=== PATIENT | female | born 1955 | race Caucasian/White ===

== ENCOUNTER → 2023-10-26 06:25 | Day surgery (SDC) | payer MEDICARE, OTHER, SELFPAY | LOC: GI 06:25 | PROVIDERS: ATTENDING PHYSICIAN Internal Medicine Gastroenterology | DX: D50.0 Iron deficiency anemia secondary to blood loss (chronic) (principal); R63.4 Abnormal weight loss; R19.5 Other fecal abnormalities; K22.2 Esophageal obstruction; K44.9 Diaphragmatic hernia without obstruction or gangrene; K31.89 Other diseases of stomach and duodenum; K92.2 Gastrointestinal hemorrhage, unspecified; K22.89 Other specified disease of esophagus | CPT/HCPCS: 43239; 88305; 88342 ==

== ENCOUNTER 2024-01-04 15:26 | Inpatient (IN) | payer MEDICARE, OTHER, SELFPAY ==
[2024-01-04] VITALS (9 sets, daily range): BP systolic 88–125; BP diastolic 58–75; BMI 16.8
--- NOTE | 2024-01-04 12:09 | EDRN ---
Assisted the patient to the bathroom and settleted her on the toilet. Patient removed the hat that was for urine collection stating she needed to have a BM. Patient then urinated in the toilet and no BM. Unable to obtain urine specimen at this time.
--- NOTE | 2024-01-04 12:21 | ED.GENMED ---
History of Present Illness
General
Chief Complaint: Alcohol Problem
Source: patient
Exam Limitations: none
Time Seen by Provider: 01/04/24 11:54
Nursing documentation reviewed up to this point in time: agreed with
Travel History
Have you had any contact with someone who has COVID-19?: No
Do you have any symptoms of coronavirus? Fever > 100 degrees, chills, cough, shortness of breath, sore throat, loss of taste or smell, muscle aches, or headache?: No
History of Present Illness
History of Present Illness:
Patient is a 68-year old female with past medical history of alcohol abuse hypertension abdominal aortic aneurysm anxiety depression presents to the ER with 2 sisters. Patient is requesting alcohol detox. She has a history of alcohol abuse and has
been drinking for at least 2 months. She however complains of feeling very weak reports family states pt can barely walk to the bathroom and back she is using a cane mode at home. They believe it is because she does not walk at all. They state
they spoke to ADAMARIS with [employer]. Family reports patient is losing weight but not eating. Patient denies any headache though she reports she fell several weeks ago family is concerned that she may have fallen more recently as she has been
intoxicated and may not recall. Patient denies any abdominal pain chest pain shortness of breath nausea vomiting.
Patient has no history of withdrawal seizures.
Review of Systems
Review of Systems
Allergies reviewed?: Yes
All Other Systems: ROS reviewed and negative except as documented in HPI and ROS
Constitutional: Reports fatigue; Denies fever
Respiratory: Reports no symptoms; Denies trouble breathing
Cardiac: Reports no symptoms
ABD/GI: Reports no symptoms
Musculoskeletal: Reports no symptoms
Skin: Reports no symptoms
Psychiatric: Reports no symptoms
Phy Exam
General Physical Exam
General Presentation: no apparent distress
General age: appears stated age
General Skin: warm and dry
General Habitus: elderly
General Mental: alert
General Hydration: dry mucous membranes
Scores
Withdrawal Assessment of Alcohol
Withdrawal Assessment Completed?: Not applicable
Course
Orders/Labs/Results
Orders:
Orders
01/04/24 12:20
CT Head W/o Iv Contrast Urgent
Comment:
Reason For Exam: head injury
Urinalysis Reflex To Culture Urgent
Date Specimen was Collected: 01/04/24
Time Specimen was Collected: 12:23
01/04/24 12:41
Complete Blood Count/With Diff Urgent
Comprehensive Metabolic Panel Urgent
01/04/24 13:17
Physical Therapy Consult [Pt Eval And Treat] Urgent
Activity Level: Ambulate
01/04/24 13:54
0.9% Sodium Chloride 1000 ml [Nss] 1,000 ml IV BOLUS
Abnormal Lab Results
01/04/24
12:41
RBC 3.13 L 10^6/uL
(4.20-5.40)
Hgb 9.6 L g/dL
(12.0-16.0)
Hct 28.3 L %
(37.0-47.0)
Plt Count 124 L 10^3/uL
(130-400)
Abs Immat Gran (auto) 0.1 H 10^3/uL
(0-0.05)
Absolute Lymphs (auto) 0.3 L 10^3/uL
(1.2-3.4)
Absolute Monos (auto) 0.8 H 10^3/uL
(0.1-0.6)
Immature Gran % 1.7 H %
(0-0.5)
Lymphocytes % 7.1 L %
(20.5-51.1)
Monocytes % 15.7 H %
(1.7-9.3)
Sodium 128 L mmol/L
(135-145)
Chloride 83 L mmol/L
(98-107)
BUN 32 H mg/dl
(7-17)
Glucose 131 H mg/dl
(70-99)
Total Bilirubin 1.7 H mg/dl
(0.2-1.3)
AST 254 H U/L
(14-36)
ALT 97 H U/L
(0-35)
Alkaline Phosphatase 205 H U/L
(38-126)
01/04/24 12:41
01/04/24 12:41
Vital Signs
Initial and Last Documented VS:
Initial Vital Signs
Temp Pulse Resp BP Pulse Ox
98.6 F 89 18 88/59 100
01/04/24 11:26 01/04/24 11:26 01/04/24 11:26 01/04/24 11:26 01/04/24 11:26
Last Documented Vital Signs
Temp Pulse Resp BP Pulse Ox
98.6 F 89 18 99/71 100
01/04/24 11:26 01/04/24 11:26 01/04/24 11:26 01/04/24 13:49 01/04/24 11:26
MDM/Problems Addressed
Differential Diagnosis Includes:
Not limited to alcohol abuse, anemia, lecture abnormality, hyponatremia
MDM/Problems Addressed:
Patient is a 68-year-old female who presented to the ER for evaluation for alcohol detox however is also very weak. Patient lives alone can barely walk to the bathroom has been using a bedside commode here. She admits to drinking alcohol yesterday
did not drink alcohol today. No prior history withdrawal seizures. She arrives initially willing to get help with family at bedside she however is very generalized weak on exam with a sodium of 128, she is anemic at 9.6.
Patient presents awake alert no acute distress here appears to be generally weak. She needed assistance to ambulate to the bathroom and was not able to get herself up off the toilet.
With hyponatremia anemia will admit to the hospital.
Will give fluids as she is dehydrated the BUN of 32. Patient also hypertensive. LFTs are also elevated. No prior labs for comparison.
1357: Discussed with admitting hospitalist
Chronic conditions affecting care:
Alcohol abuse
*Pulse Oximetry
Patient hypoxic: no
*Critical Care Note
Total Time (30-74mins, 75-104mins- exclusive of procedures): Not Applicable
ED Attending Note
-
Portions of this chart may have been created with voice recognition software.� Occasional wrong word or��sound alike� substitutions may have occurred due to the inherent limitations of voice recognition software.
Discharge Plan
Departure
Patient Disposition: Admit
Date of Disposition: 01/04/24
Time of Disposition: 13:58
Admit to: Med/Surg
Admit to doctor: hospitalist
Presentation/result/management discussed w/ accepting MD/DO: Hospitalist
Patient with high blood pressure during this ER visit?: Yes
Condition: Fair
Covid-19: Not Applicable
Discharge Problem:
Alcohol abuse, Weakness, Acute hyponatremia, Anemia
Referrals:
Remberto Collazo CRNP [Family Provider] -
Interventions
Interventions:
*Risk Screen - Suicide Last Done: 01/04/24 11:26
*General Assessment Last Done: 01/04/24 11:26
*Neglect/Abuse Screening Last Done: 01/04/24 11:26
*ED COVID-19 Vaccine History Last Done: 01/04/24 11:26
Discharge Date and Time
Print Language: BELARUSIAN
[2024-01-04 13:02] LABS: % Basophils 0.6 % (0-2); % Immature Granulocytes 1.7 % (0-0.5); % Lymphocytes 7.1 % (20.5-51.1); % Monocytes 15.7 % (1.7-9.3); % Neutrophils 74.9 % (42.2-75.2); Absolute Immature Granulocytes 0.1 10^3/uL (0-0.05); Absolute Lymphocytes 0.3 10^3/uL (1.2-3.4); Absolute Monocytes 0.8 10^3/uL (0.1-0.6); Absolute Neutrophils 3.6 10^3/uL (1.4-6.5); Hematocrit 28.3 % (37.0-47.0); Hemoglobin 9.6 g/dL (12.0-16.0); Mean Corp Hgb Conc. 33.9 g/dL (33.0-37.0); Mean Corpuscular Hgb 30.7 pg (27.0-31.0); Mean Corpuscular Volume 90.4 fL (81.0-99.0); Mean Platelet Volume 10.4 fL (7.4-10.4); Nucleated Red Blood Cells % 0.6 %; Platelet Count 124 10^3/uL (130-400); Red Blood Cell Count 3.13 10^6/uL (4.20-5.40); White Blood Cell Count 4.8 10^3/uL (4.8-10.8)
[2024-01-04 13:23] LABS: ALT (SGPT) 97 U/L (0-35); AST (SGOT) 254 U/L (14-36); Albumin 3.7 g/dl (3.5-5.0); Alkaline Phosphatase 205 U/L (38-126); Blood Urea Nitrogen 32 mg/dl (7-17); Calcium 9.2 mg/dl (8.4-10.2); Carbon Dioxide 29 mmol/L (22-30); Chloride 83 mmol/L (98-107); Glucose 131 mg/dl (70-99); Potassium 3.5 mmol/L (3.5-5.1); Sodium 128 mmol/L (135-145); Total Bilirubin 1.7 mg/dl (0.2-1.3); Total Protein 6.5 g/dl (6.3-8.2); eGFR > 60.00
[2024-01-04] MEDS: NSS 1000 IV ×2 (14:56→17:08)
--- NOTE | 2024-01-04 15:47 | HPS.HSE ---
Family Physician
-
Family Physician: ARELY Borrero
Chief Complaint
-
Alcohol detox evaluation/weakness
History of Present Illness
This is a 68-year-old female patient with PMH of anxiety, depression, Hx of alcohol abuse, hypertension,AAA, gastritis, chronic anemia and PVD presenting to the ED for alcohol detoxification and weakness. Patient states that she has been drinking
for over 10 years and that she drinks a pint of vodka every day. She tried to be sober for about 3 months last year and during that time says that she had no withdrawal seizures. She states her last drink was yesterday. She said that she suffered
a fall several weeks ago (?Alcoholic intoxication) and had just a 'black eye'. She also states that she has poor appetite and loss of weight. She also reports that she has been feeling very weak and family states that she struggles to walk around
her home. She lives at home alone and uses a cane for ambulation. Patient is also a current smoker and says that she is smokes less than half a pack a day. She presented to the ED with 2 sisters who stated that they brought her in for help, they
noticed that her house was in a 'unlivable' state. Patient also says that she has been feeling stress due to her sister passing away and the loss of her job.
Medical History
Past Medical History
Past Medical History: Reports HTN and Psychiatric (Anxiety, depression)
Additional Past Medical History:
Gastrointestinal hemorrhage, chronic iron deficiency anemia, Hx of alcohol abuse, abdominal aortic aneurysm, peripheral vascular disease
Past Surgical History: Reports Other (Bilateral common iliac stent endovascular)
Social History
Tobacco: Smoker (Smokes half a pack a day)
Alcohol: Daily (1 pint of vodka)
Living: Alone
Employment: Not Employed
Family History
Family History: Not pertinent
Allergies / Home Medications
Allergies reflects when Allergies were last updated in [facility].
Home Medications with original date entered in [facility]
Home Medications
�Medication �Instructions �Recorded
escitalopram oxalate 20 mg tablet 20 mg PO DAILY 01/04/24
nifedipine 90 mg tablet,extended 90 mg PO DAILY 01/04/24
release
omeprazole 20 mg capsule,delayed 20 mg PO DAILY 01/04/24
release
Allergy/Medication List:
Patient Allergies
Allergy/AdvReac Type Severity Reaction Status Date / Time
No Known Allergies Allergy Unverified 01/04/24 11:27
Review of Systems
-
History Source: Patient
A 12 point ROS was completed and negative except as noted: Yes
Physical Exam
Vital Signs
Vital Signs
Temp Pulse Resp BP Pulse Ox
98.6 F 89 18 99/71 100
01/04/24 11:26 01/04/24 11:26 01/04/24 11:26 01/04/24 13:49 01/04/24 11:26
Physical Exam
General: No Apparent Distress and Cachectic
HEENT: NormoCephalic
Respiratory: Clear
Cardiac: S1/S2 and Regular Rhythm; No Murmur
GI: Soft, Non Tender and Non Distended
Musculoskeletal: No Edema
Skin: Dry
Neuro: Awake, Alert and Oriented
Psych: Calm
Laboratory Results
-
01/04/24 12:41
01/04/24 12:41
Laboratory Results
Total Bilirubin 1.7 mg/dl (0.2-1.3) H 01/04/24 12:41
AST 254 U/L (14-36) H 01/04/24 12:41
ALT 97 U/L (0-35) H 01/04/24 12:41
Alkaline Phosphatase 205 U/L (38-126) H 01/04/24 12:41
Impression/Plan
-
IMPRESSION: This is a 68-year-old female patient with PMH of anxiety, depression, Hx of alcohol abuse, hypertension,AAA, gastritis, chronic anemia and PVD presenting to the ED for alcohol detoxification, loss of appetite and weakness.
PLAN:
# Alcoholic intoxication/Cachectic
�CT head : No acute intracranial abnormality identified, probable small mastoid effusion
-MSAS protocol initiated
� Alcohol level pending
� Initiated thiamine and folate, IVF
-Patient appears cachectic
-PT/OT consulted
� Monitor for alcohol withdrawal seizures
#Hypovolemic hyponatremia (likely due to dehydration/contraction alkalosis)
-Initiated IVF
� Urine studies (urine sodium, creatinine, osmolality) pending
� TSH pending
� CXR pending (possible pna causing hyponatremia)
-Monitor CMP in a.m.
# Chronic microcytic anemia/weight loss
-Iron studies, B12 pending
� Monitor H&H
# Essential HTN
� Hold nifedipine as patient is hypotensive
# Transaminitis
-Increased LFTs (AST 254)
�Likely due to alcoholic hepatitis
-Monitor cmp in AM
# Current smoker
-Started nicotine patch 21 mg
#Anxiety/Depression
-continue escitalopram
DVT ppx: Hep subq 5000u Q12
Code: DNR
[2024-01-04] MEDS: KCL 40 MEQ PO (15:50)
--- NOTE | 2024-01-04 16:10 | EDRN ---
Patient has ambulated to the bathroom several times as she states she needs to urinate. Patient has been incontinent urine in hospital supplied diaper several times now.
--- NOTE | 2024-01-04 16:14 | W.PN.UPDATE ---
Update Note
Progress Note Update
Patient seen and examined
Discussed with patient
Impression:
68 years old female with severe alcohol use disorder presented with generalized fatigue and weakness, inability to perform activities of daily living, poor oral intake.
Severe alcohol use disorder.
Patient reports drinking daily mostly vodka.
Alcohol level pending.
Patient reports no prior history of delirium tremens or alcohol related seizure.
Monitor closely.
Initiate MSAs protocol with lorazepam.
If any evidence of withdrawal/impending DT, would be low threshold for initiation of phenobarbital
Continue thiamine
Exam with no focal neurologic abnormalities.
CT scan of the head negative for acute abnormality.
Dehydration with hypovolemic hyponatremia.
Hypochloremic contraction alkalosis.
Start isotonic solution and monitor response.
Monitor oral intake.
Check TSH, chest x-ray, urine osmolarity as a part of workup for hyponatremia
Continue escitalopram with caution for worsening of hyponatremia.
Chronic normocytic anemia.
Check iron studies and B12 level.
Patient with prior history of hemorrhagic gastritis.
Monitor hemoglobin with hydration, expect drop
Hemoglobin.
Continue PPI.
Thrombocytopenia suspected secondary to alcohol use
Monitor closely.
Check coagulation profile.
Abnormal LFTs mixed pattern with hyperbilirubinemia and AST/ALT ratio consistent with alcohol hepatic injury. Monitor with hydration.
Pancreatic cyst
Under surveillance with most current MRI of the abdomen 09/30.
PAD with abdominal aortic aneurysm and stent in place.
Essential hypertension.
Hold nifedipine given hypotension upon presentation.
[2024-01-04 16:42] LABS: INR 0.99; PT 12.9 Sec (11.4-14.6)
[2024-01-04 16:43] LABS: APTT 26.4 Sec (23.4-35.0)
[2024-01-04 16:45] LABS: Magnesium 1.3 mg/dl (1.6-2.3); Phosphorus 2.6 mg/dl (2.5-4.5)
[2024-01-04 16:46] LABS: Alcohol None Detected
[2024-01-04 16:49] LABS: Alcohol None Detected
[2024-01-04 16:51] LABS: B-Hydroxybutyrate 0.32 mmol/L (0.02-0.27)
--- NOTE | 2024-01-04 17:00 | PTCARENOTE ---
Received pt from ER.Pt awake alert and oriented x3.Forgetful at times, Pt has chronic back pain, tolerable at this time. Pt VSS 99% on RA. Was told by ER staff that pt has not voided so they were unable to obtain specimen. Pt arrived to floor and
went right into bathroom, pt unsure if she voided or not, bladder scan results 0ml, Pt on IVF, Md aware of decreased urine output. Pt also had a loose dark stool, heme positive, MD made aware, Pt has no c/o abd pain or nausea. Pt on MSAS protocol.
Pt oriented to room, call mendes within reach, bed alarm placed for safety, sisters at bedside, plan of care ongoing.
[2024-01-04] MEDS: MAGNESIUM OXIDE 500 MG PO (17:09)
[2024-01-04] MEDS: FOLVITE 1 MG PO (17:09)
[2024-01-04] MEDS: NICODERM TRANSDERMAL 21 MG TRANSDERM (17:09)
[2024-01-04 17:21] LABS: TSH Reflex To Free T4 2.16 uIU/ml (0.47-4.68)
[2024-01-04 17:33] LABS: GGTP 2323 U/L (12-43)
[2024-01-04 17:40] LABS: Vitamin B12 924 pg/ml (239-931)
[2024-01-04] MEDS: PROTONIX IV 40 MG IV (18:33)
[2024-01-04] MEDS: NSS (PRESERVATIVE FREE) 10 ML IV (18:33)
[2024-01-04 18:35] LABS: Hematocrit 24.5 % (37.0-47.0); Hemoglobin 8.3 g/dL (12.0-16.0); Mean Corp Hgb Conc. 33.9 g/dL (33.0-37.0); Mean Corpuscular Hgb 29.9 pg (27.0-31.0); Mean Corpuscular Volume 88.1 fL (81.0-99.0); Mean Platelet Volume 9.7 fL (7.4-10.4); Platelet Count 117 10^3/uL (130-400); Red Blood Cell Count 2.78 10^6/uL (4.20-5.40); Red Cell Dist. Width 25.6 % (11.5-14.5); White Blood Cell Count 4.9 10^3/uL (4.8-10.8)
[2024-01-04] MEDS: HEPARIN 5000 UNITS SC (19:51)
[2024-01-04] MEDS: THIAMINE INJECTION 200 MG IV (19:53)
--- NOTE | 2024-01-05 01:08 | PTCARENOTE ---
Pt states while on bedside commode she voided, but also had another liquid bowel movement at that time as well so urine was not seen in BSC. Bladder scanned pt for 16 cc. Pt without any complaints of abdominal pain or feeling the need to void. Plan
of care ongoing
[2024-01-05] MEDS: NSS 1000 IV ×2 (03:59→17:03)
[2024-01-05 07:20] LABS: % Basophils 0.5 % (0-2); % Eosinophils 1.6 % (0-6); % Immature Granulocytes 1.4 % (0-0.5); % Monocytes 16.9 % (1.7-9.3); % Neutrophils 60.6 % (42.2-75.2); Absolute Eosinophils 0.1 10^3/uL (0-0.7); Absolute Immature Granulocytes 0.1 10^3/uL (0-0.05); Absolute Lymphocytes 0.8 10^3/uL (1.2-3.4); Absolute Monocytes 0.7 10^3/uL (0.1-0.6); Absolute Neutrophils 2.6 10^3/uL (1.4-6.5); Hematocrit 23.5 % (37.0-47.0); Hemoglobin 7.8 g/dL (12.0-16.0); Mean Corp Hgb Conc. 33.2 g/dL (33.0-37.0); Mean Corpuscular Volume 90.4 fL (81.0-99.0); Mean Platelet Volume 10.9 fL (7.4-10.4); Nucleated Red Blood Cells % 0 %; Platelet Count 106 10^3/uL (130-400); Red Cell Dist. Width 25.8 % (11.5-14.5); White Blood Cell Count 4.3 10^3/uL (4.8-10.8)
[2024-01-05 07:57] LABS: Anisocytosis 2+; Hypochromasia 2+; Normal RBC Morphology No
[2024-01-05 07:58] LABS: ALT (SGPT) 80 U/L (0-35); AST (SGOT) 149 U/L (14-36); Alkaline Phosphatase 160 U/L (38-126); Blood Urea Nitrogen 24 mg/dl (7-17); Calcium 8.5 mg/dl (8.4-10.2); Carbon Dioxide 28 mmol/L (22-30); Chloride 92 mmol/L (98-107); Estimated Creatinine Clearance 52 ml/min; Glucose 102 mg/dl (70-99); Iron 85 ug/dl (37-170); Potassium 3.8 mmol/L (3.5-5.1); Sodium 126 mmol/L (135-145); Total Protein 5.5 g/dl (6.3-8.2); eGFR > 60.00
[2024-01-05 07:59] LABS: Stomatocytes 1+
[2024-01-05 08:00] VITALS: BP 121/78
[2024-01-05 08:08] LABS: Percent Saturation 45 % (20-50); Total Iron Binding Capacity 186 ug/dl (265-497)
[2024-01-05] MEDS: LEXAPRO 20 MG PO (08:31)
[2024-01-05] MEDS: FOLVITE 1 MG PO (08:31)
[2024-01-05] MEDS: THIAMINE INJECTION 200 MG IV ×2 (08:32→19:26)
[2024-01-05] MEDS: NICODERM TRANSDERMAL 21 MG TRANSDERM (08:32)
[2024-01-05] MEDS: PROTONIX IV 40 MG IV ×2 (08:32→19:26)
[2024-01-05] MEDS: NSS (PRESERVATIVE FREE) 10 ML IV ×2 (08:32→19:26)
--- NOTE | 2024-01-05 08:39 | W.PN.HOSP.TC ---
Addendum entered and electronically signed by Sim Husain MD 01/05/24 14:38:
Patient seen and examined
Discussed with resident
Discussed with nursing
Impression/plan
Presented with generalized fatigue and weakness and low oral intake.
No focal neurologic findings on exam
CT scan of head without acute abnormalities
Severe alcohol use disorder
Alcohol level undetectable upon admission.
At risk for delirium tremens
Continue close monitoring with MSAS protocol and benzodiazepines.
Continue thiamine
Alcoholic hepatitis, mild LFT elevation.
Currently no indication for corticosteroids.
Monitor closely
Dehydration with hypovolemic hyponatremia.
Starvation metabolic acidosis with contraction alkalosis.
Monitor oral intake
Hyponatremia.
TSH within normal limits chest x-ray with no acute abnormalities.
Given hypotension on presentation continue isotonic solution and follow sodium trend.
Check urine osmolarity and urine sodium.
Acute on chronic normocytic anemia
Heme positive
No evidence of acute/brisk blood loss. Hemoglobin drop likely due to dilution
Patient with prior history of hemorrhagic gastritis on recent EGD.
Iron level sufficient.
GI input appreciated
Continue PPI for
Monitor hemoglobin
Pancytopenia including mild neutropenia and thrombocytopenia likely secondary to sequestration and liver disease. Monitor closely.
Pancreatic cyst under surveillance
PAD with abdominal aortic aneurysm and stent in place
Essential hypertension
Hold nifedipine given hypotension upon admission
Monitor blood pressure with hydration.
Original Note:
Today's Communication/Plan
-
Continue MSAs protocol with lorazepam
Urine studies pending, monitor CMP in a.m.
GI consult pending
Assessment / Plan
Assessment / Plan
IMPRESSION: This is a 68-year-old female patient with PMH of anxiety, depression, Hx of alcohol abuse, hypertension,AAA, gastritis, chronic anemia and PVD presenting to the ED for alcohol detoxification, loss of appetite and weakness.
PLAN:
# Severe alcohol use disorder/Cachectic
�CT head : No acute intracranial abnormality identified, probable small mastoid effusion
-MSAS protocol initiated with lorazepam
� Alcohol level: none dectected
�Continue thiamine and folate, IVF
-Patient appears cachectic
-PT/OT consulted
� Monitor for alcohol withdrawal seizures
#Hypovolemic hyponatremia (likely due to dehydration/hypochloremic contraction alkalosis)
-Continue IVF
� Urine studies (urine sodium, creatinine, osmolality) pending
� TSH normal
� CXR showed hyperinflation
-Sodium decreased today 126
-Monitor CMP in a.m.
# Chronic microcytic anemia/weight loss
-Iron studies: TIBC decreased, ferritin,% saturation and iron levels normal
-Hemoglobin decreased to 7.8 today
� GI consulted due to prior history of gastrointestinal hemorrhage and positive Hemoccult test
-B12 level normal
� Monitor H&H
#C.Diff antigen positive, toxin negative
-no frequent loose stools, afebrile
-Not likely to be C. difficile
� Monitor for frequent loose stools, cbc
# Essential HTN
� Hold nifedipine as patient is hypotensive
# Transaminitis
�Likely due to alcoholic hepatitis
-LFTs trending down
-Monitor cmp in AM
# Current smoker
-Continue nicotine patch 21 mg
#Anxiety/Depression
-continue escitalopram
DVT ppx: Hep subq 5000u Q12
Code: DNR
Anticipated Discharge: 24 - 48 hours
Subjective/Interval History
-
Date of Service: January 05, 2024
Objective Data
-
Labs:
Laboratory Results
01/05/24
06:39
WBC 4.3 L
Hgb 7.8 L
Hct 23.5 L
Plt Count 106 L
Sodium 126 L
Potassium 3.8
Chloride 92 L
Carbon Dioxide 28
BUN 24 H
Creatinine 0.8
Glucose 102 H
Calcium 8.5
Total Bilirubin 1.0
AST 149 H
ALT 80 H
Alkaline Phosphatase 160 H
Vital Signs:
Vital Signs
Temp Pulse Resp BP Pulse Ox
97.8 F 76 16 121/78 99
01/05/24 08:00 01/05/24 08:00 01/05/24 08:00 01/05/24 08:00 01/05/24 08:00
I&O
01/04/24 01/05/24 01/06/24
06:59 06:59 06:59
Intake Total 290 / 290
Balance 290 / 290
Review of Systems
-
History Source: Patient
All other systems: Reviewed and negative
Physical Exam
-
General: No Apparent Distress
HEENT: Normocephalic
Respiratory: Clear to Auscultation
Cardiac: Regular Rhythm and S1/S2; Negative Murmur
GI: Soft, Nontender and Nondistended
Musculoskeletal: No Edema
Skin: Dry
Neuro: Awake, Alert and Oriented
Psych: Calm
[2024-01-05] MEDS: HEPARIN SC (10:02)
--- NOTE | 2024-01-05 12:23 | CON.GI ---
Consultation
-
Date/Time Consultation Requested: 01/05/24
Date/Time Consultation Performed: 01/05/24
Requesting Provider: Sim Husain
Performing Provider: Lisa Breaux
Reason for Consultation: Lisa Breaux
Medical History
Chief Complaint / HPI
Chief Complaint: lethargy, anorexia, weight loss, RIO
History of Present Illness:
Melissa is a 68-year-old female with past medical history of anxiety, depression, hypertension, Raynaud's, DDD of the lumbar spine, hyperlipidemia, alcoholism, AAA, admitted with alcohol intoxication and weakness. She reports anorexia, known
unintentional weight loss over the last year, increased alcohol consumption and lethargy. She is currently drinking approximately a pint of vodka daily. Interested in inpatient rehab when ready for discharge. She denies any history of withdrawal
symptoms or seizures. Last drink was 2 days ago.
--Labs: 7.0 (down from 9.6 yesterday), plt 106, Na 126 (128), K 3.8, Cl 92, BUN 24 (32), Cr. 0.8, Mg 1.3, Iron 85, % sat 45, AST 149 (254), ALT 80 (97), Alk phos 160 (205), Vit B12 WNL, TSH WNL
She follows with Dr. Santana in the office, referred due to unintentional weight loss and heme positive stool. She admitted to 20 lb weight loss since April, also noting tremendous amount of stress and anxiety after losing her job and of her
sister. She reported increased EtoH use- was drinking 3-4 glassess of vodka daily for many years, she had quit in July, was sober for about 3 months then relapsed. It was recommended that she get cross-sectional imaging due to her reports of
unintentional weight loss and iron deficiency anemia on outpatient labs, unfortunately there was quite a bit of delay in her obtaining this. This was completed on 09/08/23, with findings of pancreatic mass c/f malignancy (additional findings below).
She reports having intermittent dark stool in the months leading up to her office visit in August. She takes daily ASA 81 mg, denies excessive NSAID use or anticoagulation. She admits to daily tobacco use. Denies family history of GI malignancy.
Both sister and father had colon polyps.
She underwent a EGD with Dr. Santana on 10/26/2023 for iron deficiency anemia, heme positive stool and weight loss, found to have white nummular lesions in the esophagus, nonobstructing Schatzki's ring, small hiatal hernia. Hematin in the stomach.
Erythematous mucosa in the gastric body and antrum. Colonoscopy was being rescheduled, it was cancelled for unclear reasons. FIT positive (08/14/23). Her hemoglobin on 08/14/2023 was 10, MCV 96, platelets 270. Fe 24, Iron sat 5.
CT A/P (09/08/23):
IMPRESSION:
1. There is a 3.9 cm infrarenal abdominal aortic aneurysm. Dense calcification of the aorta. The findings are consistent with prior aorta bi-iliac stent graft. Please correlate with previous history.
2. Severe narrowing of the proximal aorta at least 50% at the level of the celiac axis and SMA.
3. Large 2 cm hypodensity in the region of the pancreatic uncinate process concerning for malignancy until proven otherwise. Contrast-enhanced MRI of the pancreas is recommended. The differential includes the possibility of a fluid-filled duodenal
diverticulum, however much less likely. There is a Smaller 9 mm hypodense lesion at the junction of the head and neck of the pancreas which could also be reevaluated.
4. Probable adenoma in the left adrenal gland. Follow-up with MRI at the time of imaging for the pancreas.
5. Tiny cyst in the left kidney.
6. No significant para-aortic adenopathy. No adenopathy in the chest. No acute process in the chest.
7. There are 2 tiny 3 mm faint pulmonary nodules as described above. Nonspecific.
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 Recommend MRI/MRCP vs. EUS in 6 months.
Past Medical History
Past Medical History: Hypercholesterolemia, Hyperthyroidism and Psychiatric
Social History
Tobacco: Smoker
Alcohol: Daily
Allergies / Home Medications
Allergy/AdvReac Type Severity Reaction Status Date / Time
No Known Allergies Allergy Unverified 01/04/24 11:27
�Medication �Instructions �Recorded
escitalopram oxalate 20 mg tablet 20 mg PO DAILY 01/04/24
nifedipine 90 mg tablet,extended 90 mg PO DAILY 01/04/24
release
omeprazole 20 mg capsule,delayed 20 mg PO DAILY 01/04/24
release
Review of Systems
-
History Source: Patient and Family (sister at bedside)
All other systems: A 12 pt ROS was Negative except as stated above in HPI
Vital Signs
Temp Pulse Resp BP Pulse Ox
97.8 F 76 16 121/78 99
01/05/24 08:00 01/05/24 08:00 01/05/24 08:00 01/05/24 08:00 01/05/24 08:00
Physical Exam
Exam
General: No Apparent Distress and Comfortable
HEENT: Normocephalic and Moist Mucous Membranes
Respiratory: Clear
Cardiac: S1/S2
GI: Soft, Non Tender and Non Distended
Skin: Warm and Dry
Neuro: Awake, Alert and Oriented
Psych: Calm
Results
WBC 4.3 10^3/uL (4.8-10.8) L 01/05/24 06:39
Hgb 7.8 g/dL (12.0-16.0) L 01/05/24 06:39
Hct 23.5 % (37.0-47.0) L 01/05/24 06:39
MCV 90.4 fL (81.0-99.0) 01/05/24 06:39
Plt Count 106 10^3/uL (130-400) L 01/05/24 06:39
Absolute Neuts (auto) 2.6 10^3/uL (1.4-6.5) 01/05/24 06:39
PT 12.9 Sec (11.4-14.6) 01/04/24 16:25
INR 0.99 01/04/24 16:25
APTT 26.4 Sec (23.4-35.0) 01/04/24 16:25
Sodium 126 mmol/L (135-145) L 01/05/24 06:39
Potassium 3.8 mmol/L (3.5-5.1) 01/05/24 06:39
Chloride 92 mmol/L (98-107) L 01/05/24 06:39
Carbon Dioxide 28 mmol/L (22-30) 01/05/24 06:39
BUN 24 mg/dl (7-17) H 01/05/24 06:39
Creatinine 0.8 mg/dL (0.6-1.0) 01/05/24 06:39
Calcium 8.5 mg/dl (8.4-10.2) 01/05/24 06:39
Total Bilirubin 1.0 mg/dl (0.2-1.3) 01/05/24 06:39
AST 149 U/L (14-36) H 01/05/24 06:39
ALT 80 U/L (0-35) H 01/05/24 06:39
Alkaline Phosphatase 160 U/L (38-126) H 01/05/24 06:39
Diagnostic Image Results:
Prior GI Procedures:
EGD:
Colonoscopy:
Assessment / Plan
-
68-year-old female with past medical history of anxiety, depression, hypertension, Raynaud's, DDD of the lumbar spine, hyperlipidemia, alcoholism, AAA, admitted with alcohol intoxication and weakness. She reports anorexia, known unintentional weight
loss over the last year, increased alcohol consumption and lethargy.
#Alcohol Hepatitis c/b starvation ketosis
-AST 254, ALT 97, Alk phos 205, Tbili 1.7 on admission, improving --> AST 149, ALT 80, Alk phos 160
-MDF <32 --> no role for steroids
-c/w thiamine, folate
-alcohol level undetectable
-IVF
-MSAS protocol
-monitor for withdrawal
#Elevated Transaminases
-TSH WNL
-check hepatitis panel
-likely 2/2 alc hep, improving since admission
#Thrombocytopenia
-suspect due to splenic sequestration in setting of chronic alc consumption
-coags WNL
#Pancreatic cyst/IPMN
-Due for EUS vs. MRI/MRCP 03/2024
#Positive FIT
#Iron Deficiency Anemia
-hemoglobin worse compared to prior, likely some dilutional effect as no signs of active GI bleeding
-start PPI
-s/p EGD, needs colonoscopy
-given substantial barriers to outpatient testing, will plan to perform while inpatient. Will tentatively plan to prep her tomorrow and perform on , pending improving in her electrolytes and no withdrawal symptoms
#Unintentional Weight Loss
-suspect multifactorial; comprehensive workup as outpatient with CT A/P, MRI/MRCP, findings as per above
#Hypovolemic Hyponatremia
-due to poor oral intake, excessive alcohol consumption
-hypomag
-urine studies, serum osm, needs appropriate correction and electrolyte repletion
Data Reviewed
-
CT Scan: Report Reviewed by me
MRI: Report Reviewed by me
Old Records: Reviewed
Time spent with patient (in minutes): Discussed all findings with both patient and her sister, who was at bedside
-
-
Thank you for consultation and allowing me to participate in the patient's care. Please call the song and dance performer GI physician during the after hours with any questions or concerns.
--- NOTE | 2024-01-05 13:34 | CM ---
Addendum entered by Elsie Bess 01/05/24 13:54:
Spoke with Gal from [facility] in person; demographic and clinical information copied and given to Gal to submit for rehab placement
Original Note:
Met with patient at bedside; initial assessment; Case Management Consult completed
Pharmacy verified: [facility], [facility]
Lives alone in a multilevel home; 4 steps to enter via back door; railing present; lives on first floor of house; 1st floor does not have a bathroom; toilet on Commode; drives to her sister's house to shower/bathe; sisters live nearby
Reported that her Food is supplied by [employer]
PLOF: reports she shuffles when she walks; uses a cane to get up from chair, does not go up the stairs unless someone is there to assist her; independent with ADLs;
DME: single point cane
Transportation: one of her sisters will provide transport
SNF/Rehab/Home Health utilization history: none
Plan: [facility] following; will discharge to alcohol rehab when medically stable
[2024-01-05 14:53] VITALS: BMI 16.8
[2024-01-05 15:17] VITALS: BP 116/78
--- NOTE | 2024-01-05 18:06 | PTCARENOTE ---
Pt voids small amount of urine at a time, mixed with BM. Patient was blader scanned multiple times, with small amount of urine(0cc,20cc) in bladder on all tries. Patient is encouraged to void in hat without a bowel movement.
[2024-01-05] MEDS: HEPARIN 5000 UNITS SC (19:26)
[2024-01-05 22:15] LABS: Urine Albumin Negative (Neg - Trace); Urine Bilirubin Negative (Negative); Urine Character Slightly Cloudy (Clear); Urine Color Yellow; Urine Glucose Negative (Negative); Urine Ketone Negative (Negative); Urine Leukocyte 2+ (Negative); Urine Nitrite Positive (Negative); Urine Occult Blood Negative (Negative); Urine Specific Gravity 1.005 (<1.030); Urine Urobilinogen Negative (Neg - 1+)
[2024-01-05 22:21] LABS: Urine Red Blood Cell 0-2 /HPF (0-2); Urine Squamous Cell 16-20 /LPF (Few); Urine Urothelial Cell 0-2 /LPF (FEW)
[2024-01-05 22:22] LABS: Urine Bacteria Many (Negative); Urine White Cell 26-30 /HPF (0-5)
[2024-01-05 22:53] LABS: Osmolality Urine 289 mOsm/kg (300-900)
[2024-01-05 23:00] LABS: Amphetamines Negative (Negative); Barbiturates Negative (Negative); Benzodiazepines Negative (Negative); Buprenorphine Negative (Negative); Cocaine Negative (Negative); Marijuana Negative (Negative); Methadone Negative (Negative); Methamphetamines Negative (Negative); Opiates Negative (Negative); Phencyclidine Negative (Negative); Tricyclic Antidepressants Negative (Negative)
[2024-01-05 23:11] LABS: Urine Sodium 40 mmol/L (30-90)
[2024-01-05 23:20] VITALS: BP 110/64
[2024-01-06] MEDS: NSS 1000 IV (03:05)
[2024-01-06 07:38] LABS: % Basophils 0.3 % (0-2); % Eosinophils 2.4 % (0-6); % Immature Granulocytes 2.4 % (0-0.5); % Lymphocytes 18.7 % (20.5-51.1); % Monocytes 14.8 % (1.7-9.3); % Neutrophils 61.4 % (42.2-75.2); Absolute Eosinophils 0.1 10^3/uL (0-0.7); Absolute Immature Granulocytes 0.1 10^3/uL (0-0.05); Absolute Lymphocytes 0.6 10^3/uL (1.2-3.4); Absolute Monocytes 0.5 10^3/uL (0.1-0.6); Absolute Neutrophils 2.1 10^3/uL (1.4-6.5); Hematocrit 21.4 % (37.0-47.0); Mean Corp Hgb Conc. 32.7 g/dL (33.0-37.0); Mean Corpuscular Hgb 30.2 pg (27.0-31.0); Mean Corpuscular Volume 92.2 fL (81.0-99.0); Nucleated Red Blood Cells % 0 %; Red Blood Cell Count 2.32 10^6/uL (4.20-5.40); White Blood Cell Count 3.4 10^3/uL (4.8-10.8)
[2024-01-06 08:01] LABS: ALT (SGPT) 61 U/L (0-35); AST (SGOT) 139 U/L (14-36); Albumin 2.4 g/dl (3.5-5.0); Alkaline Phosphatase 126 U/L (38-126); Blood Urea Nitrogen 13 mg/dl (7-17); Calcium 8.2 mg/dl (8.4-10.2); Carbon Dioxide 27 mmol/L (22-30); Chloride 99 mmol/L (98-107); Estimated Creatinine Clearance 59 ml/min; Glucose 94 mg/dl (70-99); Potassium 3.3 mmol/L (3.5-5.1); Sodium 131 mmol/L (135-145); Total Bilirubin 0.7 mg/dl (0.2-1.3); Total Protein 4.6 g/dl (6.3-8.2); eGFR > 60.00
--- NOTE | 2024-01-06 08:22 | W.PN.HOSP.TC ---
Addendum entered and electronically signed by Sim Husain MD 01/06/24 13:40:
Patient seen and examined
Discussed with resident
Discussed with gastroenterology and nursing
Impression/plan
Presented with generalized fatigue and weakness and low oral intake.
No focal neurologic findings on exam
CT scan of head without acute abnormalities
Severe alcohol use disorder
Alcohol level undetectable upon admission.
Mental status is stable with no apparent symptoms of alcohol withdrawal at this point.
Continue close monitoring with MSAS protocol and benzodiazepines.
Continue thiamine
Alcoholic hepatitis, mild LFT elevation.
Currently no indication for corticosteroids.
Monitor closely
Dehydration with hypovolemic hyponatremia.
Starvation metabolic acidosis with contraction alkalosis.
Monitor oral intake
Hyponatremia.
TSH within normal limits chest x-ray with no acute abnormalities.
Urine osmolarity increased to 289 and consistent with likely high ADH state secondary to hypotension upon presentation
Hyponatremia improved with isotonic solution sodium level up to 131.
Hypomagnesemia
Hypokalemia
Being repleted with IV fluids.
Acute on chronic normocytic anemia
Heme positive
No evidence of acute/brisk blood loss. Hemoglobin drop likely due to dilution
Patient with prior history of hemorrhagic gastritis on recent EGD.
Iron level sufficient.
GI input appreciated
Continue PPI for
Monitor hemoglobin
Being prepped for colonoscopy on 01/06
Serial hemoglobin monitoring. Transfuse if trending below 7. Patient consented for blood transfusion.
Pancytopenia including mild neutropenia and thrombocytopenia likely secondary to sequestration and liver disease. Monitor closely.
Pancreatic cyst under surveillance
PAD with abdominal aortic aneurysm and stent in place
Essential hypertension
Hold nifedipine given hypotension upon admission
Monitor blood pressure with hydration.
Original Note:
Today's Communication/Plan
-
Hemoglobin dropped to 7, blood transfusion consent taken
Colonoscopy prep today scheduled for procedure tomorrow
Continue IV fluids
Assessment / Plan
Assessment / Plan
IMPRESSION: This is a 68-year-old female patient with PMH of anxiety, depression, Hx of alcohol abuse, hypertension,AAA, gastritis, chronic anemia and PVD presenting to the ED for alcohol detoxification, loss of appetite and weakness.
PLAN:
# Severe alcohol use disorder/Cachectic
�CT head : No acute intracranial abnormality identified, probable small mastoid effusion
-MSAS protocol initiated with lorazepam
� Alcohol level: none dectected
�Continue thiamine and folate, IVF
-Patient appears cachectic
-PT/OT consulted
� Monitor for alcohol withdrawal seizures
#Hypovolemic hyponatremia (likely due to dehydration/hypochloremic contraction alkalosis)
-Continue IVF
� Urine studies: Creatinine 55, sodium 40
� TSH normal
� CXR showed hyperinflation
-Sodium increased to 131 today
� Potassium was 3.3, repleted, mag was 1.2, repleted
-Monitor CMP in a.m.
# Chronic microcytic anemia/weight loss
-Iron studies: TIBC decreased, ferritin,% saturation and iron levels normal, B12 level normal
� GI consulted due to prior history of gastrointestinal hemorrhage and positive Hemoccult test
-GI to prep patient today for colonoscopy tomorrow
-Hemoglobin dropped to 7 today, blood transfusion consent taken, will recheck hemoglobin in evening
� Monitor H&H
# Abnormal U/A (?UTI/?contamination)
� U/a showed UTI findings, may have been contaminated
� Patient is asymptomatic so we will hold off antibiotics currently
#C.Diff antigen positive, toxin negative
-no frequent loose stools, afebrile
-Not likely to be C. difficile
� Monitor for frequent loose stools, cbc
# Essential HTN
� Hold nifedipine as patient is hypotensive
# Transaminitis
�Likely due to alcoholic hepatitis
-Hepatitis panel pending
-LFTs trending down
-Monitor cmp in AM
# Current smoker
-Continue nicotine patch 21 mg
#Anxiety/Depression
-continue escitalopram
DVT ppx: Hep subq 5000u Q12
Code: DNR
Anticipated Discharge: 24 - 48 hours
Subjective/Interval History
-
Date of Service: January 06, 2024
Objective Data
-
Labs:
Laboratory Results
01/06/24
06:43
WBC 3.4 L
Hgb 7.0 L
Hct 21.4 L
Plt Count Pending
Sodium 131 L
Potassium 3.3 L
Chloride 99
Carbon Dioxide 27
BUN 13
Creatinine 0.7
Glucose 94
Calcium 8.2 L
Total Bilirubin 0.7
AST 139 H
ALT 61 H
Alkaline Phosphatase 126
Vital Signs:
Vital Signs
Temp Pulse Resp BP Pulse Ox
98.5 F 76 16 110/64 97
01/05/24 23:20 01/05/24 23:20 01/05/24 23:20 01/05/24 23:20 01/05/24 23:20
I&O
01/05/24 01/06/24 01/07/24
06:59 06:59 06:59
Intake Total 290 / 290 600 / 600
Output Total 200 / 200
Balance 290 / 290 400 / 400
Review of Systems
-
History Source: Patient
All other systems: Reviewed and negative
Physical Exam
-
General: No Apparent Distress
HEENT: Normocephalic
Respiratory: Clear to Auscultation
Cardiac: Regular Rhythm and S1/S2; Negative Murmur
GI: Soft, Nontender and Nondistended
Musculoskeletal: No Edema
Skin: Dry
Neuro: Awake, Alert and Oriented
Psych: Calm
[2024-01-06 08:23] VITALS: BP 148/82
[2024-01-06] MEDS: NSS (PRESERVATIVE FREE) 10 ML IV ×2 (08:36→19:46)
[2024-01-06] MEDS: PROTONIX IV 40 MG IV ×2 (08:36→19:46)
[2024-01-06] MEDS: THIAMINE INJECTION 200 MG IV ×2 (08:38→19:48)
[2024-01-06] MEDS: KCL 40 MEQ PO (08:39)
[2024-01-06] MEDS: LEXAPRO 20 MG PO (08:39)
[2024-01-06] MEDS: FOLVITE 1 MG PO (08:39)
[2024-01-06] MEDS: NICODERM TRANSDERMAL 21 MG TRANSDERM (08:40)
[2024-01-06 08:54] LABS: Magnesium 1.2 mg/dl (1.6-2.3)
[2024-01-06] MEDS: KCL 1022 MEQ IV (08:57)
[2024-01-06] MEDS: KCL 1022 GRAMS IV (08:57)
[2024-01-06] MEDS: NSS IV (09:07)
--- NOTE | 2024-01-06 09:37 | W.PN.GI.CBS2 ---
Today's Communication / Plan
-
Check hemolysis labs. Repeat CBC 1 pm. Start prep for colonoscopy tomorrow. Clear liquid diet. Replete Mg and K.
Assessment / Plan
-
68-year-old female with past medical history of anxiety, depression, hypertension, Raynaud's, DDD of the lumbar spine, hyperlipidemia, alcoholism, AAA, admitted with alcohol intoxication and weakness. She reports anorexia, known unintentional weight
loss over the last year, increased alcohol consumption and lethargy.
#Alcohol Hepatitis c/b starvation ketosis
-AST 254, ALT 97, Alk phos 205, Tbili 1.7 on admission, improving --> AST 139, ALT 61, Alk phos 126
-MDF <32 --> no role for steroids
-c/w thiamine, folate
-alcohol level undetectable
-IVF
-MSAS protocol
-no signs of active withdrawal
#Elevated Transaminases
-TSH WNL
-check hepatitis panel--pending
-likely 2/2 alc hep, improving since admission
#Thrombocytopenia
-suspect due to splenic sequestration in setting of chronic alc consumption
-coags WNL
-check hemolysis labs
#Pancreatic cyst/IPMN
-Due for EUS vs. MRI/MRCP 03/2024
#Positive FIT
#Iron Deficiency Anemia
-hemoglobin worse compared to prior, with ongoing drops w/o signs of active GI bleeding; hemolysis panel pending, but improving AST does not support this
-will recheck Hgb at 1 pm, if continues to drop, will check CT scan to rule out RP bleed
-start PPI
-s/p EGD; colonoscopy planned for tomorrow, clear liquid diet and Dulcolax + prep
#Unintentional Weight Loss
-suspect multifactorial; comprehensive workup as outpatient with CT A/P, MRI/MRCP, findings as per above
#Hypovolemic Hyponatremia-improving
-due to poor oral intake, excessive alcohol consumption
-hypomag--needs repletion
-urine studies, serum osm, needs appropriate correction and electrolyte repletion
Subjective
Subjective
Date of Service: January 06, 2024
Patient seen in follow-up today. Hgb 7.0, hemoglobin is now down 2.5 g from 01/02 without signs of GI bleeding. I added on haptoglobin, LDH, retic count. Will continue to monitor, plans for colonoscopy tomorrow given improvement in electrolyte
abnormalities and no signs of withdrawal. Patient offers no complaints, she is agreeable to plan.
Objective
Data Reviewed
Laboratory Data:
Laboratory Results
01/06/24 06:43
01/06/24 06:43
Laboratory Results
PT 12.9 Sec (11.4-14.6) 01/04/24 16:25
INR 0.99 01/04/24 16:25
APTT 26.4 Sec (23.4-35.0) 01/04/24 16:25
Phosphorus 2.6 mg/dl (2.5-4.5) 01/04/24 16:25
Magnesium Cancelled 01/06/24 08:10
Total Bilirubin 0.7 mg/dl (0.2-1.3) 01/06/24 06:43
AST 139 U/L (14-36) H 01/06/24 06:43
ALT 61 U/L (0-35) H 01/06/24 06:43
Alkaline Phosphatase 126 U/L (38-126) 01/06/24 06:43
Vital Signs and I&O:
Vital Signs
Temp Pulse Resp BP Pulse Ox
98.0 F 75 18 148/82 99
01/06/24 08:23 01/06/24 08:23 01/06/24 08:23 01/06/24 08:23 01/06/24 08:23
I&O
01/05/24 01/06/24 01/07/24
06:59 06:59 06:59
Intake Total 290 / 290 600 / 600
Output Total 200 / 200
Balance 290 / 290 400 / 400
Physical Exam
Physical Exam
GENERAL: In no acute distress, appears comfortable
HEENT: no scleral icterus, +conjunctival pallor; mucous membranes moist, OP clear
RESP: Nonlabored respirations, clear to auscultation, b/l
CV: RRR, S1/S2
ABDOMEN: +BS; soft, non-tender and non-distended; no rebound or guarding
EXT: No LE edema, b/l
SKIN: Dry, warm
NEURO: AAOx3
[2024-01-06 10:00] LABS: Reticulocyte Count 2.5 % (0.4-2.8)
[2024-01-06] MEDS: HEPARIN SC (11:00)
--- NOTE | 2024-01-06 11:23 | PN.CDI ---
CDI
- -
CDI:
Physician Documentation Request
Admit Date: 01/04/24 15:26
Dear Doctor Rodrigue,
01/04 [employer] Assessment: 'With observed muscle and fat wasting, as well as > 10% weight in 6 months pt meets AND/ASPEN criteria for moderate protein calorie malnutrition of chronic illness.'
Based on the information, which of the following most accurately represents the patient's nutritional status?
Moderate protein calorie malnutrition
Other
[place] Criteria ([facility] Hospitalist 2017)
2 or more criteria must be present for either
non severe or severe malnutrition
Note that the criteria differs related to the
presence of an acute or chronic illness
Acute Illness Chronic Illness
Energy Intake Non Severe: <75% for >7 days Non Severe: <75% for >1 month
Severe: <50% for >5 days Severe: <75% for >1 month
Weight Loss Non Severe: 1-2% over 1 week Non Severe: 5% over 1 month
5% over 1 month 7.5% over 3 months
7.5% over 3 months 10% over 6 months
1 year N/A 20% over 1 year
Severe: >2% over 1 week Severe: >5% over 1 month
>5% over 1 month >7.5% over 3 months
>7.5% over 3 months >10% over 6 months
1 year N/A >20% over 1 year
Body Fat Non Severe: Mild Decrease Non Severe: Mild Loss
Severe: Moderate Decrease Severe: Severe Loss
Muscle Mass Non Severe: Mild Decrease Non Severe: Mild Loss
Severe: Moderate Decrease Severe: Severe Loss
Fluid Accumulation Non Severe: Mild Accumulation Non Severe: Mild Accumulation
Severe: Moderate to severe Severe: Moderate to severe
accumulation accumulation
Reduced Car Whacker Strength Non Severe: N/A Non Severe: N/A
Severe: Measurably reduced Severe: Measurably reduced
Use of terms such as suspected, likely, concern for, or probable (associated with a specific diagnosis that is being evaluated, monitored, or treated as if it exists) are acceptable and can be coded in the inpatient setting, when documented at the
time of discharge.
Thank you,
Tamie Sung RN, BSN
CDI Specialist
Available via [place] text
Please use your independent medical judgment in providing your response.
[2024-01-06] MEDS: DULCOLAX 10 MG PO (11:44)
[2024-01-06] MEDS: GAVILAX 238 GM PO (13:01)
[2024-01-06 13:54] LABS: % Basophils 0.5 % (0-2); % Eosinophils 1.8 % (0-6); % Immature Granulocytes 1.8 % (0-0.5); % Lymphocytes 14.4 % (20.5-51.1); % Monocytes 14.4 % (1.7-9.3); % Neutrophils 67.1 % (42.2-75.2); Absolute Eosinophils 0.1 10^3/uL (0-0.7); Absolute Immature Granulocytes 0.1 10^3/uL (0-0.05); Absolute Lymphocytes 0.6 10^3/uL (1.2-3.4); Absolute Monocytes 0.6 10^3/uL (0.1-0.6); Absolute Neutrophils 2.6 10^3/uL (1.4-6.5); Hematocrit 23.8 % (37.0-47.0); Hemoglobin 7.7 g/dL (12.0-16.0); Mean Corp Hgb Conc. 32.4 g/dL (33.0-37.0); Mean Corpuscular Hgb 30.3 pg (27.0-31.0); Mean Corpuscular Volume 93.7 fL (81.0-99.0); Mean Platelet Volume 10.8 fL (7.4-10.4); Nucleated Red Blood Cells % 0 %; Platelet Count 105 10^3/uL (130-400); Red Blood Cell Count 2.54 10^6/uL (4.20-5.40); White Blood Cell Count 3.8 10^3/uL (4.8-10.8)
[2024-01-06 15:20] VITALS: BP 123/77
[2024-01-06 17:07] LABS: Creatine Phosphokinase 41 U/L (30-135); LDH 287 U/L (120-246)
[2024-01-06] MEDS: ORAJEL 10% GEL 1 APPLIC TOPICAL (17:48)
[2024-01-06 23:34] VITALS: BP 93/61
[2024-01-07 03:13] VITALS: BP 100/66
[2024-01-07 08:13] VITALS: BP 95/62
--- NOTE | 2024-01-07 08:14 | W.PN.HOSP.TC ---
Addendum entered and electronically signed by Sim Husain MD 01/07/24 17:26:
Patient seen and examined
Discussed with resident
Discussed with gastroenterology and nursing
Impression/plan
Presented with generalized fatigue and weakness and low oral intake.
No focal neurologic findings on exam
CT scan of head without acute abnormalities
Severe alcohol use disorder
Alcohol level undetectable upon admission.
Mental status is stable with no apparent symptoms of alcohol withdrawal at this point.
Continue close monitoring with MSAS protocol and benzodiazepines.
Continue thiamine
Alcoholic hepatitis, mild LFT elevation.
Currently no indication for corticosteroids.
Monitor closely
Dehydration with hypovolemic hyponatremia.
Starvation metabolic acidosis with contraction alkalosis.
Monitor oral intake
Hyponatremia.
TSH within normal limits chest x-ray with no acute abnormalities.
Urine osmolarity increased to 289 and consistent with likely high ADH state secondary to hypotension upon presentation
Hyponatremia improved with isotonic solution sodium level up to 130
Hypomagnesemia
Hypokalemia
Being repleted with IV fluids.
Acute on chronic normocytic anemia
Heme positive
No evidence of acute/brisk blood loss. Hemoglobin drop likely due to dilution
Patient with prior history of hemorrhagic gastritis on recent EGD.
Iron level sufficient.
GI input appreciated
Continue PPI for
Monitor hemoglobin
Colonoscopy 01/06 with polypectomy. Appendiceal polyp noted with plan for repeat colonoscopy in 3 months and removal by advanced endoscopist. Overall no evidence of acute blood loss.
Serial hemoglobin monitoring. Transfuse if trending below 7. Patient consented for blood transfusion.
Pancytopenia including mild neutropenia and thrombocytopenia likely secondary to sequestration and liver disease. Monitor closely.
Pancreatic cyst under surveillance
PAD with abdominal aortic aneurysm and stent in place
Original Note:
Today's Communication/Plan
-
S/p colonoscopy
Monitor H&H, continue MSAS protocol
PT/OT- SNF recommendation
Assessment / Plan
Assessment / Plan
IMPRESSION: This is a 68-year-old female patient with PMH of anxiety, depression, Hx of alcohol abuse, hypertension,AAA, gastritis, chronic anemia and PVD presenting to the ED for alcohol detoxification, loss of appetite and weakness.
PLAN:
# Severe alcohol use disorder/Cachectic
�CT head : No acute intracranial abnormality identified, probable small mastoid effusion
�Continue thiamine and folate, IVF
-Continue MSAS protocol with lorazepam
� Monitor for alcohol withdrawal seizures
-PT/OT consulted; SNF recommendation
#Hypovolemic hyponatremia (likely due to dehydration/hypochloremic contraction alkalosis)
-Continue IVF
� Urine studies: Creatinine 55, sodium 40
� TSH normal
� CXR showed hyperinflation
-Sodium 130 today
� Potassium was 3.6, mag 1.2 today (repleted)
-Monitor CMP in a.m.
# Chronic microcytic anemia/weight loss
-Iron studies: TIBC decreased, ferritin,% saturation and iron levels normal, B12 level normal
� GI consulted due to prior history of gastrointestinal hemorrhage and positive Hemoccult test
-S/p colonoscopy-appendiceal orifice polyp, two sessile sigmoid polyp resection
� Monitor H&H
# Abnormal U/A (?UTI/?contamination)
� U/a showed UTI findings,urine culture- gram negative bacilli, may have been contaminated
� Patient is asymptomatic so we will hold off antibiotics currently
#C.Diff antigen positive, toxin negative
-no frequent loose stools, afebrile
-Not likely to be C. difficile
� Monitor for frequent loose stools, cbc
# Essential HTN
� Hold nifedipine as patient is hypotensive
# Transaminitis
�Likely due to alcoholic hepatitis
-Hepatitis panel pending
-LFTs trending down
-Monitor cmp in AM
# Current smoker
-Continue nicotine patch 21 mg
#Anxiety/Depression
-continue escitalopram
DVT ppx: Hep subq 5000u Q12
Code: DNR
Anticipated Discharge: 24 - 48 hours
Subjective/Interval History
-
Date of Service: January 07, 2024
Objective Data
-
Labs:
Laboratory Results
01/07/24
07:57
WBC Pending
Hgb Pending
Hct Pending
Plt Count Pending
Sodium Pending
Potassium Pending
Chloride Pending
Carbon Dioxide Pending
BUN Pending
Creatinine Pending
Glucose Pending
Calcium Pending
Vital Signs:
Vital Signs
Temp Pulse Resp BP Pulse Ox
97.9 F 76 18 95/62 97
01/07/24 08:13 01/07/24 08:13 01/07/24 08:13 01/07/24 08:13 01/07/24 08:13
I&O
01/06/24 01/07/24 01/08/24
06:59 06:59 06:59
Intake Total 600 / 600 1680 / 1680
Output Total 200 / 200
Balance 400 / 400 1680 / 1680
Review of Systems
-
History Source: Patient
All other systems: Reviewed and negative
Physical Exam
-
General: No Apparent Distress
HEENT: Normocephalic
Respiratory: Clear to Auscultation
Cardiac: Regular Rhythm and S1/S2; Negative Murmur
GI: Soft, Nontender and Nondistended
Musculoskeletal: No Edema
Skin: Dry
Neuro: Awake, Alert and Oriented
Psych: Calm
[2024-01-07 08:21] LABS: % Basophils 0.6 % (0-2); % Eosinophils 2.2 % (0-6); % Immature Granulocytes 1.4 % (0-0.5); % Lymphocytes 15.9 % (20.5-51.1); % Monocytes 18.2 % (1.7-9.3); % Neutrophils 61.7 % (42.2-75.2); Absolute Eosinophils 0.1 10^3/uL (0-0.7); Absolute Immature Granulocytes 0.1 10^3/uL (0-0.05); Absolute Lymphocytes 0.6 10^3/uL (1.2-3.4); Absolute Monocytes 0.7 10^3/uL (0.1-0.6); Absolute Neutrophils 2.2 10^3/uL (1.4-6.5); Hematocrit 23.5 % (37.0-47.0); Hemoglobin 7.7 g/dL (12.0-16.0); Mean Corp Hgb Conc. 32.8 g/dL (33.0-37.0); Mean Corpuscular Volume 91.4 fL (81.0-99.0); Mean Platelet Volume 10.3 fL (7.4-10.4); Nucleated Red Blood Cells % 0 %; Platelet Count 107 10^3/uL (130-400); Red Blood Cell Count 2.57 10^6/uL (4.20-5.40); White Blood Cell Count 3.6 10^3/uL (4.8-10.8)
[2024-01-07 08:44] LABS: Blood Urea Nitrogen 7 mg/dl (7-17); Calcium 8.1 mg/dl (8.4-10.2); Carbon Dioxide 25 mmol/L (22-30); Chloride 101 mmol/L (98-107); Estimated Creatinine Clearance 59 ml/min; Glucose 90 mg/dl (70-99); Potassium 3.6 mmol/L (3.5-5.1); Sodium 130 mmol/L (135-145); eGFR > 60.00
[2024-01-07] MEDS: LEXAPRO 20 MG PO (08:45)
[2024-01-07] MEDS: NICODERM TRANSDERMAL 21 MG TRANSDERM (08:45)
[2024-01-07] MEDS: FOLVITE 1 MG PO (08:45)
[2024-01-07] MEDS: NSS (PRESERVATIVE FREE) 10 ML IV ×2 (08:55→20:19)
[2024-01-07] MEDS: PROTONIX IV 40 MG IV ×2 (08:56→20:19)
[2024-01-07] MEDS: THIAMINE INJECTION 200 MG IV (08:58)
[2024-01-07 10:22] LABS: Magnesium 1.3 mg/dl (1.6-2.3)
[2024-01-07] MEDS: MAGNESIUM SULFATE 102 GRAMS IV (11:39)
[2024-01-07 12:18] VITALS: BP 117/73
--- NOTE | 2024-01-07 14:17 | CM ---
Addendum entered by Elsie Bses 01/07/24 14:42:
Met with patient and her sister at the bedside to discuss new discharge plan
Patient is agreeable with going to SNF for Rehab when medically stable for discharge instead of going to a D/A rehab
List of SNFs near sister's home was requested; patient agreeable with this
Instructed sister to call Case Management tomorrow morning @ [phone] and identify facility preferences to assigned Roll Weigher
Original Note:
PT recommends Skilled Rehab; list of SNFs provided; Will submit referrals once site preferences are identified
Gal from [facility] will need to see patient before discharge to sign ALIX so he can follow with D/A placement after stay @ SNF
[2024-01-07 14:35] VITALS: BP 111/67
--- NOTE | 2024-01-07 14:46 | W.PN.UPDATE ---
Update Note
Progress Note Update
s/p colonoscopy for RIO (full details in procedure note below). Discussed results with both patient and her sister, Zulema, over the phone following procedure. She will follow-up in office after discharge to recheck labs and discuss if VCE is
necessary to assess for small bowel AVMs. Needs repeat colonoscopy with Dr. Fritz for removal of appendiceal orifice polyp, we will call her to schedule. Otherwise, no additional GI interventions planned during current admission.
GI will sign off. Please call with questions.
[2024-01-07 15:54] VITALS: BP 91/58
[2024-01-07 19:11] LABS: Hepatitis B Surface Antigen Negative (Negative)
[2024-01-07 19:28] LABS: Hepatitis B Core Ab, Total Negative (Negative); Hepatitis B Surface Antibody Negative; Hepatitis C Antibody Negative (Negative)
[2024-01-07 19:32] LABS: Hepatitis A Antibody, Total Negative (Negative)
[2024-01-07] MEDS: VITAMIN B1 100 MG PO (20:19)
[2024-01-07 21:22] LABS: Haptoglobin 148 mg/dL (30-200)
[2024-01-07 23:20] VITALS: BP 91/54
[2024-01-08 07:30] VITALS: BP 107/67
[2024-01-08 07:55] LABS: % Basophils 0.4 % (0-2); % Eosinophils 1.4 % (0-6); % Immature Granulocytes 0.7 % (0-0.5); % Lymphocytes 13.7 % (20.5-51.1); % Monocytes 15.7 % (1.7-9.3); % Neutrophils 68.1 % (42.2-75.2); Absolute Eosinophils 0.1 10^3/uL (0-0.7); Absolute Lymphocytes 0.8 10^3/uL (1.2-3.4); Absolute Monocytes 0.9 10^3/uL (0.1-0.6); Absolute Neutrophils 3.8 10^3/uL (1.4-6.5); Hematocrit 23.3 % (37.0-47.0); Hemoglobin 7.6 g/dL (12.0-16.0); Mean Corp Hgb Conc. 32.6 g/dL (33.0-37.0); Mean Corpuscular Hgb 30.9 pg (27.0-31.0); Mean Corpuscular Volume 94.7 fL (81.0-99.0); Mean Platelet Volume 10.6 fL (7.4-10.4); Nucleated Red Blood Cells % 0 %; Platelet Count 117 10^3/uL (130-400); Red Blood Cell Count 2.46 10^6/uL (4.20-5.40); Red Cell Dist. Width 26.5 % (11.5-14.5); White Blood Cell Count 5.5 10^3/uL (4.8-10.8)
--- NOTE | 2024-01-08 08:06 | W.PN.HOSP.TC ---
Addendum entered and electronically signed by Sim Husain MD 01/08/24 14:44:
History of hypertension, although remains with very soft blood pressure since admission
Has been off nifedipine.
Addendum entered and electronically signed by Sim Husain MD 01/08/24 14:30:
Patient seen and examined
Discussed with resident
Discussed with gastroenterology and nursing
Impression/plan
Presented with generalized fatigue and weakness and low oral intake.
No focal neurologic findings on exam
CT scan of head without acute abnormalities
Severe alcohol use disorder
Alcohol level undetectable upon admission.
Mental status is stable with no apparent symptoms of alcohol withdrawal at this point.
Continue close monitoring with MSAS protocol and benzodiazepines.
Continue thiamine
Alcoholic hepatitis, mild LFT elevation.
Currently no indication for corticosteroids.
Monitor closely
Dehydration with hypovolemic hyponatremia.
Starvation metabolic acidosis with contraction alkalosis.
Monitor oral intake
Hyponatremia.
TSH within normal limits chest x-ray with no acute abnormalities.
Urine osmolarity increased to 289 and consistent with likely high ADH state secondary to hypotension upon presentation
Hyponatremia improved with isotonic solution sodium level up to 130
Hypomagnesemia
Hypokalemia
Being repleted with IV fluids.
Acute on chronic normocytic anemia
Heme positive
No evidence of acute/brisk blood loss. Hemoglobin drop likely due to dilution
Patient with prior history of hemorrhagic gastritis on recent EGD.
Iron level sufficient.
GI input appreciated
Continue PPI for
Monitor hemoglobin
Colonoscopy 01/06 with polypectomy. Appendiceal polyp noted with plan for repeat colonoscopy in 3 months and removal by advanced endoscopist. Overall no evidence of acute blood loss.
Serial hemoglobin monitoring. Transfuse if trending below 7. Patient consented for blood transfusion.
Pancytopenia including mild neutropenia and thrombocytopenia likely secondary to sequestration and liver disease. Monitor closely.
Pancreatic cyst under surveillance
PAD with abdominal aortic aneurysm and stent in place
Disposition: Physical therapy evaluation with recommendation for SNF pending placement.
Original Note:
Today's Communication/Plan
-
Mental status stable with no apparent symptoms of alcohol withdrawal currently
Continue PPI
Discharge pending to SNF
Assessment / Plan
Assessment / Plan
IMPRESSION: This is a 68-year-old female patient with PMH of anxiety, depression, Hx of alcohol abuse, hypertension,AAA, gastritis, chronic anemia and PVD presenting to the ED for alcohol detoxification, loss of appetite and weakness.
PLAN:
#Severe alcohol use disorder/Cachectic
�CT head : No acute intracranial abnormality identified, probable small mastoid effusion
�Continue thiamine and folate, IVF
-Continue MSAS protocol with lorazepam
�Mental status stable; no apparent symptoms of alcohol withdrawal currently
-PT/OT consulted; SNF recommendation
-Pending for discharge to SNF today
#Hypovolemic hyponatremia (likely due to dehydration/hypochloremic contraction alkalosis)
-Continue IVF
� Urine studies: Creatinine 55, sodium 40
� TSH normal
� CXR showed hyperinflation
-Sodium 130 today, potassium 4.2
-Monitor CMP in a.m.
# Chronic microcytic anemia/weight loss
-Iron studies: TIBC decreased, ferritin,% saturation and iron levels normal, B12 level normal
� GI consulted due to prior history of gastrointestinal hemorrhage and positive Hemoccult test
-S/p colonoscopy-appendiceal orifice polyp, two sessile sigmoid polyp resection
-Pt is to be followed up in 3 months for repeat colonoscopy for removal of appendiceal orifice polyp
-Hemoglobin is 7.6
� Monitor H&H
# Abnormal U/A (?UTI/?contamination)
� U/a showed UTI findings,urine culture- gram negative bacilli, may have been contaminated
� Patient is asymptomatic so we will hold off antibiotics currently
#C.Diff antigen positive, toxin negative
-no frequent loose stools, afebrile
-Not likely to be C. difficile
� Monitor for frequent loose stools, cbc
# Essential HTN
� Hold nifedipine as patient is hypotensive
# Transaminitis
�Likely due to alcoholic hepatitis
-Hepatitis panel pending
-LFTs trending down
-Monitor cmp in AM
# Current smoker
-Continue nicotine patch 21 mg
#Anxiety/Depression
-continue escitalopram
DVT ppx: Hep subq 5000u Q12
Code: DNR
Anticipated Discharge: 24 - 48 hours
Subjective/Interval History
-
Date of Service: January 08, 2024
Objective Data
-
Labs:
Laboratory Results
01/08/24
07:31
WBC Pending
Hgb Pending
Hct Pending
Plt Count Pending
Sodium Pending
Potassium Pending
Chloride Pending
Carbon Dioxide Pending
BUN Pending
Creatinine Pending
Glucose Pending
Calcium Pending
Vital Signs:
Vital Signs
Temp Pulse Resp BP Pulse Ox
98.4 F 77 18 107/67 97
01/08/24 07:30 01/08/24 07:30 01/08/24 07:30 01/08/24 07:30 01/08/24 07:30
I&O
01/07/24 01/08/24 01/09/24
06:59 06:59 06:59
Intake Total 1680 / 1680 480 / 480
Balance 1680 / 1680 480 / 480
Review of Systems
-
History Source: Patient
All other systems: Reviewed and negative
Physical Exam
-
General: No Apparent Distress
HEENT: Normocephalic
Respiratory: Clear to Auscultation
Cardiac: Regular Rhythm and S1/S2; Negative Murmur
GI: Soft, Nontender and Nondistended
Musculoskeletal: No Edema
Skin: Dry
Neuro: Awake, Alert and Oriented
Psych: Calm
[2024-01-08 08:36] LABS: Blood Urea Nitrogen 10 mg/dl (7-17); Calcium 8.2 mg/dl (8.4-10.2); Carbon Dioxide 27 mmol/L (22-30); Chloride 99 mmol/L (98-107); Estimated Creatinine Clearance 46 ml/min; Glucose 99 mg/dl (70-99); Potassium 4.2 mmol/L (3.5-5.1); Sodium 130 mmol/L (135-145); eGFR > 60.00
[2024-01-08] MEDS: LEXAPRO 20 MG PO (08:54)
[2024-01-08] MEDS: FLUSH (NSS) 1 FLUSH IV (08:54)
[2024-01-08] MEDS: FOLVITE 1 MG PO (08:54)
[2024-01-08] MEDS: NSS (PRESERVATIVE FREE) 10 ML IV (08:54)
[2024-01-08] MEDS: PROTONIX IV 40 MG IV (08:54)
[2024-01-08] MEDS: VITAMIN B1 100 MG PO ×2 (08:54→21:05)
[2024-01-08] MEDS: NICODERM TRANSDERMAL 21 MG TRANSDERM (08:55)
[2024-01-08 11:23] VITALS: BP 107/68
--- NOTE | 2024-01-08 11:35 | CM ---
PT OT irinaal say SNF at dc.
Pt will follow with [facility] rehab after SNF dc. [facility] to stay in touch.
Spoke with sister Zulema and Annalise [phone] . Annalise provided SNF: [facility] [place], [place],[facility]
All SNF placed in care port.
Pt has Medicare.
PLAN To SNF after accepted
[2024-01-08 15:25] VITALS: BP 135/80
--- NOTE | 2024-01-08 16:26 | PTCARENOTE ---
Pt AAO x3, [facility]; OOB to BSC with assist x1; gisele well, refuses offers of OOB to chair activity. Positions self in bed. VSS. On room air- pulseox 97%, no SOB noted. Abd soft, rounded, gisele PO, appetite fair. Voids on BSC without difficulty.
Resting comfortably at present, no c/o. Will continue to monitor.
[2024-01-08] MEDS: PROTONIX 40 MG PO (16:29)
[2024-01-08] MEDS: NSS (PRESERVATIVE FREE) IV (20:00)
[2024-01-08 23:22] VITALS: BP 107/61
[2024-01-09 05:50] LABS: % Basophils 0.2 % (0-2); % Eosinophils 2.2 % (0-6); % Immature Granulocytes 0.2 % (0-0.5); % Lymphocytes 16.7 % (20.5-51.1); % Monocytes 18.7 % (1.7-9.3); Absolute Eosinophils 0.1 10^3/uL (0-0.7); Absolute Lymphocytes 0.7 10^3/uL (1.2-3.4); Absolute Monocytes 0.8 10^3/uL (0.1-0.6); Absolute Neutrophils 2.6 10^3/uL (1.4-6.5); Hematocrit 23.5 % (37.0-47.0); Hemoglobin 7.6 g/dL (12.0-16.0); Mean Corp Hgb Conc. 32.3 g/dL (33.0-37.0); Mean Corpuscular Hgb 30.9 pg (27.0-31.0); Mean Corpuscular Volume 95.5 fL (81.0-99.0); Mean Platelet Volume 10.5 fL (7.4-10.4); Nucleated Red Blood Cells % 0 %; Platelet Count 108 10^3/uL (130-400); Red Blood Cell Count 2.46 10^6/uL (4.20-5.40); White Blood Cell Count 4.2 10^3/uL (4.8-10.8)
[2024-01-09 06:11] LABS: Blood Urea Nitrogen 12 mg/dl (7-17); Calcium 8.3 mg/dl (8.4-10.2); Carbon Dioxide 28 mmol/L (22-30); Chloride 99 mmol/L (98-107); Estimated Creatinine Clearance 52 ml/min; Glucose 100 mg/dl (70-99); Potassium 4.6 mmol/L (3.5-5.1); Sodium 130 mmol/L (135-145); eGFR > 60.00
[2024-01-09 07:35] VITALS: BP 127/70
--- NOTE | 2024-01-09 09:31 | W.PN.HOSP.TC ---
Today's Communication/Plan
-
see A/P
Assessment / Plan
Assessment / Plan
IMPRESSION: This is a 68-year-old female patient with PMH of anxiety, depression, Hx of alcohol abuse, hypertension, AAA, gastritis, chronic anemia and PVD presented to the ED for alcohol detoxification, loss of appetite and weakness.
PLAN:
# Severe alcohol use disorder
# Cachexia with severe protein caloric malnutrition, BMI 16
�CT head: No acute intracranial abnormality identified, probable small mastoid effusion
�Continue thiamine and folate
-Continue MSAS protocol with lorazepam
�Mental status stable; no apparent symptoms of alcohol withdrawal currently
-PT/OT consulted; SNF recommendation. Pending for discharge to SNF
# Hypovolemic hyponatremia (likely due to dehydration/hypochloremic contraction alkalosis)
-TSH normal
-CXR showed hyperinflation
-Sodium remained at 130 today, potassium 4.6
-Monitor BMP
# Chronic microcytic anemia/weight loss
-Iron studies: TIBC decreased, ferritin, % saturation and iron levels normal, B12 level normal
-GI consulted due to prior history of gastrointestinal hemorrhage and positive Hemoccult test
-s/p colonoscopy- appendiceal orifice polyp, two sessile sigmoid polyp resection
-Pt is to be followed up in 3 months for repeat colonoscopy for removal of appendiceal orifice polyp
-Hemoglobin today remained at 7.6
# Pancytopenia likely related to chronic alcohol marrow suppression
Monitor CBC
# Abnormal U/A, asymptomatic bacteruria
� UA dirty, urine culture with Klebsiella
� Patient is asymptomatic so we will hold off antibiotics currently
# C.Diff antigen positive, toxin negative
-no frequent loose stools, afebrile
-Not likely to be C. difficile
�Monitor for frequent loose stools, cbc
# Essential HTN
-BP stable off meds
# Transaminitis with AST > ALT, Likely due to alcoholic hepatitis
-Hepatitis panel negative
-LFTs trending down
-Monitor CMP
# Current smoker
-Continue nicotine patch 21 mg
#Anxiety/Depression
-continue escitalopram
DVT ppx: SCD, DC HSQ (was on hold anyway)
Code: DNR
Dispo: SNF
Anticipated Discharge: Within 24 hours
Subjective/Interval History
-
Date of Service: January 09, 2024
Objective Data
-
Labs:
Laboratory Results
01/09/24
04:52
WBC 4.2 L
Hgb 7.6 L
Hct 23.5 L
Plt Count 108 L
Sodium 130 L
Potassium 4.6
Chloride 99
Carbon Dioxide 28
BUN 12
Creatinine 0.8
Glucose 100 H
Calcium 8.3 L
Vital Signs:
Vital Signs
Temp Pulse Resp BP Pulse Ox
37.1 C 75 18 127/70 92
01/09/24 07:35 01/09/24 07:35 01/09/24 07:35 01/09/24 07:35 01/09/24 07:35
I&O
01/08/24 01/09/24 01/10/24
06:59 06:59 06:59
Intake Total 480 / 480 600 / 600
Balance 480 / 480 600 / 600
Review of Systems
-
All other systems: Reviewed and negative
Physical Exam
-
General: Well Developed, No Apparent Distress, Comfortable and Cachectic
HEENT: Normocephalic
Respiratory: Clear to Auscultation and Non Labored Respirations; Negative Accessory Resp Muscle Use
Cardiac: Regular Rhythm and S1/S2
GI: Soft and Nontender
Musculoskeletal: No Edema
Skin: Dry
Neuro: Awake and Alert
Psych: Calm and Intact Judgement/Insight
Data Reviewed
-
Labs: Labs Reviewed by me
[2024-01-09] MEDS: FOLVITE 1 MG PO (09:48)
[2024-01-09] MEDS: PROTONIX 40 MG PO (09:48)
[2024-01-09] MEDS: VITAMIN B1 100 MG PO ×2 (09:48→20:36)
[2024-01-09] MEDS: LEXAPRO 20 MG PO (09:48)
[2024-01-09] MEDS: NSS (PRESERVATIVE FREE) IV ×2 (09:49→20:36)
[2024-01-09] MEDS: NICODERM TRANSDERMAL 21 MG TRANSDERM (09:49)
[2024-01-09 15:15] VITALS: BP 118/76
--- NOTE | 2024-01-09 16:12 | CHAP ---
Ms. Day was welcoming - gave a nice smile. Did not seem in a mood to talk, declined prayer. Order Entry offered support through presence.
[2024-01-09 23:34] VITALS: BP 108/67
[2024-01-10 06:50] LABS: Hematocrit 22.6 % (37.0-47.0); Hemoglobin 7.5 g/dL (12.0-16.0); Mean Corp Hgb Conc. 33.2 g/dL (33.0-37.0); Mean Corpuscular Hgb 30.6 pg (27.0-31.0); Mean Corpuscular Volume 92.2 fL (81.0-99.0); Mean Platelet Volume 10.7 fL (7.4-10.4); Platelet Count 122 10^3/uL (130-400); Red Blood Cell Count 2.45 10^6/uL (4.20-5.40); Red Cell Dist. Width 25.8 % (11.5-14.5); White Blood Cell Count 4.2 10^3/uL (4.8-10.8)
[2024-01-10 07:30] VITALS: BP 90/73
[2024-01-10 07:52] LABS: ALT (SGPT) 50 U/L (0-35); AST (SGOT) 71 U/L (14-36); Albumin 2.4 g/dl (3.5-5.0); Alkaline Phosphatase 103 U/L (38-126); Blood Urea Nitrogen 14 mg/dl (7-17); Calcium 8.2 mg/dl (8.4-10.2); Carbon Dioxide 28 mmol/L (22-30); Chloride 97 mmol/L (98-107); Estimated Creatinine Clearance 52 ml/min; Glucose 93 mg/dl (70-99); Magnesium 1.1 mg/dl (1.6-2.3); Potassium 3.9 mmol/L (3.5-5.1); Sodium 129 mmol/L (135-145); Total Bilirubin 0.3 mg/dl (0.2-1.3); Total Protein 4.8 g/dl (6.3-8.2); eGFR > 60.00
[2024-01-10] MEDS: FOLVITE 1 MG PO (08:28)
[2024-01-10] MEDS: VITAMIN B1 100 MG PO ×2 (08:28→20:30)
[2024-01-10] MEDS: PROTONIX 40 MG PO (08:28)
[2024-01-10] MEDS: NICODERM TRANSDERMAL 21 MG TRANSDERM (08:29)
[2024-01-10] MEDS: LEXAPRO 20 MG PO (08:29)
[2024-01-10] MEDS: NSS (PRESERVATIVE FREE) IV ×2 (08:38→20:24)
[2024-01-10 10:08] VITALS: BP 134/76; PULSE 78
--- NOTE | 2024-01-10 11:06 | W.PN.HOSP.TC ---
Today's Communication/Plan
-
for SNF
Assessment / Plan
Assessment / Plan
IMPRESSION: This is a 68-year-old female patient with PMH of anxiety, depression, Hx of alcohol abuse, hypertension, AAA, gastritis, chronic anemia and PVD presented to the ED for alcohol detoxification, loss of appetite and weakness.
PLAN:
# Severe alcohol use disorder
# Cachexia with severe protein caloric malnutrition, BMI 16
�CT head: No acute intracranial abnormality identified, probable small mastoid effusion
�Continue thiamine and folate
-Continue MSAS protocol with lorazepam
�Mental status stable; no apparent symptoms of alcohol withdrawal currently
-PT/OT consulted; SNF recommendation. Pending for discharge to SNF
# Hypovolemic hyponatremia (likely due to dehydration/hypochloremic contraction alkalosis)
-TSH normal
-CXR showed hyperinflation
-Sodium remained at 130 today, potassium 4.6
-Monitor BMP
# Chronic microcytic anemia/weight loss
-Iron studies: TIBC decreased, ferritin, % saturation and iron levels normal, B12 level normal
-GI consulted due to prior history of gastrointestinal hemorrhage and positive Hemoccult test
-s/p colonoscopy- appendiceal orifice polyp, two sessile sigmoid polyp resection
-Pt is to be followed up in 3 months for repeat colonoscopy for removal of appendiceal orifice polyp
-Hemoglobin today remained at 7.6
# Pancytopenia likely related to chronic alcohol marrow suppression
Monitor CBC
# Abnormal U/A, asymptomatic bacteruria
� UA dirty, urine culture with Klebsiella
� Patient is asymptomatic so we will hold off antibiotics currently
# C.Diff antigen positive, toxin negative
-no frequent loose stools, afebrile
-Not likely to be C. difficile
�Monitor for frequent loose stools, cbc
# Essential HTN
-BP stable off meds
# Transaminitis with AST > ALT, Likely due to alcoholic hepatitis
-Hepatitis panel negative
-LFTs trending down
-Monitor CMP
# Current smoker
-Continue nicotine patch 21 mg
#Anxiety/Depression
-continue escitalopram
DVT ppx: SCD, DC HSQ (was on hold anyway)
Code: DNR
Dispo: SNF
DW CM
Anticipated Discharge: Within 24 hours
Subjective/Interval History
-
Date of Service: January 10, 2024
Objective Data
-
Labs:
Laboratory Results
01/10/24
05:38
WBC 4.2 L
Hgb 7.5 L
Hct 22.6 L
Plt Count 122 L
Sodium 129 L
Potassium 3.9
Chloride 97 L
Carbon Dioxide 28
BUN 14
Creatinine 0.8
Glucose 93
Calcium 8.2 L
Total Bilirubin 0.3
AST 71 H
ALT 50 H
Alkaline Phosphatase 103
Vital Signs:
Vital Signs
Temp Pulse Resp BP Pulse Ox
37.1 C 81 18 90/73 99
01/10/24 07:30 01/10/24 07:30 01/10/24 07:30 01/10/24 07:30 01/10/24 07:30
I&O
01/09/24 01/10/24 01/11/24
06:59 06:59 06:59
Intake Total 600 / 600 480 / 480
Balance 600 / 600 480 / 480
Review of Systems
-
All other systems: Reviewed and negative
Physical Exam
-
General: Well Developed, No Apparent Distress, Comfortable and Cachectic
HEENT: Normocephalic
Respiratory: Clear to Auscultation and Non Labored Respirations; Negative Accessory Resp Muscle Use
Cardiac: Regular Rhythm and S1/S2
GI: Soft and Nontender
Musculoskeletal: No Edema
Skin: Dry
Neuro: Awake and Alert
Psych: Calm and Intact Judgement/Insight
Data Reviewed
-
Labs: Labs Reviewed by me
[2024-01-10 15:39] VITALS: BP 112/74
--- NOTE | 2024-01-10 16:36 | CM ---
Patient with Dx Severe alcohol use disorder, Cachexia with severe protein caloric malnutrition, Hypovolemic hyponatremia. Room air. PT recommends skilled rehab.
Met with patient and spoke with her sister Annalise by phone; both agree to updated SNF preferences of: [facility] (first choice), [facility] (2nd Choice) and [facility] (3rd choice). Annalise is aware [facility] has an available bed today but would
like to try for [facility] tomorrow.
Spoke with Kasey Degroot; [facility] does not have an available bed however [facility] could accept- she is aware family will not decide today.
Plan follow up with [facility] and [facility] tomorrow.
[2024-01-10 23:12] VITALS: BP 105/63
[2024-01-11 05:19] LABS: Hematocrit 22.9 % (37.0-47.0); Hemoglobin 7.6 g/dL (12.0-16.0); Mean Corp Hgb Conc. 33.2 g/dL (33.0-37.0); Mean Corpuscular Hgb 30.5 pg (27.0-31.0); Mean Platelet Volume 10.6 fL (7.4-10.4); Platelet Count 147 10^3/uL (130-400); Red Blood Cell Count 2.49 10^6/uL (4.20-5.40); Red Cell Dist. Width 25.4 % (11.5-14.5); White Blood Cell Count 4.4 10^3/uL (4.8-10.8)
[2024-01-11 05:42] LABS: ALT (SGPT) 47 U/L (0-35); AST (SGOT) 67 U/L (14-36); Albumin 2.4 g/dl (3.5-5.0); Alkaline Phosphatase 88 U/L (38-126); Blood Urea Nitrogen 15 mg/dl (7-17); Calcium 8.1 mg/dl (8.4-10.2); Carbon Dioxide 31 mmol/L (22-30); Chloride 97 mmol/L (98-107); Estimated Creatinine Clearance 52 ml/min; Glucose 90 mg/dl (70-99); Potassium 4.3 mmol/L (3.5-5.1); Sodium 130 mmol/L (135-145); Total Bilirubin 0.4 mg/dl (0.2-1.3); Total Protein 4.9 g/dl (6.3-8.2); eGFR > 60.00
[2024-01-11] MEDS: FOLVITE 1 MG PO (07:47)
[2024-01-11] MEDS: VITAMIN B1 100 MG PO ×2 (07:47→19:42)
[2024-01-11] MEDS: PROTONIX 40 MG PO (07:47)
[2024-01-11] MEDS: LEXAPRO 20 MG PO (07:49)
[2024-01-11] MEDS: NSS (PRESERVATIVE FREE) IV ×2 (07:49→19:41)
[2024-01-11] MEDS: NICODERM TRANSDERMAL 21 MG TRANSDERM (07:49)
[2024-01-11 08:19] VITALS: BP 114/66
[2024-01-11 12:00] VITALS: BP 117/75; PULSE 76; O2SAT 98
[2024-01-11 16:13] VITALS: BP 104/65
--- NOTE | 2024-01-11 16:16 | CM ---
IMM reviewed with pt. Imm signed on chart.
Spoke with Dayami from [facility] x2 for a bed .[facility] is first choice.
pt has supportive sisters.
After Snf , [facility] with assist her into inpt Alcohol rehab
Awaiting determination from [facility].
PLAN to Snf when accepted
--- NOTE | 2024-01-11 17:48 | W.PN.HOSP.TC ---
Today's Communication/Plan
-
Medically stable for placement to [facility] facility
Assessment / Plan
Assessment / Plan
IMPRESSION: This is a 68-year-old female patient with PMH of anxiety, depression, Hx of alcohol abuse, hypertension, AAA, gastritis, chronic anemia and PVD presented to the ED for alcohol detoxification, loss of appetite and weakness.
PLAN:
# Severe alcohol use disorder
# Cachexia with severe protein caloric malnutrition, BMI 16
�CT head: No acute intracranial abnormality identified, probable small mastoid effusion
�Continue thiamine and folate
-Continue MSAS protocol with lorazepam
�Mental status stable; no apparent symptoms of alcohol withdrawal currently
-PT/OT consulted; SNF recommendation. Pending for discharge to SNF
# Hypovolemic hyponatremia (likely due to dehydration/hypochloremic contraction alkalosis)
-TSH normal
-CXR showed hyperinflation
-Sodium remained at 130 today, potassium 4.6
-Monitor BMP
# Chronic microcytic anemia/weight loss
-Iron studies: TIBC decreased, ferritin, % saturation and iron levels normal, B12 level normal
-GI consulted due to prior history of gastrointestinal hemorrhage and positive Hemoccult test
-s/p colonoscopy- appendiceal orifice polyp, two sessile sigmoid polyp resection
-Pt is to be followed up in 3 months for repeat colonoscopy for removal of appendiceal orifice polyp
-Hemoglobin today remained at 7.6
# Pancytopenia likely related to chronic alcohol marrow suppression
Monitor CBC
# Abnormal U/A, asymptomatic bacteruria
� UA dirty, urine culture with Klebsiella
� Patient is asymptomatic so we will hold off antibiotics currently
# C.Diff antigen positive, toxin negative
-no frequent loose stools, afebrile
-Not likely to be C. difficile
�Monitor for frequent loose stools, cbc
# Essential HTN
-BP stable off meds
# Transaminitis with AST > ALT, Likely due to alcoholic hepatitis
-Hepatitis panel negative
-LFTs trending down
-Monitor CMP
# Current smoker
-Continue nicotine patch 21 mg
#Anxiety/Depression
-continue escitalopram
DVT ppx: SCD, DC HSQ (was on hold anyway)
Code: DNR
Dispo: SNF
DW CM
Anticipated Discharge: Within 24 hours
Subjective/Interval History
-
Date of Service: January 11, 2024
Objective Data
-
Vital Signs:
Vital Signs
Temp Pulse Resp BP Pulse Ox
98.8 F 74 18 104/65 96
01/11/24 16:13 01/11/24 16:13 01/11/24 16:13 01/11/24 16:13 01/11/24 16:13
I&O
01/10/24 01/11/24 01/12/24
06:59 06:59 06:59
Intake Total 480 / 480 560 / 560
Balance 480 / 480 560 / 560
Physical Exam
-
General: Well Developed and No Apparent Distress
HEENT: Normocephalic, Atraumatic and Moist Mucous Membranes
Respiratory: Clear to Auscultation
Cardiac: Regular Rhythm and S1/S2; Negative Murmur, Rub or Gallop
GI: Soft, Nontender, Nondistended and Normal Bowel Sounds; Negative Organomegaly
Rectal: Deferred by Provider
Musculoskeletal: No Clubbing, No Cyanosis and No Edema
Skin: Negative Rash
Neuro: Nonfocal/Grossly Intact
[2024-01-11 23:46] VITALS: BP 130/76
[2024-01-12 08:01] VITALS: BP 103/72
[2024-01-12] MEDS: PROTONIX 40 MG PO (08:45)
[2024-01-12] MEDS: FOLVITE 1 MG PO (08:45)
[2024-01-12] MEDS: VITAMIN B1 100 MG PO (08:45)
[2024-01-12] MEDS: NICODERM TRANSDERMAL 21 MG TRANSDERM (08:45)
[2024-01-12] MEDS: LEXAPRO 20 MG PO (08:45)
[2024-01-12] MEDS: NSS (PRESERVATIVE FREE) IV (08:45)
--- NOTE | 2024-01-12 10:40 | CM ---
MD indicated pt ready for discharge .
Spoke with Dayami [facility] bed ready for today.
Spoke with sister Annalise [phone] informed her bed ready at [facility] she agrees with dc to [place] today.
Spoke with Mauri [phone] [facility] is following her. At dc from [facility]i will assist her going to inpatient alcohol rehab.
Sister has number for [facility] and will keep in touch for transition.
Sister will drive her to [facility]
report [phone]
fax [phone]
PLAN To [facility]
[2024-01-12 11:00] VITALS: BP 108/64
--- NOTE | 2024-01-12 11:25 | W.DS.TRANS ---
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
-
Discharge Instructions:
Discharge Diagnosis/Procedures Severe alcohol use disorder with no evidence of
delirium tremens
Deconditioning.
Pancytopenia.
Acute on chronic anemia with workup negative for
acute blood loss.
Alcoholic hepatitis.
Dehydration with hyponatremia.
Hypomagnesemia.
Pancreatic cyst under surveillance
PAD with abdominal aortic aneurysm stenting
Protein calorie malnutrition with BMI of 16
Diet Regular
Instructions:
Stand-Alone Forms:
Changes to Home Medications: Yes
Discharge Medications:
DC Medications w/original date entered in [employer]
escitalopram oxalate 20 mg tablet 20 mg PO DAILY depression/anxiety 01/04/24
omeprazole 20 mg capsule,delayed release 20 mg PO DAILY GERD 01/04/24
nicotine 21 mg/24 hr daily transdermal patch 21 mg transdermal DAILY #30 ea 01/08/24
Home Medication Changes
Nifedipine stopped
Pending Results: No
== END 2024-01-12 13:34 | DRG 432 ==
LOC: 4 EAST ACU 15:26
PROVIDERS: Internal Medicine; Nurse Practitioner; Student in an Organized Health Care Education/Training Program; ADMITTING PHYSICIAN Internal Medicine; EMERGENCY PHYSICIAN Emergency Medicine; FAMILY PHYSICIAN Nurse Practitioner Family; OTHER PHYSICIAN Internal Medicine
PROC: 0DBN8ZX Excision of Sigmoid Colon, Via Natural or Artificial Opening Endoscopic, Diagnostic (ICD-10-PCS; 2024-01-07)
PROC: 0DBK8ZX Excision of Ascending Colon, Via Natural or Artificial Opening Endoscopic, Diagnostic (ICD-10-PCS; 2024-01-07)
DX: K70.10 Alcoholic hepatitis without ascites (principal); E43 Unspecified severe protein-calorie malnutrition; K55.21 Angiodysplasia of colon with hemorrhage; E87.3 Alkalosis; D61.818 Other pancytopenia; K86.2 Cyst of pancreas; R64 Cachexia; E87.1 Hypo-osmolality and hyponatremia; E87.20 Acidosis, unspecified; Z68.1 Body mass index [BMI] 19.9 or less, adult; E86.0 Dehydration; E86.1 Hypovolemia; I10 Essential (primary) hypertension; F17.210 Nicotine dependence, cigarettes, uncomplicated; E05.90 Thyrotoxicosis, unspecified without thyrotoxic crisis or storm; F32.A Depression, unspecified; F41.9 Anxiety disorder, unspecified; Z66 Do not resuscitate; D12.2 Benign neoplasm of ascending colon; D12.5 Benign neoplasm of sigmoid colon; K64.8 Other hemorrhoids; D12.1 Benign neoplasm of appendix; D50.9 Iron deficiency anemia, unspecified; I73.00 Raynaud's syndrome without gangrene; E83.42 Hypomagnesemia; B19.20 Unspecified viral hepatitis C without hepatic coma; E87.6 Hypokalemia; F10.20 Alcohol dependence, uncomplicated
CPT/HCPCS: 88305; 70450; 71046; 80048; 80053; 80306; 81003; 81015; 82010; 82077; 82550; 82570; 82607; 82728; 82977; 83010; 83540; 83550; 83615; 83735; 83935; 84100; 84300; 84443; 85025; 85027; 85045; 85610; 85730; 86704; 86706; 86708; 86709; 86803; 86850; 86900; 86901; 87077; 87086; 87186; 87324; 87340; 87449; 93005; 97530; 99285; 99406; J1610

== ENCOUNTER → 2024-01-18 09:35 | Outpatient (REF) | payer OTHER, MEDICARE, SELFPAY ==
[2024-01-18 10:11] LABS: Hemoglobin 7.4 g/dL (12.0-16.0); Mean Corp Hgb Conc. 32.2 g/dL (33.0-37.0); Mean Corpuscular Hgb 30.5 pg (27.0-31.0); Mean Corpuscular Volume 94.7 fL (81.0-99.0); Mean Platelet Volume 10.6 fL (7.4-10.4); Platelet Count 173 10^3/uL (130-400); Red Blood Cell Count 2.43 10^6/uL (4.20-5.40); Red Cell Dist. Width 23.3 % (11.5-14.5); White Blood Cell Count 4.5 10^3/uL (4.8-10.8)
[2024-01-18 10:33] LABS: Blood Urea Nitrogen 10 mg/dl (7-17); Carbon Dioxide 24 mmol/L (22-30); Chloride 103 mmol/L (98-107); Glucose 81 mg/dl (70-99); Potassium 3.8 mmol/L (3.5-5.1); Sodium 134 mmol/L (135-145); eGFR > 60.00
[2024-01-18 11:59] LABS: Anisocytosis Slight; Normal RBC Morphology No; Target Cells 1+
[2024-01-18 12:00] LABS: Hypochromasia 2+; Stomatocytes Slight
== END ==
LOC: OLABP 09:35
PROVIDERS: ATTENDING PHYSICIAN Family Medicine
DX: I10 Essential (primary) hypertension (principal); M62.81 Muscle weakness (generalized); D61.818 Other pancytopenia; B96.1 Klebsiella pneumoniae [K. pneumoniae] as the cause of diseases classified elsewhere; E87.1 Hypo-osmolality and hyponatremia; D64.9 Anemia, unspecified; K70.10 Alcoholic hepatitis without ascites; R64 Cachexia; E43 Unspecified severe protein-calorie malnutrition
CPT/HCPCS: 36415; 80048; 85027

== ENCOUNTER 2024-11-29 19:30 | Inpatient (IN) | payer MEDICARE, OTHER, SELFPAY ==
[2024-11-29] VITALS (11 sets, daily range): BP systolic 115–168; BP diastolic 67–89; BMI 18.7
--- NOTE | 2024-11-29 14:04 | ED.GENMED ---
History of Present Illness
General
Chief Complaint: Failure to Thrive
Source: patient and family (Sisters are concerned she is dehydrated )
Exam Limitations: none
Time Seen by Provider: 11/29/24 14:03
Nursing documentation reviewed up to this point in time: agreed with
History of Present Illness
History of Present Illness:
70-year-old female presents emergency department complaining of failure to thrive related to alcohol abuse. She stopped drinking 2 weeks ago. She has fallen in the past 2 weeks.
Past History
Past History
ED Past Medical History: Other (AAA)
ED Past Surgical History: Other (right leg arterial stent)
Social History
Tobacco: Smoker
Alcohol: Chronic alcoholic
Drug: None
Living: alone
Review of Systems
Review of Systems
Allergies reviewed?: Yes
All Other Systems: Not applicable
Constitutional: Reports no symptoms
EENT: Reports no symptoms
Respiratory: Reports no symptoms
Cardiac: Reports no symptoms
ABD/GI: Reports no symptoms
: Reports no symptoms
Musculoskeletal: Reports other (left index finger wound)
Skin: Reports no symptoms
Neurological: Reports no symptoms
Endocrine: Reports no symptoms
Hematologic/Lymphatic: Reports no symptoms
Psychiatric: Reports no symptoms
Phy Exam
Physical Exam
Physical Exam:
Physical Exam
General: no apparent distress, not acutely ill
Neck: supple. no meningeal signs. normal posterior pharynx
Heart: s1/s2 regular rate and rhythm, no murmur. equal radial
pulses.
HEENT: Pupils equal round reactive to light, EOMI, bruising under her left eye
Lungs: no acute respiratory distress. clear bilaterally
Abdomen: normal bowel sounds. not tender. no CVAT
Neuro: alert and oriented. no focal neurological deficits cranial nerves II through XII intact
Skin: no rash
Psychiatric: well kept. interactive and cooperative
Extremities: no edema. no calf tenderness. negative homans. Unable to palpate left distal pulses upper extremity distal pulses, Doppler used to identify strong left ulnar artery pulse
Sepsis
Sepsis Screening
Sepsis Assessment: Sepsis Ruled Out
Sepsis Screen
Sepsis Screen: Sepsis Ruled Out
Date: 11/29/24
Time: 20:00
Course
Orders/Labs/Results
Orders:
Orders
11/29/24 13:43
Electrocardiogram (*1) Urgent
Reason for Study: Fatigue / Weakness
EKG- Treatment ONCE
11/29/24 14:19
CT Facial Bones W/o Iv Contras Urgent
Comment:
Reason For Exam: left facial contusion
CT Head W/o Iv Contrast Urgent
Comment:
Reason For Exam: fall
Ribs, Right 3 View W/PA Chest [CR Ribs-right 3 Vw W/pa Chest*] Urgent
Comment:
Reason For Exam: right rib series
11/29/24 14:22
Finger(s)/Thumb 2 View Lt [CR Finger(s)/thumb Min 2 Vw Lt] Urgent
Comment:
Reason For Exam: left distal finger wound
11/29/24 14:36
US Periph Art UPPER Ext W Seg Urgent
Reason For Exam: left index finger wound, difficult to find radial
11/29/24 14:39
Complete Blood Count/With Diff Urgent
Comprehensive Metabolic Panel Urgent
Lactic Acid Urgent
Magnesium Urgent
11/29/24 15:21
Add On- LAB Urgent
Tests Added?: magnesium
0.9% Sodium Chloride 1000 ml [Nss] 1,000 ml IV BOLUS
11/29/24 17:08
CT Angio Upper Ext W/Wo Iv Contrast [CT Upper Ext Angio W/wo Iv Con] Urgent
Comment: LEFT UPPER EXT
Reason For Exam: eval for stenosis
11/29/24 17:09
Carotid US [US Cerebrovascular] Urgent
Comment:
Reason For Exam: eval for stenosis
11/29/24 17:23
Heparin 4,200 units IV NOW STA
Nursing to Place Non Medication Order As Directed
Physician Order: PTT 6 hours after initial start of Heparin infusion
Above order entered?: Yes
11/29/24 17:30
Heparin 50470 Units/250 ml 25,000 units in 250 ml IV PER PROTOCOL
Weight to be used for heparin protocol in kilograms (kg):: 52.4
Protocol:: DVT/PE
PTT Goal Range to be used:: PTT 73 to 111 seconds
Order type:: Initial
INITIAL Infusion Dose (UNITS/KG/hr) & then follow protocol:: 18 units/kg/hr
Infusion Dose in UNITS/hr & then follow protocol (UNITS/hr):: 900
INFUSION RATE in mL/hr & then follow protocol (mL/hr):: 9
For DVT/PE algorithm, re-bolus for low PTT?: No
PTT less than or equal to 64 seconds:: No Re-bolus. Increase by 200 units/hr (+ 2mL/hr)
PTT 64.1 to 72.9 seconds:: No Re-bolus. Increase by 100 units/hr (+ 1mL/hr)
PTT 73 to 111 seconds:: Target Range. No change in rate.
PTT 111.1 to 130.9 seconds:: Decrease rate by 100 units/hr (- 1 mL/hr)
PTT 131 to 199.9 seconds:: HOLD for 1 hr. Then decrease by 200 units/hr (- 2mL/hr)
PTT greater than or equal to 200 seconds:: HOLD for 2 hrs & Notify Provider. Then decrease by 200 units/hr
(- 2mL/hr)
Lab follow-up:: Each change, PTT q6h until 2 consecutive are therapeutic. Then
PTT daily.
11/29/24 17:48
PTT Urgent
Comment: Obtain baseline before beginning heparin infusion if not already collected
03/25/25 18:22
Vancomycin [Vancocin] 1,500 mg 0.9% Sodium Chloride 500 ml [Nss] 500 ml IV NOW
11/29/24 18:36
Admit/Transfer Patient As Directed
Co-Sign Provider:
Level of Care: Inpatient admission
Assign to:: Telemetry
Physician / Group: nicole
Diagnosis: failure to thrive
Reason for Telemetry: Arrhythmia
Date to Stop Telemetry: 12/02/24
Time to Stop Telemetry: 11:00
Reason for Hospitalization: gangrene wound
Expected length of stay greater than two midnights?: Yes
ELOS- Estimated Length of Stay in days: 2
I certify the patient meets the requirements for IP care: Yes
11/29/24 18:37
PRN Pain Medication Management As Directed
May give lesser potent ordered pain med per pt: Yes
preference::
Protocol:: Medication orders for pain may be administered in a
manner that supports deferring to patient preference
when the pt is:
- Requesting an ordered lesser potent pain medication.
Least to most potent pain medications are defined
as: acetaminophen < NSAID < tramadol < opioids
(morphine, oxycodone, hydromorphone).
- Requesting a lesser dose of the same medication IF
ORDERED.
- Requesting a less intrusive route of administration
if both routes are prescribed by the provider (PO <
IV).
11/29/24 18:38
Code Status As Directed
Resuscitation Status: Do not resuscitate
Reached after discussion with pt or family/Healthcare POA: Yes
DNR Bracelet Application ONCE
11/30/24 00:30
PTT Routine
12/02/24 11:00
DC Protocol for Telemetry ONCE
Abnormal Lab Results
11/29/24
14:39
MCH 26.6 L pg
(27.0-31.0)
MCHC 31.7 L g/dL
(33.0-37.0)
RDW 22.8 H %
(11.5-14.5)
Absolute Lymphs (auto) 0.7 L 10^3/uL
(1.2-3.4)
Neutrophils % 81.7 H %
(42.2-75.2)
Lymphocytes % 10.9 L %
(20.5-51.1)
Potassium 2.9 L mmol/L
(3.5-5.1)
Chloride 96 L mmol/L
(98-107)
Glucose 189 H mg/dl
(70-99)
Lactic Acid 5.3 H* mmol/L
(0.7-2.0)
Magnesium 1.1 L mg/dl
(1.6-2.3)
AST 75 H U/L
(14-36)
ALT 53 H U/L
(0-35)
11/29/24 14:39
11/29/24 14:39
Vital Signs
Initial and Last Documented VS:
Initial Vital Signs
Temp Pulse Resp BP
97.3 F 94 16 123/78
11/29/24 13:39 11/29/24 13:39 11/29/24 13:39 11/29/24 13:39
Last Documented Vital Signs
Temp Pulse Resp BP Pulse Ox
97.3 F 77 15 115/78 100
11/29/24 13:39 11/29/24 14:18 11/29/24 14:18 11/29/24 14:18 11/29/24 14:18
MDM/Problems Addressed
Differential Diagnosis Includes:
Arterial clot, limb ischemia
MDM/Problems Addressed:
69-year-old female with gangrenous left index finger,, alcohol abuse, hypokalemia.
*Radiology
Radiology exam reviewed: radiology read reviewed (Ultrasound shows no pulses in all 5 digits left upper extremity CT head no acute findings, CT face no acute findings)
*Pulse Oximetry
Patient hypoxic: no
*EKG
Interpreted by ED Provider?: Yes
EKG Intrepretation Date: 11/29/24
EKG Intrepretation Time: 13:53
Interpretation: abnormal
Comparison EKG: changes noted
Heart Rate: 74
Rate: normal
Rhythm: sinus
[place]: normal axis
Interval: normal interval
QRS Pattern: normal QRS
Ischemia: non-specific ST changes
*Seedling Sorter Interpretation
Rate: normal
Interpretation: normal
Heart Rate: 75
Rhythm: sinus
*Critical Care Note
Total Time (30-74mins, 75-104mins- exclusive of procedures): 30
comment:
Critical care statement: A total of 30 minutes of critical care time was provided for this patient. This includes management of unstable vital signs, evaluation of the patient at bedside, reviewing the patient's pertinent medical records, discussion
with consultants, review of old EKGs and review of pertinent medical records. This time with separate from time utilized to perform the aforementioned documented procedures
Patient Management
Social determinants of health affecting care: Living situation and Substance abuse
Discussion with other providers: Hospitalist and Morgue Technician (vascular surgery)
Escalation/DeEscalation of care consider admission/obs:
admit indicated
ED Attending Note
-
Portions of this chart may have been created with voice recognition software.� Occasional wrong word or��sound alike� substitutions may have occurred due to the inherent limitations of voice recognition software.
Discharge Plan
Departure
Patient Disposition: Admit
Date of Disposition: 11/29/24
Time of Disposition: 17:27
Admit to: IMU
Presentation/result/management discussed w/ accepting MD/DO: Hospitalist
Patient with high blood pressure during this ER visit?: No
Condition: Fair
Discharge Problem:
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
Interventions
Interventions:
*General Assessment Last Done: 11/29/24 13:39
*ED COVID-19 Vaccine History Last Done: 11/29/24 14:47
[2024-11-29 14:53] LABS: % Eosinophils 0.3 % (0-6); % Immature Granulocytes 0.3 % (0-0.5); % Lymphocytes 10.9 % (20.5-51.1); % Monocytes 5.8 % (1.7-9.3); % Neutrophils 81.7 % (42.2-75.2); Absolute Basophils 0.1 10^3/uL (0-0.2); Absolute Lymphocytes 0.7 10^3/uL (1.2-3.4); Absolute Monocytes 0.4 10^3/uL (0.1-0.6); Hematocrit 38.5 % (37.0-47.0); Hemoglobin 12.2 g/dL (12.0-16.0); Mean Corp Hgb Conc. 31.7 g/dL (33.0-37.0); Mean Corpuscular Hgb 26.6 pg (27.0-31.0); Mean Corpuscular Volume 83.9 fL (81.0-99.0); Mean Platelet Volume 9.4 fL (7.4-10.4); Nucleated Red Blood Cells % 0 %; Platelet Count 255 10^3/uL (130-400); Red Blood Cell Count 4.59 10^6/uL (4.20-5.40); Red Cell Dist. Width 22.8 % (11.5-14.5); White Blood Cell Count 6.1 10^3/uL (4.8-10.8)
--- NOTE | 2024-11-29 15:05 | CON.VAS ---
Addendum entered and electronically signed by Baudilio Hayes MD 11/30/24 10:52:
Seen and examined with JOSEPHINE Barraza. Agree with findings as noted below. See my separate note from today.
Addendum entered and electronically signed by ARELY Siegel 11/29/24 17:32:
Reviewed HPI, physical exam, and results of ultrasound studies with attending Dr. Hal Kimball III, left lower extremity ultrasound with flatline digital waveforms in all 5 digits of left hand and monophasic arterial duplex waveforms throughout the
left extremity suggesting subclavian artery stenosis. For better determination will obtain CT angiogram of left upper extremity, additionally will obtain carotid duplex. Additionally recommend admitting to hospitalist for management of
comorbidities and alcohol withdrawal, initiation of heparin infusion for anticoagulation given high degree of arterial disease, and consultation to orthopedics for management of left index finger dry gangrene, we will follow along.
Original Note:
Consultation
Consultation Request
Date/Time Consultation Performed: 11/29/24
Requesting Provider: Cameron Cassidy MD
Performing Provider: Patricia Barraza NP-C for Hal Kimball III, MD
Reason for Consultation: Left hand index finger tip with chronic wound
Medical History
-
Chief Complaint: Failure to thrive
History of Present Illness:
This is a 69 year old female with significant past medical history for alcohol abuse, hypertension, chronic microcytic anemia, Pancytopenia, peripheral arterial disease, and AAA who presented to [place] ED with failure to thrive and complications
from alcohol abuse/withdraw. Her sister's are accompanying her to ED today and contributing to HPI. Patient reports increased gait dysfunction since attempting to decrease alcohol intake roughly two weeks ago and has fallen twice in the past two
weeks, he recent falls are the precipitating factor to ED presentation. 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 She and sisters note wound began as a small
cut (but she is unsure how cut occurred/does not recall trauma) roughly a month ago. She did not seek medical evaluation, and was attempting to care for wound at home. She does have a history of peripheral arterial disease and apparently an arterial
stent in RLE done by Dr. Haile at [facility], however she cannot recall how long ago. She also has a known AAA that Dr. Haile was monitoring but both patient and sisters endorse she stopped following up and has not seen Dr. Haile 'in
years.' She denies left hand pain, paraesthesia, or motor weakness. Does endorse active smoking. Denies claudication or rest pain.
Past Medical History
Past Medical History: HTN and Other (ETOH abuse, chronic microcytic anemia, Pancytopenia, peripheral arterial disease, AAA)
Past Surgical History: Other (RLE arterial stent)
Social History
Tobacco: Smoker
Alcohol: Chronic Alcoholic
Allergies / Home Medications
Allergy/AdvReac Type Severity Reaction Status Date / Time
No Known Allergies Allergy Verified 11/29/24 13:36
�Medication �Instructions �Recorded �Confirmed �Type
escitalopram oxalate 20 mg tablet 20 mg PO DAILY depression/anxiety 01/04/24 01/04/24 History
omeprazole 20 mg capsule,delayed 20 mg PO DAILY GERD 01/04/24 01/04/24 History
release
nicotine 21 mg/24 hr daily 21 mg transdermal DAILY #30 ea 01/08/24 Rx
transdermal patch
Review of Systems
-
History Source: Patient
Constitutional: Reports No Symptoms
EENT: Reports No Symptoms
Respiratory: Reports No Symptoms
Cardiac: Reports No Symptoms
Vascular: Denies Leg Pain / Claudication, Numbness or Tingling
Abdomen/GI: Reports No Symptoms
: Reports No Symptoms
Musculoskeletal: Reports No Symptoms
Skin: Reports Other (left hand index finger tip with dry gangrene )
Neurological: Reports No Symptoms
Endocrine: Reports No Symptoms
Physical Exam
Vital Signs
Temp Pulse Resp BP Pulse Ox
97.3 F 77 15 115/78 100
11/29/24 13:39 11/29/24 14:18 11/29/24 14:18 11/29/24 14:18 11/29/24 14:18
Lab Results
11/29/24 14:39
Physical Exam
General: No Apparent Distress
HEENT: Normocephalic, Anicteric and Atraumatic
Respiratory: Non Labored Respirations
Cardiac: Negative JVD
GI: Soft, Non Tender and Non Distended
Musculoskeletal: No Edema
Skin: Warm and Other (Left hand is warm, motor and sensation intact, doppler ulnar signal)
Neuro: Awake and Alert
Pulses: Left Posterior Tibial: Doppler and Right Posterior Tibial: Doppler
Assessment / Plan
-
Assessment: 69 year old female brought to ED with family for complications of chronic alcohol use and recent gait dysfunction, incidental mention of chronic left index finger tip dry gangrene wound, with past medical history of peripheral arterial
disease
Plan:
LUE arterial US with palmar arch to assess for peripheral arterial disease as underlying contributing factor to wound
Surgical plan pending results of imaging
[2024-11-29 15:06] LABS: AST (SGOT) 75 U/L (14-36); Albumin 3.9 g/dl (3.5-5.0); Alkaline Phosphatase 62 U/L (38-126); Blood Urea Nitrogen 7 mg/dl (7-17); Calcium 8.7 mg/dl (8.4-10.2); Carbon Dioxide 28 mmol/L (22-30); Chloride 96 mmol/L (98-107); Estimated Creatinine Clearance 50 ml/min; Glucose 189 mg/dl (70-99); Magnesium 1.1 mg/dl (1.6-2.3); Potassium 2.9 mmol/L (3.5-5.1); Sodium 139 mmol/L (135-145); Total Bilirubin 0.6 mg/dl (0.2-1.3); Total Protein 7.2 g/dl (6.3-8.2); eGFR > 60.00
[2024-11-29 15:09] LABS: Lactic Acid 5.3 mmol/L (0.7-2.0)
[2024-11-29 15:25] LABS: ALT (SGPT) 53 U/L (0-35); Anisocytosis 1+; Hypochromasia 1+; Normal RBC Morphology No; Ovalocytes 1+; Polychromasia 1+
[2024-11-29] MEDS: NSS 1000 IV ×2 (16:06→22:50)
[2024-11-29 18:11] LABS: APTT 31.4 Sec (23.4-35.0)
[2024-11-29] MEDS: HEPARIN 4200 UNITS IV (18:33)
[2024-11-29] MEDS: HEPARIN 25000 UNITS/250 ML IV (18:33)
[2024-11-29] MEDS: VANCOCIN 530 MG IV (18:39)
--- NOTE | 2024-11-29 18:49 | HPS.HSE ---
Family Physician
-
Family Physician: ARELY Borrero
Chief Complaint
-
gangrene wound
History of Present Illness
69-year-old female past medical history of severe alcohol use disorder, hyponatremia, chronic microcytic anemia, pancytopenia, hypertension, anxiety/depression, presenting with failure to thrive, peripheral arterial disease status post stent in the
right lower extremity, abdominal aortic aneurysm, presenting with failure to thrive. She states that her sister committed suicide earlier this year patient was laid off her job earlier this year. She has not been depressed but has had significant
weight loss since this time and lack of appetite. Denies any difficulty swallowing, abdominal pain, constipation or diarrhea.
She had a fall a few weeks ago injuring the area above her eye. She feels dizzy when she stands up.
She was drinking a pint of alcohol daily but stopped on November 13.
Patient is also been having chronic dry gangrene wound at the tip of her left hand index finger that has been progressing over the past month. Wound began as a small cut without any trauma roughly a month ago. No discharge. No fevers or chills.
There are some stinging at the tip.
He smokes 5 cigarettes a day.
Medical History
Past Medical History
Past Medical History: Reports Other (severe alcohol use disorder, hyponatremia, chronic microcytic anemia, pancytopenia, hypertension, anxiety/depression,)
Past Surgical History: Reports None
Social History
Tobacco: Non-smoker
Alcohol: None
Drug: None
Family History
Family History: Not pertinent
Allergies / Home Medications
Allergies reflects when Allergies were last updated in [facility].
Home Medications with original date entered in [facility]
Allergy/Medication List:
Allergies
Allergy/AdvReac Type Severity Reaction Status Date / Time
No Known Allergies Allergy Verified 11/29/24 13:36
Home Medications
escitalopram oxalate 20 mg tablet 20 mg PO DAILY depression/anxiety 01/04/24
nifedipine 30 mg tablet,extended release 30 mg PO DAILY 11/29/24
Review of Systems
-
Constitutional: Reports No Symptoms
EENT: Reports No Symptoms
Respiratory: Reports No Symptoms
Cardiac: Reports No Symptoms
Abdomen/GI: Reports No Symptoms
: Reports No Symptoms
Musculoskeletal: Reports No Symptoms
Skin: Reports No Symptoms
Neurological: Reports No Symptoms
Endocrine: Reports No Symptoms
Hematologic/Lymphatic: Reports No Symptoms
Psych: Reports No Symptoms
Physical Exam
Vital Signs
Vital Signs
Temp Pulse Resp BP Pulse Ox
97.3 F 77 15 115/78 100
11/29/24 13:39 11/29/24 14:18 11/29/24 14:18 11/29/24 14:18 11/29/24 14:18
Physical Exam
General: Well Developed, Well Nourished and No Apparent Distress
HEENT: NormoCephalic, Moist mucous membranes and Atraumatic
Respiratory: Clear
Cardiac: S1/S2 and Regular Rhythm; No Murmur or Rub
GI: Soft, Non Tender, Non Distended and Normal Bowel Sounds; No Organomegaly
Rectal: Deferred by Provider
Musculoskeletal: No Clubbing, No Cyanosis and No Edema
Skin: No Rash
Neuro: Nonfocal/grossly intact
Laboratory Results
-
11/29/24 14:39
11/29/24 14:39
Laboratory Results
APTT 31.4 Sec (23.4-35.0) 11/29/24 17:48
Lactic Acid 5.3 mmol/L (0.7-2.0) H* 11/29/24 14:39
Total Bilirubin 0.6 mg/dl (0.2-1.3) 11/29/24 14:39
AST 75 U/L (14-36) H 11/29/24 14:39
ALT 53 U/L (0-35) H 11/29/24 14:39
Alkaline Phosphatase 62 U/L (38-126) 11/29/24 14:39
Data Reviewed
-
Lab Data: Labs Reviewed by me
Old Records: Reviewed
Impression/Plan
-
IMPRESSION:
PLAN:
# Failure to thrive/malnutrition likely secondary to depression
-No overt worsening of mood or suicidal thoughts but manifesting as decreased appetite
-Lactic of 5
-IV fluids
# Hypokalemia secondary to poor oral intake
# Hypomagnesemia
-Replete potassium
-Check magnesium
# Left index finger dry gangrene wound/cellulitis
-X-ray shows small soft tissue defect about the distal aspect of the second digit
-Peripheral arterial ultrasound shows waveforms in all digits of the hand monophasic arterial duplex waveforms throughout the left extremity suggesting subclavian artery stenosis
-CT angio pending of left upper extremity
-Carotid duplex pending
-Heparin drip
-Vascular following
-Ortho consulted
-Vancomycin
# Likely orthostatic hypotension
-Check orthostatic vitals
# Former alcohol use disorder
-No alcohol since November 13
History of PAD
Chronic anemia
Essential hypertension
-Continue nifedipine
Anxiety/depression
-Continue Lexapro
DNR/DNI
DVT prophylaxis�heparin drip
Regular diet
[2024-11-29] MEDS: KCL 270 MEQ IV (21:07)
[2024-11-29] MEDS: KCL 40 MEQ PO (21:21)
[2024-11-29] MEDS: MAGNESIUM OXIDE 500 MG PO (21:21)
[2024-11-29 21:44] LABS: Lactic Acid 2.1 mmol/L (0.7-2.0)
[2024-11-30] VITALS (20 sets, daily range): BP systolic 123–169; BP diastolic 70–102; PULSE 75–88; BMI 18.7
[2024-11-30 06:32] LABS: ALT (SGPT) 32 U/L (0-35); APTT 73.4 Sec (23.4-35.0); AST (SGOT) 38 U/L (14-36); Albumin 2.6 g/dl (3.5-5.0); Alkaline Phosphatase 54 U/L (38-126); Blood Urea Nitrogen 9 mg/dl (7-17); Calcium 7.6 mg/dl (8.4-10.2); Carbon Dioxide 26 mmol/L (22-30); Chloride 108 mmol/L (98-107); Estimated Creatinine Clearance 56 ml/min; Glucose 105 mg/dl (70-99); Potassium 3.9 mmol/L (3.5-5.1); Sodium 137 mmol/L (135-145); Total Bilirubin 0.3 mg/dl (0.2-1.3); Total Protein 5.1 g/dl (6.3-8.2); eGFR > 60.00
[2024-11-30 06:42] LABS: % Basophils 1.3 % (0-2); % Immature Granulocytes 0.2 % (0-0.5); % Lymphocytes 21.7 % (20.5-51.1); % Monocytes 13.4 % (1.7-9.3); % Neutrophils 61.4 % (42.2-75.2); Absolute Basophils 0.1 10^3/uL (0-0.2); Absolute Eosinophils 0.1 10^3/uL (0-0.7); Absolute Monocytes 0.6 10^3/uL (0.1-0.6); Absolute Neutrophils 2.8 10^3/uL (1.4-6.5); Hematocrit 27.4 % (37.0-47.0); Hemoglobin 8.7 g/dL (12.0-16.0); Mean Corp Hgb Conc. 31.8 g/dL (33.0-37.0); Mean Corpuscular Hgb 26.3 pg (27.0-31.0); Mean Corpuscular Volume 82.8 fL (81.0-99.0); Mean Platelet Volume 10.3 fL (7.4-10.4); Nucleated Red Blood Cells % 0 %; Platelet Count 175 10^3/uL (130-400); Red Blood Cell Count 3.31 10^6/uL (4.20-5.40); Red Cell Dist. Width 22.7 % (11.5-14.5); White Blood Cell Count 4.6 10^3/uL (4.8-10.8)
[2024-11-30] MEDS: VANCOCIN 150 IV (07:46)
[2024-11-30] MEDS: NSS 1000 IV ×2 (07:47→18:12)
[2024-11-30] MEDS: LEXAPRO 20 MG PO (07:48)
[2024-11-30] MEDS: PROCARDIA XL (EXTENDED RELEASE) 30 MG PO (07:48)
--- NOTE | 2024-11-30 09:37 | PHA.VAN.IN ---
Assessment
- Assessment
Renal Function: Appears similar to baseline
AUC Dosing Plan
- Dosing Variables
Dosing Weight (kg): 59
Dosing CrCl (ml/min): 56
Vd coefficient (L/kg): 0.7
Utilized IBW for dosing weight given BMI < 20
- Empiric Dosing
Initial / Loading Dose: 1500mg 11/29 18:39 PLUS 750mg 11/30 07:46
Maintenance Regimen: Vanc 1000mg Q24H starting 12/01 06
Estimated AUC (mcg*h/mL): 488
Estimated Peak (mcg*h/mL): 34.3
Estimated Trough (mcg/ml): 10.7
Estimated Half Life (H): 13.6
- Monitoring
No levels ordered at this time: consider levels in next few days
Pharmacokinetics Vancomycin I
- -
Patient Age: 69
Patient Sex: Female
Vancomycin Day #: 1
Indication: Skin And Soft Tissue
Requesting Provider: Dr. Mayfield
Pertinent Antimicrobial Allergies:
NKDA
Height / Weight:
Height 5 ft 6 in
Actual Weight 52.4 kg
IBW in k
Pertinent Past Medical History: BMI ~18.6
- Vital Signs / Lab Results
Temp Pulse Resp BP Pulse Ox
98.3 F 72 18 169/92 100
11/30/24 07:29 11/30/24 07:48 11/30/24 07:29 11/30/24 07:48 11/30/24 07:55
Lab Results - Hematology
11/29/24 11/30/24
14:39 05:47
WBC 6.1 4.6 L
Lab Results - Chemistry
11/29/24 11/30/24
14:39 05:47
BUN 7 9
Creatinine 0.9 0.8
Estimated Creat Clear 50 56
Albumin 3.9 2.6 L
11/29/24 11/29/24
14:39 21:26
Lactic Acid 5.3 H* 2.1 H
--- NOTE | 2024-11-30 10:52 | W.PN.UPDATE ---
Update Note
Progress Note Update
Seen and examined with JOSEPHINE Barraza in the emergency room. Full consultation note in chart. Reviewed by me. Agree with findings. 69-year-old female with active tobacco use who presents with left index finger 3 to 4 weeks lesion at the tip. Unclear
how it initiated. Has pain at the site. She also notes dizziness intermittently that is relatively new. Denies any known history of peripheral arterial revascularization procedures. No coronary disease that she is aware of. No active chest pain
or pressure. No double vision. No amaurosis/unilateral numbness or weakness/ speech dysarthria type episodes.
On exam/she is awake and alert. Head is normocephalic and atraumatic. Eyes are anicteric. Neck is soft without jugular venous distention. 2+ carotid pulsations bilaterally. 2+ right upper extremity radial pulse palpated. Left side difficulty
palpating radial and ulnar pulses. She had a very weak palpable mid upper arm brachial pulse.
Left hand is warm but first finger with distal dry gangrene.
Feet warm. Right side with 2+ DP, left side with 2+ PT palpable.
Plan/ Chronic limb threatening ischemia left upper extremity. I have reviewed all her imaging studies that are relevant here including carotid duplex imaging, upper extremity segmental pressure study, CT angiogram of the upper extremity runoff, CT
angiogram head and neck (ordered by me secondary to nonvisualization of the aortic arch on the upper extremity runoff CT scan). 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 Somewhat diseased origin of the left vertebral artery with
some plaque but stenosis does not appear severe. The origin of the vertebral arteries distal to the occlusion in the subclavian artery. She has moderate to significant atherosclerotic bulky plaque at the left carotid bifurcation. Likely results
in at least 50 to 70% stenosis, and that is the similar finding seen on carotid duplex imaging. Discussed with her all these findings. Chava diagrams to facilitate understanding. Discussed based on all this my recommendation for left carotid to
subclavian artery bypass for revascularization of the upper extremity to treat her chronic limb threatening ischemia of the left hand and potentially dizziness symptoms (could be VBI symptoms but discussed with her that that is not definitive).
Discussed procedure of left carotid to subclavian artery bypass. Discussed anticipated outcomes/recovery. Discussed potential need for staged partial finger amputation. Discussed risks of procedure including but not limited to bleeding,
infections, cardiac complication/[place], nerve injury including phrenic nerve and other nerves with complication as discussed, thoracic duct injury/thoracic duct leak, stroke, lung injury. Discussed also generally management of asymptomatic carotid
stenosis (in this case with given asymptomatic, not as severe stenosis, would favor conservative management and can be managed down the line if need be). She understands all and is agreement with proceeding. Plan left carotid to subclavian artery
bypass. Note will use EEG/SSEP monitoring (given significant external carotid artery stenosis on ultrasound, I think neuromonitoring would be important especially at the time of common carotid artery clamp and anastomosis, and if changes noted may
require shunt, and even in that case would consider concomitant carotid endarterectomy). Discussed plan at bedside with Dr. Lazar.
[2024-11-30 12:14] LABS: Hematocrit 29.4 % (37.0-47.0); Hemoglobin 9.5 g/dL (12.0-16.0)
[2024-11-30 12:23] LABS: APTT 90.9 Sec (23.4-35.0)
--- NOTE | 2024-11-30 12:23 | CM ---
Patient seen at bedside in ED with physicians. Patient states that she lives alone and has 4 steps to enter home. Patient previously stated that she stayed on the first floor with a commode, bathroom on 2nd floor. Patient was driving previously.
Patient PCP Tulio marlow and PCP Dr. Collazo. Patient sister recently and patient reported that she was in [place] until recently when she came home and had a 'brief' binge of drinking. Patient also smokes. Patient
previously had meals on wheels and had a cane for ambulation. Patient seen by Dr Hayes and his team while this CM was present and plan is for surgery tomorrow. Patient previously went to SNF at [facility]. Patient requested CM talk to her sister Zulema
[phone]. Patient may benefit from [facility] assessment after medical treatment plan/closer to discharge. Patient indicated that she would talk to her sister Zulema about the recommendation for surgery and Resident to call patient sister also. CM
will continue to follow for discharge planning needs.
Plan; SNF vs home with VN; pending functional assessment and medical treatment plan
--- NOTE | 2024-11-30 14:22 | W.PN.HOSP.TC ---
Addendum entered and electronically signed by Melissa Lazar MD 11/30/24 17:18:
I saw and evaluated the patient independently. I reviewed the resident�s note and agree with findings and plan as documented by Dr. Sandhu.
GENERAL: well developed, well nourished, female in no apparent distress
HEENT: NC/AT
HEART: regular rate and rhythm, +S1, +S2
LUNGS : clear to auscultation bilaterally
ABDOM: soft, nontender, nondistended, + bowel sounds
EXT: no cyanosis, clubbing, or edema--dry gangrene tip of index finger on left hand
NEUROLOGIC: grossly intact
Failure to thrive/malnutrition likely secondary to depression--consult psych--apprec input--appetite better here--Lactic acid was 5, trended down after IV fluid resuscitation, now 2.1--Patient has been able to tolerate diet--IV fluids discontinued
Left index finger dry gangrene wound/cellulitis--think due to PVD along with contribution of smoking-- CT angio left extremity shows severe plaque at the origin of the left subclavian artery with complete occlusion at the origin and proximal
subclavian artery. This extends a length of approximately 3.6 cm--apprec vascular surgery--for carotid to subclavian bypass in AM--cont heparin drip for now--stop in AM prior to surgery, NPO after MN--cont vanco
Recent history of falls--CT Head and Neck did not show any acute intracranial pathologies--Most likely due to malnutrition coupled with vascular disease as described above--Orthostatic vitals normal
Skin abrasion from falls on right hip and sacrum (POA)--continue management of wound conservatively
Hypokalemia/hypomagnesemia--Repleted, continue monitoring and replete as necessary
History of alcohol abuse--Used to drink around a pint a day--Stopped drinking alcohol on November 13--MSAS 0--No recent history of tremors, other withdrawal symptoms
History of tobacco abuse--quit smoking November 13--nicotine patch if pt requests
Essential hypertension--Will continue nifedipine--As per vascular, should not manage hypertension too aggressively
Anxiety/depression--Continue Lexapro, consulted psych, input appreciated
DVT proph--Heparin drip
code status--DNR
Original Note:
Today's Communication/Plan
-
Continue current management, patient scheduled for vascular surgery tomorrow. N.p.o. after midnight and heparin drip to turn off tomorrow morning
Assessment / Plan
Assessment / Plan
Assessment:
69-year-old female with a past medical history of severe alcohol use disorder, hyponatremia, chronic microcytic anemia, pancytopenia, hypertension, anxiety/depression presented to the [facility] ED on 11/29/2024 for recent failure to thrive,
and recent history of multiple falls. Patient had tried to decrease her alcohol intake since 2 weeks ago and has not had a drink since the ninth of this month. She has fallen twice now the past 2 weeks and hit her head and injured her backside.
Patient had not been eating and her home following the unfortunate passing of her sister along with being laid off by her job. She has had significant weight loss and had a lack of appetite. On presentation to the ED, she was found to be
malnourished and had severe electrolyte abnormalities with increased lactic acid. Patient was given IV fluids and started replenishment of her electrolytes. Patient was also found to have gangrenous left index finger that had been getting worse
for the past month. Patient underwent CT angiograms of the left upper extremity, carotid duplex, and CT head due to her recent falls. She was started on heparin infusion and also NSAIDs protocol due to her potential alcohol withdrawal. Patient
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 She was recommended to have left carotid to subclavian artery bypass
for revascularization of the upper extremity. This could have been contributing to her dizziness symptoms as well. Patient agreed with proceeding and will let her family know.
CT Facial Bones W/o Iv Contrast (11/29/2024):
No acute fractures identified.
Mild left nasal septal deviation.
Small left ester bullosa.
CT Head W/o Iv Contrast (11/06/2024):
No acute intracranial abnormality noted.
Mild atrophy. Stable
Mild nonacute right mastoiditis. Stable
CR Ribs-right 3 Vw W/pa Chest* (11/29/2024):
1. No displaced rib fractures.
2. No acute cardiopulmonary process.
CR Finger(s)/thumb Min 2 Vw Lt (11/29/2024):
Small soft tissue defect about the distal aspect of the second digit. No convincing radiographic evidence for active osteomyelitis. MRI would be of greater sensitivity.
No acute fracture or dislocation. Scattered mild osteoarthritic changes of the interphalangeal joints. No erosions are evident. No radiographic evidence for inflammatory arthropathy.
US Periph Art UPPER Ext W Seg (11/29/2024):
Flat line digital waveforms are demonstrated in all 5 digits of the left hand. Monophasic arterial duplex waveforms are demonstrated throughout the left extremity. Slow velocities are identified from the mid subclavian artery through the radial
artery.
CT Upper Ext Angio W/wo Iv Con (11/29/2024):
Mild atherosclerotic calcifications of the left subclavian and axillary arteries. Grossly patent brachial, radial and ulnar arteries. No high-grade stenosis.
CT Head & Neck Angio W/wo IV (11/30/2024):
No acute intracranial pathology. Mild atrophy.Mild nonacute sinusitis. Stable
There is severe plaque at the origin of the left subclavian artery with complete occlusion at the origin and proximal subclavian artery. This extends a length of approximately 3.6 cm. The vessel is patent distal to this region with small scattered
foci of calcified plaque.
Less than 50% stenosis of the proximal right internal carotid artery.
Multilevel degenerative disc disease.
Sclerotic T5 vertebral body. Metastatic disease not excluded. This could further be evaluated by MR examination.
US Cerebrovascular Carotid Ultrasound (11/30/2024):
1. Extensive calcified plaque within each common carotid artery. Calcified carotid bulb plaque on each side, measurements suggestive of less than 50% stenosis on each side as per modified Society of Radiologists in Ultrasound consensus criteria (IAC
carotid criteria white paper, 2020).
2. Retrograde flow within the left vertebral artery throughout the cardiac cycle, suggestive of left central arterial stenosis. Occlusion of the left proximal subclavian artery was seen on concurrent CTA.
Plan:
# Failure to thrive/malnutrition likely secondary to depression
-Patient not suicidal and does not report any depression
-Counseled about whether she wants to talk to somebody, patient refused at this time
-Consult psych, input appreciated
-Lactic acid was 5, trended down after IV fluid resuscitation, now 2.1
-Patient has been able to tolerate diet
-IV fluids discontinued
#Recent history of falls
-CT Head and Neck did not show any acute intracranial pathologies
-Most likely due to malnutrition coupled with vascular disease as described above
-Orthostatic vitals normal
#Skin abrasion from falls on right hip and sacrum (POA)
-continue management of wound conservatively
# Hypokalemia
-Repleted, continue monitoring and replete as necessary
# Hypomagnesemia
-Repleted, continue monitoring and replete as necessary
# Left index finger dry gangrene wound/cellulitis
-X-rays as above, peripheral arterial ultrasound as above, CT angio left extremity as above
-Vascular following, input appreciated
-Ortho following, input appreciated
-Continue vancomycin
-Plan by vascular to have left carotid to subclavian artery bypass for revascularization of the upper extremity
-Continue heparin drip, will turn off drip hours before surgery
-N.p.o. after midnight for surgery tomorrow
# History of alcohol abuse
-Used to drink around a pint a day
-Stopped drinking alcohol on November 13
-MSAS 0
-No recent history of tremors, other withdrawal symptoms
# Essential hypertension
-Will continue nifedipine
-As per vascular, should not manage hypertension too aggressively
# Anxiety/depression
-Continue Lexapro, consulted psych, input appreciated
DNR
DVT prophylaxis: Heparin drip
Anticipated Discharge: > 48 hours
Subjective/Interval History
-
Date of Service: November 30, 2024
Patient says that she has been feeling well following IV fluids and eating food this morning. Still continues to have pain in her left index finger around the gangrenous area. Still seems a bit anxious but has been feeling less dizzy. Had a
conversation with the patient regarding seeing somebody to talk about her recent traumatic experiences. Patient says she is not interested to talk at the moment.
Objective Data
-
Labs:
Laboratory Results
11/30/24 11/30/24
05:47 12:06
WBC 4.6 L
Hgb 8.7 L D 9.5 L
Hct 27.4 L 29.4 L
Plt Count 175 D
APTT 73.4 H 90.9 H
Sodium 137
Potassium 3.9 D
Chloride 108 H
Carbon Dioxide 26
BUN 9
Creatinine 0.8
Glucose 105 H
Calcium 7.6 L
Total Bilirubin 0.3
AST 38 H
ALT 32
Alkaline Phosphatase 54
Vital Signs:
Vital Signs
Temp Pulse Resp BP Pulse Ox
97.9 F 78 16 134/72 98
11/30/24 11:27 11/30/24 11:27 11/30/24 11:27 11/30/24 11:27 11/30/24 11:27
I&O
11/29/24 11/30/24 12/01/24
06:59 06:59 06:59
Intake Total 870 / 870
Balance 870 / 870
Review of Systems
-
History Source: Patient
Constitutional: Reports Weight Loss; Denies Fever or Fatigue
EENT: Reports No Symptoms Reported
Respiratory: Denies Cough, Trouble Breathing or Wheezing
Cardiac: Denies Chest Pain or Palpitations
Abdomen/GI: Denies Abdominal Pain, Nausea, Vomiting, Constipated or Bloody Stools
Genitourinary: Reports No Symptoms
Musculoskeletal: Reports Other
Skin: Reports Other (Blackened discoloration tip of left index finger)
Neuro: Denies Headache or Lightheadedness
Psych: Reports Anxious
Physical Exam
-
General: Well Developed, Comfortable and Conversant
HEENT: Normocephalic and Atraumatic
Respiratory: Clear to Auscultation and Non Labored Respirations
Cardiac: Regular Rhythm and S1/S2; Negative Murmur
GI: Soft, Nontender and Nondistended
Musculoskeletal: Other (Left index finger dry gangrene wound at the distal tip)
Skin: Warm and Other (Erythema surrounding tip of gangrenous left index)
Neuro: Awake, Alert, Oriented, No Motor Deficits and No Sensory Deficits
Psych: Calm and Intact Judgement/Insight
Data Reviewed
-
CT Scan: Report Reviewed by me, Discussed with Physician, Discussed with Nurse and Discussed with Patient
Ultrasound: Report Reviewed by me, Discussed with Physician, Discussed with Nurse and Discussed with Patient
Labs: Discussed with Physician, Discussed with Nurse, Discussed with Patient and Discussed with Family
--- NOTE | 2024-11-30 16:18 | CON.MD ---
Consultation - Medical
-
patient seen chart reviewed. discussed w nursing. the patient is a 69 year old woman who has been treated in the past for depression anxiety and etoh abuse. she has consumed etoh to excess for over ten years after a breakup with her partner of many
years. she was in rehab in oct of this year. relapsed when she got out and decided on november 13 that she would get sober. she has not drunk etoh since then and says she had no wd sx. she has not felt well in the past several months. notes poor
appetite and weight loss of 25 plus lbs. she had been prescribed lexapro 20 mg does not feel it has been helpful but then again says she is not particularly depressed. in some ways mood is better since she got sober but she is grieving the suicide
of her sister about a year ago. sister shot herself in the wake of family issues. she does have three sisters remaining who are supportive of her. energy level is poor. she is not suicidal. there is nothing to suggest psychosis. patient has
hx of pvd and was found on this admit to need significant surgery to save her arm among other things. she is going to surgery tomorrow. she says she is not anxious just glad they found out about it and can help her
past psych hx see above no hosp no therapy. has been to rehab for etoh recently no hx suicide attempts
medical hx see above dry gangrene left digit pt has pad raynauds hld chronic back pain from disc disease htn aaa fe def anemia rt leg arterial stent ecg qtc 455 elev beta hydroxy butyrate there is mention of pancreatic mass in the external
med summary hx breast lumpectomy albumin and total protein decreased.
fh alcoholism sister suicided
substance abuse etoh see above when drinking was consuming at least a pint daily
social resides in her own place. 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 three supportive sisters one brother. another sis by suicide
mse alert ox3 cooperative and quite pleasant tuyet in view of the situation. speech and thought process nl affect appropriate mood is appropriately anxious but not unduly so no si aver intell insight judgment good
dx etoh use disorder early remission by hx unspec depression . i do not find patient to be particularly depressed currently bereavement
recommendations have decreased lexapro to 10 mg which is the max dose for over 65 folks. she does not feel it helps. not clear she will need it given sobriety. should reassess in a month or so. should have some support for sobriety when dc. given
hx lumpectomy (? exact dx?) 'pancreatic mass (noted in ext reports ) anemia weight loss etc is it worth it to work up re occult malignancy? psych will check in with her after her surgery.
[2024-11-30] MEDS: MAGNESIUM SULFATE 100 IV (18:17)
[2024-11-30] MEDS: HEPARIN 25000 UNITS/250 ML IV (18:40)
[2024-11-30] MEDS: TYLENOL 1000 MG PO (22:53)
[2024-12-01] VITALS (16 sets, daily range): BP systolic 109–153; BP diastolic 67–105; BMI 18.8
[2024-12-01] MEDS: NSS 1000 IV ×2 (00:03→12:49)
--- NOTE | 2024-12-01 02:57 | PTCARENOTE ---
1900 pt aoox3, reports no pain in left arm. pt has no c/o pain. left hand is warn and left index finger scab, necrotic. positive pulse w/ Doppler.
2100 pt washed up w/ soap and water and chg wipes.
2229 pt reported pain in left hand. informed [employer] Ana Herbert- ordered Tylenol 1000mg. Administered w/ +eff.
0116 per order stopped Heparin gtt for vascular surgery
[2024-12-01 04:56] LABS: Hematocrit 28.8 % (37.0-47.0); Hemoglobin 9.2 g/dL (12.0-16.0); Mean Corp Hgb Conc. 31.9 g/dL (33.0-37.0); Mean Corpuscular Hgb 26.7 pg (27.0-31.0); Mean Corpuscular Volume 83.7 fL (81.0-99.0); Mean Platelet Volume 9.8 fL (7.4-10.4); Platelet Count 207 10^3/uL (130-400); Red Blood Cell Count 3.44 10^6/uL (4.20-5.40); Red Cell Dist. Width 22.9 % (11.5-14.5); White Blood Cell Count 4.8 10^3/uL (4.8-10.8)
[2024-12-01 05:03] LABS: APTT 32.2 Sec (23.4-35.0)
[2024-12-01 05:29] LABS: Blood Urea Nitrogen 9 mg/dl (7-17); Calcium 7.9 mg/dl (8.4-10.2); Carbon Dioxide 31 mmol/L (22-30); Chloride 100 mmol/L (98-107); Estimated Creatinine Clearance 65 ml/min; Glucose 117 mg/dl (70-99); Magnesium 2.4 mg/dl (1.6-2.3); Potassium 3.7 mmol/L (3.5-5.1); Sodium 139 mmol/L (135-145); eGFR > 60.00
[2024-12-01] MEDS: BACTROBAN 2% OINTMENT 1 APPLIC NASAL (05:46)
[2024-12-01] MEDS: PERIDEX 0.12% ORAL RINSE 15 ML PO (05:46)
[2024-12-01] MEDS: VANCOCIN 200 IV (05:46)
--- NOTE | 2024-12-01 07:06 | W.SUR.PREOP ---
Pre-Operative Surgical Note
-
I have examined this patient prior to the performance of the scheduled procedure.
The patient's condition is unchanged from the time of the current History and
Physical and the patient is able to undergo the scheduled procedure.
--- NOTE | 2024-12-01 08:05 | W.PN.HOSP.TC ---
Addendum entered and electronically signed by Melissa Lazar MD 12/01/24 14:49:
I saw and evaluated the patient independently. I reviewed the resident�s note and agree with findings and plan as documented by Dr. Sandhu.
GENERAL: well developed, well nourished, female in no apparent distress
HEENT: left base of neck with fresh incision c/d/i some bruising noted
HEART: regular rate and rhythm, +S1, +S2
LUNGS : clear to auscultation bilaterally
ABDOM: soft, nontender, nondistended, + bowel sounds
EXT: no cyanosis, clubbing, or edema--dry gangrene tip of index finger
NO physical exam by Dr. Sandhu as pt was already in the OR
Failure to thrive/malnutrition/lactic acidosis-- likely secondary to depression--apprec psych, lexapro decreased--apprec input--appetite better here--Lactic acid was 5, trended down after IV fluid resuscitation (could also have been due to poor limb
perfusion)--Patient has been able to tolerate diet--IV fluids discontinued--keep in ICU today as per vascular
Left index finger dry gangrene wound/cellulitis--think due to PVD along with contribution of smoking-- CT angio left extremity shows severe plaque at the origin of the left subclavian artery with complete occlusion at the origin and proximal
subclavian artery. This extends a length of approximately 3.6 cm--apprec vascular surgery--s/p carotid to subclavian bypass--cont vanco
Recent history of falls--CT Head and Neck did not show any acute intracranial pathologies--Most likely due to malnutrition coupled with vascular disease as described above--Orthostatic vitals normal
Skin abrasion from falls on right hip and sacrum (POA)--continue management of wound conservatively
Hypokalemia/hypomagnesemia--Repleted, continue monitoring and replete as necessary
History of alcohol abuse--Used to drink around a pint a day--Stopped drinking alcohol on November 13--MSAS 0--No recent history of tremors, other withdrawal symptoms
History of tobacco abuse--quit smoking November 13--nicotine patch if pt requests
Essential hypertension--Will continue nifedipine--As per vascular, should not manage hypertension too aggressively
Anxiety/depression--Continue Laineyo, consulted psych, input appreciated
DVT proph--Heparin drip
code status--DNR
Original Note:
Today's Communication/Plan
-
Patient to undergo vascular surgery today
Assessment / Plan
Assessment / Plan
Assessment:
69-year-old female with a past medical history of severe alcohol use disorder, hyponatremia, chronic microcytic anemia, pancytopenia, hypertension, anxiety/depression presented to the [facility] ED on 11/29/2024 for recent failure to thrive,
and recent history of multiple falls. Patient had tried to decrease her alcohol intake since 2 weeks ago and has not had a drink since the ninth of this month. She has fallen twice now the past 2 weeks and hit her head and injured her backside.
Patient had not been eating and her home following the unfortunate passing of her sister along with being laid off by her job. She has had significant weight loss and had a lack of appetite. On presentation to the ED, she was found to be
malnourished and had severe electrolyte abnormalities with increased lactic acid. Patient was given IV fluids and started replenishment of her electrolytes. Patient was also found to have gangrenous left index finger that had been getting worse
for the past month. Patient underwent CT angiograms of the left upper extremity, carotid duplex, and CT head due to her recent falls. She was started on heparin infusion and also NSAIDs protocol due to her potential alcohol withdrawal. Patient
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 She was recommended to have left carotid to subclavian artery bypass
for revascularization of the upper extremity. This could have been contributing to her dizziness symptoms as well. Patient agreed with proceeding and will let her family know. Patient to have vascular surgery today, no changes from yesterday
CT Facial Bones W/o Iv Contrast (11/29/2024):
No acute fractures identified.
Mild left nasal septal deviation.
Small left ester bullosa.
CT Head W/o Iv Contrast (11/06/2024):
No acute intracranial abnormality noted.
Mild atrophy. Stable
Mild nonacute right mastoiditis. Stable
CR Ribs-right 3 Vw W/pa Chest* (11/29/2024):
1. No displaced rib fractures.
2. No acute cardiopulmonary process.
CR Finger(s)/thumb Min 2 Vw Lt (11/29/2024):
Small soft tissue defect about the distal aspect of the second digit. No convincing radiographic evidence for active osteomyelitis. MRI would be of greater sensitivity.
No acute fracture or dislocation. Scattered mild osteoarthritic changes of the interphalangeal joints. No erosions are evident. No radiographic evidence for inflammatory arthropathy.
US Periph Art UPPER Ext W Seg (11/29/2024):
Flat line digital waveforms are demonstrated in all 5 digits of the left hand. Monophasic arterial duplex waveforms are demonstrated throughout the left extremity. Slow velocities are identified from the mid subclavian artery through the radial
artery.
CT Upper Ext Angio W/wo Iv Con (11/29/2024):
Mild atherosclerotic calcifications of the left subclavian and axillary arteries. Grossly patent brachial, radial and ulnar arteries. No high-grade stenosis.
CT Head & Neck Angio W/wo IV (11/30/2024):
No acute intracranial pathology. Mild atrophy.Mild nonacute sinusitis. Stable
There is severe plaque at the origin of the left subclavian artery with complete occlusion at the origin and proximal subclavian artery. This extends a length of approximately 3.6 cm. The vessel is patent distal to this region with small scattered
foci of calcified plaque.
Less than 50% stenosis of the proximal right internal carotid artery.
Multilevel degenerative disc disease.
Sclerotic T5 vertebral body. Metastatic disease not excluded. This could further be evaluated by MR examination.
US Cerebrovascular Carotid Ultrasound (11/30/2024):
1. Extensive calcified plaque within each common carotid artery. Calcified carotid bulb plaque on each side, measurements suggestive of less than 50% stenosis on each side as per modified Society of Radiologists in Ultrasound consensus criteria (IAC
carotid criteria white paper, 2020).
2. Retrograde flow within the left vertebral artery throughout the cardiac cycle, suggestive of left central arterial stenosis. Occlusion of the left proximal subclavian artery was seen on concurrent CTA.
Plan:
# Failure to thrive/malnutrition likely secondary to depression
-Patient not suicidal and does not report any depression
-Counseled about whether she wants to talk to somebody, patient refused at this time
-Consult psych, input appreciated
-Lactic acid was 5, trended down after IV fluid resuscitation, now 2.1
-Patient has been able to tolerate diet
#Recent history of falls
-CT Head and Neck did not show any acute intracranial pathologies
-Most likely due to malnutrition coupled with vascular disease as described above
-Orthostatic vitals normal
#Skin abrasion from falls on right hip and sacrum (POA)
-continue management of wound conservatively
# Hypokalemia
-Repleted, continue monitoring and replete as necessary
# Hypomagnesemia
-Repleted, continue monitoring and replete as necessary
-Magnesium went from 1.0-2.4 after repletion
# Left index finger dry gangrene wound/cellulitis
-X-rays as above, peripheral arterial ultrasound as above, CT angio left extremity as above
-Vascular following, input appreciated
-Continue vancomycin
-Plan by vascular to have left carotid to subclavian artery bypass for revascularization of the upper extremity today
-Postop care by vascular team as directed
# History of alcohol abuse
-Used to drink around a pint a day
-Stopped drinking alcohol on November 13
-MSAS 0
-No recent history of tremors, other withdrawal symptoms
# Essential hypertension
-Will continue nifedipine
-As per vascular, should not manage hypertension too aggressively
# Anxiety/depression
-consulted psych, input appreciated
-Seen by psych yesterday who adjusted dose of Lexapro
-Now on 10 mg daily
DNR
DVT prophylaxis: Heparin drip (DC'd before surgery)
Anticipated Discharge: 24 - 48 hours
Subjective/Interval History
-
Date of Service: December 01, 2024
With the patient at 6:20 AM this morning, will out of the room as she had already been transported for her surgery. Talked with nurse who said that patient did not have any overnight complaints or any changes from her previous condition. She
continues to still have pain in her left index finger which was unchanged from yesterday. Patient n.p.o. starting midnight and her heparin drip was stopped.
Objective Data
-
Labs:
Laboratory Results
12/01/24 12/01/24
04:46 06:00
WBC 4.8 Cancelled
Hgb 9.2 L Cancelled
Hct 28.8 L Cancelled
Plt Count 207 Cancelled
APTT 32.2 Cancelled
Sodium 139
Potassium 3.7
Chloride 100
Carbon Dioxide 31 H
BUN 9
Creatinine 0.7
Glucose 117 H
Calcium 7.9 L
Vital Signs:
Vital Signs
Temp Pulse Resp BP Pulse Ox
98.5 F 79 16 149/91 98
12/01/24 03:00 12/01/24 03:00 12/01/24 03:00 12/01/24 03:00 12/01/24 03:00
I&O
11/30/24 12/01/24 12/02/24
06:59 06:59 06:59
Intake Total 2409 / 2409
Balance 2409 / 241
Review of Systems
-
Unable to obtain full review of systems at this time due to: Other (Patient not in the room)
Data Reviewed
-
Labs: Labs Reviewed by me, Discussed with Physician and Discussed with Nurse
--- NOTE | 2024-12-01 09:57 | PHA.VAN.FU ---
Vancomycin Assessment / Plan
- Assessment
Renal Function: SCR Decreasing
WBC's are: WNL
In the past 24 hrs, patient has been: Afebrile
- Dosing Plan
Adjust Regimen to: Vanc 500mg Q12H starting at 1800
New Regimen Predicts: AUC (427), Peak (24), Trough (12.7)
Dosing Comments: utilized IBW for dosing weight given low BMI
- Monitoring Plan
No level(s) ordered at this time: consider levels in next few days
- Follow Up
Pharmacy will continue to follow.
Vancomycin Follow UP
- -
Patient Age: 69
Patient Sex: Female
Vancomycin Day #: 2
Indication: Skin And Soft Tissue
Requesting Provider: Dr. Mayfield
Pertinent Antimicrobial Allergies:
NKDA
Height / Weight:
Height 5 ft 6 in
Actual Weight 52.844 kg
IBW in k
Pertinent Past Medical History: BMI ~18.6
- Vital Signs / Lab Results
Temp Pulse Resp BP Pulse Ox
98.5 F 79 16 149/91 98
12/01/24 03:00 12/01/24 03:00 12/01/24 03:00 12/01/24 03:00 12/01/24 03:00
Lab Results - Hematology
11/29/24 11/30/24 12/01/24
14:39 05:47 04:46
WBC 6.1 4.6 L 4.8
12/01/24
06:00
WBC Cancelled
Lab Results - Chemistry
11/29/24 11/30/24 12/01/24
14:39 05:47 04:46
BUN 7 9 9
Creatinine 0.9 0.8 0.7
Estimated Creat Clear 50 56 65
Albumin 3.9 2.6 L
11/29/24 11/29/24
14:39 21:26
Lactic Acid 5.3 H* 2.1 H
--- NOTE | 2024-12-01 10:39 | W.PN.UPDATE ---
Update Note
Progress Note Update
chart reviewed. will check in with patient tomorrow after surgery.
--- NOTE | 2024-12-01 11:07 | W.SUR.POST ---
Surgical Immediate Post Op
Note
Pre Op Diagnosis: Critical limb ischemia, subclavian artery stenosis
Post Op Diagnosis: Same
Procedure Performed: Left carotid to subclavian artery bypass with graft, EEG monitoring throughout
Primary Surgeon: Freddy
Assist: Deng MCGEE
Anesthesia: General
Estimated Blood Loss: 30 cc
Fluids: See anesthesia flowsheet
Drains/Shunts: None
Specimens/Cultures: None
Doppler/Duplex/Angio (Y/N): Y
Complications: None
Operative Findings: Palpable left radial and ulnar pulses
[2024-12-01 11:58] LABS: Hematocrit 27.4 % (37.0-47.0); Hemoglobin 8.9 g/dL (12.0-16.0); Mean Corp Hgb Conc. 32.5 g/dL (33.0-37.0); Mean Corpuscular Hgb 27.6 pg (27.0-31.0); Mean Corpuscular Volume 84.8 fL (81.0-99.0); Mean Platelet Volume 9.9 fL (7.4-10.4); Platelet Count 170 10^3/uL (130-400); Red Blood Cell Count 3.23 10^6/uL (4.20-5.40); Red Cell Dist. Width 22.8 % (11.5-14.5)
[2024-12-01 12:04] LABS: INR 1.01; PT 13.8 Sec (11.4-14.6)
[2024-12-01 12:05] LABS: APTT 34.4 Sec (23.4-35.0)
[2024-12-01] MEDS: PROCARDIA XL (EXTENDED RELEASE) 30 MG PO (12:07)
[2024-12-01 12:09] LABS: Blood Urea Nitrogen 7 mg/dl (7-17); Calcium 7.3 mg/dl (8.4-10.2); Carbon Dioxide 25 mmol/L (22-30); Chloride 103 mmol/L (98-107); Estimated Creatinine Clearance 76 ml/min; Glucose 156 mg/dl (70-99); Potassium 3.7 mmol/L (3.5-5.1); Sodium 135 mmol/L (135-145); eGFR > 60.00
[2024-12-01] MEDS: SUBLIMAZE 50 MCG IV (12:13)
--- NOTE | 2024-12-01 12:13 | OR.RPT ---
Operative Report
Operative Report
PROCEDURE DATE: 12/01/2024
Preoperative diagnosis:
1. Chronic limb threatening ischemia left upper extremity.
2. Possible vertebrobasilar insufficiency.
3. Left subclavian artery occlusion.
Postoperative diagnosis: Same
Procedure: Left common carotid artery to subclavian artery bypass with 8 mm Hemashield Dacron graft with intraoperative EEG/SSEP monitoring.
Surgeon: Freddy
Touch Up Painter: JOSEPHINE Vilchis, required for all aspects of procedure including assistance with traction/countertraction, following of suture line, assistance with closure.
Complications: None
Anesthesia: General
Indications for procedure:
Left index finger distal tip dry gangrene. Severe ischemic rest pain in the fingertip as well. She also describe symptoms of dizziness recurrently recently. Imaging demonstrated severe calcified plaque occlusion of left proximal subclavian artery
at the origin and for the first couple centimeters. Reconstituted flow at the level of the vertebral artery, but some disease in the vertebral artery origin as well. Risk/benefit/alternatives of carotid to subclavian artery bypass were fully
discussed. Patient understood all wished to proceed.
Description of procedure:
Patient was identified brought to the operating room placed on the table in supine position. After the adequate administration of anesthesia she was prepped and draped in the standard surgical fashion. A standard preoperative timeout was
undertaken and everybody was in agreement the plan. A transverse incision was made about 1 fingerbreadth superior to the clavicle extending from the medial edge of the sternal head of the sternocleidomastoid muscle to about 6 to 8 cm laterally.
This was carried through the skin and subcutaneous tissue. Using electrocautery dissected through the platysma muscle layer. Subplatysmal flaps were then raised. The clavicular head of the sternocleidomastoid muscle was then divided with the
electrocautery. Medially, the internal jugular vein was identified, and the scalene fat pad was then identified. The scalene fat pad was then mobilized from medial to laterally using a combination of the electrocautery as well as ligation of any
lymphatic type structures. Just deeper to here there was seen some lymphatic structures which were all ligated between silk ties and then divided. Once the fat pad was then reflected I could see clearly the phrenic nerve and its usual course.
Careful circumferential dissection was undertaken without actually grasping the nerve. (Perineural tissues were just grasped). A vessel loop was gently passed around it and maintained loosely to allow retraction if needed but care was taken to
avoid any undue manipulation of the nerve. With the nerve gently retracted out of the way, the anterior scalene muscle was identified. I could see the brachial plexus at the edge of it. It was a relatively tight space in her. Therefore I
carefully mobilized the anterior scalene lateral edge off the plexus taking care to avoid any injury to the plexus. I then divided the anterior scalene under direct vision with a combination of careful electrocautery as well as sharp Metzenbaum
scissor transection. Once the muscle was divided, I was able to palpate and identify the subclavian artery just deep and inferior in the wound bed. The fatty tissue overlying was dissected and the subclavian artery was carefully circumferentially
dissected away from its magui structures and a vessel loop passed around it. It was noted to be very soft in this field here. I difficulty mobilizing it here as it was fairly deep and under the clavicle for its more lateral portion. Medially also
had limited ability to expose the medial area. But I was able to get enough mobilization of the artery circumferentially proximally and distally. Distally I was able to identify one of the branches and carefully circumferentially dissected and
passed a vessel loop around it. And then I was able to dissect the artery more distally and passed a vessel loop around it there to allow better mobilization and to give me more room when I would need to sew.
At this point I turned my attention to the exposure of the common carotid artery. Initially to expose the artery I stayed on the anterior surface of the internal jugular and then dissected medially and identified the vagus nerve which was actually
somewhat anterior but careful dissection medial to the vagus nerve was undertaken taking great care to avoid any injury to the vagus nerve. The common carotid artery was identified here. And this was carefully circumferentially dissected for a
suitable portion. It was noted to be moderately calcified in the mid to distal portion but more proximally was softer. However I felt that more proximally would be difficult to sew to based on how proximal it was (started diving downward). But I
felt that the lateral wall was actually somewhat free of calcification that I would be able to fashion the anastomosis to that wall. I therefore then had proximal and distal control and Vesseloops were passed around proximally and distally.
Now I gave the patient 5000 needs of intravenous heparin. Once this had circulated for 3 minutes, I tightened double looped vessel loop on the distal common carotid artery and then clamped proximally. Note, I elected to use EEG/SSEP continuous
monitoring given that the patient had some carotid bifurcation disease. There was no EEG or SSEP changes after clamping or any time during the case throughout her monitoring. An arteriotomy was made on the lateral wall of the common carotid artery
(lateral left). This was done with an 11 blade and extended using a Weiss scissor. Though there was some calcified plaque this was more anterior and medial and therefore was not quite in my way of suturing here and the lumen was widely patent. I
used an 8 mm Hemashield Dacron graft that I beveled appropriately and sewed an end-to-side anastomosis to the common carotid artery using a running 5-0 Prolene suture. The suture line was then completed and tied down. I then backbled the common
carotid artery via the graft and then clamped the graft. I then released flow in the [place] common carotid artery system again.
I had to dissected the posterior aspect of the internal jugular vein prior. And therefore now I tunneled my graft posterior to the internal jugular vein (therefore the graft was anterior to the vagus nerve, then posterior to the internal jugular
vein, and anterior to the phrenic nerve). I now tightened my double looped Vesseloops on the distal subclavian artery and branch, and clamped the proximal subclavian artery. I made an arteriotomy with an 11 blade and extended using a Weiss
scissor. It was a soft walled artery with normal flow lumen. I therefore then trimmed and beveled the graft. I sewed an end-to-side anastomosis using a running 5-0 Prolene suture. Prior to completing and tying down my suture line I backbled the
[place] artery and then flushed out the graft. Heparinized saline was instilled. I then completed and tied down my suture line. Next I released clamps and Vesseloops on the subclavian artery and then my graft clamp. There is now excellent
pulsatile flow into the subclavian artery. Doppler confirmed excellent Doppler signal in the subclavian artery distally anastomosis that was heavily graft augmented. There is also excellent Doppler signals in the common carotid artery. At this
point I was very satisfied. I meticulously achieved full hemostasis. A couple of 6-0 Prolene [id number] type sutures were placed on the toe of the suture line of the subclavian artery anastomosis and full hemostasis was noted. I then
irrigated through and confirmed full hemostasis. Protamine was given reverse the heparin. Once again confirmed hemostasis and then we closed in layers. Vicryl layer was used to reapproximate the scalene fat pad. [id number] Vicryl sutures
were used to reapproximate the clavicular head of the sternocleidomastoid muscle. A running 3-0 Vicryl platysma muscle layer closure was then performed. Finally, running 4-0 Monocryl subcuticular suture was used to close the skin. Dermabond was
applied. The patient tolerated the procedure well. She awoke moving all 4 extremities to command. She had an excellent palpable ulnar and radial pulse at the wrist. All sponge, needle, instrument counts were correct at the end of the case. The
patient was transported to the recovery room in stable condition.
[2024-12-01] MEDS: NSS IV (13:31)
--- NOTE | 2024-12-01 14:05 | PTCARENOTE ---
pt received from PACU into room 3347. Pt AAOX3. reports mild pain at left neck incision site. left neck/left subclavian incision site [employer] with surgical adhesive, some bruising noted around site. SR on telemetry heart rate in 70s. Left radial pulse
palpable. pt moves all extremities without difficulty. pt denies numbness/tingling. Right radial arterial line leveled and zeroed with appropriate waveform. Pt on room air, sat 97%. lung sounds clear diminished in bases. active bowel sounds.
tolerating clear liquids. purewick in place, no urge to void at this time. see worklist for full nursing assessment and interventions. pt updated on plan of care. oriented to room and unit. sisters brought to bedside.
--- NOTE | 2024-12-01 14:06 | PN.CDI ---
CDI
- -
CDI:
Physician Documentation Request
Admit Date: 11/29/24 19:30
Dear Doctor Edson,
Clinical Indicators:
Patient admitted with FTT & left index finger dry gangrene wound/cellulitis.
12/01 PN, 'Lactic acid was 5, trended down after IV fluid resuscitation, now 2.1'
Based on the above, could you clarify in the progress notes, the appropriate diagnosis, if significant, that supports the above abnormalities and additional evaluation, monitoring and/or treatment rendered:
Lactic acidosis
Elevated lactic level only
Other
Use of terms such as suspected, likely, concern for, or probable (associated with a specific diagnosis that is being evaluated, monitored, or treated as if it exists) are acceptable and can be coded in the inpatient setting, when documented at the
time of discharge.
Thank you,
Rachel Reina RN
CDI Specialist
available via tiger text
Please use your independent medical judgment in providing your response.
[2024-12-01] MEDS: LEXAPRO 10 MG PO (14:17)
--- NOTE | 2024-12-01 14:30 | CON.INTV ---
Consultation
Consultation Request
Date/Time Consultation Requested: 12/01/2024 - 1102
Date/Time Consultation Performed: 12/01/2024 - 1127
Requesting Provider: ARELY Mejia
Performing Provider: Dr. Carbajal
Reason for Consultation: S/p left common carotid artery to subclavian bypass
Medical History
-
Chief Complaint: Failure to thrive with alcohol abuse
History of Present Illness:
69-year-old female active tobacco smoker with a past medical history of severe alcohol use disorder, history of hyponatremia, chronic anemia, hypertension, anxiety/depression, Raynaud's phenomena, history of anal fistula + perianal abscess s/p I&D,
AAA and history of left breast mass s/p lumpectomy (2006) who presents with failure to thrive. She had stated that her sister committed suicide earlier this year. Patient also was laid off of her job earlier this year. Patient's had significant
weight loss since these events and has lost her appetite. She had a fall few weeks ago injuring the area above her eye and she had felt dizzy upon standing. She also has been having a chronic wound at the tip of her left index finger that been
progressing over the last month. It began as a small cut. No fevers or chills. Initial labs were pertinent for Hb 12.2, WBC 6.1, potassium 2.9, lactate 5.3, glucose 189, magnesium 1.1, AST [address] facial bones showed no acute
fracture with mild left nasal septal deviation; CT head showed no acute intracranial abnormality with mild nonacute right mastoiditis. CXR with ribs XR showed no displaced rib fractures or acute cardiopulmonary process. Finger XR showed small soft
tissue defect about the distal aspect of the second digit with no evidence for active osteomyelitis. Vascular surgery was consulted and a left upper extremity peripheral arterial US showed monophasic arterial duplex waveforms throughout the left
extremity with slow velocities in the mid subclavian artery through the radial artery. CT left upper extremity showed mild atherosclerotic calcifications in the left subclavian and axillary arteries. Subsequent CTA head/neck showed occlusion of
the origin and proximal left subclavian artery. Heparin drip was started. Vascular intervention was reviewed with the patient and she consented to this procedure. Today she underwent a left carotid to subclavian artery bypass with graft. EBL was
30 cc and there were no immediate complications. She was transferred to the ICU postoperatively for further care and [facility] services consulted for additional management/recommendations.
Of note, patient was not received from the PACU into the ICU until 1405 on 12/01/2024. When I saw the patient she was resting in bed no acute distress. Heart rate 75, BP via A-line: 126/63, BP via NIBP: 109/67 and saturating 97% on room air. She
is in no acute distress, denies chest pain, SOB, nausea, fevers or chills.
PMHx: Hypertension, anxiety, Raynaud's phenomenon, traumatic left ankle fracture, left breast mass s/p lumpectomy (2006), right foot bone spur, lumbar spine DDD, history of anal fistula, perianal abscess s/p I&D, AAA, depression, alcohol abuse,
tobacco smoker
PSHx: First MTPJ arthrodesis with plate/screw fixation, hallux IPJ sesamoidectomy (right-sided � 05/2017), exostectomy plantar�medial hallux IPJ (right � 05/2017)
Past Medical History
Past Medical History: Other (Above as per HPI)
Past Surgical History: Other (Above as per HPI)
Social History
Tobacco: Former Smoker (quit smoking 11/13/2024; prior to that was smoking 0.25 PPD)
Alcohol: Former
Drug: None
Family History
Family History: CAD (Maternal uncle), Hypertension (Father + mother) and Other (Father: Hyperlipidemia + CHF; Mother: AAA + history of stroke)
Allergies / Home Medications
Allergies
Allergy/AdvReac Type Severity Reaction Status Date / Time
No Known Allergies Allergy Verified 11/29/24 13:36
Home Medications
�Medication �Instructions �Recorded �Confirmed �Last Taken �Type
escitalopram oxalate 20 mg tablet 20 mg PO DAILY depression/anxiety 04/11/29/24 11/28/24 History
nifedipine 30 mg tablet,extended 30 mg PO DAILY Blood Pressure 11/29/24 11/29/24 11/28/24 History
release
Review of Systems
-
History Source: Patient
All other systems: Negative unless noted
Vitals / Labs / Diagnostic Testing
Vital Signs
Temp Pulse Resp BP Pulse Ox
97.5 F 75 13 118/72 97
12/01/24 19:55 12/01/24 19:00 12/01/24 19:00 12/01/24 19:00 12/01/24 19:00
Lab Data
12/01/24 11:42
12/01/24 11:42
Laboratory Results
12/01/24 12/01/24 12/01/24
04:46 06:00 11:43
PT 13.8
INR 1.01
APTT 32.2 Cancelled 34.4
Diagnostic Testing:
Physical Exam
-
HEENT: Normocephalic and Anicteric
Cardiovascular: S1/S2 and Peripheral Edema (negative)
Respiratory: Clear, Wheeze (negative), Rales (negative), Rhonchi (negative) and Accessory Resp Muscle Use (negative)
GI: Soft, Tender, Non Tender and Normal Bowel Sounds
Neurology: Awake, Alert and Tremors (negative)
Skin: Warm and Dry
General: Respiratory Distress (negative), Comfortable, Chills (negative), Sweats (negative) and Other (Adult female in NAD, cachectic appearing)
Assessment
-
Assessment: 69-year-old female active tobacco smoker with a past medical history of severe alcohol use disorder, history of hyponatremia, chronic anemia, hypertension, anxiety/depression, Raynaud's phenomena, history of anal fistula + perianal
abscess s/p I&D, AAA and history of left breast mass s/p lumpectomy (2006) who presents with failure to thrive. She had stated that her sister committed suicide earlier this year. Patient also was laid off of her job earlier this year. Patient's
had significant weight loss since these events and has lost her appetite. She had a fall few weeks ago injuring the area above her eye and she had felt dizzy upon standing. She also has been having a chronic wound at the tip of her left index
finger that been progressing over the last month. It began as a small cut. No fevers or chills. Initial labs were pertinent for Hb 12.2, WBC 6.1, potassium 2.9, lactate 5.3, glucose 189, magnesium 1.1, AST [address] ALT [address] facial bones
showed no acute fracture with mild left nasal septal deviation; CT head showed no acute intracranial abnormality with mild nonacute right mastoiditis. CXR with ribs XR showed no displaced rib fractures or acute cardiopulmonary process. Finger XR
showed small soft tissue defect about the distal aspect of the second digit with no evidence for active osteomyelitis. Vascular surgery was consulted and a left upper extremity peripheral arterial US showed monophasic arterial duplex waveforms
throughout the left extremity with slow velocities in the mid subclavian artery through the radial artery. CT left upper extremity showed mild atherosclerotic calcifications in the left subclavian and axillary arteries. Subsequent CTA head/neck
showed occlusion of the origin and proximal left subclavian artery. Heparin drip was started. Vascular intervention was reviewed with the patient and she consented to this procedure. Today she underwent a left carotid to subclavian artery bypass
with graft. EBL was 30 cc and there were no immediate complications. She was transferred to the ICU postoperatively for further care and [facility] services consulted for additional management/recommendations.
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
alcohol abuse, tobacco smoker
Impression:
#Left upper extremity critical limb ischemia with subclavian artery stenosis + left subclavian artery occlusion s/p left common carotid artery to subclavian bypass (POD #0)
#Left index finger dry gangrene/cellulitis
#History of falls
#Failure to thrive related to alcohol abuse
#Alcohol use disorder
#Tobacco use disorder (quit smoking 11/13/2024)
#Mild left nasal septal deviation
Plan:
Postoperative surgical intensive care unit monitoring
Supplemental oxygen as needed to maintain SpO2 >90-94%
prn nebulized bronchodilators
Incentive spirometry encouraged 10x per hour for at least 4 hrs a day
Aspiration precautions
Pain control
Continue with IV vancomycin considering patient's dry gangrene on left second digit
Neuro and vascular checks per protocol
Maintain MAP>65
Replete electrolytes with K>4, Mg>2
Maintain euglycemia with goal BG 140-180
Vascular surgery following-correspondence and operative notes reviewed
Transfuse blood products as needed to keep Hb>7g/dL, and plt>50k (given post-operative status)
Monitor for signs of alcohol withdrawal although highly unlikely at this point given that she has not drank in over 2 weeks
Psychiatry consulted � recs appreciated
DVT prophylaxis
Early nutrition
Early mobilization
Critical care statement: A total of 41 minutes of critical care time was provided for this patient today. This includes management of unstable vital signs, evaluation of the patient at bedside, reviewing the patient's pertinent medical records
including radiographs, microbiology, laboratory evaluations, and discussion with primary team, consultants, pharmacy, nutrition, physical therapy, case management, charge nurse, critical care nursing, and respiratory therapy.
Data:
CTA head & neck w/wo IV contrast 11/30/2024:
No acute intracranial pathology. Mild atrophy.Mild nonacute sinusitis. Stable
There is moderate calcified plaque in the bifurcation of the left internal and external carotid artery. There is approximate 50% stenosis at the origin of the left internal carotid artery.
Less than 50% stenosis of the proximal right internal carotid artery.
Occlusion of the origin and proximal left subclavian artery.
Multilevel degenerative disc disease.
Sclerotic T5 vertebral body. Metastatic disease not excluded. This could further be evaluated by MR examination.
[2024-12-01] MEDS: VANCOCIN HCL 500 MG 100 IV (17:33)
[2024-12-01] MEDS: TYLENOL 650 MG PO (20:10)
[2024-12-01] MEDS: DILAUDID 0.5 MG IV (22:35)
[2024-12-02] VITALS (11 sets, daily range): BP systolic 108–154; BP diastolic 67–96; PULSE 84; BMI 19.5
[2024-12-02] MEDS: NSS 1000 IV (02:00)
[2024-12-02 04:10] LABS: Hematocrit 26.8 % (37.0-47.0); Hemoglobin 8.4 g/dL (12.0-16.0); INR 0.92; Mean Corp Hgb Conc. 31.3 g/dL (33.0-37.0); Mean Corpuscular Hgb 26.7 pg (27.0-31.0); Mean Corpuscular Volume 85.1 fL (81.0-99.0); Mean Platelet Volume 9.6 fL (7.4-10.4); PT 12.9 Sec (11.4-14.6); Platelet Count 192 10^3/uL (130-400); Red Blood Cell Count 3.15 10^6/uL (4.20-5.40); Red Cell Dist. Width 22.8 % (11.5-14.5); White Blood Cell Count 6.2 10^3/uL (4.8-10.8)
[2024-12-02 04:37] LABS: Blood Urea Nitrogen 9 mg/dl (7-17); Calcium 7.9 mg/dl (8.4-10.2); Carbon Dioxide 26 mmol/L (22-30); Chloride 106 mmol/L (98-107); Estimated Creatinine Clearance 65 ml/min; Glucose 100 mg/dl (70-99); Potassium 3.8 mmol/L (3.5-5.1); Sodium 139 mmol/L (135-145); eGFR > 60.00
[2024-12-02] MEDS: VANCOCIN HCL 500 MG 100 IV ×2 (05:03→18:11)
[2024-12-02] MEDS: DILAUDID 0.5 MG IV (05:07)
--- NOTE | 2024-12-02 06:23 | PTCARENOTE ---
Initial asssessment as documented. R radial a-line correlating with cuff pressure, positional at times. Neuro and neurovascular checks WNL. L radial pulse palpable. Pt intermittently c/o pain to L index finger and L subclavian incision site. Site
with minimal bruising, well approximated, soft.
[2024-12-02] MEDS: PROCARDIA XL (EXTENDED RELEASE) 30 MG PO (07:25)
[2024-12-02] MEDS: LEXAPRO 10 MG PO (07:25)
--- NOTE | 2024-12-02 07:42 | W.PN.VS ---
Addendum entered and electronically signed by Baudilio Hayes MD 12/02/24 08:38:
Seen and examined with JOSEPHINE Vilchis. Agree with findings as noted below. Patient without significant complaints. Left neck incision is clean dry and intact. No hematoma. Neck is soft. Left upper extremity with easily palpable 2+ radial and ulnar
pulse now. Hand is pink and warm. Stable dry gangrene distal left index fingertip. Neurologically no focal deficits. Moves all extremities well. Plan/as discussed and noted below.
Original Note:
Today's Communication / Plan
-
Seen and assessed with Dr. Hayes
Assessment/Plan
-
POD 1 Left common carotid artery to subclavian artery bypass with 8 mm Hemashield Dacron graft with intraoperative EEG/SSEP monitoring
Plan:
-DC A-line
-DC IV fluids
-Out of bed/ambulate
-Diet
-P.o. home meds
-PT OT
-manager of environmental services for possible need for placement
-Can transfer to telemetry vs DC later
Subjective Data
-
Date of Service: December 02, 2024
Patient seen at bedside this a.m. with Dr. Hayes. Patient offers no complaints at this time. No events overnight.
Objective Data
-
Vital Signs
Temp Pulse Resp BP Pulse Ox
98.7 F 71 11 142/85 98
12/02/24 03:38 12/02/24 05:00 12/02/24 05:00 12/02/24 04:00 12/02/24 05:00
Intake and Output
12/01/24 12/02/24 12/03/24
06:59 06:59 06:59
Intake Total 2410 / 2410 2465 / 2465
Output Total 1999 / 1999
Balance 2410 / 2410 465 / 465
Intake:
Oral fluids 1160 / 1160 480 / 480
IV fluids (Total) 1000 / 1000 1784
NSS 1784
IV piggybacks 250 / 250 200 / 200
Output:
Urine, Voided 1999
Other:
Number of approximated MODERATE 3
amounts of urine
Number of approximated LARGE 1
amounts of urine
How many times incontinent 1
SATURATED amount urine
Lab Results
12/02/24 03:52
12/02/24 03:52
Calcium 7.9 mg/dl (8.4-10.2) L 12/02/24 03:52
Magnesium 2.4 mg/dl (1.6-2.3) H 12/01/24 04:46
Total Bilirubin 0.3 mg/dl (0.2-1.3) 11/30/24 05:47
AST 38 U/L (14-36) H 11/30/24 05:47
ALT 32 U/L (0-35) 11/30/24 05:47
Alkaline Phosphatase 54 U/L (38-126) 11/30/24 05:47
Total Protein 5.1 g/dl (6.3-8.2) L D 11/30/24 05:47
Albumin 2.6 g/dl (3.5-5.0) L 11/30/24 05:47
Physical Exam
-
AAOx3
No tachypnea
No tachycardia
Neck/chest site clean, dry, intact, soft, flat, no drainage noted
Palpable radial pulse, hand warm and pink
Some discomfort in the fingertip remains
Moves all extremities equally
--- NOTE | 2024-12-02 08:05 | W.PN.HOSP.TC ---
Addendum entered and electronically signed by Melissa Lazar MD 12/02/24 12:37:
I saw and evaluated the patient independently. I reviewed the resident�s note and agree with findings and plan as documented by Dr. Sandhu.
GENERAL: well developed, well nourished, female in no apparent distress
HEENT: left base of neck with fresh incision c/d/i some bruising noted
HEART: regular rate and rhythm, +S1, +S2
LUNGS : clear to auscultation bilaterally
ABDOM: soft, nontender, nondistended, + bowel sounds
EXT: no cyanosis, clubbing, or edema--dry gangrene tip of index finger
NO physical exam by Dr. Sandhu as pt was already in the OR
Failure to thrive/malnutrition/lactic acidosis-- likely secondary to depression--apprec psych, lexapro decreased--apprec input--appetite better here--Lactic acid was 5, trended down after IV fluid resuscitation (could also have been due to poor limb
perfusion)--Patient has been able to tolerate diet--IV fluids discontinued--transfer to tele--PT/OT
Left index finger dry gangrene wound/cellulitis--think due to PVD along with contribution of smoking-- CT angio left extremity shows severe plaque at the origin of the left subclavian artery with complete occlusion at the origin and proximal
subclavian artery. This extends a length of approximately 3.6 cm--apprec vascular surgery--s/p carotid to subclavian bypass
Recent history of falls--CT Head and Neck did not show any acute intracranial pathologies--Most likely due to malnutrition coupled with vascular disease as described above--Orthostatic vitals normal
Skin abrasion from falls on right hip and sacrum (POA)--continue management of wound conservatively
Hypokalemia/hypomagnesemia--Repleted, continue monitoring and replete as necessary
History of alcohol abuse--Used to drink around a pint a day--Stopped drinking alcohol on November 13--MSAS 0--No recent history of tremors, other withdrawal symptoms
History of tobacco abuse--quit smoking November 13--nicotine patch if pt requests
Essential hypertension--Will continue nifedipine--As per vascular, should not manage hypertension too aggressively
Anxiety/depression--Continue Lexapro, consulted psych, input appreciated
DVT proph--Heparin drip
code status--DNR
Original Note:
Today's Communication/Plan
-
Patient has been feeling well, will be able to move out of the ICU later today. Continue evaluation by PT/OT
Assessment / Plan
Assessment / Plan
Assessment:
69-year-old female with a past medical history of severe alcohol use disorder, hyponatremia, chronic microcytic anemia, pancytopenia, hypertension, anxiety/depression presented to the [facility] ED on 11/29/2024 for recent failure to thrive,
and recent history of multiple falls. Patient had tried to decrease her alcohol intake since 2 weeks ago and has not had a drink since the ninth of this month. She has fallen twice now the past 2 weeks and hit her head and injured her backside.
Patient had not been eating and her home following the unfortunate passing of her sister along with being laid off by her job. She has had significant weight loss and had a lack of appetite. On presentation to the ED, she was found to be
malnourished and had severe electrolyte abnormalities with increased lactic acid. Patient was given IV fluids and started replenishment of her electrolytes. Patient was also found to have gangrenous left index finger that had been getting worse
for the past month. Patient underwent CT angiograms of the left upper extremity, carotid duplex, and CT head due to her recent falls. She was started on heparin infusion and also NSAIDs protocol due to her potential alcohol withdrawal. Patient
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 She was recommended to have left carotid to subclavian artery bypass
for revascularization of the upper extremity. This could have been contributing to her dizziness symptoms as well. Patient agreed with proceeding. Patient underwent successful procedure and is now postop day 1 following left common carotid artery
to subclavian artery bypass with 8 mm Huber shield Dacron graft. She is feeling well and has no acute complaints at this point.
CT Facial Bones W/o Iv Contrast (11/29/2024):
No acute fractures identified.
Mild left nasal septal deviation.
Small left ester bullosa.
CT Head W/o Iv Contrast (11/06/2024):
No acute intracranial abnormality noted.
Mild atrophy. Stable
Mild nonacute right mastoiditis. Stable
CR Ribs-right 3 Vw W/pa Chest* (11/29/2024):
1. No displaced rib fractures.
2. No acute cardiopulmonary process.
CR Finger(s)/thumb Min 2 Vw Lt (11/29/2024):
Small soft tissue defect about the distal aspect of the second digit. No convincing radiographic evidence for active osteomyelitis. MRI would be of greater sensitivity.
No acute fracture or dislocation. Scattered mild osteoarthritic changes of the interphalangeal joints. No erosions are evident. No radiographic evidence for inflammatory arthropathy.
US Periph Art UPPER Ext W Seg (11/29/2024):
Flat line digital waveforms are demonstrated in all 5 digits of the left hand. Monophasic arterial duplex waveforms are demonstrated throughout the left extremity. Slow velocities are identified from the mid subclavian artery through the radial
artery.
CT Upper Ext Angio W/wo Iv Con (11/29/2024):
Mild atherosclerotic calcifications of the left subclavian and axillary arteries. Grossly patent brachial, radial and ulnar arteries. No high-grade stenosis.
CT Head & Neck Angio W/wo IV (11/30/2024):
No acute intracranial pathology. Mild atrophy.Mild nonacute sinusitis. Stable
There is severe plaque at the origin of the left subclavian artery with complete occlusion at the origin and proximal subclavian artery. This extends a length of approximately 3.6 cm. The vessel is patent distal to this region with small scattered
foci of calcified plaque.
Less than 50% stenosis of the proximal right internal carotid artery.
Multilevel degenerative disc disease.
Sclerotic T5 vertebral body. Metastatic disease not excluded. This could further be evaluated by MR examination.
US Cerebrovascular Carotid Ultrasound (11/30/2024):
1. Extensive calcified plaque within each common carotid artery. Calcified carotid bulb plaque on each side, measurements suggestive of less than 50% stenosis on each side as per modified Society of Radiologists in Ultrasound consensus criteria (IAC
carotid criteria white paper, 2020).
2. Retrograde flow within the left vertebral artery throughout the cardiac cycle, suggestive of left central arterial stenosis. Occlusion of the left proximal subclavian artery was seen on concurrent CTA.
Plan:
# Failure to thrive/malnutrition/lactic acidosis likely secondary to depression
-Patient not suicidal and does not report any depression
-Counseled about whether she wants to talk to somebody, patient refused at this time
-Consult psych, input appreciated
-Patient is in much better spirits, tolerating diet
-Lactic acid was 5, trended down after IV fluid resuscitation, now 2.1
-Can move out of ICU today as per vascular, for potential discharge as per PT OT recommendations
#Recent history of falls
-CT Head and Neck did not show any acute intracranial pathologies
-Most likely due to malnutrition coupled with vascular disease as described above
-Orthostatic vitals normal
-Continue evaluation with PT/OT
#Skin abrasion from falls on right hip and sacrum (POA)
-continue management of wound conservatively
# Hypokalemia
-Repleted, continue monitoring and replete as necessary
# Hypomagnesemia
-Repleted, continue monitoring and replete as necessary
-Magnesium went from 1.0-2.4 after repletion
-Continue monitoring
# Left index finger dry gangrene wound/cellulitis
-X-rays as above, peripheral arterial ultrasound as above, CT angio left extremity as above
-Vascular following, input appreciated
-Patient currently postop day 1, successful surgery with return of blood flow to left hand. There is resolution of symptoms as well.
-Continue vancomycin
-Postop care by vascular team as directed
# History of alcohol abuse
-Used to drink around a pint a day
-Stopped drinking alcohol on November 13
-MSAS 0
-No recent history of tremors, other withdrawal symptoms
# Essential hypertension
-Will continue nifedipine
-As per vascular, should not manage hypertension too aggressively
# Anxiety/depression
-consulted psych, input appreciated
-Seen by psych who adjusted dose of Lexapro
-Now on 10 mg daily
DNR
DVT prophylaxis: Heparin drip on hold
Anticipated Discharge: Within 24 hours
Subjective/Interval History
-
Date of Service: December 02, 2024
Patient says that she has been feeling much better, describes that her hand has been feeling much better and the much less painful. The site of the surgery on her neck is still a bit tender but otherwise patient is in high spirits.
Objective Data
-
Labs:
Laboratory Results
12/02/24
03:52
WBC 6.2
Hgb 8.4 L
Hct 26.8 L
Plt Count 192
PT 12.9
INR 0.92
APTT 32.0
Sodium 139
Potassium 3.8
Chloride 106
Carbon Dioxide 26
BUN 9
Creatinine 0.7
Glucose 100 H
Calcium 7.9 L
Vital Signs:
Vital Signs
Temp Pulse Resp BP Pulse Ox
98.7 F 71 11 142/85 98
12/02/24 03:38 12/02/24 05:00 12/02/24 05:00 12/02/24 04:00 12/02/24 05:00
I&O
12/01/24 12/02/24 12/03/24
06:59 06:59 06:59
Intake Total 2410 / 2410 2465 / 2465
Output Total 1999
Balance 2410 / 2410 465 / 465
Review of Systems
-
History Source: Patient
Constitutional: Denies Fever or Fatigue
EENT: Reports No Symptoms Reported
Respiratory: Denies Cough, Trouble Breathing or Wheezing
Cardiac: Denies Chest Pain or Palpitations
Abdomen/GI: Denies Abdominal Pain, Nausea or Vomiting
Genitourinary: Reports No Symptoms
Musculoskeletal: Reports Other (Tenderness around area of incision from surgery on left side of the neck)
Skin: Reports Other (Blackened discoloration tip of left index finger, erythema+tenderness left side of neck around incision site, no drainage)
Neuro: Denies Headache or Lightheadedness
Psych: Reports Anxious
Physical Exam
-
General: Well Developed, Well Nourished, No Apparent Distress, Comfortable and Conversant
HEENT: Normocephalic, Atraumatic and Other (Erythematous, tender well-healing scar from incision on the left side of neck)
Respiratory: Clear to Auscultation and Non Labored Respirations
Cardiac: Regular Rhythm, S1/S2 and Other (Return of pulses to left hand); Negative Murmur
GI: Soft, Nontender and Nondistended
Musculoskeletal: Other (Left index finger dry gangrene wound at the distal tip)
Skin: Warm and Other (Erythema surrounding tip of gangrenous left index)
Neuro: Awake, Alert, Oriented, No Motor Deficits and No Sensory Deficits
Psych: Calm and Intact Judgement/Insight
Data Reviewed
-
Labs: Labs Reviewed by me, Discussed with Physician, Discussed with Nurse and Discussed with Patient
--- NOTE | 2024-12-02 08:23 | PTCARENOTE ---
pt received from previous rn- aox3, left neck incision c/d/i, open to air, soft at site. pt remains with palpable radial and pedal pulses. left index finger slightly swollen and discolored. right radial sowmya removed per order, pressure dressing
applied. ivf d/c. pt oob to chair. no complaints from pt at this time. nsr on monitor, room air. all safety precautions in place, call mendes within reach.
--- NOTE | 2024-12-02 08:24 | W.PN.INTV ---
Today's Communication / Plan
Recommendations
Pain control
IV vancomycin
Postoperative management as per surgery
Up OOB as tolerated
Continue diet as per surgery
Patient is stable for downgrade out of ICU to telemetry. No additional recommendations at this time. Lcac Operator/Pulmonary service will now sign off. Please reconsult if there are any additional questions/concerns, or if patient's respiratory
status deteriorates.
Assessment
-
Assessment: 69-year-old female active tobacco smoker with a past medical history of severe alcohol use disorder, history of hyponatremia, chronic anemia, hypertension, anxiety/depression, Raynaud's phenomena, history of anal fistula + perianal
abscess s/p I&D, AAA and history of left breast mass s/p lumpectomy (2006) who presents with failure to thrive. She had stated that her sister committed suicide earlier this year. Patient also was laid off of her job earlier this year. Patient's
had significant weight loss since these events and has lost her appetite. She had a fall few weeks ago injuring the area above her eye and she had felt dizzy upon standing. She also has been having a chronic wound at the tip of her left index
finger that been progressing over the last month. It began as a small cut. No fevers or chills. Initial labs were pertinent for Hb 12.2, WBC 6.1, potassium 2.9, lactate 5.3, glucose 189, magnesium 1.1, AST [address] facial bones
showed no acute fracture with mild left nasal septal deviation; CT head showed no acute intracranial abnormality with mild nonacute right mastoiditis. CXR with ribs XR showed no displaced rib fractures or acute cardiopulmonary process. Finger XR
showed small soft tissue defect about the distal aspect of the second digit with no evidence for active osteomyelitis. Vascular surgery was consulted and a left upper extremity peripheral arterial US showed monophasic arterial duplex waveforms
throughout the left extremity with slow velocities in the mid subclavian artery through the radial artery. CT left upper extremity showed mild atherosclerotic calcifications in the left subclavian and axillary arteries. Subsequent CTA head/neck
showed occlusion of the origin and proximal left subclavian artery. Heparin drip was started. Vascular intervention was reviewed with the patient and she consented to this procedure. Today she underwent a left carotid to subclavian artery bypass
with graft. EBL was 30 cc and there were no immediate complications. She was transferred to the ICU postoperatively for further care and Lcac Operator services consulted for additional management/recommendations.
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
alcohol abuse, tobacco smoker
Impression:
#Left upper extremity critical limb ischemia with subclavian artery stenosis + left subclavian artery occlusion s/p left common carotid artery to subclavian bypass (POD #1)
#Left index finger dry gangrene/cellulitis
#History of falls
#Failure to thrive related to alcohol abuse
#Alcohol use disorder
#Tobacco use disorder (quit smoking 11/13/2024)
#Mild left nasal septal deviation
Plan:
Postoperative surgical intensive care unit monitoring
Supplemental oxygen as needed to maintain SpO2 >90-94%
prn nebulized bronchodilators � not currently bronchospastic
Incentive spirometry encouraged 10x per hour for at least 4 hrs a day
Aspiration precautions
Pain control
Continue with IV vancomycin considering patient's dry gangrene on left second digit
Neuro and vascular checks per protocol
Maintain MAP>65
Replete electrolytes with K>4, Mg>2
Maintain euglycemia with goal BG 140-180
Vascular surgery following-correspondence and operative notes reviewed
Transfuse blood products as needed to keep Hb>7g/dL, and plt>50k (given post-operative status)
Monitor for signs of alcohol withdrawal although highly unlikely at this point given that she has not drank in over 2 weeks
Psychiatry consulted � recs appreciated
DVT prophylaxis (previously on heparin drip - resume chemical DVT prophylaxis when cleared per surgery
Early nutrition
Early mobilization
Patient is stable for downgrade out of ICU to telemetry. No additional recommendations at this time. Lcac Operator/Pulmonary service will now sign off. Thank you for allowing us to be involved in the care of this patient. Please reconsult if there
are any additional questions/concerns, or if patient's respiratory status deteriorates.
Data:
CTA head & neck w/wo IV contrast 11/30/2024:
No acute intracranial pathology. Mild atrophy.Mild nonacute sinusitis. Stable
There is moderate calcified plaque in the bifurcation of the left internal and external carotid artery. There is approximate 50% stenosis at the origin of the left internal carotid artery.
Less than 50% stenosis of the proximal right internal carotid artery.
Occlusion of the origin and proximal left subclavian artery.
Multilevel degenerative disc disease.
Sclerotic T5 vertebral body. Metastatic disease not excluded. This could further be evaluated by MR examination.
Total time spent today was 57 minutes for this encounter. Time includes reviewing laboratory test/imaging results, reviewing pertinent medical records, obtaining and reviewing medical history, performing an appropriate exam, ordering medications,
tests and procedures. Time also includes documentation of this encounter, coordinating patient care and communicating with other healthcare professionals. Total time does not include separately billed tests performed on this date of service.
Subjective Dataa
Subjective Data
Date of Service:
Date of Service: December 02, 2024
Chief Complaint: Lcac Operator Follow Up
Subjective:
Patient was seen and evaluated this morning. She is doing well. Denies chest pain, RIOS, fevers or chills. Mainly feels tired.
Review of Systems
General: Other (Negative unless mentioned above)
Objective Data
Data Reviewed
Vital Signs / I&O / Oxygen:
Vital Signs
Temp Pulse Resp BP Pulse Ox
97.7 F 79 10 134/96 97
12/02/24 08:00 12/02/24 08:00 12/02/24 08:00 12/02/24 08:00 12/02/24 08:00
Intake and Output
12/01/24 12/02/24 12/03/24
06:59 06:59 06:59
Intake Total 2410 / 2410 2465 / 2545 160 / 160
Output Total 1999
Balance 2410 / 2410 465 / 545 160 / 160
SaO2 97
Physical Exam
General: Respiratory Distress (negative), Comfortable, Chills (negative), Sweats (negative) and Other (Although female; cachectic appearing, in no acute distress)
HEENT: Normocephalic and Anicteric
Cardiovascular: S1-S2 and Peripheral Edema (negative)
Respiratory: Clear, Wheeze (negative), Crackles (negative), Rhonchi (negative) and Accessory Resp Muscle Use (negative)
GI: Soft, Non Distended, Non Tender and Normal Bowel Sounds
Neurology: Awake, Alert and Tremors (negative)
Skin: Warm, Dry, Cyanosis (negative) and Jaundice (negative)
Labs/Micro/Reports
Lab Data
12/02/24 03:52
12/02/24 03:52
Laboratory Results
12/01/24 12/02/24
11:43 03:52
PT 13.8 12.9
INR 1.01 0.92
APTT 34.4 32.0
[2024-12-02 08:50] LABS: Magnesium 1.4 mg/dl (1.6-2.3)
[2024-12-02] MEDS: MAGNESIUM SULFATE 100 IV (09:42)
--- NOTE | 2024-12-02 10:37 | PHA.VAN.FU ---
Addendum entered and electronically signed by Sherie Reyes [facility] 12/02/24 14:02:
peak- 12/02 @ 2030
trough -12/03 @ 0530
Original Note:
Vancomycin Assessment / Plan
- Assessment
Renal Function: Stable
WBC's are: WNL
In the past 24 hrs, patient has been: Afebrile
- Dosing Plan
Continue: vancomycin 500 mg q12h
- Monitoring Plan
No level(s) ordered at this time: consider levels in next few days
- Follow Up
Pharmacy will continue to follow.
Vancomycin Follow UP
- -
Patient Age: 69
Patient Sex: Female
Vancomycin Day #: 3
Indication: Skin And Soft Tissue
Requesting Provider: Dr. Mayfield
Pertinent Antimicrobial Allergies:
NKDA
Height / Weight:
Height 5 ft 6 in
Actual Weight 54.9 kg
IBW in k
Pertinent Past Medical History: BMI ~18.6
- Vital Signs / Lab Results
Temp Pulse Resp BP Pulse Ox
97.7 F 79 10 134/96 97
12/02/24 08:00 12/02/24 08:00 12/02/24 08:00 12/02/24 08:00 12/02/24 08:00
Lab Results - Hematology
11/29/24 11/30/24 12/01/24
14:39 05:47 04:46
WBC 6.1 4.6 L 4.8
12/01/24 12/01/24 12/02/24
06:00 11:42 03:52
WBC Cancelled 7.0 6.2
Lab Results - Chemistry
11/29/24 11/30/24 12/01/24
14:39 05:47 04:46
BUN 7 9 9
Creatinine 0.9 0.8 0.7
Estimated Creat Clear 50 56 65
Albumin 3.9 2.6 L
12/01/24 12/02/24
11:42 03:52
BUN 7 9
Creatinine 0.6 0.7
Estimated Creat Clear 76 65
Albumin
11/29/24 11/29/24
14:39 21:26
Lactic Acid 5.3 H* 2.1 H
--- NOTE | 2024-12-02 10:54 | CM ---
Addendum entered by Branden Cordero 12/02/24 16:25:
Per [facility] extension work director Sonia, pt is accepted for admission to [facility] tomorrow. No auth req=uired, Ptg has Medicare.
Please call [facility] extension work director Sonia tomorrow with garbage pick up man time.
[facility] nursing report: [phone]
Discharge instructions fax: [phone]
D/C plan: [facility].
Addendum entered by Branden Cordero 12/02/24 15:39:
PT and OT evaluations noted - SNF level of care recommended.
Pt is aware and she requested [facility].
A referral to [facility] made. Awaiting for determination.
D/C plan: [facility].
Original Note:
CM following re: discharge planning.
Reviewed pt's chart,met with pt.
Pt is POD 1 Left common carotid artery to subclavian artery bypass, continue supportive care.
CM consult to assist pt with discharge planning. Awaiting for PT/OT evaluations and recommendations. Per pt is SNF level of care recommended she prefers [facility].
Pt reports she lives alone in a 2SH, 4 steps to enter, has no children, has 2 supportive sisters who live nearby and brother lives in [place] and per pt she never talk to him. Pt reports last month she was at [facility] inpatient residential D&A rehab
and [facility] inpatient D&A rehab, goes to [facility] program and will start AA meetings. Pt stated she has been sober since she left [place] [facility] and [facility] and she does not need any help with keeping
her sobriety up.
Pt stated she has problem with ambulation. Pt is aware that PT and OT will evaluate her and if SNF recommended, pt expressed agreement and she prefers [facility].
D/C plan: probably [facility] if recommended by PT/OT.
CM will follow with discharge plan updates as hospitalization progresses
--- NOTE | 2024-12-02 12:38 | W.PN.UPDATE ---
Update Note
Progress Note Update
patient seen chart reviewed. ms corral was very pleasant. she acknowledged feeling better and some relief that the surgery went okay. she feels weak and is eager to move forward and gain in strength and balance. she has reaffirmed her interest in
staying sober and fees that going to [facility] and getting a sponsor will be sufficient. she spoke of things she would like to work towards...getting another dog....she had a husky who got 'doggie alzheimer's . she misses him greatly. in the
meantime she has the support of her sisters which is a big plus. she is hoping for [facility] for now would continue w lexapro. once she gets through this and has some sobriety under her belt she may not even need it. if her depressive
sx worsen would suggest adding perhaps wellbutrin to the lexapro in the future but i see no need to augment at this point. psych will sign off. please call us if you need us to return.
--- NOTE | 2024-12-02 13:15 | PTCARENOTE ---
report given to 2N RN, pt aware of transfer and sent with belongings. assessment unchanged.
--- NOTE | 2024-12-02 13:41 | PN.CDI ---
CDI
- -
CDI:
Physician Documentation Request
Admit Date: 11/29/24 19:30
Dear Doctor Edson,
Clinical Indicators:
Patient admitted with FTT & left index finger dry gangrene wound/cellulitis; s/p Left common carotid artery to subclavian artery bypass 12/01.
PMH includes: Chronic microcytic anemia.
12/01 Anesthesia Report, IVF: 1500 ml EBL 30 ml
Hgb/Hct trend:
11/29/24 12/01/24 12/02/24
14:39 11:42 03:52
Hgb 12.2 8.9 L 8.4 L
Hct 38.5 27.4 L 26.8 L
Based on the above, could you clarify, in your progress note, which of the following is the most likely type of anemia you are evaluating, monitoring and/or treating?
Anemia, due to acute blood loss, hemodilution with chronic microcytic anemia
Chronic microcytic anemia with hemodilution
Chronic microcytic anemia only
Other, please specify
Use of terms such as suspected, likely, concern for, or probable (associated with a specific diagnosis that is being evaluated, monitored, or treated as if it exists) are acceptable and can be coded in the inpatient setting, when documented at the
time of discharge.
Thank you,
Rachel Reina RN BSN
CDI Specialist
available via tiger text
Please use your independent medical judgment in providing your response.
[2024-12-02] MEDS: ROXICODONE 5 MG PO ×3 (14:03→22:41)
--- NOTE | 2024-12-02 14:50 | TRANSFER ---
Patient transferred to [address] [place] [address] from ICU.She is alert and oriented.She reports pain in her left index finger at a 5 out of 10.The incision on her left neck looks good with no drainage.The patient was placed in bed with the call mendes in reach.
[2024-12-02 21:12] LABS: Vancomycin Peak 24.8 ug/ml (18-26)
[2024-12-03 03:30] VITALS: BP 155/82
[2024-12-03] MEDS: VANCOCIN HCL 500 MG 100 IV ×2 (05:55→11:43)
[2024-12-03 06:36] LABS: Blood Urea Nitrogen 12 mg/dl (7-17); Calcium 8.2 mg/dl (8.4-10.2); Carbon Dioxide 28 mmol/L (22-30); Chloride 102 mmol/L (98-107); Estimated Creatinine Clearance 59 ml/min; Glucose 98 mg/dl (70-99); Phosphorus 4.4 mg/dl (2.5-4.5); Potassium 4.3 mmol/L (3.5-5.1); Sodium 135 mmol/L (135-145); eGFR > 60.00
[2024-12-03 06:39] LABS: Vancomycin Trough 16.7 ug/ml (5-20)
[2024-12-03 06:43] LABS: Hematocrit 24.2 % (37.0-47.0); Hemoglobin 7.7 g/dL (12.0-16.0); Mean Corp Hgb Conc. 31.8 g/dL (33.0-37.0); Mean Corpuscular Hgb 26.9 pg (27.0-31.0); Mean Corpuscular Volume 84.6 fL (81.0-99.0); Mean Platelet Volume 10.3 fL (7.4-10.4); Platelet Count 192 10^3/uL (130-400); Red Blood Cell Count 2.86 10^6/uL (4.20-5.40); Red Cell Dist. Width 22.8 % (11.5-14.5); White Blood Cell Count 8.2 10^3/uL (4.8-10.8)
--- NOTE | 2024-12-03 07:16 | W.PN.VS ---
Today's Communication / Plan
-
as above
Assessment/Plan
-
POD 2 Left common carotid artery to subclavian artery bypass with 8 mm Hemashield Dacron graft with intraoperative EEG/SSEP monitoring
Plan:
-Out of bed/ambulate
-Diet
-P.o. home meds
-PT OT
-manager quality systems for possible need for placement
-ok to d/c from vascular surgery standpoint
Subjective Data
-
Date of Service: December 03, 2024
No acute events. Complains of pain only at left 2nd finger
Objective Data
-
Vital Signs
Temp Pulse Resp BP Pulse Ox
98.3 F 80 16 155/82 98
12/03/24 03:30 12/03/24 03:30 12/03/24 03:30 12/03/24 03:30 12/03/24 03:30
Intake and Output
12/02/24 12/03/24 12/04/24
06:59 06:59 06:59
Intake Total 2465 / 2545 310 / 310 580 / 580
Output Total 1999 / 1999 500 / 500
Balance 465 / 545 -190 / -190 580 / 580
Intake:
Oral fluids 480 / 480 480 / 480
IV fluids (Total) 1784 160 / 160 100 / 100
NSS 1784 160 / 160
IV piggybacks 200 / 200 150 / 150
Output:
Urine, Voided 1999 / 1999 500 / 500
Other:
Number of approximated MODERATE 1 3
amounts of urine
How many times incontinent 1
SATURATED amount urine
Lab Results
12/03/24 05:44
12/03/24 05:44
Calcium 8.2 mg/dl (8.4-10.2) L 12/03/24 05:44
Phosphorus 4.4 mg/dl (2.5-4.5) 12/03/24 05:44
Magnesium 2.0 mg/dl (1.6-2.3) 12/03/24 05:44
Total Bilirubin 0.3 mg/dl (0.2-1.3) 11/30/24 05:47
AST 38 U/L (14-36) H 11/30/24 05:47
ALT 32 U/L (0-35) 11/30/24 05:47
Alkaline Phosphatase 54 U/L (38-126) 11/30/24 05:47
Total Protein 5.1 g/dl (6.3-8.2) L D 11/30/24 05:47
Albumin 2.6 g/dl (3.5-5.0) L 11/30/24 05:47
Physical Exam
-
Incision c/d/i
+2radial and ulnar pulses
[2024-12-03 07:40] VITALS: BP 150/82
--- NOTE | 2024-12-03 08:38 | W.PN.HOSP.TC ---
Addendum entered and electronically signed by Melissa Lazar MD 12/03/24 17:05:
heparin drip off--planning for d/c in AM if HGB remains stable
Addendum entered and electronically signed by Melissa Lazar MD 12/03/24 13:10:
I saw and evaluated the patient independently. I reviewed the resident�s note and agree with findings and plan as documented by Dr. Sandhu.
GENERAL: well developed, well nourished, female in no apparent distress
HEENT: left base of neck with fresh incision c/d/i some bruising noted--pt c/o pain there
HEART: regular rate and rhythm, +S1, +S2
LUNGS : clear to auscultation bilaterally
ABDOM: soft, nontender, nondistended, + bowel sounds
EXT: no cyanosis, clubbing, or edema--dry gangrene tip of index finger
Failure to thrive/malnutrition/lactic acidosis-- likely secondary to depression--apprec psych, lexapro decreased--apprec input--appetite better here--Lactic acid was 5, trended down after IV fluid resuscitation (could also have been due to poor limb
perfusion)--Patient has been able to tolerate diet--IV fluids discontinued--PT/OT, for SNF but likely tomorrow
Left index finger dry gangrene wound/cellulitis--think due to PVD along with contribution of smoking-- CT angio left extremity shows severe plaque at the origin of the left subclavian artery with complete occlusion at the origin and proximal
subclavian artery. This extends a length of approximately 3.6 cm--apprec vascular surgery--s/p carotid to subclavian bypass--ortho f/u as outpt likely
anemia--likely dilutional from IVF and post surgical--no reason to suspect acute blood loss--surgical site appears ok--check H&H later this afternoon
Recent history of falls--CT Head and Neck did not show any acute intracranial pathologies--Most likely due to malnutrition coupled with vascular disease as described above--Orthostatic vitals normal
Skin abrasion from falls on right hip and sacrum (POA)--continue management of wound conservatively
Hypokalemia/hypomagnesemia--Repleted, continue monitoring and replete as necessary
History of alcohol abuse--Used to drink around a pint a day--Stopped drinking alcohol on November 13--MSAS 0--No recent history of tremors, other withdrawal symptoms
History of tobacco abuse--quit smoking November 13--nicotine patch if pt requests
Essential hypertension--Will continue nifedipine--As per vascular, should not manage hypertension too aggressively
Anxiety/depression--Continue Lexapro, consulted psych, input appreciated
DVT proph--Heparin drip
code status--DNR
Original Note:
Today's Communication/Plan
-
Patient to be discharged today as she continues to be stable.
Assessment / Plan
Assessment / Plan
Assessment:
69-year-old female with a past medical history of severe alcohol use disorder, hyponatremia, chronic microcytic anemia, pancytopenia, hypertension, anxiety/depression presented to the [facility] ED on 11/29/2024 for recent failure to thrive,
and recent history of multiple falls. Patient had tried to decrease her alcohol intake since 2 weeks ago and has not had a drink since the ninth of this month. She has fallen twice now the past 2 weeks and hit her head and injured her backside.
Patient had not been eating and her home following the unfortunate passing of her sister along with being laid off by her job. She has had significant weight loss and had a lack of appetite. On presentation to the ED, she was found to be
malnourished and had severe electrolyte abnormalities with increased lactic acid. Patient was given IV fluids and started replenishment of her electrolytes. Patient was also found to have gangrenous left index finger that had been getting worse
for the past month. Patient underwent CT angiograms of the left upper extremity, carotid duplex, and CT head due to her recent falls. She was started on heparin infusion and also NSAIDs protocol due to her potential alcohol withdrawal. Patient
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 She was recommended to have left carotid to subclavian artery bypass
for revascularization of the upper extremity. This could have been contributing to her dizziness symptoms as well. Patient agreed with proceeding. Patient underwent successful procedure and is now postop day 2 following left common carotid artery
to subclavian artery bypass with 8 mm Huber shield Dacron graft. She is feeling well and has no acute complaints at this point. Patient cleared by vascular surgery for discharge today. Patient will require nursing home facility for rehab.
CT Facial Bones W/o Iv Contrast (11/29/2024):
No acute fractures identified.
Mild left nasal septal deviation.
Small left ester bullosa.
CT Head W/o Iv Contrast (11/06/2024):
No acute intracranial abnormality noted.
Mild atrophy. Stable
Mild nonacute right mastoiditis. Stable
CR Ribs-right 3 Vw W/pa Chest* (11/29/2024):
1. No displaced rib fractures.
2. No acute cardiopulmonary process.
CR Finger(s)/thumb Min 2 Vw Lt (11/29/2024):
Small soft tissue defect about the distal aspect of the second digit. No convincing radiographic evidence for active osteomyelitis. MRI would be of greater sensitivity.
No acute fracture or dislocation. Scattered mild osteoarthritic changes of the interphalangeal joints. No erosions are evident. No radiographic evidence for inflammatory arthropathy.
US Periph Art UPPER Ext W Seg (11/29/2024):
Flat line digital waveforms are demonstrated in all 5 digits of the left hand. Monophasic arterial duplex waveforms are demonstrated throughout the left extremity. Slow velocities are identified from the mid subclavian artery through the radial
artery.
CT Upper Ext Angio W/wo Iv Con (11/29/2024):
Mild atherosclerotic calcifications of the left subclavian and axillary arteries. Grossly patent brachial, radial and ulnar arteries. No high-grade stenosis.
CT Head & Neck Angio W/wo IV (11/30/2024):
No acute intracranial pathology. Mild atrophy.Mild nonacute sinusitis. Stable
There is severe plaque at the origin of the left subclavian artery with complete occlusion at the origin and proximal subclavian artery. This extends a length of approximately 3.6 cm. The vessel is patent distal to this region with small scattered
foci of calcified plaque.
Less than 50% stenosis of the proximal right internal carotid artery.
Multilevel degenerative disc disease.
Sclerotic T5 vertebral body. Metastatic disease not excluded. This could further be evaluated by MR examination.
US Cerebrovascular Carotid Ultrasound (11/30/2024):
1. Extensive calcified plaque within each common carotid artery. Calcified carotid bulb plaque on each side, measurements suggestive of less than 50% stenosis on each side as per modified Society of Radiologists in Ultrasound consensus criteria (IAC
carotid criteria white paper, 2020).
2. Retrograde flow within the left vertebral artery throughout the cardiac cycle, suggestive of left central arterial stenosis. Occlusion of the left proximal subclavian artery was seen on concurrent CTA.
Plan:
# Failure to thrive/malnutrition/lactic acidosis likely secondary to depression
-Patient not suicidal and does not report any depression
-Counseled about whether she wants to talk to somebody, patient refused at this time
-Consult psych, input appreciated
-Patient is in much better spirits, tolerating diet
-Lactic acid was 5, trended down after IV fluid resuscitation, now 2.1
-Patient was downgraded from ICU yesterday. Stable, able to be discharged today to nursing home facility for rehab
# Left index finger dry gangrene wound/cellulitis
-X-rays as above, peripheral arterial ultrasound as above, CT angio left extremity as above
-Vascular following, input appreciated
-Patient currently postop day 2, successful surgery with return of blood flow to left hand. There is resolution of symptoms as well.
-Still has pain in the left index finger surrounding the gangrene
-Continue vancomycin
-Patient with follow-up with Ortho outpatient setting for further management
-Will send her with oral antibiotics until seen
#Anemia due to recent surgery plus treatment with IVF
-Hgb stable but trending down
-continue monitoring CBC
#Recent history of falls
-CT Head and Neck did not show any acute intracranial pathologies
-Most likely due to malnutrition coupled with vascular disease as described above
-Orthostatic vitals normal
-Continue evaluation with PT/OT
#Skin abrasion from falls on right hip and sacrum (POA)
-continue management of wound conservatively
# Hypokalemia
-Repleted, continue monitoring and replete as necessary
# Hypomagnesemia
-Repleted, continue monitoring and replete as necessary
-Magnesium went from 1.0-2.4 after repletion
-Continue monitoring
# History of alcohol abuse
-Used to drink around a pint a day
-Stopped drinking alcohol on November 13
-MSAS 0
-No recent history of tremors, other withdrawal symptoms
# Essential hypertension
-Will continue nifedipine
-As per vascular, should not manage hypertension too aggressively
# Anxiety/depression
-consulted psych, input appreciated
-Seen by psych who adjusted dose of Lexapro
-Now on 10 mg daily
DNR
DVT prophylaxis: Heparin drip on hold
Anticipated Discharge: Today
Subjective/Interval History
-
Date of Service: December 03, 2024
Patient has been feeling well, reports that she still has pain in her left hand. Has been eating well, and reports no shortness of breath, chest pain, fever, chills. Looking forward for physical therapy today.
Objective Data
-
Labs:
Laboratory Results
12/03/24
05:44
WBC 8.2
Hgb 7.7 L
Hct 24.2 L
Plt Count 192
Sodium 135
Potassium 4.3
Chloride 102
Carbon Dioxide 28
BUN 12
Creatinine 0.8
Glucose 98
Calcium 8.2 L
Vital Signs:
Vital Signs
Temp Pulse Resp BP Pulse Ox
98.4 F 79 16 150/82 98
12/03/24 07:40 12/03/24 07:40 12/03/24 07:40 12/03/24 07:40 12/03/24 07:40
I&O
12/02/24 12/03/24 12/04/24
06:59 06:59 06:59
Intake Total 2465 / 2545 310 / 310 580 / 580
Output Total 1999 / 1999 500 / 500
Balance 465 / 545 -190 / -190 580 / 580
Review of Systems
-
History Source: Patient
Constitutional: Denies Fever or Fatigue
EENT: Reports No Symptoms Reported
Respiratory: Denies Cough, Trouble Breathing or Wheezing
Cardiac: Denies Chest Pain or Palpitations
Abdomen/GI: Denies Abdominal Pain, Nausea or Vomiting
Genitourinary: Reports No Symptoms
Musculoskeletal: Reports Other (Tenderness around area of incision from surgery on left side of the neck)
Skin: Reports Other (Blackened discoloration tip of left index finger, erythema+tenderness left side of neck around incision site, no drainage)
Neuro: Denies Headache or Lightheadedness
Psych: Reports Anxious
Physical Exam
-
General: Well Developed, Well Nourished, No Apparent Distress, Comfortable and Conversant
HEENT: Normocephalic, Atraumatic and Other (well-healing scar from incision on the left side of neck)
Respiratory: Clear to Auscultation and Non Labored Respirations
Cardiac: Regular Rhythm, S1/S2 and Other (Return of pulses to left hand); Negative Murmur
GI: Soft, Nontender and Nondistended
Musculoskeletal: Other (Left index finger dry gangrene wound at the distal tip with surrounding erythema and tenderness)
Skin: Warm and Other (Erythema and tenderness surrounding tip of gangrenous left index. Well-healing surgical scar on the left side of the neck with no draining)
Neuro: Awake, Alert, Oriented, No Motor Deficits and No Sensory Deficits
Psych: Calm and Intact Judgement/Insight
Data Reviewed
-
Labs: Labs Reviewed by me, Discussed with Physician, Discussed with Nurse and Discussed with Patient
[2024-12-03] MEDS: LEXAPRO 10 MG PO (08:51)
[2024-12-03] MEDS: PROCARDIA XL (EXTENDED RELEASE) 30 MG PO (08:51)
[2024-12-03] MEDS: ROXICODONE 5 MG PO ×3 (08:54→22:39)
--- NOTE | 2024-12-03 10:42 | PHA.VAN.FU ---
Vancomycin Assessment / Plan
- Assessment
Renal Function: Stable
WBC's are: Trending Up
In the past 24 hrs, patient has been: Afebrile
- Assessment - Therapeutic Drug Monitoring
Extrapolated Cmax (mcg/mL): 26.6
Peak level was drawn: Appropriately
Extrapolated Cmin (mcg/mL): 16.4
Trough Drawn: Appropriately
Levels were drawn: At steady state
Calculated AUC (mcg*h/mL): 507
Calculated ke: 0.0441
Calculated half life (H): 15.7
Calculated Vd (L): 44.76
Calculated Vanc CL (ml/min): 32.9
- Dosing Plan
Adjust Regimen to: Vanc 1000mg IV Q24H
New Regimen Predicts: AUC (518), Peak (34.2), Trough (12.4)
Dosing Comments: Changed from Q12H dosing to Q24H dosing due to T1/2 of 15.7hr
- Monitoring Plan
No level(s) ordered at this time: Consider levels in the next few days.
- Follow Up
Pharmacy will continue to follow.
Vancomycin Follow UP
- -
Patient Age: 69
Patient Sex: Female
Vancomycin Day #: 4
Indication: Skin And Soft Tissue
Requesting Provider: Dr. Mayfield
Pertinent Antimicrobial Allergies:
NKDA
Height / Weight:
Height 5 ft 6 in
Actual Weight 54.9 kg
IBW in k
Pertinent Past Medical History: BMI ~18.6
- Vital Signs / Lab Results
Temp Pulse Resp BP Pulse Ox
98.4 F 79 16 150/82 98
12/03/24 07:40 12/03/24 07:40 12/03/24 07:40 12/03/24 07:40 12/03/24 07:40
Lab Results - Hematology
12/01/24 12/01/2412/01/25
04:46 06:00 11:42
WBC 4.8 Cancelled 7.0
12/02/24 12/03/24
03:52 05:44
WBC 6.2 8.2
Lab Results - Chemistry
12/01/24 12/01/24 12/02/24
04:46 11:42 03:52
BUN 9 7 9
Creatinine 0.7 0.6 0.7
Estimated Creat Clear 65 76 65
12/03/24
05:44
BUN 12
Creatinine 0.8
Estimated Creat Clear 59
Therapeutic Drug Monitoring
Vancomycin Peak 24.8 ug/ml (18-26) 12/02/24 20:46
Vancomycin Trough 16.7 ug/ml (5-20) 12/03/24 05:44
[2024-12-03 11:41] VITALS: BP 108/60
--- NOTE | 2024-12-03 11:49 | CHAP ---
Melissa was welcoming - said things are coming along. Emotional and spiritual support offered.
[2024-12-03] MEDS: TYLENOL 650 MG PO ×3 (12:33→23:43)
[2024-12-03 15:25] LABS: Hematocrit 24.7 % (37.0-47.0); Hemoglobin 7.8 g/dL (12.0-16.0)
[2024-12-03 15:31] VITALS: BP 125/59
[2024-12-03 23:05] VITALS: BP 146/87
[2024-12-04] MEDS: VANCOCIN 200 IV (05:43)
[2024-12-04] MEDS: TYLENOL 650 MG PO ×4 (05:44→23:02)
[2024-12-04 07:05] VITALS: BP 140/82
[2024-12-04] MEDS: ROXICODONE 5 MG PO ×3 (07:40→19:32)
[2024-12-04 07:42] LABS: Hematocrit 24.7 % (37.0-47.0); Hemoglobin 7.9 g/dL (12.0-16.0)
[2024-12-04 07:47] LABS: Blood Urea Nitrogen 14 mg/dl (7-17); Calcium 8.3 mg/dl (8.4-10.2); Carbon Dioxide 28 mmol/L (22-30); Chloride 102 mmol/L (98-107); Estimated Creatinine Clearance 59 ml/min; Glucose 94 mg/dl (70-99); Potassium 4.2 mmol/L (3.5-5.1); Sodium 138 mmol/L (135-145); eGFR > 60.00
[2024-12-04] MEDS: PROCARDIA XL (EXTENDED RELEASE) 30 MG PO (08:23)
[2024-12-04] MEDS: LEXAPRO 10 MG PO (08:23)
--- NOTE | 2024-12-04 09:35 | PHA.VAN.FU ---
Vancomycin Assessment / Plan
- Assessment
Renal Function: Stable
In the past 24 hrs, patient has been: Afebrile
- Dosing Plan
Continue: Vanc 1gm IV Q24H
- Monitoring Plan
Level(s) appropriate: Recheck trough at minimum of weekly intervals, Repeat sooner for changes in renal function or clinical status
- Follow Up
Pharmacy will continue to follow.
Vancomycin Follow UP
- -
Patient Age: 69
Patient Sex: Female
Vancomycin Day #: 5
Indication: Skin And Soft Tissue
Requesting Provider: Dr. Mayfield
Pertinent Antimicrobial Allergies:
NKDA
Height / Weight:
Height 5 ft 6 in
Actual Weight 54.9 kg
IBW in k
Pertinent Past Medical History: BMI ~18.6
- Vital Signs / Lab Results
Temp Pulse Resp BP Pulse Ox
98.7 F 75 16 140/82 99
12/04/24 07:05 12/04/24 08:23 12/04/24 07:05 12/04/24 08:23 12/04/24 07:05
Lab Results - Hematology
12/01/24 12/02/24 12/03/24
11:42 03:52 05:44
WBC 7.0 6.2 8.2
Lab Results - Chemistry
12/01/24 12/02/24 12/03/24
11:42 03:52 05:44
BUN 7 9 12
Creatinine 0.6 0.7 0.8
Estimated Creat Clear 76 65 59
12/04/24
05:38
BUN 14
Creatinine 0.8
Estimated Creat Clear 59
Therapeutic Drug Monitoring
Vancomycin Peak 24.8 ug/ml (18-26) 12/02/24 20:46
Vancomycin Trough 16.7 ug/ml (5-20) 12/03/24 05:44
--- NOTE | 2024-12-04 14:12 | W.PN.HOSP.TC ---
Addendum entered and electronically signed by Melissa Lazar MD 12/04/24 14:28:
I saw and evaluated the patient independently. I reviewed the resident�s note and agree with findings and plan as documented by Dr. Whiteside.
GENERAL: well developed, well nourished, female in no apparent distress
HEENT: left base of neck with fresh incision c/d/i some bruising noted--pt c/o pain there
HEART: regular rate and rhythm, +S1, +S2
LUNGS : clear to auscultation bilaterally
ABDOM: soft, nontender, nondistended, + bowel sounds
EXT: no cyanosis, clubbing, or edema--dry gangrene tip of index finger
Failure to thrive/malnutrition/lactic acidosis-- likely secondary to depression--apprec psych, lexapro decreased--apprec input--appetite better here--Lactic acid was 5, trended down after IV fluid resuscitation (could also have been due to poor limb
perfusion)--Patient has been able to tolerate diet--PT/OT, for SNF but pt not comfortable going today
Left index finger dry gangrene wound/cellulitis--think due to PVD along with contribution of smoking-- CT angio left extremity shows severe plaque at the origin of the left subclavian artery with complete occlusion at the origin and proximal
subclavian artery. This extends a length of approximately 3.6 cm--apprec vascular surgery--s/p carotid to subclavian bypass--ortho f/u as outpt likely but will consult hand ortho in AM
anemia--likely dilutional from IVF and post surgical--no reason to suspect acute blood loss--surgical site appears ok--H&H stable
Recent history of falls--CT Head and Neck did not show any acute intracranial pathologies--Most likely due to malnutrition coupled with vascular disease as described above--Orthostatic vitals normal
Skin abrasion from falls on right hip and sacrum (POA)--continue management of wound conservatively
Hypokalemia/hypomagnesemia--Repleted, continue monitoring and replete as necessary
History of alcohol abuse--Used to drink around a pint a day--Stopped drinking alcohol on November 13--MSAS 0--No recent history of tremors, other withdrawal symptoms
History of tobacco abuse--quit smoking November 13--nicotine patch if pt requests
Essential hypertension--Will continue nifedipine--As per vascular, should not manage hypertension too aggressively
Anxiety/depression--Continue Lexapro, apprec psych
DVT proph
code status--DNR
Original Note:
Today's Communication/Plan
-
* Analgesia as needed.
* Switch vancomycin to cephalexin.
Assessment / Plan
Assessment / Plan
Assessment:
69-year-old female with a past medical history of severe alcohol use disorder, hyponatremia, chronic microcytic anemia, pancytopenia, hypertension, anxiety/depression presented to the [facility] ED on 11/29/2024 for recent failure to thrive,
and recent history of multiple falls. Patient had tried to decrease her alcohol intake since 2 weeks ago and has not had a drink since the ninth of this month. She has fallen twice now the past 2 weeks and hit her head and injured her backside.
Patient had not been eating and her home following the unfortunate passing of her sister along with being laid off by her job. She has had significant weight loss and had a lack of appetite. On presentation to the ED, she was found to be
malnourished and had severe electrolyte abnormalities with increased lactic acid. Patient was given IV fluids and started replenishment of her electrolytes. Patient was also found to have gangrenous left index finger that had been getting worse
for the past month. Patient underwent CT angiograms of the left upper extremity, carotid duplex, and CT head due to her recent falls. She was started on heparin infusion and also NSAIDs protocol due to her potential alcohol withdrawal. Patient
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 She was recommended to have left carotid to subclavian artery bypass
for revascularization of the upper extremity. This could have been contributing to her dizziness symptoms as well. Patient agreed with proceeding. Patient underwent successful procedure and is now postop day 2 following left common carotid artery
to subclavian artery bypass with 8 mm Huber shield Dacron graft. She is feeling well and has no acute complaints at this point. Patient cleared by vascular surgery for discharge today. Patient will require retirement facility for rehab.
CT Facial Bones W/o Iv Contrast (11/29/2024):
No acute fractures identified.
Mild left nasal septal deviation.
Small left ester bullosa.
CT Head W/o Iv Contrast (11/06/2024):
No acute intracranial abnormality noted.
Mild atrophy. Stable
Mild nonacute right mastoiditis. Stable
CR Ribs-right 3 Vw W/pa Chest* (11/29/2024):
1. No displaced rib fractures.
2. No acute cardiopulmonary process.
CR Finger(s)/thumb Min 2 Vw Lt (11/29/2024):
Small soft tissue defect about the distal aspect of the second digit. No convincing radiographic evidence for active osteomyelitis. MRI would be of greater sensitivity.
No acute fracture or dislocation. Scattered mild osteoarthritic changes of the interphalangeal joints. No erosions are evident. No radiographic evidence for inflammatory arthropathy.
US Periph Art UPPER Ext W Seg (11/29/2024):
Flat line digital waveforms are demonstrated in all 5 digits of the left hand. Monophasic arterial duplex waveforms are demonstrated throughout the left extremity. Slow velocities are identified from the mid subclavian artery through the radial
artery.
CT Upper Ext Angio W/wo Iv Con (11/29/2024):
Mild atherosclerotic calcifications of the left subclavian and axillary arteries. Grossly patent brachial, radial and ulnar arteries. No high-grade stenosis.
CT Head & Neck Angio W/wo IV (11/30/2024):
No acute intracranial pathology. Mild atrophy.Mild nonacute sinusitis. Stable
There is severe plaque at the origin of the left subclavian artery with complete occlusion at the origin and proximal subclavian artery. This extends a length of approximately 3.6 cm. The vessel is patent distal to this region with small scattered
foci of calcified plaque.
Less than 50% stenosis of the proximal right internal carotid artery.
Multilevel degenerative disc disease.
Sclerotic T5 vertebral body. Metastatic disease not excluded. This could further be evaluated by MR examination.
US Cerebrovascular Carotid Ultrasound (11/30/2024):
1. Extensive calcified plaque within each common carotid artery. Calcified carotid bulb plaque on each side, measurements suggestive of less than 50% stenosis on each side as per modified Society of Radiologists in Ultrasound consensus criteria (IAC
carotid criteria white paper, 2020).
2. Retrograde flow within the left vertebral artery throughout the cardiac cycle, suggestive of left central arterial stenosis. Occlusion of the left proximal subclavian artery was seen on concurrent CTA.
Plan:
# Failure to thrive/malnutrition/lactic acidosis likely secondary to depression
-Patient not suicidal and does not report any depression
-Counseled about whether she wants to talk to somebody, patient refused at this time
-Consult psych, input appreciated
-Patient is in much better spirits, tolerating diet
-Lactic acid was 5, trended down after IV fluid resuscitation
# Left index finger dry gangrene wound/cellulitis
-X-rays as above, peripheral arterial ultrasound as above, CT angio left extremity as above
-Vascular following, input appreciated
-Patient currently postop day 2, successful surgery with return of blood flow to left hand. There is resolution of symptoms as well.
-Still has pain in the left index finger surrounding the gangrene
-Switch vancomycin to cephalexin.
-Plan to continue orthopedic surgeon focusing on hand surgeries tomorrow
#Anemia due to recent surgery plus treatment with IVF
-Hgb stable
-continue monitoring CBC
#Recent history of falls
-CT Head and Neck did not show any acute intracranial pathologies
-Most likely due to malnutrition coupled with vascular disease as described above
-Orthostatic vitals normal
-Continue evaluation with PT/OT
#Skin abrasion from falls on right hip and sacrum (POA)
-continue management of wound conservatively
# Hypokalemia
-Repleted, continue monitoring and replete as necessary
# Hypomagnesemia
-Repleted, continue monitoring and replete as necessary
-Magnesium went from 1.0-2.4 after repletion
-Continue monitoring
# History of alcohol abuse
-Used to drink around a pint a day
-Stopped drinking alcohol on November 13
-MSAS 0
-No recent history of tremors, other withdrawal symptoms
# Essential hypertension
-Will continue nifedipine
-As per vascular, should not manage hypertension too aggressively
# Anxiety/depression
-consulted psych, input appreciated
-Seen by psych who adjusted dose of Lexapro
-Now on 10 mg daily
DNR
DVT prophylaxis: Heparin drip on hold
Anticipated Discharge: 24 - 48 hours
Subjective/Interval History
-
Date of Service: December 04, 2024
Stable overnight.
Objective Data
-
Labs:
Laboratory Results
12/04/24 12/04/24
05:38 07:30
Hgb 7.9 L
Hct 24.7 L
Sodium 138
Potassium 4.2
Chloride 102
Carbon Dioxide 28
BUN 14
Creatinine 0.8
Glucose 94
Calcium 8.3 L
Vital Signs:
Vital Signs
Temp Pulse Resp BP Pulse Ox
98.7 F 75 16 140/82 99
12/04/24 07:05 12/04/24 08:23 12/04/24 07:05 12/04/24 08:23 12/04/24 07:05
I&O
12/03/24 12/04/24 12/05/24
06:59 06:59 06:59
Intake Total 310 / 310 2581 / 2581
Output Total 500 / 500
Balance -190 / -190 2581 / 2581
Review of Systems
-
History Source: Patient
Constitutional: Denies Fever or Fatigue
EENT: Reports No Symptoms Reported
Respiratory: Denies Cough, Trouble Breathing or Wheezing
Cardiac: Denies Chest Pain or Palpitations
Abdomen/GI: Denies Abdominal Pain, Nausea or Vomiting
Genitourinary: Reports No Symptoms
Musculoskeletal: Reports Other (Tenderness around area of incision from surgery on left side of the neck)
Skin: Reports Other (Blackened discoloration tip of left index finger, erythema+tenderness left side of neck around incision site, no drainage)
Neuro: Denies Headache or Lightheadedness
Psych: Reports Anxious
Physical Exam
-
General: No Apparent Distress and Comfortable
HEENT: Normocephalic, Atraumatic and Other (well-healing scar from incision on the left side of neck)
Respiratory: Clear to Auscultation and Non Labored Respirations
Cardiac: Regular Rhythm, S1/S2 and Other (Return of pulses to left hand); Negative Murmur
GI: Soft, Nontender and Nondistended
Musculoskeletal: Other (Left index finger dry gangrene wound at the distal tip with surrounding erythema and tenderness)
Skin: Warm and Other (Erythema and tenderness surrounding tip of gangrenous left index. Well-healing surgical scar on the left side of the neck with no draining)
Neuro: Awake, Alert, Oriented, No Motor Deficits and No Sensory Deficits
Psych: Calm and Intact Judgement/Insight
[2024-12-04 15:45] VITALS: BP 115/71
--- NOTE | 2024-12-04 16:22 | CM ---
Patient with Hx recent falls with Dx Failure to thrive/malnutrition, Left index finger dry gangrene/cellulitis, anemia - H/H 7.9/24.7 today. Room air. PT/OT recommend skilled rehab.
Met with patient yesterday who confirms she would like to go to [facility] at discharge.
Spoke with Dr Lazar today; patient will be medically ready tomorrow for d/c to SNF. Discharge held today due to need for pain control.
Spoke with Adm Sonias Tamir Cantu, yesterday and today; she is aware of probable d/c tomorrow. Phone for report [phone], fax [phone].
Plan [facility] SNF tomorrow.
[2024-12-04 19:00] VITALS: BP 142/76
[2024-12-04 23:00] VITALS: BP 138/73
[2024-12-05] MEDS: TYLENOL 650 MG PO ×3 (06:11→17:18)
[2024-12-05] MEDS: ROXICODONE 5 MG PO ×3 (06:11→21:18)
[2024-12-05 06:54] LABS: Hematocrit 27.3 % (37.0-47.0); Hemoglobin 8.5 g/dL (12.0-16.0); Mean Corp Hgb Conc. 31.1 g/dL (33.0-37.0); Mean Corpuscular Hgb 26.5 pg (27.0-31.0); Mean Platelet Volume 10.1 fL (7.4-10.4); Platelet Count 220 10^3/uL (130-400); Red Blood Cell Count 3.21 10^6/uL (4.20-5.40); Red Cell Dist. Width 22.4 % (11.5-14.5); White Blood Cell Count 5.5 10^3/uL (4.8-10.8)
[2024-12-05 07:04] LABS: Blood Urea Nitrogen 13 mg/dl (7-17); Calcium 8.8 mg/dl (8.4-10.2); Carbon Dioxide 28 mmol/L (22-30); Chloride 102 mmol/L (98-107); Estimated Creatinine Clearance 59 ml/min; Glucose 96 mg/dl (70-99); Potassium 4.6 mmol/L (3.5-5.1); Sodium 138 mmol/L (135-145); eGFR > 60.00
[2024-12-05 07:35] VITALS: BP 144/82
[2024-12-05] MEDS: LEXAPRO 10 MG PO (08:30)
[2024-12-05] MEDS: PROCARDIA XL (EXTENDED RELEASE) 30 MG PO (08:30)
[2024-12-05] MEDS: KEFLEX 500 MG PO ×2 (08:30→19:49)
--- NOTE | 2024-12-05 09:45 | W.PN.HOSP.TC ---
Addendum entered and electronically signed by Jeses Whelan MD 12/05/24 16:34:
Seen and examined by me independently in collaboration with the medical services coordinator Dr. Sandhu.
Lab data and imaging data reviewed.
Addendum as below :
Denies any left arm pain today. Reviewed by orthopedics and plan for left index finger distal amputation tomorrow.
She has a history of PAD with a right lower extremity stent. She says she was taking aspirin for couple of months and stopped. No clear reason for discontinuation. With the arterial disease elsewhere and aneurysm recommend to continue taking
aspirin which she is okay with. Check statin levels.
Denies any prior history of cardiac disease. Admitting EKG showed nonspecific ST changes in inferior lateral leads and today's EKG is normal. She denies any angina like symptoms. Denies any prior history of [place]. She probably came in with the
increase stress as the lactic acid is 5.3. I would consult cardiology for evaluation of underlying CAD. Will check an ECHO.
Severe anemia noted. Patient says she was anemic in the past and had transfusion in the remote past. Denies any GI bleed but has noticed black stools on occasions. She is normocytic. Check heme test stools. Check iron studies. Aim to keep H&H
more than 7.0.
Total time spent on today's encounter was 52 minutes which included time spent in counseling the patient/family regarding diagnosis and treatment plan as listed above, goals of care, and symptom management. Case was discussed with nursing staff,
specialists, and care coordinators/case management. All labs and imaging personally reviewed by me. Remainder the time spent in detailed review of previous records, lab data, imaging, and other medical provider documentation.
Original Note:
Today's Communication/Plan
-
Patient most likely to go to rehab facility today, depending on orthopedic evaluation
Assessment / Plan
Assessment / Plan
Assessment:
69-year-old female with a past medical history of severe alcohol use disorder, hyponatremia, chronic microcytic anemia, pancytopenia, hypertension, anxiety/depression presented to the [facility] ED on 11/29/2024 for recent failure to thrive,
and recent history of multiple falls. Patient had tried to decrease her alcohol intake since 2 weeks ago and has not had a drink since the ninth of this month. She has fallen twice now the past 2 weeks and hit her head and injured her backside.
Patient had not been eating and her home following the unfortunate passing of her sister along with being laid off by her job. She has had significant weight loss and had a lack of appetite. On presentation to the ED, she was found to be
malnourished and had severe electrolyte abnormalities with increased lactic acid. Patient was given IV fluids and started replenishment of her electrolytes. Patient was also found to have gangrenous left index finger that had been getting worse
for the past month. Patient underwent CT angiograms of the left upper extremity, carotid duplex, and CT head due to her recent falls. She was started on heparin infusion and also NSAIDs protocol due to her potential alcohol withdrawal. Patient
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 She was recommended to have left carotid to subclavian artery bypass
for revascularization of the upper extremity. This could have been contributing to her dizziness symptoms as well. Patient agreed with proceeding. Patient underwent successful procedure and is now postop day 2 following left common carotid artery
to subclavian artery bypass with 8 mm Huber shield Dacron graft. She is feeling well and has no acute complaints at this point. Patient cleared by vascular surgery for discharge today. Patient will require alf facility for rehab.
Patient to be seen by orthopedic hand surgery for further evaluation of gangrenous index finger.
CT Facial Bones W/o Iv Contrast (11/29/2024):
No acute fractures identified.
Mild left nasal septal deviation.
Small left ester bullosa.
CT Head W/o Iv Contrast (11/06/2024):
No acute intracranial abnormality noted.
Mild atrophy. Stable
Mild nonacute right mastoiditis. Stable
CR Ribs-right 3 Vw W/pa Chest* (11/29/2024):
1. No displaced rib fractures.
2. No acute cardiopulmonary process.
CR Finger(s)/thumb Min 2 Vw Lt (11/29/2024):
Small soft tissue defect about the distal aspect of the second digit. No convincing radiographic evidence for active osteomyelitis. MRI would be of greater sensitivity.
No acute fracture or dislocation. Scattered mild osteoarthritic changes of the interphalangeal joints. No erosions are evident. No radiographic evidence for inflammatory arthropathy.
US Periph Art UPPER Ext W Seg (11/29/2024):
Flat line digital waveforms are demonstrated in all 5 digits of the left hand. Monophasic arterial duplex waveforms are demonstrated throughout the left extremity. Slow velocities are identified from the mid subclavian artery through the radial
artery.
CT Upper Ext Angio W/wo Iv Con (11/29/2024):
Mild atherosclerotic calcifications of the left subclavian and axillary arteries. Grossly patent brachial, radial and ulnar arteries. No high-grade stenosis.
CT Head & Neck Angio W/wo IV (11/30/2024):
No acute intracranial pathology. Mild atrophy.Mild nonacute sinusitis. Stable
There is severe plaque at the origin of the left subclavian artery with complete occlusion at the origin and proximal subclavian artery. This extends a length of approximately 3.6 cm. The vessel is patent distal to this region with small scattered
foci of calcified plaque.
Less than 50% stenosis of the proximal right internal carotid artery.
Multilevel degenerative disc disease.
Sclerotic T5 vertebral body. Metastatic disease not excluded. This could further be evaluated by MR examination.
US Cerebrovascular Carotid Ultrasound (11/30/2024):
1. Extensive calcified plaque within each common carotid artery. Calcified carotid bulb plaque on each side, measurements suggestive of less than 50% stenosis on each side as per modified Society of Radiologists in Ultrasound consensus criteria (IAC
carotid criteria white paper, 2020).
2. Retrograde flow within the left vertebral artery throughout the cardiac cycle, suggestive of left central arterial stenosis. Occlusion of the left proximal subclavian artery was seen on concurrent CTA.
Plan:
# Failure to thrive/malnutrition/lactic acidosis likely secondary to depression
-Patient not suicidal and does not report any depression
-Counseled about whether she wants to talk to somebody, patient refused at this time
-Consult psych, input appreciated
-Patient is in much better spirits, tolerating diet
-Lactic acid was 5, trended down after IV fluid resuscitation
# Left index finger dry gangrene wound/cellulitis
-X-rays as above, peripheral arterial ultrasound as above, CT angio left extremity as above
-Vascular following, input appreciated
-Patient currently postop day 2, successful surgery with return of blood flow to left hand. There is resolution of symptoms as well.
-Still has pain in the left index finger surrounding the gangrene
-Patient switched to cephalexin yesterday, still having erythema and pain around gangrenous left index finger
-Patient to been seen by orthopedic hand surgery today, await their decision about further management
#Anemia due to recent surgery plus treatment with IVF
-Hgb stable
-continue monitoring CBC
#Recent history of falls
-CT Head and Neck did not show any acute intracranial pathologies
-Most likely due to malnutrition coupled with vascular disease as described above
-Orthostatic vitals normal
-Continue evaluation with PT/OT
-Recommended alf facility
#Skin abrasion from falls on right hip and sacrum (POA)
-continue management of wound conservatively
# Hypokalemia
-Repleted, continue monitoring and replete as necessary
# Hypomagnesemia
-Repleted, continue monitoring and replete as necessary
-Magnesium went from 1.0-2.4 after repletion
-Continue monitoring
# History of alcohol abuse
-Used to drink around a pint a day
-Stopped drinking alcohol on November 13
-MSAS 0
-No recent history of tremors, other withdrawal symptoms
# Essential hypertension
-Will continue nifedipine
-As per vascular, should not manage hypertension too aggressively
# Anxiety/depression
-consulted psych, input appreciated
-Seen by psych who adjusted dose of Lexapro
-Now on 10 mg daily
DNR
DVT prophylaxis: SCDs
Anticipated Discharge: Today
Subjective/Interval History
-
Date of Service: December 05, 2024
Patient has been feeling well, reports no acute complaints. Awaiting awaiting input from orthopedic hand surgery regarding further management of gangrenous index finger.
Objective Data
-
Labs:
Laboratory Results
12/05/24
05:55
WBC 5.5
Hgb 8.5 L
Hct 27.3 L
Plt Count 220
Sodium 138
Potassium 4.6
Chloride 102
Carbon Dioxide 28
BUN 13
Creatinine 0.8
Glucose 96
Calcium 8.8
Vital Signs:
Vital Signs
Temp Pulse Resp BP Pulse Ox
98.8 F 70 18 144/82 98
12/05/24 07:35 12/05/24 07:35 12/05/24 07:35 12/05/24 08:30 12/05/24 07:35
I&O
12/04/24 12/05/24 12/06/24
06:59 06:59 06:59
Intake Total 2580 / 2580 840 / 840
Balance 2580 / 2580 840 / 840
Review of Systems
-
History Source: Patient
Constitutional: Denies Fever or Fatigue
EENT: Reports No Symptoms Reported
Respiratory: Denies Cough, Trouble Breathing or Wheezing
Cardiac: Denies Chest Pain or Palpitations
Abdomen/GI: Denies Abdominal Pain, Nausea or Vomiting
Genitourinary: Reports No Symptoms
Musculoskeletal: Reports Other (Tenderness around area of incision from surgery on left side of the neck)
Skin: Reports Other (Blackened discoloration tip of left index finger, erythema+tenderness left side of neck around incision site, no drainage)
Neuro: Denies Headache or Lightheadedness
Psych: Reports Anxious
Physical Exam
-
General: Well Developed, Well Nourished, No Apparent Distress, Comfortable and Conversant
HEENT: Normocephalic, Atraumatic and Other (well-healing scar from incision on the left side of neck)
Respiratory: Clear to Auscultation and Non Labored Respirations
Cardiac: Regular Rhythm, S1/S2 and Other (Return of pulses to left hand); Negative Murmur
GI: Soft, Nontender and Nondistended
Musculoskeletal: Other (Left index finger dry gangrene wound at the distal tip with surrounding erythema and tenderness)
Skin: Warm and Other (Erythema and tenderness surrounding tip of gangrenous left index. Well-healing surgical scar on the left side of the neck with no draining)
Neuro: Awake, Alert, Oriented, No Motor Deficits and No Sensory Deficits
Psych: Calm and Intact Judgement/Insight
Data Reviewed
-
Labs: Labs Reviewed by me, Discussed with Physician, Discussed with Nurse and Discussed with Patient
[2024-12-05 11:00] VITALS: BP 125/52
--- NOTE | 2024-12-05 11:56 | CM ---
Addendum entered by Fe Cornejo RN 12/05/24 14:51:
Per notes, left index finger partial amputation tomorrow.
Original Note:
Reviewed the chart notes and spoke with the patient at the bedside and her sister Zulema via speaker phone. CM continues to be available to patient/family and is monitoring medical plan for needs at discharge.
Plan: Discharge to [facility] when medically stable.
Call report to: [phone]
Fax report to: [phone]
--- NOTE | 2024-12-05 12:54 | CON.ORTHO ---
Addendum entered and electronically signed by Dave Gaspar MD 12/05/24 15:01:
Patient seen and examined
Left index finger dry gangrene
Patient wants to proceed with amputation as she is having very severe pain that has not improved despite the vascular procedure
Will proceed with surgery tomorrow
Original Note:
Consultation - Orthopedics
History
Ms. Day is a 69 year old female with past medical history of severe alcohol use disorder, hyponatremia, chronic microcytic anemia, pancytopenia, hypertension, anxiety/depression presented to the [facility] ED on 11/29/2024 for recent failure
to thrive, and recent history of multiple falls. Patient was evaluated by vascular surgery and underwent successful left common carotid artery to subclavian artery bypass with 8 mm Huber shield Dacron graft. She reports she has noticed a spot of
progressively worsening gangrene at the tip of her left index finger over the last month or so. She reports it began as a small 'booboo' and has gradually spread. She denies any lacerations, puncture wounds, bites or other injury that preceded these
symptoms. She endorses significant pain about the tip of her finger. She denies a history of issues like this in the past. She is hoping to have this issue addressed with she is in the hospital as she does not currently have transportation or social
support for outpatient appointments.
Allergies / Home Medications
Allergy/AdvReac Type Severity Reaction Status Date / Time
No Known Allergies Allergy Verified 11/29/24 13:36
�Medication �Instructions �Recorded
escitalopram oxalate 20 mg tablet 20 mg PO DAILY depression/anxiety 01/04/24
nifedipine 30 mg tablet,extended 30 mg PO DAILY Blood Pressure 11/29/24
release
Vital Signs / Lab Results
Temp Pulse Resp BP Pulse Ox
98.4 F 81 16 125/52 98
12/05/24 11:00 12/05/24 11:00 12/05/24 11:00 12/05/24 11:00 12/05/24 11:00
12/05/24 05:55
12/05/24 05:55
XR Left Hand 11/29/2024 IMPRESSION:
>Small soft tissue defect about the distal aspect of the second digit. No convincing radiographic evidence for active osteomyelitis. MRI would be of greater sensitivity.
>No acute fracture or dislocation. Scattered mild osteoarthritic changes of the interphalangeal joints. No erosions are evident. No radiographic evidence for inflammatory arthropathy.
Directed exam of the left hand reveals an area of dry gangrene over the radial/distal aspect of the left index finger. This is stable, and there is no active drainage, bleeding or purulence. Tenderness to palpation generally about the distal aspect
of the finger. Patient unable to make composite fist due to pain with flexing at the DIP joint. Able to maintain full extension. Sensation intact to light touch.
Assessment / Plan
Dry gangrene left index finger
--Melissa has experienced an area of worsening dry gangrene of her left index finger over the last month or so. Given transportation/social concerns, she is hoping to have this addressed as an inpatient. Treatment options were discussed. She would like
to proceed with surgical intervention. We will plan to proceed with a left index finger partial amputation tomorrow under the direction of Dr. Gaspar. The risks, benefits, alternatives, recovery process and potential complications were discussed in
detail. Surgical and blood consents are signed and in the patients chart. All patient's questions were answered.
--MRI left upper extremity.
--NPO after midnight for OR 12/06/2024.
--Pain control prn.
--Antibiotics ordered to OR.
--Orthopedics will continue to follow along.
[2024-12-05 14:58] LABS: Iron 20 ug/dl (37-170)
[2024-12-05 15:05] LABS: Percent Saturation 7 % (20-50); Total Iron Binding Capacity 254 ug/dl (265-497)
[2024-12-05] MEDS: DILAUDID 0.5 MG IV (15:58)
[2024-12-05 16:14] LABS: Ferritin 46.9 ng/ml (11.1-264.0)
--- NOTE | 2024-12-05 17:15 | CON.CAR ---
Addendum entered and electronically signed by Hans Simpson MD 12/05/24 18:26:
69 yo female with EtOH abuse, HTN, PAD s/p left common carotid artery to subclavian bypass this admission. Also assessed fro failure to thrive. No h/o chest pain. There are plans for finger amputation. Exam with RRR, no murmurs, no edema. EKG:
NSR, nonspecific ST abnormality.
She underwent major vascular surgery without cardiac complications. She can proceed to finger amputation.
She will continue ASA 81mg, and we added statin.
Original Note:
Consultation
Consultation Request
Date/Time Consultation Requested: 12/05/2024 16:35
Date/Time Consultation Performed: 12/05/2024 17:00
Requesting Provider: Dr. Sandhu
Performing Provider: ARELY Simons for Dr. Simpson
Reason for Consultation: Perioperative risk management
Medical History
-
Chief Complaint: Gangrenous wound
History of Present Illness:
Melissa Day is a 69-year-old female with alcohol use disorder, chronic microcytic anemia, and anxiety/depression who presented to the emergency department 11/29/2024 with failure to thrive. She presented to her PCP earlier that day. Her sister told
her PCP that she has been continuously drinking alcohol and having poor nutritional intake and had been found incontinent. She was found to be hypotensive and had a gangrenous left finger. She was referred to the ER for evaluation. On 12/01/2024,
she had chronic limb threatening ischemia to her left upper extremity. She had a left common carotid artery to subclavian bypass by Dr. Hayes. No postoperative complications. She is having a finger amputation tomorrow. Cardiology was consulted for
a perioperative risk management.
Past Medical History
Past Medical History: HTN, Psychiatric (EtOH disorder) and Other (PAD, anemia)
Past Surgical History: Orthopedic
Social History
Tobacco: Smoker (One half PPD)
Alcohol: Daily (At least 1 pint of vodka daily prior to admission)
Drug: None
Family History
Family History: CAD (Father had quadruple bypass. Age unclear but over the age of 60. No FH of SCD.)
Allergies / Home Medications
Allergy/AdvReac Type Severity Reaction Status Date / Time
No Known Allergies Allergy Verified 11/29/24 13:36
�Medication �Instructions �Recorded �Confirmed �Type
escitalopram oxalate 20 mg tablet 20 mg PO DAILY depression/anxiety 01/04/24 11/29/24 History
nifedipine 30 mg tablet,extended 30 mg PO DAILY Blood Pressure 11/29/24 11/29/24 History
release
Review of Systems
-
History Source: Patient
All other systems: Negative unless noted
Constitutional: No Symptoms
EENT: No Symptoms
Respiratory: No Symptoms
Cardiac: No Symptoms
Abdomen/GI: No Symptoms
: No Symptoms
Musculoskeletal: No Symptoms
Skin: No Symptoms
Neurological: No Symptoms
Hematologic/Lymphatic: No Symptoms
Physical Exam
Vital Signs
Temp Pulse Resp BP Pulse Ox
98.4 F 81 16 125/52 98
12/05/24 11:00 12/05/24 11:00 12/05/24 11:00 12/05/24 11:00 12/05/24 11:00
Lab Results
12/05/24 05:55
12/05/24 05:55
Troponin I Cancelled 12/05/24 16:53
Physical Exam
General: Well Developed, Well Nourished, No Apparent Distress and Comfortable
HEENT: Normocephalic, Anicteric and Moist Mucous Membranes
Respiratory: Clear and Non Labored Respirations
Cardiac: S1/S2 and Regular Rhythm; Negative Peripheral Edema
Breast: Deferred by me
GI: Soft, Non Tender, Non Distended and Normal Bowel Sounds
Rectal: Deferred by Provider
Genito-urinary: No Costovertebral Tender
Musculoskeletal: No Clubbing, No Cyanosis and No Edema
Skin: Warm and Dry
Neuro: AO x 3
Hematologic/Lymphatic: No Lymphadenopathy
Psych: Calm
Impression / Plan
-
I/P: 69F with alcohol use disorder, chronic microcytic anemia, and anxiety/depression who presented to the emergency department 11/29/2024 with failure to thrive. She presented to her PCP earlier that day. Her sister told her PCP that she has been
continuously drinking alcohol and having poor nutritional intake and had been found incontinent. She was found to be hypotensive and had a gangrenous left finger.
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
Perioperative risk management
-S/p left common carotid artery to subclavian artery bypass with 8 mm Hemashield Dacron graft 12/01/[address] Hayes without postoperative complication
-EKG with T wave abnormality nonspecific
-No anginal symptoms, no signs of heart failure
-Finger amputation of the left hand planned for tomorrow
-Echocardiogram in a.m.
PAD
-Fasting lipid panel in a.m., start rosuvastatin 20 mg every evening
-08/14/2023: TC 251, HDL 40, LDL 187, TG 131
Gangrenous finger, suspicious for osteomyelitis on MRI, amputation with Ortho tomorrow
Lactic acidosis, resolved
Hypertension, BP stable on nifedipine
AAA, per vascular surgery
Normocytic anemia, per primary
EtOH abuse, full sobriety recommended
Current tobacco abuse, full cessation recommended
Data Reviewed
-
EKG: Report Reviewed by me
Labs: Labs Reviewed by me
Old Records: Reviewed
[2024-12-05] MEDS: LOW STRENGTH ASPIRIN 81 MG PO (17:17)
[2024-12-05 23:00] VITALS: BP 154/90
[2024-12-06] VITALS (11 sets, daily range): BP systolic 102–155; BP diastolic 62–92
[2024-12-06] MEDS: TYLENOL PO ×2 (01:00→12:42)
[2024-12-06] MEDS: DILAUDID 0.5 MG IV (04:35)
[2024-12-06] MEDS: TYLENOL 650 MG PO ×3 (05:53→23:59)
--- NOTE | 2024-12-06 07:29 | W.PN.UPDATE ---
Update Note
Progress Note Update
Patient seen and examined by Orthopedic surgery this morning on rounds. Plan to proceed with left index finger partial amputation today under the direction of Dr. Gaspar. Patient to remain NPO. Surgical and blood consents are signed and and in the
patient's chart. Pre-op Ancef UMAOR. Cleared from Cardiology standpoint to proceed with surgery. Orthopedic surgery will continue to follow along.
[2024-12-06 08:18] LABS: Hematocrit 25.9 % (37.0-47.0); Hemoglobin 8.2 g/dL (12.0-16.0); Mean Corp Hgb Conc. 31.7 g/dL (33.0-37.0); Mean Corpuscular Hgb 26.7 pg (27.0-31.0); Mean Corpuscular Volume 84.4 fL (81.0-99.0); Mean Platelet Volume 9.9 fL (7.4-10.4); Platelet Count 234 10^3/uL (130-400); Red Blood Cell Count 3.07 10^6/uL (4.20-5.40); Red Cell Dist. Width 22.2 % (11.5-14.5); White Blood Cell Count 6.1 10^3/uL (4.8-10.8)
--- NOTE | 2024-12-06 08:25 | W.PN.CD ---
Today's Communication / Plan
-
OK to proceed to amputation
continue ASA, crestor, nifedipine
please call us back with additional questions
outpatient follow up has been arranged and placed in chart
Impression / Plan
-
69F with alcohol use disorder, chronic microcytic anemia, and anxiety/depression who presented to the emergency department 11/29/2024 with failure to thrive. She presented to her PCP earlier that day. Her sister told her PCP that she has been
continuously drinking alcohol and having poor nutritional intake and had been found incontinent. She was found to be hypotensive and had a gangrenous left finger.
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
-s/p left common carotid artery to subclavian artery bypass with 8 mm Hemashield Dacron graft 12/01/[address] Hayes without postoperative complication
-EKG with T wave abnormality nonspecific
-No anginal symptoms, no signs of heart failure
Finger amputation of the left hand planned for today
-Gangrenous finger, suspicious for osteomyelitis on MRI
-prelim echo results with normal LVEF
-OK to proceed from cardiac perspective
PAD
-ASA 81mg daily, crestor 20mg daily
Hypertension: BP stable on nifedipine
AAA, per vascular surgery
Normocytic anemia, per primary
EtOH abuse, full sobriety recommended
Current tobacco abuse, full cessation recommended
Physical Exam
Vital Signs/Labs
Vital Signs
Temp Pulse Resp BP Pulse Ox
98 F 80 16 154/90 97
12/05/24 23:00 12/05/24 23:00 12/05/24 23:00 12/05/24 23:00 12/05/24 23:00
12/06/24 06:25
PT 12.9 Sec (11.4-14.6) 12/02/24 03:52
INR 0.92 12/02/24 03:52
APTT 32.0 Sec (23.4-35.0) 12/02/24 03:52
Magnesium 2.0 mg/dl (1.6-2.3) 12/03/24 05:44
LAB Results
12/05/24 12/05/24
05:55 16:53
Troponin I Cancelled Cancelled
Physical Exam
Constitutional: No acute distress and Comfortable
EENT: Moist mucous membranes
Cardiovascular: Rhythm & rate is regular, Pedal edema is absent, JVD pressure is normal and Systolic murmur absent
Respiratory: Respiratory effort normal
Neuro/Psych: AO x 3
Data Reviewed
-
Date of Service: December 06, 2024
Labs: Labs Reviewed by me
[2024-12-06 08:33] LABS: Blood Urea Nitrogen 19 mg/dl (7-17); Calcium 8.7 mg/dl (8.4-10.2); Carbon Dioxide 27 mmol/L (22-30); Chloride 102 mmol/L (98-107); Estimated Creatinine Clearance 53 ml/min; Glucose 99 mg/dl (70-99); HDL Cholesterol 34 mg/dl; LDL Cholesterol, Calculated 80 mg/dl; Potassium 4.6 mmol/L (3.5-5.1); Sodium 137 mmol/L (135-145); Total Cholesterol 151 mg/dl (50-199); Triglyceride 188 mg/dl (10-149); Very Low Density Lipoprotein 37 mg/dl (0-30); eGFR > 60.00
[2024-12-06] MEDS: LEXAPRO 10 MG PO (09:07)
[2024-12-06] MEDS: KEFLEX 500 MG PO (09:07)
[2024-12-06] MEDS: PROCARDIA XL (EXTENDED RELEASE) 30 MG PO (09:07)
[2024-12-06] MEDS: LOW STRENGTH ASPIRIN 81 MG PO (09:07)
[2024-12-06] MEDS: ROXICODONE 5 MG PO ×2 (09:09→21:41)
--- NOTE | 2024-12-06 09:36 | W.PN.HOSP.TC ---
Addendum entered and electronically signed by Jesse Whelan MD 12/06/24 14:33:
Seen and examined by me independently in collaboration with the director medical affairs Dr. Sandhu.
Lab data and imaging data reviewed.
Addendum as below :
Patient without chest pain or shortness of breath. Echocardiogram noted without any wall motion abnormalities and normal EF. Appreciate cardiology input. Statins added to aspirin. Need to follow-up with cardiology.
For left index finger amputation today.
Original Note:
Today's Communication/Plan
-
Patient to undergo amputation of left distal index finger.
Assessment / Plan
Assessment / Plan
Assessment:
69-year-old female with a past medical history of severe alcohol use disorder, hyponatremia, chronic microcytic anemia, pancytopenia, hypertension, anxiety/depression presented to the [facility] ED on 11/29/2024 for recent failure to thrive,
and recent history of multiple falls. Patient had tried to decrease her alcohol intake since 2 weeks ago and has not had a drink since the ninth of this month. She has fallen twice now the past 2 weeks and hit her head and injured her backside.
Patient had not been eating and her home following the unfortunate passing of her sister along with being laid off by her job. She has had significant weight loss and had a lack of appetite. On presentation to the ED, she was found to be
malnourished and had severe electrolyte abnormalities with increased lactic acid. Patient was given IV fluids and started replenishment of her electrolytes. Patient was also found to have gangrenous left index finger that had been getting worse
for the past month. Patient underwent CT angiograms of the left upper extremity, carotid duplex, and CT head due to her recent falls. She was started on heparin infusion and also NSAIDs protocol due to her potential alcohol withdrawal. Patient
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 She was recommended to have left carotid to subclavian artery bypass
for revascularization of the upper extremity. This could have been contributing to her dizziness symptoms as well. Patient agreed with proceeding. Patient underwent successful procedure and is now postop day 3 following left common carotid artery
to subclavian artery bypass with 8 mm Huber shield Dacron graft. Patient will require alf facility for rehab. Patient seen by Ortho yesterday and scheduled amputation of her left index finger today. Cardiology was consulted yesterday as
well for further management of patient's extensive vascular disease. Was cleared for surgery per cardiology evaluation. Patient will with follow-up with cardiology in outpatient setting.
CT Facial Bones W/o Iv Contrast (11/29/2024):
No acute fractures identified.
Mild left nasal septal deviation.
Small left ester bullosa.
CT Head W/o Iv Contrast (11/06/2024):
No acute intracranial abnormality noted.
Mild atrophy. Stable
Mild nonacute right mastoiditis. Stable
CR Ribs-right 3 Vw W/pa Chest* (11/29/2024):
1. No displaced rib fractures.
2. No acute cardiopulmonary process.
CR Finger(s)/thumb Min 2 Vw Lt (11/29/2024):
Small soft tissue defect about the distal aspect of the second digit. No convincing radiographic evidence for active osteomyelitis. MRI would be of greater sensitivity.
No acute fracture or dislocation. Scattered mild osteoarthritic changes of the interphalangeal joints. No erosions are evident. No radiographic evidence for inflammatory arthropathy.
US Periph Art UPPER Ext W Seg (11/29/2024):
Flat line digital waveforms are demonstrated in all 5 digits of the left hand. Monophasic arterial duplex waveforms are demonstrated throughout the left extremity. Slow velocities are identified from the mid subclavian artery through the radial
artery.
CT Upper Ext Angio W/wo Iv Con (11/29/2024):
Mild atherosclerotic calcifications of the left subclavian and axillary arteries. Grossly patent brachial, radial and ulnar arteries. No high-grade stenosis.
CT Head & Neck Angio W/wo IV (11/30/2024):
No acute intracranial pathology. Mild atrophy.Mild nonacute sinusitis. Stable
There is severe plaque at the origin of the left subclavian artery with complete occlusion at the origin and proximal subclavian artery. This extends a length of approximately 3.6 cm. The vessel is patent distal to this region with small scattered
foci of calcified plaque.
Less than 50% stenosis of the proximal right internal carotid artery.
Multilevel degenerative disc disease.
Sclerotic T5 vertebral body. Metastatic disease not excluded. This could further be evaluated by MR examination.
US Cerebrovascular Carotid Ultrasound (11/30/2024):
1. Extensive calcified plaque within each common carotid artery. Calcified carotid bulb plaque on each side, measurements suggestive of less than 50% stenosis on each side as per modified Society of Radiologists in Ultrasound consensus criteria (IAC
carotid criteria white paper, 2020).
2. Retrograde flow within the left vertebral artery throughout the cardiac cycle, suggestive of left central arterial stenosis. Occlusion of the left proximal subclavian artery was seen on concurrent CTA.
MR Left Up Ext No Joint W/o (12/05/2024):
Abnormal marrow signal involving the distal phalanx of the left index finger as described. Findings are highly suggestive of osteomyelitis.
No significant joint effusion involving the distal interphalangeal joint, with no findings that would be considered suggestive of septic arthritis.
No evidence of soft tissue collection to suggest an abscess.
Plan:
# Left index finger dry gangrene wound/cellulitis
-X-rays as above, peripheral arterial ultrasound as above, CT angio left extremity as above
-Vascular following, input appreciated
-Patient currently postop day 3, successful surgery with return of blood flow to left hand. There is resolution of symptoms as well.
-Still has pain in the left index finger surrounding the gangrene
-Patient seen by orthopedics yesterday, underwent MRI which showed osteomyelitis as above
-Planned amputation today
#Anemia likely due to recent surgery plus treatment with IVF along with chronic disease
-Hgb stable
-continue monitoring CBC
-Cardiology consulted for further evaluation of possible underlying CAD, input appreciated
-Echocardiogram was ordered and showed no acute abnormalities
-Admitting EKG showed nonspecific ST changes in inferior lateral leads however you missed EKG was normal
-Has no angina like symptoms
-Was started on aspirin, Crestor, and will continue to nifedipine
-Outpatient follow-up scheduled, and cleared for surgery by cardiology
-Patient also noted to have chronic anemia in the past
-Iron studies ordered yesterday
-Iron levels low, TIBC low, low saturation, ferritin normal. Most likely showing chronic iron deficiency anemia
-Continue monitoring hemoglobin postsurgery
# Failure to thrive/malnutrition/lactic acidosis likely secondary to depression
-Patient not suicidal and does not report any depression
-Counseled about whether she wants to talk to somebody, patient refused at this time
-Consult psych, input appreciated
-Patient is in much better spirits, tolerating diet
-Lactic acid was 5, trended down after IV fluid resuscitation
#Recent history of falls
-CT Head and Neck did not show any acute intracranial pathologies
-Most likely due to malnutrition coupled with vascular disease as described above
-Orthostatic vitals normal
-Continue evaluation with PT/OT
-Recommended alf facility
#Skin abrasion from falls on right hip and sacrum (POA)
-continue management of wound conservatively
# Hypokalemia
-Repleted, continue monitoring and replete as necessary
# Hypomagnesemia
-Repleted, continue monitoring and replete as necessary
-Magnesium went from 1.0-2.4 after repletion
-Continue monitoring
# History of alcohol abuse
-Used to drink around a pint a day
-Stopped drinking alcohol on November 13
-MSAS 0
-No recent history of tremors, other withdrawal symptoms
# Essential hypertension
-Will continue nifedipine
-As per vascular, should not manage hypertension too aggressively
# Anxiety/depression
-consulted psych, input appreciated
-Seen by psych who adjusted dose of Lexapro
-Now on 10 mg daily
DNR
DVT prophylaxis: SCDs
Anticipated Discharge: Within 24 hours
Subjective/Interval History
-
Date of Service: December 06, 2024
Patient seen this morning right before going for her echocardiogram. She reported no complaints and was looking forward to getting finished with surgery today.
Objective Data
-
Labs:
Laboratory Results
12/06/24
06:25
WBC 6.1
Hgb 8.2 L
Hct 25.9 L
Plt Count 234
Sodium 137
Potassium 4.6
Chloride 102
Carbon Dioxide 27
BUN 19 H
Creatinine 0.9
Glucose 99
Calcium 8.7
Vital Signs:
Vital Signs
Temp Pulse Resp BP Pulse Ox
97.5 F 78 18 155/86 98
12/06/24 08:25 12/06/24 08:25 12/06/24 08:25 12/06/24 08:25 12/06/24 08:25
I&O
12/05/24 12/06/24 12/07/24
06:59 06:59 06:59
Intake Total 840 / 840 1020 / 1020
Output Total 250 / 250
Balance 840 / 840 770 / 770
Review of Systems
-
History Source: Patient
Constitutional: Denies Fever or Fatigue
EENT: Reports No Symptoms Reported
Respiratory: Denies Cough, Trouble Breathing or Wheezing
Cardiac: Denies Chest Pain or Palpitations
Abdomen/GI: Denies Abdominal Pain, Nausea or Vomiting
Genitourinary: Reports No Symptoms
Musculoskeletal: Reports Other (Tenderness around area of incision from surgery on left side of the neck)
Skin: Reports Other (Blackened discoloration tip of left index finger, erythema+tenderness left side of neck around incision site, no drainage)
Neuro: Denies Headache or Lightheadedness
Psych: Reports Anxious
Physical Exam
-
General: Well Developed, Well Nourished, No Apparent Distress, Comfortable and Conversant
HEENT: Normocephalic, Atraumatic and Other (well-healing scar from incision on the left side of neck)
Respiratory: Clear to Auscultation and Non Labored Respirations
Cardiac: Regular Rhythm, S1/S2 and Other (Return of pulses to left hand); Negative Murmur
GI: Soft, Nontender and Nondistended
Musculoskeletal: Other (Left index finger dry gangrene wound at the distal tip with surrounding erythema and tenderness)
Skin: Warm and Other (Erythema and tenderness surrounding tip of gangrenous left index. Well-healing surgical scar on the left side of the neck with no draining)
Neuro: Awake, Alert, Oriented, No Motor Deficits and No Sensory Deficits
Psych: Calm and Intact Judgement/Insight
Data Reviewed
-
MRI: Report Reviewed by me, Discussed with Physician, Discussed with Nurse and Discussed with Patient
Labs: Labs Reviewed by me, Discussed with Physician, Discussed with Nurse and Discussed with Patient
--- NOTE | 2024-12-06 10:36 | CM ---
Reviewed the chart notes. Patient schedule for left index finger partial amputation today. CM continues to be available to patient/family and is monitoring medical plan for needs at discharge.
Plan: Discharge to [facility] once medically stable and bed available. No precert required.
[2024-12-06 12:53] LABS: Glycohemoglobin (HgbA1c) 5.2 % (4.0-5.6)
--- NOTE | 2024-12-06 14:04 | W.IMMPOSTOP ---
Surgical Immed Post Op Note
-
Primary Surgeon: Chasity
Pre-op Diagnosis: Left index dry gangrene, distal phalanx osteomyelitis
Post-op Diagnosis: Same
Procedure Performed: Left index amputation at DIP joint
Anesthesia Type: General
Specimen / Cultures: Left index finger
Estimated Blood Loss: 2cc
Complications: None
Operative Findings: Dictated [id number]
Plan:
- IV antibiotics
- Dressing change in 3-5 days
- Follow up in the office in 10-14 days upon discharge
--- NOTE | 2024-12-06 17:14 | VATNOTE ---
upon rounds, right hand IV site red, warm & very painful/sore for pt.; IV removed and ice applied.
[2024-12-06] MEDS: ANCEF 10 IV ×2 (17:48→20:20)
[2024-12-06] MEDS: CRESTOR 20 MG PO (17:48)
--- NOTE | 2024-12-06 18:15 | PTCARENOTE ---
Patient returned to her room from [facility] at 1530 post partial amputation of her left index finger.She denies any pain and is anxious to have something to eat.Vital signs are stable.The dressing on the finger is intact with no drainage.The patient is
in her bed with the call mendes in reach.
[2024-12-07] VITALS (7 sets, daily range): BP systolic 113–166; BP diastolic 65–93; PULSE 93; O2SAT 98
[2024-12-07] MEDS: DILAUDID 0.5 MG IV ×4 (01:57→20:27)
[2024-12-07] MEDS: ANCEF 10 IV ×3 (03:51→20:28)
[2024-12-07] MEDS: ROXICODONE 5 MG PO ×4 (05:00→22:54)
[2024-12-07] MEDS: TYLENOL 650 MG PO ×4 (05:00→22:54)
[2024-12-07 08:18] LABS: ALT (SGPT) 12 U/L (0-35); AST (SGOT) 24 U/L (14-36); Albumin 3.1 g/dl (3.5-5.0); Alkaline Phosphatase 62 U/L (38-126); Blood Urea Nitrogen 20 mg/dl (7-17); Calcium 8.9 mg/dl (8.4-10.2); Carbon Dioxide 25 mmol/L (22-30); Chloride 103 mmol/L (98-107); Estimated Creatinine Clearance 59 ml/min; Glucose 101 mg/dl (70-99); Potassium 4.4 mmol/L (3.5-5.1); Sodium 137 mmol/L (135-145); Total Bilirubin 0.3 mg/dl (0.2-1.3); Total Protein 5.8 g/dl (6.3-8.2); eGFR > 60.00
[2024-12-07] MEDS: LOW STRENGTH ASPIRIN 81 MG PO (08:21)
[2024-12-07] MEDS: PROCARDIA XL (EXTENDED RELEASE) 30 MG PO (08:21)
[2024-12-07] MEDS: LEXAPRO 10 MG PO (08:21)
--- NOTE | 2024-12-07 08:21 | W.PN.ORTHO ---
Today's Communication / Plan
-
Ice with elevation
Complete course of antibiotics
Dressing to remain in place
Orthopedics to follow along
Assessment
.
Distal Motor Intact: Yes
Dressing:
Clean, dry and intact.
Plan
.
Surgery / Date: Amputation left index finger IP joint [place]
DVT Prophylaxis: Aspirin
Activity:
Out of bed.
PT/OT
Discharge Plan: Home
Subjective
.
.:
Patient resting comfortably.
Vital Signs and Labs
.
Vital Signs and Labs:
Lab Results
12/07/24 07:13
Temp Pulse Resp BP Pulse Ox
98.4 F 89 17 166/93 98
12/07/24 03:25 12/07/24 03:25 12/07/24 03:25 12/07/24 03:25 12/07/24 03:25
PT 12.9 Sec (11.4-14.6) 12/02/24 03:52
INR 0.92 12/02/24 03:52
--- NOTE | 2024-12-07 10:51 | VATNOTE ---
No swelling of right hand noted at this time.
--- NOTE | 2024-12-07 11:34 | CM ---
Addendum entered by Fe Cornejo RN 12/07/24 12:07:
Plan: Discharge to [facility] when medically stable.
Call report to: [phone]
Fax report to: [phone]
Addendum entered by Fe Cornejo RN 12/07/24 12:01:
IMM reviewed.
Original Note:
Reviewed the chart notes. Patient is s/p left index finger partial amputation. CM continues to be available to patient/family and is monitoring medical plan for needs at discharge.
Plan: Discharge to [facility] once medically stable and bed available. No precert required.
--- NOTE | 2024-12-07 12:49 | W.PN.HOSP.TC ---
Addendum entered and electronically signed by Jesse Whelan MD 12/07/24 14:12:
Seen and examined by me independently in collaboration with the medical tech Dr. Sandhu.
Lab data and imaging data reviewed.
Addendum as below :
Pain from the amputation site is manageable with medication. No fever chills.
Tolerating diet without any nausea vomiting.
Patient positive amputation was started on IV antibiotics and they recommend abx. Consult ID for abx choices.
Iron def anemia noted . Patient is menopausal. Denies GI bleed but at times says has noticed dark stools. She had a colonoscopy in the past she was supposed to return back and get a larger polyp removed which she has not. Check heme test stools
and if negative will discharge patient on iron supplementation. Patient advised to reschedule an appointment with her GI physician to finish her colonoscopy.
Follow up with Cards as planned.
Original Note:
Today's Communication/Plan
-
Patient to be discharged to SNF today as she is medically cleared
Assessment / Plan
Assessment / Plan
Assessment:
69-year-old female with a past medical history of severe alcohol use disorder, hyponatremia, chronic microcytic anemia, pancytopenia, hypertension, anxiety/depression presented to the [facility] ED on 11/29/2024 for recent failure to thrive,
and recent history of multiple falls. Patient had tried to decrease her alcohol intake since 2 weeks ago and has not had a drink since the ninth of this month. She has fallen twice now the past 2 weeks and hit her head and injured her backside.
Patient had not been eating and her home following the unfortunate passing of her sister along with being laid off by her job. She has had significant weight loss and had a lack of appetite. On presentation to the ED, she was found to be
malnourished and had severe electrolyte abnormalities with increased lactic acid. Patient was given IV fluids and started replenishment of her electrolytes. Patient was also found to have gangrenous left index finger that had been getting worse
for the past month. Patient underwent CT angiograms of the left upper extremity, carotid duplex, and CT head due to her recent falls. She was started on heparin infusion and also NSAIDs protocol due to her potential alcohol withdrawal. Patient
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 She was recommended to have left carotid to subclavian artery bypass
for revascularization of the upper extremity. This could have been contributing to her dizziness symptoms as well. Patient agreed with proceeding. Patient underwent successful procedure and is now postop day 3 following left common carotid artery
to subclavian artery bypass with 8 mm Huber shield Dacron graft. Patient will require long-term facility for rehab. Patient underwent successful amputation of the distal tip of her gangrenous left index finger. Patient remained stable and was
discharged to SNF once medically stable.
CT Facial Bones W/o Iv Contrast (11/29/2024):
No acute fractures identified.
Mild left nasal septal deviation.
Small left ester bullosa.
CT Head W/o Iv Contrast (11/06/2024):
No acute intracranial abnormality noted.
Mild atrophy. Stable
Mild nonacute right mastoiditis. Stable
CR Ribs-right 3 Vw W/pa Chest* (11/29/2024):
1. No displaced rib fractures.
2. No acute cardiopulmonary process.
CR Finger(s)/thumb Min 2 Vw Lt (11/29/2024):
Small soft tissue defect about the distal aspect of the second digit. No convincing radiographic evidence for active osteomyelitis. MRI would be of greater sensitivity.
No acute fracture or dislocation. Scattered mild osteoarthritic changes of the interphalangeal joints. No erosions are evident. No radiographic evidence for inflammatory arthropathy.
US Periph Art UPPER Ext W Seg (11/29/2024):
Flat line digital waveforms are demonstrated in all 5 digits of the left hand. Monophasic arterial duplex waveforms are demonstrated throughout the left extremity. Slow velocities are identified from the mid subclavian artery through the radial
artery.
CT Upper Ext Angio W/wo Iv Con (11/29/2024):
Mild atherosclerotic calcifications of the left subclavian and axillary arteries. Grossly patent brachial, radial and ulnar arteries. No high-grade stenosis.
CT Head & Neck Angio W/wo IV (11/30/2024):
No acute intracranial pathology. Mild atrophy.Mild nonacute sinusitis. Stable
There is severe plaque at the origin of the left subclavian artery with complete occlusion at the origin and proximal subclavian artery. This extends a length of approximately 3.6 cm. The vessel is patent distal to this region with small scattered
foci of calcified plaque.
Less than 50% stenosis of the proximal right internal carotid artery.
Multilevel degenerative disc disease.
Sclerotic T5 vertebral body. Metastatic disease not excluded. This could further be evaluated by MR examination.
US Cerebrovascular Carotid Ultrasound (11/30/2024):
1. Extensive calcified plaque within each common carotid artery. Calcified carotid bulb plaque on each side, measurements suggestive of less than 50% stenosis on each side as per modified Society of Radiologists in Ultrasound consensus criteria (IAC
carotid criteria white paper, 2020).
2. Retrograde flow within the left vertebral artery throughout the cardiac cycle, suggestive of left central arterial stenosis. Occlusion of the left proximal subclavian artery was seen on concurrent CTA.
MR Left Up Ext No Joint W/o (12/05/2024):
Abnormal marrow signal involving the distal phalanx of the left index finger as described. Findings are highly suggestive of osteomyelitis.
No significant joint effusion involving the distal interphalangeal joint, with no findings that would be considered suggestive of septic arthritis.
No evidence of soft tissue collection to suggest an abscess.
Plan:
# Left index finger dry gangrene wound/cellulitis
-X-rays as above, peripheral arterial ultrasound as above, CT angio left extremity as above
-Vascular following, input appreciated
-Patient currently postop day 3, successful surgery with return of blood flow to left hand. There is resolution of symptoms as well.
-Still has pain in the left index finger surrounding the gangrene
-successful amputation of distal left index finger yesterday
-Pain management as needed
#Anemia likely due to recent surgery plus treatment with IVF along with chronic disease
-Hgb stable
-continue monitoring CBC
-Cardiology consulted for further evaluation of possible underlying CAD, input appreciated
-Echocardiogram was ordered and showed no acute abnormalities
-Admitting EKG showed nonspecific ST changes in inferior lateral leads however you missed EKG was normal
-Has no angina like symptoms
-Was started on aspirin, Crestor, and will continue to nifedipine
-Outpatient follow-up scheduled, and cleared for surgery by cardiology
-Patient also noted to have chronic anemia in the past
-Iron levels low, TIBC low, low saturation, ferritin normal. Most likely showing chronic iron deficiency anemia
-Patient given IV iron today
-stool occult blood studies pending
-Patient should follow up with outpatient GI for further evaluation including procedures like colonoscopy as discussed
# Failure to thrive/malnutrition/lactic acidosis likely secondary to depression
-Patient not suicidal and does not report any depression
-Counseled about whether she wants to talk to somebody, patient refused at this time
-Consult psych, input appreciated
-Patient is in much better spirits, tolerating diet
-Lactic acid was 5, trended down after IV fluid resuscitation
#Recent history of falls
-CT Head and Neck did not show any acute intracranial pathologies
-Most likely due to malnutrition coupled with vascular disease as described above
-Orthostatic vitals normal
-Continue evaluation with PT/OT
-Recommended long-term facility
#Skin abrasion from falls on right hip and sacrum (POA)
-continue management of wound conservatively
# Hypokalemia
-Repleted, continue monitoring and replete as necessary
# Hypomagnesemia
-Repleted, continue monitoring and replete as necessary
-Magnesium went from 1.0-2.4 after repletion
-Continue monitoring
# History of alcohol abuse
-Used to drink around a pint a day
-Stopped drinking alcohol on November 13
-MSAS 0
-No recent history of tremors, other withdrawal symptoms
# Essential hypertension
-Will continue nifedipine
-As per vascular, should not manage hypertension too aggressively
-Continue aspirin and rosuvastatin as per cardiology
-Cardiology consulted for further evaluation of possible underlying CAD, input appreciated
-Patient will follow up with Cardiology for further workup in the outpatient setting
# Anxiety/depression
-consulted psych, input appreciated
-Seen by psych who adjusted dose of Lexapro
-Now on 10 mg daily
-Follow up with Psychiatry in outpatient setting once discharged
DNR
DVT prophylaxis: SCDs
Anticipated Discharge: Today
Subjective/Interval History
-
Date of Service: December 07, 2024
Patient has been feeling well, just has some postsurgical pain around her left index finger. No other acute concerns
Objective Data
-
Labs:
Laboratory Results
12/07/24
07:13
WBC Pending
Hgb Pending
Hct Pending
Plt Count Pending
Sodium 137
Potassium 4.4
Chloride 103
Carbon Dioxide 25
BUN 20 H
Creatinine 0.8
Glucose 101 H
Calcium 8.9
Total Bilirubin 0.3
AST 24
ALT 12
Alkaline Phosphatase 62
Vital Signs:
Vital Signs
Temp Pulse Resp BP Pulse Ox
97.9 F 86 18 124/69 98
12/07/24 11:33 12/07/24 11:33 12/07/24 11:33 12/07/24 11:33 12/07/24 11:33
I&O
12/06/24 12/07/24 12/08/24
06:59 06:59 06:59
Intake Total 1020 / 1020 1300 / 1300 240 / 240
Output Total 250 / 250
Balance 770 / 770 1300 / 1300 240 / 240
Review of Systems
-
History Source: Patient
Constitutional: Denies Fever or Fatigue
EENT: Reports No Symptoms Reported
Respiratory: Denies Cough, Trouble Breathing or Wheezing
Cardiac: Denies Chest Pain or Palpitations
Abdomen/GI: Denies Abdominal Pain, Nausea or Vomiting
Genitourinary: Reports No Symptoms
Musculoskeletal: Reports Other (Tenderness around area of surgical amputation on left index finger)
Skin: Reports Other (Left index finger wrapped in bandage after surgery, area is tender)
Neuro: Denies Headache or Lightheadedness
Physical Exam
-
General: Well Developed, Well Nourished, No Apparent Distress, Comfortable and Conversant
HEENT: Normocephalic, Atraumatic and Other (well-healing scar from incision on the left side of neck)
Respiratory: Clear to Auscultation and Non Labored Respirations
Cardiac: Regular Rhythm and S1/S2; Negative Murmur
GI: Soft, Nontender and Nondistended
Musculoskeletal: Other (Left index finger now wrapped in dressing following surgery, area matrix drier tender)
Skin: Warm and Other (Well-healing surgical scar on the left side of the neck with no draining)
Neuro: Awake, Alert, Oriented, No Motor Deficits and No Sensory Deficits
Psych: Calm and Intact Judgement/Insight
Data Reviewed
-
Labs: Labs Reviewed by me, Discussed with Physician, Discussed with Nurse and Discussed with Patient
[2024-12-07] MEDS: FERRLECIT 110 MG IV (13:38)
[2024-12-07 14:43] LABS: Hematocrit 24.8 % (37.0-47.0); Hemoglobin 7.9 g/dL (12.0-16.0); Mean Corp Hgb Conc. 31.9 g/dL (33.0-37.0); Mean Corpuscular Hgb 27.2 pg (27.0-31.0); Mean Corpuscular Volume 85.5 fL (81.0-99.0); Mean Platelet Volume 9.9 fL (7.4-10.4); Platelet Count 233 10^3/uL (130-400); Red Cell Dist. Width 22.4 % (11.5-14.5); White Blood Cell Count 5.2 10^3/uL (4.8-10.8)
[2024-12-07] MEDS: CRESTOR 20 MG PO (16:38)
--- NOTE | 2024-12-07 18:32 | CON.ID ---
Consultation
-
Date/Time Consultation Requested: 12/07/2024 1404
Date/Time Consultation Performed: 12/07/2024 1809
Requesting Provider: Dr. Whelan
Performing Provider: Dr. Renae
Reason for Consultation: Left index finger gangrene
Chief Complaint / Past History
History of Present Illness
Melissa Day is a 69-year-old female being evaluated at the request of Dr. Whelan in regards to left index finger gangrene. History is obtained from chart review, along with patient interview.
The patient has a history of alcohol abuse exacerbated by social issues (sister committed suicide earlier this year, patient was recently laid off from her job) and recently was an inpatient at [facility]. She reports while there she
sustained a cut to her finger. Following her discharge, the tip of the finger grew black.
Once home, she was evaluated by her PCP who thought that she had failure to thrive and sent her to the emergency room for further evaluation. The patient has reportedly fallen several times over the prior 2 weeks.
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 She was evaluated by Vascular Surgery, and further workup indicated subclavian artery disease, and she underwent a left carotid to subclavian artery bypass on
11/29. She subsequently underwent a partial second left finger amputation yesterday. In discussion with Ortho, there is concern that there may be residual osteomyelitis, and Infectious Diseases is asked to comment upon further antimicrobial
management.
She denies any recent fevers or chills. Currently pain is controlled, although she does note some throbbing in the finger.
Past History
Additional Past Medical History:
PAD
HTN
Anemia
AAA
Additional Past Surgical History:
Right leg stenting
Allergy History:
No Known Allergies Allergy (Verified 11/29/24 13:36)
Medications Reviewed: Yes
Current Antibiotics:
Cefazolin 2 g IV every 8 hours
Social History
Tobacco: Smoker
Alcohol: Chronic Alcoholic
Drug: None
Living: With Family
Employment: Not Employed
Family History
Family History: Not Pertinent
Review of Systems
Vital Signs
Temp Pulse Resp BP Pulse Ox
98.1 F 85 20 135/67 95
12/07/24 15:48 12/07/24 15:48 12/07/24 15:48 12/07/24 15:48 12/07/24 15:48
Physical Exam
Physical Exam
Constitutional: No Acute Distress, Comfortable and Non-toxic
Head: Normocephalic
Eyes: Pupils Equal, Pupils Round, No Conjunctival Hemorrhage and Sclera Anicteric
Oral: No Thrush and No Ulcers
Cardiovascular: Regular Rate and S1/S2; Negative S3/S4
Pulmonary: Clear; Negative Wheezes, Rales or Rhonchi
Gastrointestinal: Soft, Non Tender and Non Distended
Extremities: Negative Edema, Cyanosis or Erythema
Skin: Warm and Dry; Negative Rash or Jaundice
Wound: Other (Left index finger wrapped in gauze. Mild erythema noted at the base of the index finger, but no extension onto hand. No lymphangitic tracking)
Neurological: Awake and Alert
Psychological: Calm
Lab / Diagnostic Study Results
12/07/24 07:13
12/07/24 07:13
Abs Immat Gran (auto) 0.0 10^3/uL (0-0.05) 11/30/24 05:47
Absolute Neuts (auto) 2.8 10^3/uL (1.4-6.5) 11/30/24 05:47
Absolute Lymphs (auto) 1.0 10^3/uL (1.2-3.4) L 11/30/24 05:47
Absolute Monos (auto) 0.6 10^3/uL (0.1-0.6) 11/30/24 05:47
Absolute Basos (auto) 0.1 10^3/uL (0-0.2) 11/30/24 05:47
Immature Gran % 0.2 % (0-0.5) 11/30/24 05:47
Neutrophils % 61.4 % (42.2-75.2) 11/30/24 05:47
Lymphocytes % 21.7 % (20.5-51.1) 11/30/24 05:47
Monocytes % 13.4 % (1.7-9.3) H 11/30/24 05:47
Eosinophils % 2.0 % (0-6) 11/30/24 05:47
Basophils % 1.3 % (0-2) 11/30/24 05:47
PT 12.9 Sec (11.4-14.6) 12/02/24 03:52
INR 0.92 12/02/24 03:52
Lactic Acid 2.1 mmol/L (0.7-2.0) H 11/29/24 21:26
Microbiology Results
Micro:
12/06/24 14:31 Wound Culture - Preliminary
Finger - Left Gram Stain - Preliminary
12/06/24 14:31 Anaerobic Culture - Preliminary
Finger - Left Culture pending. Anaerobic cultures are examined after 3
days incubation. Additional information to follow.
12/06/24 14:31 Tissue Culture - Preliminary
Finger - Left Staphylococcus aureus
Gram Stain - Preliminary
Imaging:
12/05/2024 MRI (left upper extremity): Abnormal marrow signal involving the distal phalanx of the left index finger, with findings highly suggestive of osteomyelitis. No significant joint effusion involving the distal interphalangeal joint, with no
findings that would be considered suggestive of septic arthritis.
11/29/2024 X-ray left hand: Small soft tissue defect about the distal aspect of the second digit. No convincing radiographic evidence for active osteomyelitis, but MRI would be of greater sensitivity.
Assessment / Plan
Left index finger osteomyelitis
- s/p partial amputation
Alcohol abuse
PAD
- s/p (L) carotid to subclavian artery bypass (11/29)
HTN
Anemia
AAA
Recommendations:
Current wound cultures reveal the presence of Staph aureus.
Continue with cefazolin for the present.
It does not appear the proximal margins were sent, thus with concern for retained infection, patient will likely require a 6-week course of IV antibiotics.
Await final susceptibility data to guide further antimicrobial selection.
Local care to the wound.
Monitor white count and temperature curve.
[2024-12-08] MEDS: DILAUDID 0.5 MG IV (02:44)
[2024-12-08] MEDS: FLUSH (NSS) 3 FLUSH IV (02:45)
[2024-12-08] MEDS: ANCEF 10 IV ×3 (02:57→21:23)
[2024-12-08] MEDS: ROXICODONE 5 MG PO ×2 (05:05→08:25)
[2024-12-08] MEDS: TYLENOL 650 MG PO ×4 (05:05→23:16)
[2024-12-08 07:25] LABS: Hematocrit 25.5 % (37.0-47.0); Hemoglobin 8.1 g/dL (12.0-16.0); Mean Corp Hgb Conc. 31.8 g/dL (33.0-37.0); Mean Corpuscular Hgb 26.7 pg (27.0-31.0); Mean Corpuscular Volume 84.2 fL (81.0-99.0); Mean Platelet Volume 9.5 fL (7.4-10.4); Platelet Count 236 10^3/uL (130-400); Red Blood Cell Count 3.03 10^6/uL (4.20-5.40); White Blood Cell Count 5.9 10^3/uL (4.8-10.8)
[2024-12-08 07:44] LABS: Blood Urea Nitrogen 16 mg/dl (7-17); Calcium 9.1 mg/dl (8.4-10.2); Carbon Dioxide 26 mmol/L (22-30); Chloride 101 mmol/L (98-107); Estimated Creatinine Clearance 53 ml/min; Glucose 102 mg/dl (70-99); Potassium 4.4 mmol/L (3.5-5.1); Sodium 136 mmol/L (135-145); eGFR > 60.00
[2024-12-08] MEDS: LOW STRENGTH ASPIRIN 81 MG PO (08:25)
[2024-12-08] MEDS: LEXAPRO 10 MG PO (08:25)
[2024-12-08] MEDS: PROCARDIA XL (EXTENDED RELEASE) 30 MG PO (08:25)
--- NOTE | 2024-12-08 08:29 | W.PN.ORTHO ---
Today's Communication / Plan
-
PT/OT
Light dressing
Antibiotics per ID recommendation
Discharge once medically stable
Follow-up with orthopedics next week for wound check
Assessment
.
Distal Motor Intact: Yes
Dressing:
Dressing removed and replaced. Incision appears clean, dry and intact with sutures in place. Dried blood over incision.
Plan
.
Surgery / Date: Amputation left index finger IP joint [place]
Activity:
Out of bed.
PT/OT
Discharge Plan: SNF
Subjective
.
.:
Patient resting comfortably.
Vital Signs and Labs
.
Vital Signs and Labs:
Lab Results
12/08/24 07:11
12/08/24 07:11
Temp Pulse Resp BP Pulse Ox
98.8 F 80 16 148/73 100
12/07/24 23:48 12/07/24 23:48 12/07/24 23:48 12/07/24 23:48 12/07/24 23:48
PT 12.9 Sec (11.4-14.6) 12/02/24 03:52
INR 0.92 12/02/24 03:52
[2024-12-08 08:45] VITALS: BP 128/70
--- NOTE | 2024-12-08 10:14 | CM ---
Reviewed the chart notes and spoke with the patient at the bedside. Per patient and notes, ID recommending six weeks IV abx once cultures are finalized. CM spoke with [employer] at [facility]. Updated regarding need for IV abx.
Will provide IV script once cultures completed. CM continues to be available to patient/family and is monitoring medical plan for needs at discharge.
Plan: Discharge to [facility] which IV abx will be needed. No precert required.
--- NOTE | 2024-12-08 10:17 | W.PN.HOSP.TC ---
Addendum entered and electronically signed by Jesse Whelan MD 12/08/24 11:46:
Seen and examined by me independently in collaboration with the medical insurance verifier Dr. Sandhu.
Lab data and imaging data reviewed.
Addendum as below :
Patient surgical pain tolerable with oral pain regimen. No fever chills.
Denies any shortness of breath or chest pain.
Tolerating diet without nausea vomiting.
MSSA noted from tissue culture-ID consulted for antibiotic regimen-recommends IV antibiotics here and as outpatient. Will obtain a PICC line.
Plan is for discharge to rehab once picc line is secured.
Heme neg iron def anemia . Started on Iron tablets. Pt is due to get repeat S[place]ies after polyp removal , advised to see it up upon dc from Rehab.
Original Note:
Today's Communication/Plan
-
Patient to continue IV antibiotics, monitor for any adverse symptoms. Pain control as needed postsurgery.
Assessment / Plan
Assessment / Plan
Assessment:
69-year-old female with a past medical history of severe alcohol use disorder, hyponatremia, chronic microcytic anemia, pancytopenia, hypertension, anxiety/depression presented to the [facility] ED on 11/29/2024 for recent failure to thrive,
and recent history of multiple falls. Patient had tried to decrease her alcohol intake since 2 weeks ago and has not had a drink since the ninth of this month. She has fallen twice now the past 2 weeks and hit her head and injured her backside.
Patient had not been eating and her home following the unfortunate passing of her sister along with being laid off by her job. She has had significant weight loss and had a lack of appetite. On presentation to the ED, she was found to be
malnourished and had severe electrolyte abnormalities with increased lactic acid. Patient was given IV fluids and started replenishment of her electrolytes. Patient was also found to have gangrenous left index finger that had been getting worse
for the past month. Patient underwent CT angiograms of the left upper extremity, carotid duplex, and CT head due to her recent falls. She was started on heparin infusion and also NSAIDs protocol due to her potential alcohol withdrawal. Patient
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 She was recommended to have left carotid to subclavian artery bypass
for revascularization of the upper extremity. This could have been contributing to her dizziness symptoms as well. Patient agreed with proceeding. Patient underwent successful procedure and is now postop day 3 following left common carotid artery
to subclavian artery bypass with 8 mm Huber shield Dacron graft. Patient will require snf facility for rehab. Patient underwent successful amputation of the distal tip of her gangrenous left index finger. Patient seen by ID yesterday
who recommended IV antibiotics for at least 6 weeks pending sensitivities.
CT Facial Bones W/o Iv Contrast (11/29/2024):
No acute fractures identified.
Mild left nasal septal deviation.
Small left ester bullosa.
CT Head W/o Iv Contrast (11/06/2024):
No acute intracranial abnormality noted.
Mild atrophy. Stable
Mild nonacute right mastoiditis. Stable
CR Ribs-right 3 Vw W/pa Chest* (11/29/2024):
1. No displaced rib fractures.
2. No acute cardiopulmonary process.
CR Finger(s)/thumb Min 2 Vw Lt (11/29/2024):
Small soft tissue defect about the distal aspect of the second digit. No convincing radiographic evidence for active osteomyelitis. MRI would be of greater sensitivity.
No acute fracture or dislocation. Scattered mild osteoarthritic changes of the interphalangeal joints. No erosions are evident. No radiographic evidence for inflammatory arthropathy.
US Periph Art UPPER Ext W Seg (11/29/2024):
Flat line digital waveforms are demonstrated in all 5 digits of the left hand. Monophasic arterial duplex waveforms are demonstrated throughout the left extremity. Slow velocities are identified from the mid subclavian artery through the radial
artery.
CT Upper Ext Angio W/wo Iv Con (11/29/2024):
Mild atherosclerotic calcifications of the left subclavian and axillary arteries. Grossly patent brachial, radial and ulnar arteries. No high-grade stenosis.
CT Head & Neck Angio W/wo IV (11/30/2024):
No acute intracranial pathology. Mild atrophy.Mild nonacute sinusitis. Stable
There is severe plaque at the origin of the left subclavian artery with complete occlusion at the origin and proximal subclavian artery. This extends a length of approximately 3.6 cm. The vessel is patent distal to this region with small scattered
foci of calcified plaque.
Less than 50% stenosis of the proximal right internal carotid artery.
Multilevel degenerative disc disease.
Sclerotic T5 vertebral body. Metastatic disease not excluded. This could further be evaluated by MR examination.
US Cerebrovascular Carotid Ultrasound (11/30/2024):
1. Extensive calcified plaque within each common carotid artery. Calcified carotid bulb plaque on each side, measurements suggestive of less than 50% stenosis on each side as per modified Society of Radiologists in Ultrasound consensus criteria (IAC
carotid criteria white paper, 2020).
2. Retrograde flow within the left vertebral artery throughout the cardiac cycle, suggestive of left central arterial stenosis. Occlusion of the left proximal subclavian artery was seen on concurrent CTA.
MR Left Up Ext No Joint W/o (12/05/2024):
Abnormal marrow signal involving the distal phalanx of the left index finger as described. Findings are highly suggestive of osteomyelitis.
No significant joint effusion involving the distal interphalangeal joint, with no findings that would be considered suggestive of septic arthritis.
No evidence of soft tissue collection to suggest an abscess.
Plan:
# Left index finger dry gangrene wound/cellulitis
-X-rays as above, peripheral arterial ultrasound as above, CT angio left extremity as above
-Vascular following, input appreciated
-Patient currently postop day 3, successful surgery with return of blood flow to left hand. There is resolution of symptoms as well.
-Still has pain in the left index finger surrounding the gangrene
-successful amputation of distal left index finger
-Pain management as needed
-ID consulted regarding antibiotics, input appreciated
-Started on IV cefazolin, as per ID patient may require IV antibiotics for up to 6 weeks
-Wound culture positive for methicillin sensitive Staph aureus, and coagulase-negative Staphylococcus
#Anemia likely due to recent surgery plus treatment with IVF along with chronic disease
-Hgb stable
-continue monitoring CBC
-Cardiology consulted for further evaluation of possible underlying CAD, input appreciated
-Echocardiogram was ordered and showed no acute abnormalities
-Admitting EKG showed nonspecific ST changes in inferior lateral leads however you missed EKG was normal
-Has no angina like symptoms
-Was started on aspirin, Crestor, and will continue to nifedipine
-Outpatient follow-up scheduled, and cleared for surgery by cardiology
-Patient also noted to have chronic anemia in the past
-Iron levels low, TIBC low, low saturation, ferritin normal. Most likely showing chronic iron deficiency anemia
-Patient given IV iron
-stool occult blood studies negative following rectal exam yesterday
-Patient should follow up with outpatient GI for further evaluation including procedures like colonoscopy as discussed
# Failure to thrive/malnutrition/lactic acidosis likely secondary to depression
-Patient not suicidal and does not report any depression
-Consulted psych, input appreciated
-Patient is in much better spirits, tolerating diet
-Lactic acid was 5, trended down after IV fluid resuscitation
#Recent history of falls
-CT Head and Neck did not show any acute intracranial pathologies
-Most likely due to malnutrition coupled with vascular disease as described above
-Orthostatic vitals normal
-Continue evaluation with PT/OT
-Recommended snf facility
#Skin abrasion from falls on right hip and sacrum (POA)
-continue management of wound conservatively
# Hypokalemia
-Repleted, continue monitoring and replete as necessary
# Hypomagnesemia
-Repleted, continue monitoring and replete as necessary
-Magnesium went from 1.0-2.4 after repletion
-Continue monitoring
# History of alcohol abuse
-Used to drink around a pint a day
-Stopped drinking alcohol on November 13
-MSAS 0
-No recent history of tremors, other withdrawal symptoms
# Essential hypertension
-Will continue nifedipine
-As per vascular, should not manage hypertension too aggressively
-Continue aspirin and rosuvastatin as per cardiology
-Cardiology consulted for further evaluation of possible underlying CAD, input appreciated
-Patient will follow up with Cardiology for further workup in the outpatient setting
# Anxiety/depression
-consulted psych, input appreciated
-Seen by psych who adjusted dose of Lexapro
-Now on 10 mg daily
-Follow up with Psychiatry in outpatient setting once discharged
DNR
DVT prophylaxis: SCDs
Anticipated Discharge: Within 24 hours
Subjective/Interval History
-
Date of Service: December 08, 2024
Patient has been feeling well, reports no acute concerns. Still having increased pain in her left index finger postsurgery. Had to require increased pain medication.
Objective Data
-
Labs:
Laboratory Results
12/08/24
07:11
WBC 5.9
Hgb 8.1 L
Hct 25.5 L
Plt Count 236
Sodium 136
Potassium 4.4
Chloride 101
Carbon Dioxide 26
BUN 16
Creatinine 0.9
Glucose 102 H
Calcium 9.1
Vital Signs:
Vital Signs
Temp Pulse Resp BP Pulse Ox
98.2 F 84 16 128/70 99
12/08/24 08:45 12/08/24 08:45 12/08/24 08:45 12/08/24 08:45 12/08/24 08:45
I&O
12/07/24 12/08/24 12/09/24
06:59 06:59 06:59
Intake Total 1300 / 1300 1310 / 1310
Balance 1300 / 1300 1310 / 1310
Review of Systems
-
History Source: Patient
Constitutional: Denies Fever or Fatigue
EENT: Reports No Symptoms Reported
Respiratory: Denies Cough, Trouble Breathing or Wheezing
Cardiac: Denies Chest Pain or Palpitations
Abdomen/GI: Denies Abdominal Pain, Nausea or Vomiting
Genitourinary: Reports No Symptoms
Musculoskeletal: Reports Other (Tenderness around area of surgical amputation on left index finger)
Skin: Reports Other (Left index finger wrapped in bandage after surgery, area is tender)
Neuro: Denies Headache or Lightheadedness
Physical Exam
-
General: Well Developed, Well Nourished, No Apparent Distress, Comfortable and Conversant
HEENT: Normocephalic, Atraumatic and Other (well-healing scar from incision on the left side of neck)
Respiratory: Clear to Auscultation and Non Labored Respirations
Cardiac: Regular Rhythm and S1/S2; Negative Murmur
GI: Soft, Nontender and Nondistended
Musculoskeletal: Other (Left index finger now wrapped in dressing following surgery, area sizing machine tender)
Skin: Warm and Other (Well-healing surgical scar on the left side of the neck with no draining)
Neuro: Awake, Alert, Oriented, No Motor Deficits and No Sensory Deficits
Psych: Calm and Intact Judgement/Insight
Data Reviewed
-
Labs: Labs Reviewed by me, Discussed with Physician, Discussed with Nurse and Discussed with Patient
--- NOTE | 2024-12-08 11:04 | W.PN.ID1 ---
Date of Service
Date of Service: December 08, 2024
Today's Communication
Continue cefazolin.
Assessment / Plan
Left index finger osteomyelitis
- s/p partial amputation
- cultures with MSSA
Alcohol abuse
PAD
- s/p (L) carotid to subclavian artery bypass (11/29)
HTN
Anemia
AAA
Recommendations:
Current wound cultures reveal the presence of Staph aureus.
Continue with cefazolin for the present.
It does not appear the proximal margins were sent, thus with concern for retained infection, patient will likely require a 6-week course of IV antibiotics.
Local care to the wound.
Monitor white count and temperature curve.
If needs 6 weeks of IV antibiotics, will place PICC line and place IV Rx on chart.
Chief Complaint
-: Other (Left index finger osteomyelitis / gangrene)
Subjective / Review of Systems
Review of Systems: No Fever and No Chills
Vital Signs / Physical Exam
Vital Signs
Vital Signs
Temp Pulse Resp BP Pulse Ox
98.2 F 84 16 128/70 99
12/08/24 08:45 12/08/24 08:45 12/08/24 08:45 12/08/24 08:45 12/08/24 08:45
Physical Exam
Constitutional: No Acute Distress, Comfortable and Non-toxic
Eyes: Sclera Anicteric
Pulmonary: Non Labored
Extremities: Other (Left index finger dressed. Mild erythema at the base. No erythema extending up hand.)
Skin: Warm and Dry; Negative Rash or Jaundice
Neurological: Awake and Alert
Psychological: Calm
Objective Data
Lab Data
Lab Results
12/08/24 07:11
12/08/24 07:11
PT 12.9 Sec (11.4-14.6) 12/02/24 03:52
INR 0.92 12/02/24 03:52
APTT 32.0 Sec (23.4-35.0) 12/02/24 03:52
Estimated Creat Clear 53 ml/min 12/08/24 07:11
Lactic Acid 2.1 mmol/L (0.7-2.0) H 11/29/24 21:26
Total Bilirubin 0.3 mg/dl (0.2-1.3) 12/07/24 07:13
AST 24 U/L (14-36) 12/07/24 07:13
ALT 12 U/L (0-35) 12/07/24 07:13
Alkaline Phosphatase 62 U/L (38-126) 12/07/24 07:13
Most recent labs reviewed.
Micro Results:
12/06/24 14:31 Wound Culture - Preliminary
Finger - Left S aureus-Methicillin Sensitive
Coagulase neg. staphylococcus
Gram Stain - Preliminary
12/06/24 14:31 Tissue Culture - Preliminary
Finger - Left S aureus-Methicillin Sensitive
Coagulase neg. staphylococcus
Gram Stain - Preliminary
12/06/24 14:31 Anaerobic Culture - Preliminary
Finger - Left Culture pending. Anaerobic cultures are examined after 3
days incubation. Additional information to follow.
Imaging:
12/05/2024 MRI (left upper extremity): Abnormal marrow signal involving the distal phalanx of the left index finger, with findings highly suggestive of osteomyelitis. No significant joint effusion involving the distal interphalangeal joint, with no
findings that would be considered suggestive of septic arthritis.
11/29/2024 X-ray left hand: Small soft tissue defect about the distal aspect of the second digit. No convincing radiographic evidence for active osteomyelitis, but MRI would be of greater sensitivity.
Care Review
Plan reviewed with: Physician (Hospitalist)
[2024-12-08 15:40] VITALS: BP 118/73
[2024-12-08] MEDS: ROXICODONE 10 MG PO ×2 (16:32→21:24)
[2024-12-08] MEDS: CRESTOR 20 MG PO (18:23)
[2024-12-08 23:45] VITALS: BP 160/86
[2024-12-09] MEDS: ANCEF 10 IV ×2 (04:45→12:40)
[2024-12-09] MEDS: TYLENOL 650 MG PO ×2 (04:59→12:39)
[2024-12-09] MEDS: ROXICODONE 10 MG PO ×3 (04:59→14:52)
[2024-12-09 06:06] LABS: Hemoglobin 7.5 g/dL (12.0-16.0); Mean Corp Hgb Conc. 31.3 g/dL (33.0-37.0); Mean Corpuscular Hgb 26.9 pg (27.0-31.0); Platelet Count 242 10^3/uL (130-400); Red Blood Cell Count 2.79 10^6/uL (4.20-5.40); Red Cell Dist. Width 22.1 % (11.5-14.5)
[2024-12-09 06:30] LABS: Blood Urea Nitrogen 15 mg/dl (7-17); Calcium 9.2 mg/dl (8.4-10.2); Carbon Dioxide 27 mmol/L (22-30); Chloride 103 mmol/L (98-107); Estimated Creatinine Clearance 59 ml/min; Glucose 92 mg/dl (70-99); Potassium 4.2 mmol/L (3.5-5.1); Sodium 137 mmol/L (135-145); eGFR > 60.00
[2024-12-09 07:50] VITALS: BP 142/78
--- NOTE | 2024-12-09 08:24 | W.PN.UPDATE ---
Update Note
Progress Note Update
Patient seen and examined
Dressings changed
There is still slight redness, but no drainage and there is good healing of the amputation site on the index finger
Continue with antibiotics as per ID recommendations
Follow up in the office in about 10 days upon discharge
[2024-12-09] MEDS: PROCARDIA XL (EXTENDED RELEASE) 30 MG PO (09:31)
[2024-12-09] MEDS: LEXAPRO 10 MG PO (09:31)
[2024-12-09] MEDS: LOW STRENGTH ASPIRIN 81 MG PO (09:32)
--- NOTE | 2024-12-09 10:15 | W.PN.ID1 ---
Date of Service
Date of Service: December 09, 2024
Today's Communication
Continue antibiotics.
Assessment / Plan
Left index finger osteomyelitis
- s/p partial amputation
- cultures with MSSA
Alcohol abuse
PAD
- s/p (L) carotid to subclavian artery bypass (11/29)
HTN
Anemia
AAA
Recommendations:
Wound cultures reveal the presence of Staph aureus.
Continue with cefazolin.
I previously discussed with Orthopedics, feels there was a surgical cure, although no proximal margins were sent.
I have discussed extensively with the patient regarding treatment options, which include : 6-week course of antibiotics vs. a 2-week course of antibiotics (+/- oral abx afterwards) vs oral antibiotics alone, vs. no antibiotics at all.
Via shared decision making, she would like to proceed with the most conservative course and complete a 6-week course of antibiotics. (through 01/16/25)
Will follow weekly labs including BMP, CBC with differential, ESR and CRP.
Office follow-up in 3 to 4 weeks.
IV sheet placed on paper chart.
Continue local care to the wound.
Monitor white count and temperature curve.
����������������������������������������������������������
Chief Complaint
-: Other (Left index finger osteomyelitis / gangrene)
Subjective / Review of Systems
Review of Systems: No Fever and No Chills
Vital Signs / Physical Exam
Vital Signs
Vital Signs
Temp Pulse Resp BP Pulse Ox
97.9 F 72 16 142/78 96
12/09/24 07:50 12/09/24 07:50 12/09/24 07:50 12/09/24 07:50 12/09/24 07:50
Physical Exam
Constitutional: No Acute Distress, Comfortable and Non-toxic
Eyes: Sclera Anicteric
Cardiovascular: S1/S2; Negative S3/S4
Pulmonary: Non Labored
Extremities: Other (Left index finger dressed. Mild erythema at the base. No erythema extending up hand.)
Skin: Warm and Dry; Negative Rash or Jaundice
Neurological: Awake and Alert
Psychological: Calm
Objective Data
Lab Data
Lab Results
12/09/24 05:40
12/09/24 05:40
PT 12.9 Sec (11.4-14.6) 12/02/24 03:52
INR 0.92 12/02/24 03:52
APTT 32.0 Sec (23.4-35.0) 12/02/24 03:52
Estimated Creat Clear 59 ml/min 12/09/24 05:40
Lactic Acid 2.1 mmol/L (0.7-2.0) H 11/29/24 21:26
Total Bilirubin 0.3 mg/dl (0.2-1.3) 12/07/24 07:13
AST 24 U/L (14-36) 12/07/24 07:13
ALT 12 U/L (0-35) 12/07/24 07:13
Alkaline Phosphatase 62 U/L (38-126) 12/07/24 07:13
Most recent labs reviewed.
Micro Results:
12/06/24 14:31 Wound Culture - Preliminary
Finger - Left S aureus-Methicillin Sensitive
Coagulase neg. staphylococcus
Gram Stain - Preliminary
12/06/24 14:31 Tissue Culture - Preliminary
Finger - Left S aureus-Methicillin Sensitive
Coagulase neg. staphylococcus
Gram Stain - Preliminary
12/06/24 14:31 Anaerobic Culture - Preliminary
Finger - Left Culture pending. Anaerobic cultures are examined after 3
days incubation. Additional information to follow.
df
Tissue Culture Preliminary 12/06/24-1431
Many S aureus-Methicillin Sensitive
Moderate Coagulase neg. staphylococcus
Organism 1 S aureus-Methicillin Sensitive
1. S aureus-Methicillin Sensitive
M.I.C. RX
--------- ---
Amoxicillin/Potas. Clavulanate <=4/2 S
Ampicillin <=2 R
Clindamycin <=0.5 R
Gentamicin <=4 S
Erythromycin >4 R
Levofloxacin <=1 S
Oxacillin <=0.25 S
Tetracycline <=4 S
Trimethoprim/Sulfamethoxazole <=0.5/9.5 S
Vancomycin 0.5 S
Imaging:
12/08/24 X-ray left hand: Patient is status post amputation of the left index finger at the level of the distal aspect of the middle phalanx. Mild changes of arthritis in the left hand, mainly involving the thumb, first carpometacarpal joint and
distal interphalangeal joint of the pinky fingers.
12/05/2024 MRI (left upper extremity): Abnormal marrow signal involving the distal phalanx of the left index finger, with findings highly suggestive of osteomyelitis. No significant joint effusion involving the distal interphalangeal joint, with no
findings that would be considered suggestive of septic arthritis.
11/29/2024 X-ray left hand: Small soft tissue defect about the distal aspect of the second digit. No convincing radiographic evidence for active osteomyelitis, but MRI would be of greater sensitivity.
Care Review
Plan reviewed with: Physician (Hospitalist)
--- NOTE | 2024-12-09 11:20 | CM ---
Reviewed the chart notes and spoke with the patient at the bedside. IMM reviewed. IV abx rx and PICC with cxr sent to [facility] via [facility].
Plan: Discharge to [facility] when medically stable. Patient's sister will provide transportation.
Call report to: [phone]
Fax report to: [phone]
[2024-12-09] MEDS: FEOSOL 325 MG PO (12:39)
--- NOTE | 2024-12-09 13:30 | W.PN.HOSP.TC ---
Addendum entered and electronically signed by Jesse Whelan MD 12/09/24 14:03:
Seen and examined by me independently in collaboration with the medical appliance maker Dr. Sandhu.
Lab data and imaging data reviewed.
Addendum as below :
Left index finger amputation site pain under control.
Appreciate ID input-patient opted for IV antibiotics for [address] line in place. Antibiotics ordered by ID. Follow-up weekly lab work.
With regards to anemia patient has chronic anemia dating as back as January 2024. Her hemoglobin was around 7 7. Aspirin 7-8 here. She is asymptomatic without fatigue or weakness. No exertional shortness of breath. No chest pain or acute coronary
syndrome. She is heme-negative. She was given IV iron. Advised her to take daily ferrous sulfate and follow H&H as outpatient. She is due for repeat colonoscopy to remove the remaining polyp. She had a colonoscopy in January 2024. She says she has
a plan to follow-up with GI and get her colonoscopy after discharge from rehab.
Also input from today noted.
Medically stable for discharge to rehab.
Total time of discharge 35 minutes
Original Note:
Today's Communication/Plan
-
Patient to be discharged to retirement facility today. Will continue IV antibiotics for 6 weeks through 01/16/2025
Assessment / Plan
Assessment / Plan
Assessment:
69-year-old female with a past medical history of severe alcohol use disorder, hyponatremia, chronic microcytic anemia, pancytopenia, hypertension, anxiety/depression presented to the [facility] ED on 11/29/2024 for recent failure to thrive,
and recent history of multiple falls. Patient had tried to decrease her alcohol intake since 2 weeks ago and has not had a drink since the ninth of this month. She has fallen twice now the past 2 weeks and hit her head and injured her backside.
Patient had not been eating and her home following the unfortunate passing of her sister along with being laid off by her job. She has had significant weight loss and had a lack of appetite. On presentation to the ED, she was found to be
malnourished and had severe electrolyte abnormalities with increased lactic acid. Patient was given IV fluids and started replenishment of her electrolytes. Patient was also found to have gangrenous left index finger that had been getting worse
for the past month. Patient underwent CT angiograms of the left upper extremity, carotid duplex, and CT head due to her recent falls. She was started on heparin infusion and also NSAIDs protocol due to her potential alcohol withdrawal. Patient
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 She was recommended to have left carotid to subclavian artery bypass
for revascularization of the upper extremity. This could have been contributing to her dizziness symptoms as well. Patient agreed with proceeding. Patient underwent successful procedure and is now postop day 3 following left common carotid artery
to subclavian artery bypass with 8 mm Huber shield Dacron graft. Patient will require retirement facility for rehab. Patient underwent successful amputation of the distal tip of her gangrenous left index finger. Patient seen by ID yesterday
who recommended IV antibiotics for at least 6 weeks. Patient had conversations with ID today, and was agreeable to continue IV antibiotics for 6 weeks. Patient received PICC line yesterday, will be able to receive her IV antibiotics at skilled
nursing facility. Patient medically cleared for discharge today.
CT Facial Bones W/o Iv Contrast (11/29/2024):
No acute fractures identified.
Mild left nasal septal deviation.
Small left ester bullosa.
CT Head W/o Iv Contrast (11/06/2024):
No acute intracranial abnormality noted.
Mild atrophy. Stable
Mild nonacute right mastoiditis. Stable
CR Ribs-right 3 Vw W/pa Chest* (11/29/2024):
1. No displaced rib fractures.
2. No acute cardiopulmonary process.
CR Finger(s)/thumb Min 2 Vw Lt (11/29/2024):
Small soft tissue defect about the distal aspect of the second digit. No convincing radiographic evidence for active osteomyelitis. MRI would be of greater sensitivity.
No acute fracture or dislocation. Scattered mild osteoarthritic changes of the interphalangeal joints. No erosions are evident. No radiographic evidence for inflammatory arthropathy.
US Periph Art UPPER Ext W Seg (11/29/2024):
Flat line digital waveforms are demonstrated in all 5 digits of the left hand. Monophasic arterial duplex waveforms are demonstrated throughout the left extremity. Slow velocities are identified from the mid subclavian artery through the radial
artery.
CT Upper Ext Angio W/wo Iv Con (11/29/2024):
Mild atherosclerotic calcifications of the left subclavian and axillary arteries. Grossly patent brachial, radial and ulnar arteries. No high-grade stenosis.
CT Head & Neck Angio W/wo IV (11/30/2024):
No acute intracranial pathology. Mild atrophy.Mild nonacute sinusitis. Stable
There is severe plaque at the origin of the left subclavian artery with complete occlusion at the origin and proximal subclavian artery. This extends a length of approximately 3.6 cm. The vessel is patent distal to this region with small scattered
foci of calcified plaque.
Less than 50% stenosis of the proximal right internal carotid artery.
Multilevel degenerative disc disease.
Sclerotic T5 vertebral body. Metastatic disease not excluded. This could further be evaluated by MR examination.
US Cerebrovascular Carotid Ultrasound (11/30/2024):
1. Extensive calcified plaque within each common carotid artery. Calcified carotid bulb plaque on each side, measurements suggestive of less than 50% stenosis on each side as per modified Society of Radiologists in Ultrasound consensus criteria (IAC
carotid criteria white paper, 2020).
2. Retrograde flow within the left vertebral artery throughout the cardiac cycle, suggestive of left central arterial stenosis. Occlusion of the left proximal subclavian artery was seen on concurrent CTA.
MR Left Up Ext No Joint W/o (12/05/2024):
Abnormal marrow signal involving the distal phalanx of the left index finger as described. Findings are highly suggestive of osteomyelitis.
No significant joint effusion involving the distal interphalangeal joint, with no findings that would be considered suggestive of septic arthritis.
No evidence of soft tissue collection to suggest an abscess.
Plan:
# Left index finger dry gangrene wound/cellulitis secondary to severe vascular disease
-X-rays as above, peripheral arterial ultrasound as above, CT angio left extremity as above
-Vascular following, input appreciated
-Patient currently postop day7, successful surgery with return of blood flow to left hand. There is resolution of symptoms as well.
-Patient will follow-up with vascular surgery in the outpatient setting
-Still has pain in the left index finger
-successful amputation of distal left index finger
-Pain management as needed
-ID consulted regarding antibiotics, input appreciated
-Started on IV cefazolin, as per ID patient may require IV antibiotics for up to 6 weeks
-Wound culture positive for methicillin sensitive Staph aureus, and coagulase-negative Staphylococcus
-ID conversation with patient today regarding length of treatment. Patient willing to be on IV antibiotic for 6 weeks through 01/16/2025 for complete resolution. PICC line was placed yesterday, patient will be able to get antibiotics at her skilled
nursing facility.
#Anemia likely due to recent surgery plus treatment with IVF along with chronic disease
-Hgb stable
-continue monitoring CBC
-Cardiology consulted for further evaluation of possible underlying CAD, input appreciated
-Echocardiogram was ordered and showed no acute abnormalities
-Admitting EKG showed nonspecific ST changes in inferior lateral leads however you missed EKG was normal
-Has no angina like symptoms
-Was started on aspirin, Crestor, and will continue to nifedipine
-Outpatient follow-up scheduled, and cleared for surgery by cardiology
-Patient also noted to have chronic anemia in the past
-Iron levels low, TIBC low, low saturation, ferritin normal. Most likely showing chronic iron deficiency anemia
-Patient given IV iron
-stool occult blood studies negative following rectal exam
-Oral iron supplementation started, continue in the outpatient setting
-Follow-up CBC and iron levels should be taken in the outpatient setting
-Should get transfusion if anemia persists
-Patient should follow up with outpatient GI for further evaluation including procedures like colonoscopy as discussed
# Failure to thrive/malnutrition/lactic acidosis likely secondary to depression
-Patient not suicidal and does not report any depression
-Consulted psych, input appreciated
-Patient is in much better spirits, tolerating diet
-Lactic acid was 5, trended down after IV fluid resuscitation
#Recent history of falls
-CT Head and Neck did not show any acute intracranial pathologies
-Most likely due to malnutrition coupled with vascular disease as described above
-Orthostatic vitals normal
-Continue evaluation with PT/OT
-Recommended retirement facility
#Skin abrasion from falls on right hip and sacrum (POA)
-continue management of wound conservatively
# Hypokalemia
-Repleted, continue monitoring and replete as necessary
# Hypomagnesemia
-Repleted, continue monitoring and replete as necessary
-Magnesium went from 1.0-2.4 after repletion
-Continue monitoring
# History of alcohol abuse
-Used to drink around a pint a day
-Stopped drinking alcohol on November 13
-MSAS 0
-No recent history of tremors, other withdrawal symptoms
# Essential hypertension
-Will continue nifedipine
-As per vascular, should not manage hypertension too aggressively
-Continue aspirin and rosuvastatin as per cardiology
-Cardiology consulted for further evaluation of possible underlying CAD, input appreciated
-Patient will follow up with Cardiology for further workup in the outpatient setting
# Anxiety/depression
-consulted psych, input appreciated
-Seen by psych who adjusted dose of Lexapro
-Now on 10 mg daily
-Follow up with Psychiatry in outpatient setting once discharged
DNR
DVT prophylaxis: SCDs
Anticipated Discharge: Today
Subjective/Interval History
-
Date of Service: December 09, 2024
Patient has been feeling well, reports no acute concerns. Willing to go to rehab today. Will be picked up by her sister once able to go.
Objective Data
-
Labs:
Laboratory Results
12/09/24
05:40
WBC 5.0
Hgb 7.5 L
Hct 24.0 L
Plt Count 242
Sodium 137
Potassium 4.2
Chloride 103
Carbon Dioxide 27
BUN 15
Creatinine 0.8
Glucose 92
Calcium 9.2
Vital Signs:
Vital Signs
Temp Pulse Resp BP Pulse Ox
97.9 F 72 16 142/78 96
12/09/24 07:50 12/09/24 07:50 12/09/24 07:50 12/09/24 07:50 12/09/24 07:50
I&O
12/08/24 12/09/24 12/10/24
06:59 06:59 06:59
Intake Total 1310 / 1310 1080 / 1080
Balance 1310 / 1310 1080 / 1080
Review of Systems
-
History Source: Patient
Constitutional: Denies Fever or Fatigue
EENT: Reports No Symptoms Reported
Respiratory: Denies Cough, Trouble Breathing or Wheezing
Cardiac: Denies Chest Pain or Palpitations
Abdomen/GI: Denies Abdominal Pain, Nausea or Vomiting
Genitourinary: Reports No Symptoms
Musculoskeletal: Reports Other (Tenderness around area of surgical amputation on left index finger)
Skin: Reports Other (Left index finger wrapped in bandage after surgery, area is tender)
Neuro: Denies Headache or Lightheadedness
Physical Exam
-
General: Well Developed, Well Nourished, No Apparent Distress, Comfortable and Conversant
HEENT: Normocephalic, Atraumatic and Other (well-healing scar from incision on the left side of neck)
Respiratory: Clear to Auscultation and Non Labored Respirations
Cardiac: Regular Rhythm and S1/S2; Negative Murmur
GI: Soft, Nontender and Nondistended
Musculoskeletal: Other (Left index finger now wrapped in dressing following surgery, area vacuum drier tender)
Skin: Warm and Other (Well-healing surgical scar on the left side of the neck with no draining)
Neuro: Awake, Alert, Oriented, No Motor Deficits and No Sensory Deficits
Psych: Calm and Intact Judgement/Insight
Data Reviewed
-
Labs: Labs Reviewed by me, Discussed with Physician, Discussed with Nurse and Discussed with Patient
--- NOTE | 2024-12-09 14:52 | W.DCSUMMARY ---
Discharge Summary
Discharge Data
Date of Admission: 11/29/24
Date of Discharge: 12/09/24
-
Pending Results: No
Hospital Course
CC to: ARELY Borrero
Discharging Physician : Dr. Baljeet Sandhu, Dr. Jesse Whelan
�
Disposition�:�SNF ([facility])
�
Primary�care�physician�: ARELY Borrero
�
Principal�Discharge�Diagnosis�:
Critical limb ischemia, L subclavian artery stenosis S/P Left carotid to subclavian artery bypass with graft
Left index finger dry gangrene wound/OM distal phalanx/ cellulitis
Anemia - chronic disease and iron deficiency; heme neg on this occasion
�
Chronic�Discharge�Diagnosis:�
Hx of colonic polyp
Essential hypertension
Anxiety/depression
Hospital�Course�:��
69-year-old female with a past medical history of severe alcohol use disorder, hyponatremia, chronic microcytic anemia, pancytopenia, hypertension, anxiety/depression presented to the [facility] ED on 11/29/2024 for recent failure to thrive,
and recent history of multiple falls. Patient had tried to decrease her alcohol intake since 2 weeks ago and had not had a drink since the ninth of this month. She had fallen twice now the past 2 weeks and hit her head and injured her backside.
Patient had not been eating well following the unfortunate passing of her sister along with being laid off by her job. She has had significant weight loss and a lack of appetite. On presentation to the ED, she was found to be malnourished and had
severe electrolyte abnormalities with increased lactic acid. Patient was given IV fluids and started replenishment of her electrolytes.
Patient was also found to have gangrenous left index finger that had been getting worse for the past month. Patient underwent CT angiograms of the left upper extremity, carotid duplex, and CT head due to her recent falls. She was started on
heparin infusion and also NSAIDs protocol due to her potential alcohol withdrawal. 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 Patient was
seen by vascular surgery and was recommended to have left carotid to subclavian artery bypass for revascularization of the upper extremity which patient agreed to. Patient underwent successful left common carotid artery to subclavian artery bypass
with 8 mm Huber shield Dacron graft.
As patient was recovering from surgery, patient was seen by Orthopedics regarding management of her left gangrenous finger. Patient underwent an MRI of the left extremity which showed Osteomyelitis in the distal tip of the left index finger. Patient
had been on Vancomycin throughout her hospitalization due to this gangrenous finger. Patient discussed with Ortho and decided to amputate the distal tip of the left index finger this hospitalization. Cardiology were consulted to aid in cardiac
clearance for the patient prior to surgery. Patient underwent EKG and Echocardiogram which both did not show any abnormalities. Furthermore, patient was started on rosuvastatin due to her history of vascular disease and was asked to follow up with
cardiology in the outpatient setting for further workup. Following that, the patient underwent successful amputation of the distal tip of her gangrenous left index finger. Following surgery, infectious disease doctors were consulted and patient
discussed with them regarding treatment options moving forward. Patient decided that she would want to continue on IV antibiotics for 6 weeks while at the [facility] [facility].
When the patient first came to the hospital, she was found to be in a depressed mood. Psych was consulted who determined that patient was looking forward to feeling better from surgeries.
Throughout her stay, patient was also found to be anemic. She has had chronic anemia in the past and was asked to follow up with GI in the past for further workup like colonoscopy. Patient's iron was repleted and was put on iron supplementation.
Once patient received her PICC line for outpatient antibiotics, patient was medically cleared to be discharged to a [place] [facility] facility. Patient was asked for follow up with her various specialists in the outpatient setting. Patient to get
follow up blood work at her facility and was counseled that she might need a blood transfusion if her hemoglobin continues to be low. Patient was also counseled to continue abstaining from alcohol and smoking in the future.
Important�imaging�findings�:��
CT Facial Bones W/o Iv Contrast (11/29/2024):
No acute fractures identified.
Mild left nasal septal deviation.
Small left ester bullosa.
CT Head W/o Iv Contrast (11/06/2024):
No acute intracranial abnormality noted.
Mild atrophy. Stable
Mild nonacute right mastoiditis. Stable
CR Ribs-right 3 Vw W/pa Chest* (11/29/2024):
1. No displaced rib fractures.
2. No acute cardiopulmonary process.
CR Finger(s)/thumb Min 2 Vw Lt (11/29/2024):
Small soft tissue defect about the distal aspect of the second digit. No convincing radiographic evidence for active osteomyelitis. MRI would be of greater sensitivity.
No acute fracture or dislocation. Scattered mild osteoarthritic changes of the interphalangeal joints. No erosions are evident. No radiographic evidence for inflammatory arthropathy.
US Periph Art UPPER Ext W Seg (11/29/2024):
Flat line digital waveforms are demonstrated in all 5 digits of the left hand. Monophasic arterial duplex waveforms are demonstrated throughout the left extremity. Slow velocities are identified from the mid subclavian artery through the radial
artery.
CT Upper Ext Angio W/wo Iv Con (11/29/2024):
Mild atherosclerotic calcifications of the left subclavian and axillary arteries. Grossly patent brachial, radial and ulnar arteries. No high-grade stenosis.
CT Head & Neck Angio W/wo IV (11/30/2024):
No acute intracranial pathology. Mild atrophy.Mild nonacute sinusitis. Stable
There is severe plaque at the origin of the left subclavian artery with complete occlusion at the origin and proximal subclavian artery. This extends a length of approximately 3.6 cm. The vessel is patent distal to this region with small scattered
foci of calcified plaque.
Less than 50% stenosis of the proximal right internal carotid artery.
Multilevel degenerative disc disease.
Sclerotic T5 vertebral body. Metastatic disease not excluded. This could further be evaluated by MR examination.
US Cerebrovascular Carotid Ultrasound (11/30/2024):
1. Extensive calcified plaque within each common carotid artery. Calcified carotid bulb plaque on each side, measurements suggestive of less than 50% stenosis on each side as per modified Society of Radiologists in Ultrasound consensus criteria (IAC
carotid criteria white paper, 2020).
2. Retrograde flow within the left vertebral artery throughout the cardiac cycle, suggestive of left central arterial stenosis. Occlusion of the left proximal subclavian artery was seen on concurrent CTA.
MR Left Up Ext No Joint W/o (12/05/2024):
Abnormal marrow signal involving the distal phalanx of the left index finger as described. Findings are highly suggestive of osteomyelitis.
No significant joint effusion involving the distal interphalangeal joint, with no findings that would be considered suggestive of septic arthritis.
No evidence of soft tissue collection to suggest an abscess.
Procedures Undergone:
Left carotid to subclavian artery bypass with graft (12/01/2024)
Left index finger amputation at the distal interphalangeal joint (12/06/2024)
�
Discharge Plan
-
Patient Disposition: Prison/SNF
Discharge Diagnosis/Procedures: Critical limb ischemia, L subclavian artery stenosis S/P Left carotid to subclavian artery bypass with graft
Left index finger dry gangrene wound/OM distal phalanx/ cellulitis
Anemia - chronic disease and iron deficiency; heme neg on this occasion
Hx of colonic polyp
Essential hypertension
Anxiety/depression
Diet: Low Cholesterol
Activity: As tolerated
Driving Restrictions: As prior to admission
Bathing Restrictions: None
Blood Work: Follow weekly labs including BMP, CBC with differential, ESR and CRP.
Wound Care: Wound care as directed
Specialty Instructions: Weigh Daily- Call MD for wt gain/loss 3 lbs overnight/5 lbs in 1 week
Referrals:
Ariadna Heaton CRNP [Specified Professional Personl] - 01/05/25 10:40 am
Elayne Lore,[place], RETORT ENGINEER [Family Provider] - in less than 1 week
Amber Boles PA-C [Specified Professional Personl] - 12/20/24 1:30 pm (Vascular office follow up)
Ivan Renae DO [Active] - in three to four weeks
Dave Gaspar MD [Active] - in one to two weeks
Additional Discharge Medication Instructions: Follow-up with vascular surgery as scheduled
Follow-up with orthopedic hand surgeon in one to two weeks
Follow up with Cardiology in one month as scheduled
Follow up with GI regarding follow up Colonoscopy
Follow up with Infectious Disease doctors as scheduled in 3-4 weeks
follow weekly labs including BMP, CBC with differential, ESR and CRP.
Dose of escitalopram reduced from 20 mg to 10 mg daily
Take Aspirin 81mg daily
Take Rosuvastatin 20mg Daily at night
Take IV Cefazolin as directed for 6 weeks
Take Iron supplements daily
Prescriptions:
New
escitalopram oxalate 10 mg Tablet
10 mg PO DAILY 30 Days Qty: 30 0RF
aspirin 81 mg Tablet,Chewable
81 mg PO DAILY Qty: 0 0RF
rosuvastatin 20 mg Tablet
20 mg PO QPM 30 Days Qty: 30 0RF
cefazolin 10 gram Recon Soln
2 g IV Q8H Qty: 0 0RF
ferrous sulfate [FeroSul] 325 mg (65 mg iron) Tablet
325 mg PO DAILY Qty: 30 0RF
oxycodone 5 mg tablet
5 mg PO Q4H PRN (Reason: moderate pain) Qty: 12 0RF
Continued
nifedipine 30 mg Tablet Extended Release
30 mg PO DAILY
Discontinued
escitalopram oxalate 20 mg tablet
20 mg PO DAILY
Discharge Orders:
Discharge Patient (As Directed); Ordered 12/09/24
Ordered By: Baljeet Sandhu
Discharge Date and Time
Discharge Date/Time: 12/09/24 17:05
Print Language: SLOVENIAN
[2024-12-09 15:25] VITALS: BP 101/56
== END 2024-12-09 17:05 | DRG 253 ==
LOC: 2 SOUTH 19:30
PROVIDERS: Internal Medicine; Nurse Practitioner; Nurse Practitioner Acute Care; Nurse Practitioner Gerontology; Radiology Neuroradiology; Student in an Organized Health Care Education/Training Program; ADMITTING PHYSICIAN Hospitalist; ATTENDING PHYSICIAN Internal Medicine; CONSULT PHYSICIAN Internal Medicine; CONSULT PHYSICIAN Internal Medicine Critical Care Medicine; CONSULT PHYSICIAN Psychiatry & Neurology Psychiatry; EMERGENCY PHYSICIAN Emergency Medicine; FAMILY PHYSICIAN Nurse Practitioner Family; OTHER PHYSICIAN Internal Medicine Infectious Disease; OTHER PHYSICIAN Orthopaedic Surgery; OTHER PHYSICIAN Surgery Vascular Surgery
PROC: 031J0JY Bypass Left Common Carotid Artery to Upper Artery with Synthetic Substitute, Open Approach (ICD-10-PCS; 2024-12-01)
PROC: 0X6P0Z2 Detachment at Left Index Finger, Mid, Open Approach (ICD-10-PCS; 2024-12-06)
PROC: 02HV33Z Insertion of Infusion Device into Superior Vena Cava, Percutaneous Approach (ICD-10-PCS; 2024-12-08)
DX: I70.268 Atherosclerosis of native arteries of extremities with gangrene, other extremity (principal); E46 Unspecified protein-calorie malnutrition; Z68.1 Body mass index [BMI] 19.9 or less, adult; F10.139 Alcohol abuse with withdrawal, unspecified; R64 Cachexia; M86.9 Osteomyelitis, unspecified; Z66 Do not resuscitate; I70.8 Atherosclerosis of other arteries; I73.01 Raynaud's syndrome with gangrene; L03.012 Cellulitis of left finger; I10 Essential (primary) hypertension; D63.8 Anemia in other chronic diseases classified elsewhere; D50.9 Iron deficiency anemia, unspecified; F32.A Depression, unspecified; F41.9 Anxiety disorder, unspecified; I71.40 Abdominal aortic aneurysm, without rupture, unspecified; E87.6 Hypokalemia; E83.42 Hypomagnesemia; I95.1 Orthostatic hypotension; I65.22 Occlusion and stenosis of left carotid artery; R62.7 Adult failure to thrive; B95.61 Methicillin susceptible Staphylococcus aureus infection as the cause of diseases classified elsewhere; S00.83XA Contusion of other part of head, initial encounter; S70.311A Abrasion, right thigh, initial encounter; S30.810A Abrasion of lower back and pelvis, initial encounter; W19.XXXA Unspecified fall, initial encounter; Z87.891 Personal history of nicotine dependence; Z95.820 Peripheral vascular angioplasty status with implants and grafts; Z82.49 Family history of ischemic heart disease and other diseases of the circulatory system; Z79.899 Other long term (current) drug therapy
CPT/HCPCS: 35606; 70450; 70486; 70496; 70498; 71045; 71101; 73120; 73140; 73206; 73218; 80048; 80053; 80061; 80202; 82728; 83036; 83540; 83550; 83605; 83735; 84100; 85014; 85018; 85025; 85027; 85610; 85730; 86850; 86900; 86901; 87070; 87075; 87147; 87176; 87186; 87205; 93005; 93306; 93880; 93923; 93930; 95938; 95941; 95955; 97116; 97162; 97166; 97530; 97535; 99406; C1768; J2916; Q9967

== ENCOUNTER → 2025-01-16 12:22 | Outpatient (REF) | payer MEDICARE, OTHER, SELFPAY | LOC: RAD 12:22 | PROVIDERS: ATTENDING PHYSICIAN Physician Assistant; FAMILY PHYSICIAN Nurse Practitioner Family | DX: I70.8 Atherosclerosis of other arteries (principal); I65.23 Occlusion and stenosis of bilateral carotid arteries | CPT/HCPCS: 93880; 93923; 93930 ==

== ENCOUNTER 2025-03-10 08:05 | Emergency (ER) | payer MEDICARE, OTHER, SELFPAY ==
[2025-03-10] VITALS (9 sets, daily range): BP systolic 111–150; BP diastolic 60–103; BMI 19.4
[2025-03-10 08:19] LABS: Hematocrit 35.1 % (37.0-47.0); Hemoglobin 11.5 g/dL (12.0-16.0); Mean Corp Hgb Conc. 32.8 g/dL (33.0-37.0); Mean Corpuscular Volume 93.6 fL (81.0-99.0); Nucleated Red Blood Cells % 0 %; Platelet Count 161 10^3/uL (130-400); Red Cell Dist. Width 16.7 % (11.5-14.5)
--- NOTE | 2025-03-10 08:49 | ED.GENMED ---
History of Present Illness
<Joanne Contreras MD, Resident - Last Filed: 03/10/25 12:03>
General
Chief Complaint: Abdominal Symptoms
Source: patient
Exam Limitations: other (She states she doesn't remember timeline details, such as how many times she has had diarrhea in the last 7 days or when rehab ended. May be minimizing symptoms.)
Time Seen by Provider: 03/10/25 08:14
History of Present Illness
History of Present Illness:
Mr. Melissa Day is 69yoF with a PMH notable for alcohol use (s/p rehab concluding late December), Raynaud's phenomenon (s/p R digit amputation), carotid artery stenosis (s/p ) presenting with 1 week of diarrhea and associated vomiting. She doesn't
remember how many episodes of diarrhea she has had and states the vomiting is minor in comparison.
Denies blood in stool or emesis. Denies lightheadedness, weakness, headaches, seizures, auditory and visual hallucinations.
She states her last drink was at least 1 week ago and that she drinks a lot less than before rehab in December. She endorses drinking 1 pint at a time since rehab, but does not recall how frequently.
Last antibiotic taken was cefazolin at time of digital amputation a few months ago.
Past History
<Joanne Contreras MD, Resident - Last Filed: 03/10/25 12:03>
Past History
ED Past Medical History: Other (AAA)
ED Past Surgical History: Other (right leg arterial stent)
Social History
Tobacco: Smoker
Alcohol: Chronic alcoholic
Drug: None
Living: alone
Review of Systems
<Joanne Contreras MD, Resident - Last Filed: 03/10/25 12:03>
Review of Systems
All Other Systems: ROS reviewed and negative except as documented in HPI and ROS
Phy Exam
<Joanne Contreras MD, Resident - Last Filed: 03/10/25 12:03>
Physical Exam
Physical Exam:
Dry mucous membranes; mild tongue fissures
Fingertip erythema consistent with Raynaud's phenomenon; index finger distal segment amputated
No pretibial pitting edema
Heart: RRR
Lungs: CTAB
GI: normal bowel sounds; no tenderness to palpation; abdominal pressure from full bladder
General Physical Exam
General Hydration: dry mucous membranes
Course
<Joanne Contreras MD, Resident - Last Filed: 03/10/25 12:03>
Orders/Labs/Results
Orders:
Orders
03/10/25 08:11
Complete Blood Count/With Diff Urgent
03/10/25 08:51
Alcohol Urgent
Comprehensive Metabolic Panel Urgent
Magnesium Urgent
03/10/25 09:35
Lorazepam [Ativan] 1 mg IV NOW STA
03/10/25 09:44
Ondansetron Injectable [Zofran] 4 mg IV NOW STA
Potassium Chloride [KCl] 40 meq PO NOW STA
03/10/25 11:00
0.9% Sodium Chloride 1000 ml [Nss] 1,000 ml Mvi, Adult [Multivitamin] 10 ml Thiamine Injection 100 mg Magnesium Sulfate 2 grams IV 500 mls/hr
03/10/25 11:14
STOOL [C difficile Antigen & Toxins] Urgent
CASIE Source: Feces/Stool
Specimen Description:
Stool Culture Urgent
CASIE Source: Feces/Stool
Specimen Description:
Abnormal Lab Results
03/10/25 03/10/25
08:11 08:51
WBC 4.3 L 10^3/uL
(4.8-10.8)
RBC 3.75 L 10^6/uL
(4.20-5.40)
Hgb 11.5 L g/dL
(12.0-16.0)
Hct 35.1 L %
(37.0-47.0)
MCHC 32.8 L g/dL
(33.0-37.0)
RDW 16.7 H %
(11.5-14.5)
Monocytes % 13.4 H %
(1.7-9.3)
Potassium 2.8 L mmol/L
(3.5-5.1)
Carbon Dioxide 34 H mmol/L
(22-30)
BUN 29 H mg/dl
(7-17)
Glucose 109 H mg/dl
(70-99)
Magnesium 1.3 L mg/dl
(1.6-2.3)
AST 75 H U/L
(14-36)
Total Protein 6.1 L g/dl
(6.3-8.2)
03/10/25 08:11
03/10/25 08:51
Vital Signs
Initial and Last Documented VS:
Initial Vital Signs
Pulse Resp Pulse Ox
84 12 100
03/10/25 08:12 03/10/25 08:12 03/10/25 08:12
Last Documented Vital Signs
Temp Pulse Resp BP Pulse Ox
97.6 F 74 20 132/80 98
03/10/25 11:00 03/10/25 11:00 03/10/25 11:00 03/10/25 11:00 03/10/25 11:00
<Brian Mar, DO - Last Filed: 03/10/25 09:55>
Orders/Labs/Results
Orders:
Orders
03/10/25 08:11
Complete Blood Count/With Diff Urgent
03/10/25 08:51
Alcohol Urgent
Comprehensive Metabolic Panel Urgent
Magnesium Urgent
03/10/25 09:35
Lorazepam [Ativan] 1 mg IV NOW STA
03/10/25 09:44
Ondansetron Injectable [Zofran] 4 mg IV NOW STA
Potassium Chloride [KCl] 40 meq PO NOW STA
03/10/25 11:00
0.9% Sodium Chloride 1000 ml [Nss] 1,000 ml Mvi, Adult [Multivitamin] 10 ml Thiamine Injection 100 mg Magnesium Sulfate 2 grams IV 500 mls/hr
03/10/25 11:14
STOOL [C difficile Antigen & Toxins] Urgent
CASIE Source: Feces/Stool
Specimen Description:
Stool Culture Urgent
CASIE Source: Feces/Stool
Specimen Description:
Abnormal Lab Results
03/10/25 03/10/25
08:11 08:51
WBC 4.3 L 10^3/uL
(4.8-10.8)
RBC 3.75 L 10^6/uL
(4.20-5.40)
Hgb 11.5 L g/dL
(12.0-16.0)
Hct 35.1 L %
(37.0-47.0)
MCHC 32.8 L g/dL
(33.0-37.0)
RDW 16.7 H %
(11.5-14.5)
Monocytes % 13.4 H %
(1.7-9.3)
Potassium 2.8 L mmol/L
(3.5-5.1)
Carbon Dioxide 34 H mmol/L
(22-30)
BUN 29 H mg/dl
(7-17)
Glucose 109 H mg/dl
(70-99)
Magnesium 1.3 L mg/dl
(1.6-2.3)
AST 75 H U/L
(14-36)
Total Protein 6.1 L g/dl
(6.3-8.2)
03/10/25 08:11
03/10/25 08:51
Vital Signs
Initial and Last Documented VS:
Initial Vital Signs
Pulse Resp Pulse Ox
84 12 100
03/10/25 08:12 03/10/25 08:12 03/10/25 08:12
Last Documented Vital Signs
Temp Pulse Resp BP Pulse Ox
97.6 F 74 20 132/80 98
03/10/25 11:00 03/10/25 11:00 03/10/25 11:00 03/10/25 11:00 03/10/25 11:00
<Joanne Contreras MD, Resident - Last Filed: 03/10/25 12:03>
MDM/Problems Addressed
MDM/Problems Addressed:
Differential:
Diarrhea due to alcohol withdrawal
Diarrhea of viral or bacterial etiology
Plan:
CBC
CMP
Stool culture & C. diff
CIWA: obtained score 9-10
1 mg Ativan ppx for alcohol withdrawal
Banana bag (thiamine + multivitamin + IV saline)
PO KCl
Chronic conditions affecting care:
Alcohol use disorder
Chronic conditions affecting care: Other
<Joanne Contreras MD, Resident - Last Filed: 03/10/25 12:03>
*Pulse Oximetry
SaO2: 99
Oxygen Mode of Delivery: Room air
Patient hypoxic: no
*Critical Care Note
Total Time (30-74mins, 75-104mins- exclusive of procedures): Not Applicable
ED Attending Note
<Joanne Contreras MD, Resident - Last Filed: 03/10/25 12:03>
-
Portions of this chart may have been created with voice recognition software.� Occasional wrong word or��sound alike� substitutions may have occurred due to the inherent limitations of voice recognition software.
<Brian Mar, DO - Last Filed: 03/10/25 09:55>
ED Attending Note
Patient seen and examined by attending physician: Yes
I performed a history and physical exam of patient and discussed management with resident, I reviewed resident's note and agree with documented findings and plan of care.: Yes
ED Attending Note:
69-year-old female presents with nausea vomiting diarrhea she is wearing a diaper at home soiling herself, she is a drinker none for about a week not tremulous here, states she is nauseous and needs to have a bowel movement, she has been in rehab
before but not interested in any rehab now, electrolytes are noted will replete, check stool studies if possible,
Discharge Plan
Departure
Patient Disposition: Home (Routine Discharge)
Date of Disposition: 03/10/25
Time of Disposition: 11:11
Patient with high blood pressure during this ER visit?: No
Discharge Problem:
Alcohol use disorder, Diarrhea
Prescriptions:
No Action
nifedipine 30 mg Tablet Extended Release
30 mg PO DAILY
escitalopram oxalate 10 mg Tablet
10 mg PO DAILY 30 Days Qty: 30 0RF
aspirin 81 mg Tablet,Chewable
81 mg PO DAILY Qty: 0 0RF
rosuvastatin 20 mg Tablet
20 mg PO QPM 30 Days Qty: 30 0RF
cefazolin 10 gram Recon Soln
2 g IV Q8H Qty: 0 0RF
ferrous sulfate [FeroSul] 325 mg (65 mg iron) Tablet
325 mg PO DAILY Qty: 30 0RF
oxycodone 5 mg tablet
5 mg PO Q4H PRN (Reason: moderate pain) Qty: 12 0RF
Activity Restrictions/Additional Instructions:
You came to the emergency department for diarrhea.
The diarrhea is likely due to a viral cause or part of alcohol withdrawal. You were provided fluids, vitamins, and electrolytes.
Please return if you develop severe diarrhea, dehydration, lightheadedness, or vomiting.
Interventions
Interventions:
*Risk Screen - Suicide Last Done: 03/10/25 08:15
*General Assessment Last Done: 03/10/25 08:15
*Neglect/Abuse Screening Last Done: 03/10/25 08:15
*ED- Fall Risk Assessment Last Done: 03/10/25 08:15
*ED COVID-19 Vaccine History Last Done: 03/10/25 08:15
RB-Upiezd-Vmvseozdfn Assessment Last Done: 03/10/25 08:15
Discharge Date and Time
Print Language: VENEZUELAN
[2025-03-10 09:22] LABS: ALT (SGPT) 19 U/L (0-35); AST (SGOT) 75 U/L (14-36); Albumin 3.5 g/dl (3.5-5.0); Alkaline Phosphatase 74 U/L (38-126); Blood Urea Nitrogen 29 mg/dl (7-17); Calcium 8.9 mg/dl (8.4-10.2); Carbon Dioxide 34 mmol/L (22-30); Chloride 100 mmol/L (98-107); Estimated Creatinine Clearance 47 ml/min; Glucose 109 mg/dl (70-99); Magnesium 1.3 mg/dl (1.6-2.3); Potassium 2.8 mmol/L (3.5-5.1); Sodium 139 mmol/L (135-145); Total Protein 6.1 g/dl (6.3-8.2); eGFR > 60.00
[2025-03-10] MEDS: ZOFRAN 4 MG IV (09:50)
[2025-03-10] MEDS: KCL 40 MEQ PO (09:50)
[2025-03-10] MEDS: ATIVAN 1 MG IV (09:50)
[2025-03-10] MEDS: MULTIVITAMIN 1015 ML IV (11:15)
[2025-03-10] MEDS: MULTIVITAMIN 1015 MG IV (11:15)
[2025-03-10] MEDS: MULTIVITAMIN 1015 GRAMS IV (11:15)
== END 2025-03-10 15:03 | disposition home or self-care (01) ==
LOC: EMR 08:05
PROVIDERS: EMERGENCY PHYSICIAN Emergency Medicine; FAMILY PHYSICIAN Nurse Practitioner Family
DX: F10.10 Alcohol abuse, uncomplicated (principal); R19.7 Diarrhea, unspecified; I71.40 Abdominal aortic aneurysm, without rupture, unspecified; F17.200 Nicotine dependence, unspecified, uncomplicated; I73.00 Raynaud's syndrome without gangrene
CPT/HCPCS: 99283; 96374; 96375; 96361; 80053; 82077; 83735; 85025

== ENCOUNTER 2025-07-19 18:19 | Inpatient (IN) | payer MEDICARE, OTHER, SELFPAY ==
[2025-07-19] VITALS (11 sets, daily range): BP systolic 92–121; BP diastolic 44–74; BMI 18.2; BMI 19.3
--- NOTE | 2025-07-19 12:50 | EDRN ---
Patient noted to be covered in her own feces. Patient also noted to be very dirty. She admits to drinking 1 pint of vodka per day and smoking 1/2 pack per day. Patient cleaned up to best of capabilities. Patient seems to have been sitting in her
feces for possible several days. Feces is dry and stuck to her skin. Patient noted to have some mild breakdown on her buttocks. Patient admits to not getting off the couch since yesterday and stated that she wasn't up for long. Patient explains that
she sleeps on the couch and spends the majority of her day there.
After cleaned up, patient seems to have yellow color to her skin w/ various old bruises.
[2025-07-19 12:56] LABS: Hematocrit 23.8 % (37.0-47.0); Hemoglobin 8.1 g/dL (12.0-16.0); Mean Corp Hgb Conc. 34.0 g/dL (33.0-37.0); Mean Corpuscular Volume 93.7 fL (81.0-99.0); Nucleated Red Blood Cells % 1.2 %; Platelet Count 90 10^3/uL (130-400); Red Cell Dist. Width 22.5 % (11.5-14.5)
[2025-07-19 13:24] LABS: Anisocytosis 2+; Basophilic Stippling 1+; Hypochromasia 3+; Normal RBC Morphology No; Polychromasia 1+
[2025-07-19 13:25] LABS: Ovalocytes FEW; Stomatocytes 1+
[2025-07-19 13:32] LABS: ALT (SGPT) 30 U/L (0-35); AST (SGOT) 84 U/L (14-36); Albumin 4.0 g/dl (3.5-5.0); Alkaline Phosphatase 130 U/L (38-126); Blood Urea Nitrogen 28 mg/dl (7-17); Calcium 8.8 mg/dl (8.4-10.2); Carbon Dioxide 20 mmol/L (22-30); Chloride 87 mmol/L (98-107); Estimated Creatinine Clearance 55 ml/min; Glucose 118 mg/dl (70-99); Potassium 3.4 mmol/L (3.5-5.1); Sodium 128 mmol/L (135-145); Total Protein 6.5 g/dl (6.3-8.2); eGFR > 60.00
--- NOTE | 2025-07-19 13:45 | ED.GENMED ---
History of Present Illness
General
Chief Complaint: Weakness
Time Seen by Provider: 07/19/25 13:44
History of Present Illness
History of Present Illness:
FOCUSED PAST MEDICAL HISTORY
- High blood pressure, alcohol abuse
REVIEW OF OLD RECORDS
- The patient was seen here this past March with alcohol use disorder and she has had other hospitalizations regarding alcohol abuse
Note:
CHIEF COMPLAINT(S)
Severe lightheadedness and dizziness.
HISTORY OF PRESENT ILLNESS
The patient is a 69-year-old female presenting with severe lightheadedness and dizziness that started this morning. She has a history of alcohol abuse and continues to consume alcohol. The patient stated she does not feel intoxicated at present and
does not appear intoxicated on examination. The patient, who lives alone, called EMS after experiencing these symptoms. EMS observed the patient sitting in stool upon arrival at her home. The patient reports feeling extremely weak, and on
examination, dry stool was noted on her fingers. Laboratory results indicate a hemoglobin level of 8.1, which remains consistent with her baseline from December yet decreased compared to a level of 11.5 in March. Sodium was measured at 128, bicarbonate
at 20, and total bilirubin at 2.1, which is an increase compared to previous levels. An abnormal electrocardiogram showed diffuse ST abnormalities, but the patient did not report chest pain, and troponin was 0.027 ng/mL. Alcohol level was measured
at 13 mg/dL. A CT scan of the brain showed no acute abnormality. On reassessment, the patient did not appear to be stable enough for discharge.
ADDITIONAL HISTORY OBTAINED FROM SOURCES OTHER THAN THE PATIENT
According to EMS, the patient was found sitting in stool, with dry stool noted on her fingers.
CHRONIC MEDICAL CONDITIONS SIGNIFICANTLY AFFECTING CARE
History of alcohol abuse.
SOCIAL DETERMINANTS AFFECTING HEALTH
The patient lives alone and continues to consume alcohol.
PHYSICAL EXAM
General: Alert, no acute distress.
Skin: Warm, dry.
Head: Normocephalic, atraumatic.
Neck: Supple, trachea midline.
Eye, Ears, Nose, Mouth and Throat: Oral mucosa moist.
Cardiovascular: Normal peripheral perfusion, No edema.
Respiratory: Respirations are non-labored.
Gastrointestinal: Abdomen nondistended.
Back: Normal range of motion, Normal alignment.
Musculoskeletal: Normal ROM, normal strength.
Neurological: Alert and oriented to person, place, time, and situation, No focal neurological deficit observed.
Psychiatric: Cooperative, appropriate mood & affect.
PROBLEM LIST
Acute Problems:
- Severe lightheadedness and dizziness
- Electrolyte imbalance
- Potential intoxication
- Weakness
Chronic Problems:
- Alcohol abuse
PLAN
The patient was given intravenous fluids and intravenous diazepam. Given the patients instability, admission for further monitoring and management was indicated.
DIFFERENTIAL DIAGNOSIS
The Differential Diagnosis includes, in no particular order and is not limited to:
- Electrolyte imbalance (hyponatremia)
- Alcohol withdrawal syndrome
- Anemia
- Vestibular disorders
- Cardiac arrhythmia
- Dehydration
- Hepatic dysfunction
- Neurological disorder
- Hypoglycemia
- Orthostatic hypotension
RADIOLOGY
- I see no acute abnormality on brain CT
EKG
- Sinus 82, anterolateral ST abnormality
LABS
- White count 4.9, hemoglobin 8.1, MCV 94, sodium 128, potassium 3.4, chloride 87, bicarb 20, total bili 2.1, AST 84
UPDATE
-SUMMARY OF ENCOUNTER
The patient, a 69-year-old female, was seen in the emergency department due to severe lightheadedness and dizziness that began this morning. Despite intravenous fluids and diazepam (Valium) administration, her symptoms of dizziness remain
persistent. Lab results reveal hyponatremia, elevated total bilirubin, and a hemoglobin level lower than her baseline. An electrocardiogram indicated diffuse ST abnormalities without the patient experiencing chest pain. Given her instability and the
potential for alcohol withdrawal syndrome contributing to her symptoms, it was determined that she is not safe for discharge. Therefore, hospital admission was indicated for further monitoring and management.
DISPOSITION
Admit.
ASSESSMENT
The patient presents with severe dizziness possibly attributed to electrolyte imbalance, potential alcohol withdrawal syndrome, hepatic dysfunction, and anemia.
EMERGENCY TREATMENTS ADMINISTERED
Intravenous fluids and intravenous diazepam were administered.
MANAGEMENT OF THE PATIENTS CARE WAS DISCUSSED WITH
Discussion with the hospitalist was made to admit the patient for inpatient monitoring and further management.
INDEPENDENT REVIEW OF LABS AND INTERPRETATION OF TESTS
My independent review of the Basic Metabolic Panel (BMP) shows hyponatremia with a sodium level of 128 meq/L.
My independent review of the Complete Blood Count (CBC) indicates anemia with a hemoglobin level at 8.1 g/dL.
My independent review of the Comprehensive Metabolic Panel (CMP) indicates an increase in total bilirubin at 2.1 mg/dL.
My independent interpretation of the electrocardiogram reveals diffuse ST abnormalities.
MEDICATION RECONCILIATION
Diazepam (Valium) was administered intravenously.
MEDICAL DECISION MAKING
- Number and Complexity of Problems Addressed: Chronic conditions affecting care include alcohol abuse. The differential diagnosis includes electrolyte imbalance (hyponatremia), potential alcohol withdrawal syndrome, anemia, vestibular disorders,
cardiac arrhythmia, dehydration, hepatic dysfunction, neurological disorder, hypoglycemia, and orthostatic hypotension.
- Data:
Category 1:
My independent interpretation of the electrocardiogram reveals diffuse ST abnormalities.
Category 2:
Clinical information was obtained from an independent historian: EMS reported the patient was found sitting in stool, with dry stool noted on her fingers.
- Risk:
Decisions regarding hospitalization were made due to the patients overall instability and associated risks, including electrolyte imbalance and potential alcohol withdrawal.
DIAGNOSIS
- Electrolyte imbalance, unspecified (ICD-10: E87.9)
- Alcohol use, unspecified with other alcohol-induced disorder (ICD-10: F10.188)
- Dizziness and giddiness (ICD-10: R42)
- Anemia, unspecified (ICD-10: D64.9)
Past History
Past History
ED Past Medical History: Other (AAA)
ED Past Surgical History: Other (right leg arterial stent)
Social History
Tobacco: Smoker
Alcohol: Chronic alcoholic
Drug: None
Living: alone
Phy Exam
Physical Exam
Physical Exam:
See HPI
Course
Orders/Labs/Results
Orders:
Orders
07/19/25 12:36
Electrocardiogram (*1) Urgent
Reason for Study: Abdominal Pain
EKG- Treatment ONCE
07/19/25 12:37
Complete Blood Count/With Diff Urgent
07/19/25 13:04
Alcohol Urgent
Comprehensive Metabolic Panel Urgent
Creatine Phosphokinase Urgent
Comment: ADD ON
07/19/25 13:56
Add On- LAB Urgent
Tests Added?: alcohol AND CK
07/19/25 13:57
0.9% Sodium Chloride 1000 ml [Nss] 1,000 ml IV BOLUS
07/19/25 14:01
CT Head W/o Iv Contrast Urgent
Comment:
Reason For Exam: severe dizzy
diazePAM [Valium Injection] 2.5 mg IV NOW STA
07/19/25 14:12
Add On- LAB Urgent
Tests Added?: troponin
07/19/25 14:21
Troponin I Urgent
Abnormal Lab Results
07/19/25 07/19/25
12:37 13:04
RBC 2.54 L 10^6/uL
(4.20-5.40)
Hgb 8.1 L g/dL
(12.0-16.0)
Hct 23.8 L %
(37.0-47.0)
MCH 31.9 H pg
(27.0-31.0)
RDW 22.5 H %
(11.5-14.5)
Plt Count 90 L 10^3/uL
(130-400)
MPV 12.2 H fL
(7.4-10.4)
Immature Gran % 0.6 H %
(0-0.5)
Sodium 128 L mmol/L
(135-145)
Potassium 3.4 L mmol/L
(3.5-5.1)
Chloride 87 L mmol/L
(98-107)
Carbon Dioxide 20 L mmol/L
(22-30)
BUN 28 H mg/dl
(7-17)
Glucose 118 H mg/dl
(70-99)
Total Bilirubin 2.1 H mg/dl
(0.2-1.3)
AST 84 H U/L
(14-36)
Alkaline Phosphatase 130 H U/L
(38-126)
07/19/25 12:37
07/19/25 13:04
Vital Signs
Initial and Last Documented VS:
Initial Vital Signs
Pulse Resp BP Pulse Ox
95 18 111/65 95
07/19/25 12:28 07/19/25 12:28 07/19/25 12:28 07/19/25 12:28
Last Documented Vital Signs
Temp Pulse Resp BP Pulse Ox
36.7 C 78 16 103/54 98
07/19/25 12:48 07/19/25 15:30 07/19/25 15:36 07/19/25 15:30 07/19/25 15:36
*Pulse Oximetry
SaO2: 95
Oxygen Mode of Delivery: Room air
Patient hypoxic: no
*Critical Care Note
Total Time (30-74mins, 75-104mins- exclusive of procedures): Not Applicable
ED Attending Note
-
Portions of this chart may have been created with voice recognition software.� Occasional wrong word or��sound alike� substitutions may have occurred due to the inherent limitations of voice recognition software.
Discharge Plan
Departure
Prescriptions:
No Action
nifedipine 30 mg Tablet Extended Release
30 mg PO DAILY
escitalopram oxalate 10 mg Tablet
10 mg PO DAILY 30 Days Qty: 30 0RF
aspirin 81 mg Tablet,Chewable
81 mg PO DAILY Qty: 0 0RF
rosuvastatin 20 mg Tablet
20 mg PO QPM 30 Days Qty: 30 0RF
cefazolin 10 gram Recon Soln
2 g IV Q8H Qty: 0 0RF
ferrous sulfate [FeroSul] 325 mg (65 mg iron) Tablet
325 mg PO DAILY Qty: 30 0RF
oxycodone 5 mg tablet
5 mg PO Q4H PRN (Reason: moderate pain) Qty: 12 0RF
Referrals:
Remberto Collazo CRNP [Family Provider, Family Practice]
Interventions
Interventions:
*Risk Screen - Suicide Last Done: 07/19/25 12:28
*General Assessment Last Done: 07/19/25 12:28
*Neglect/Abuse Screening Last Done: 07/19/25 12:28
ED- Cardiac Assessment Last Done: 07/19/25 12:35
ED- Neurological Assessment Last Done: 07/19/25 12:35
ED- Pulmonary Assessment Last Done: 07/19/25 12:35
Discharge Date and Time
Print Language: RUSSIAN
[2025-07-19] MEDS: VALIUM INJECTION 2.5 MG IV (14:18)
[2025-07-19] MEDS: NSS 1000 IV ×3 (14:19→21:17)
[2025-07-19 14:51] LABS: Troponin I 0.027 ng/ml
--- NOTE | 2025-07-19 16:24 | HPS.HSE ---
Family Physician
-
Family Physician: ARELY Borrero
Chief Complaint
-
Dizziness
History of Present Illness
69-year-old female with past medical history of alcohol abuse disorder, chronic hyponatremia, anemia, essential hypertension, peripheral arterial disease s/p stent in the right lower extremity, abdominal aortic aneurysm,, anxiety/depression, left
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 Presents to the ER reporting dizziness. She called EMS and they found her laying down in
stools. The dizziness has been chronic from the past few months, but in the morning today it was very severe and was not able to get out off her bed. Patient does not report any syncopal episodes, recent falls/trauma, chest pain, SOB, abdominal
pain, bladder/bowel disturbances. No fever/chills. Patient reports that she has not been taking any medications at home from the past 3-4 months.
Her last alcohol drink was early in the morning today, reports she had 2 sips of vodka. Regularly she drinks 1 pint of vodka every day. Patient reports that she has not been eating well and no adequate hydration.
ED course�BP 111/65, pulse 95, afebrile. Hemoglobin 8.1, platelets 90, sodium 128, potassium 3.4, BUN/creatinine�28/0.8, glucose 118, T. bili 2.1, AST 84, ALT 30, ALP 130, troponin 0.027.
CT head�no acute intracranial abnormality. Alcohol level- 13.
Medical History
Past Medical History
Past Medical History: Reports Other (alcohol abuse disorder, chronic hyponatremia, anemia, essential hypertension, peripheral arterial disease s/p stent in the right lower extremity, abdominal aortic aneurysm,, anxiety/depression, left subclavian
artery stenosis s/p carotid to subclavian bypass graft, osteomyelitis of left index finger)
Past Surgical History: Reports Orthopedic and Other (Peripheral arterial stent in the lower extremity, carotid to subclavian bypass graft)
Social History
Tobacco: Smoker
Alcohol: Daily
Drug: None
Living: Alone
Employment: Retired
Family History
Family History: Not pertinent
Allergies / Home Medications
Allergies reflects when Allergies were last updated in [facility].
Home Medications with original date entered in [facility]
Allergy/Medication List:
Allergies
Allergy/AdvReac Type Severity Reaction Status Date / Time
No Known Allergies Allergy Verified 07/19/25 12:28
Home Medications
No Meds [No Current Medications] 07/19/25
Review of Systems
-
A 12 point ROS was completed and negative except as noted: Yes
Physical Exam
Vital Signs
Vital Signs
Temp Pulse Resp BP Pulse Ox
98.0 F 78 16 103/54 98
07/19/25 12:48 07/19/25 15:30 07/19/25 15:36 07/19/25 15:30 07/19/25 15:36
Physical Exam
General: Appears Chronically Ill
HEENT: NormoCephalic and Atraumatic
Respiratory: Clear
Cardiac: S1/S2 and Regular Rhythm
GI: Soft, Non Tender, Non Distended and Normal Bowel Sounds
Skin: Warm and Dry
Neuro: Awake, Alert, Oriented, AO x 3 and Nonfocal/grossly intact
Psych: Calm
Laboratory Results
-
07/19/25 12:37
07/19/25 13:04
Laboratory Results
Total Bilirubin 2.1 mg/dl (0.2-1.3) H 07/19/25 13:04
AST 84 U/L (14-36) H 07/19/25 13:04
ALT 30 U/L (0-35) 07/19/25 13:04
Alkaline Phosphatase 130 U/L (38-126) H 07/19/25 13:04
Troponin I 0.027 ng/ml 07/19/25 14:21
Impression/Plan
-
IMPRESSION:
69-year-old female with past medical history of alcohol abuse disorder, chronic hyponatremia, anemia, essential hypertension, peripheral arterial disease s/p stent in the right lower extremity, abdominal aortic aneurysm,, anxiety/depression, left
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 Presents to the ER reporting dizziness.
PLAN:
#Dizziness
#Hyponatremia
Likely secondary to hypovolemic hyponatremia
Patient appears dry, dehydrated.
CT head negative for any intracranial abnormality
Will check urine studies-urine sodium, urine osmolality.
Check serum osmolality
Check TSH
Will start IV fluids NS
Monitor BMP
Consult PT/OT
#Alcohol intoxication
Patient does not appear to be in withdrawal
Will start M ileana protocol
Start thiamine
Start folate
PT/OT consult
Monitor for any withdrawal
#Chronic anemia
She is at her baseline
Multifactorial�from nutritional deficiency, ACD
Monitor CBC, for any acute drop
#Thrombocytopenia
No bleeding episodes
Monitor platelets
#Nicotine use
Start nicotine patch
#PAD
Patient on rosuvastatin 20, per her previous discharge note
Per patient, she stopped taking medications since 3 months
Will reinitiate
DVT prophylaxis�heparin subcu
Diet�low-cholesterol
DNR
--- NOTE | 2025-07-19 17:34 | W.PN.UPDATE ---
Update Note
Progress Note Update
I interviewed and examined the patient. Discussed with Dr. peng and agree with findings and plan as documented in note.
69 years old female PMH of anxiety, depression, Hx of alcohol abuse, hypertension,AAA, gastritis, chronic anemia and PVD presenting to the ED for weakness and dizziness. Patient states that she has been drinking alcohol. No signs of tremor or
delirium. She felt dizzy and could not get up and called 911. Upon EMS arrival, EMS observed the patient sitting in stool and urine. In ER, she was found to have low sodium a at 128. Patient denies pain issues. No headache. No fever.
CT head: No evidence of acute intracranial abnormality.
Physical Exam
-
General: No Apparent Distress, Comfortable and Conversant
HEENT: Normocephalic, Atraumatic
Respiratory: Clear to Auscultation and Non Labored Respirations
Cardiac: Regular Rhythm and S1/S2; Negative Murmur
GI: Soft, Nontender and Nondistended
Musculoskeletal: no edema
Skin: Warm
Neuro: Awake, Alert, Oriented, No Motor Deficits and No Sensory Deficits
Psych: Calm and Intact Judgement/Insight
# Alcohol use disorder
She reports weakness and dizziness
Currently, no tremors, no agitation, lucid and pleasant.
# Cachexia with moderate protein caloric malnutrition, BMI 18
�CT head: No acute intracranial abnormality identified.
� Start high dose thiamine
Start folate
-Start MSAS protocol with lorazepam
�Monitor mental status
Consult case technician, PT/OT
# Abdominal aortic aneurysm
No abdominal pain
# Bilateral carotid artery stenosis
# Hypovolemic hyponatremia (likely due to dehydration/hypochloremic contraction alkalosis)
-TSH normal in past
-Sodium remained at 128
Check serum osmolality, urine serum and sodium
Mild IV fluid and oral fluid restriction
-Monitor BMP
Appreciate nephrology help-
# Chronic microcytic anemia
Hx of Iron deficiency anemia due to chronic blood loss
No story of active bleeding. No rectal bleeding. No melena. No nausea or vomiting
Check iron panel
# Raynaud phenomenon without gangrene
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
Monitor CBC
No active bleeding
# Hypokalemia, replace
# Essential HTN
-BP stable off meds
# Transaminitis with AST > ALT, Likely due to alcoholic hepatitis
-Hepatitis panel negative in recent past.
No abdominal pain
# Current smoker/ Tobacco abuse.
-Continue nicotine
#Anxiety/Depression
Mood is cooperative.
DVT ppx: SQ Heparin
Total time spent to see the patient, examined the patient, review data and lab result, discuss treatment plan with patient, nursing staff, ER doctor around 75 minutes
[2025-07-19] MEDS: THIAMINE INJECTION 255 MG IV (21:11)
[2025-07-19] MEDS: NICODERM TRANSDERMAL 14 MG TRANSDERM (21:30)
--- NOTE | 2025-07-19 22:00 | PTCARENOTE ---
Pt transported from ED to 3W via stretcher. Pt was a pullover from stretcher to bed, AAOX3, vitals WNL and TELE placed on pt. Pt was oriented to room and call mendes within reach.
[2025-07-19 23:57] LABS: Iron 129 ug/dl (37-170)
[2025-07-20] VITALS (10 sets, daily range): BP systolic 91–150; BP diastolic 43–88; PULSE 69–103
[2025-07-20 00:43] LABS: Ferritin 294.0 ng/ml (11.1-264.0)
[2025-07-20] MEDS: HEPARIN 5000 UNITS SC ×4 (00:47→22:21)
[2025-07-20 06:13] LABS: Blood Urea Nitrogen 22 mg/dl (7-17); Calcium 7.6 mg/dl (8.4-10.2); Carbon Dioxide 26 mmol/L (22-30); Chloride 93 mmol/L (98-107); Estimated Creatinine Clearance 67 ml/min; Glucose 81 mg/dl (70-99); Potassium 3.3 mmol/L (3.5-5.1); Sodium 130 mmol/L (135-145); eGFR > 60.00
[2025-07-20 06:42] LABS: Cortisol, Random 18.0 ug/dl; TSH 2.72 uIU/ml (0.47-4.68)
[2025-07-20 07:39] LABS: Magnesium 1.2 mg/dl (1.6-2.3)
[2025-07-20] MEDS: KCL 270 MEQ IV (07:42)
[2025-07-20] MEDS: OMNIPAQUE 50 ML PO (07:43)
[2025-07-20] MEDS: PROTONIX 40 MG PO (08:52)
[2025-07-20] MEDS: NICODERM TRANSDERMAL 14 MG TRANSDERM (08:52)
[2025-07-20] MEDS: FOLVITE 1 MG PO (08:54)
[2025-07-20] MEDS: ANTIVERT 25 MG PO (09:08)
[2025-07-20 09:09] LABS: Hematocrit 18.8 % (37.0-47.0); Hemoglobin 6.0 g/dL (12.0-16.0); Mean Corp Hgb Conc. 31.9 g/dL (33.0-37.0); Mean Corpuscular Volume 97.9 fL (81.0-99.0); Platelet Count 90 10^3/uL (130-400); Red Cell Dist. Width 23.5 % (11.5-14.5)
--- NOTE | 2025-07-20 10:19 | W.PN.HOSP.TC ---
Today's Communication/Plan
-
.
Assessment / Plan
Assessment / Plan
Physical Exam
-
General: No Apparent Distress, Comfortable and Conversant
HEENT: Normocephalic, Atraumatic
Respiratory: Clear to Auscultation and Non Labored Respirations
Cardiac: Regular Rhythm and S1/S2; Negative Murmur
GI: Soft, Nontender and Nondistended
Musculoskeletal: no edema
Skin: Warm
Neuro: Awake, Alert, Oriented, No Motor Deficits and No Sensory Deficits
Psych: Calm and Intact Judgement/Insight
# Alcohol use disorder
No sign of DT
She reports weakness and dizziness
Currently, no tremors, no agitation, lucid and pleasant.
- Cachexia with moderate protein caloric malnutrition, BMI 18-19.
�CT head: No acute intracranial abnormality identified.
�c/w high dose thiamine
Started folate
-Started MSAS protocol with lorazepam
�Monitor mental status
Consulted cyanide case hardener, PT/OT
# Dizziness
Acute on chronic
Will give Meclizine
CT head no acute findings.
# Abdominal aortic aneurysm
No abdominal pain or tenderness
Will do CT
# Bilateral carotid artery stenosis
# Hypovolemic hyponatremia (likely due to dehydration/hypochloremic contraction alkalosis)
-TSH normal in past
-Sodium remained at 128, improved to 130
Check serum osmolality, urine serum and sodium
Mild IV fluid and oral fluid restriction
-Monitor BMP
Appreciate nephrology help-
#Acute on Chronic normocytic anemia, suspect BM suppression due to ETOH abuse.
Hx of Iron deficiency anemia due to chronic blood loss
No history of active bleeding. Stools look normal color in hospital. No rectal bleeding. No melena. No nausea or vomiting
Normal iron panel
Consulted hematology
Consent signed, will give one unit of blood
# Raynaud phenomenon without gangrene
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
Monitor CBC
No active bleeding
# Hypokalemia, replace
# Essential HTN
-BP stable off meds
# Transaminitis with AST > ALT, Likely due to alcoholic hepatitis
-Hepatitis panel negative in recent past.
No abdominal pain
# Current smoker/ Tobacco abuse.
-Continue nicotine
#Anxiety/Depression
Mood is cooperative.
DVT ppx: SQ Heparin
Total time spent to see the patient, examined the patient, review data and lab result, discuss treatment plan with patient, nursing staff, hematology, around 55 minutes
Anticipated Discharge: > 48 hours
Subjective/Interval History
-
Date of Service: July 20, 2025
No chest pain
No sob
Objective Data
-
Labs:
Laboratory Results
07/20/25 07/20/25
05:07 08:36
WBC Cancelled 4.3 L
Hgb Cancelled 6.0 L* D
Hct Cancelled 18.8 L*
Plt Count Cancelled 90 L
Sodium 130 L
Potassium 3.3 L
Chloride 93 L
Carbon Dioxide 26
BUN 22 H
Creatinine 0.7
Glucose 81
Calcium 7.6 L
Vital Signs:
Vital Signs
Temp Pulse Resp BP Pulse Ox
98.7 F 103 18 134/83 99
07/20/25 07:31 07/20/25 07:31 07/20/25 07:31 07/20/25 07:31 07/20/25 07:31
I&O
07/19/25 07/20/25 07/21/25
06:59 06:59 06:59
Intake Total 480 / 480
Balance 480 / 480
--- NOTE | 2025-07-20 10:29 | CON.ONC ---
Consultation
-
Date Consultation Requested: 07/20/25
Date Consultation Performed: 07/20/25
Impression
Impression
Pancytopenia
Precipitous anemia
Elevated total bilirubin
Daily excessive alcohol use
Dizziness
Pancreatic pseudocyst
History of iron deficiency anemia
Plan
Plan
Reticulocyte count
LDH
Fractionate bilirubin
Haptoglobin
AMANDEEP
Stool for occult blood
Direct platelet antibody
Suspect a component of chronic marrow suppression secondary to EtOH
May consider GI evaluation endoscopy colonoscopy performed in the spring 2023 capsule suggested at that time
Patient History
History of Present Illness
69-year-old female with past medical history of alcohol abuse disorder, chronic hyponatremia, anemia, essential hypertension, peripheral arterial disease s/p stent in the right lower extremity, abdominal aortic aneurysm, anxiety/depression, left
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 She called EMS and they found her laying down in
stool. The dizziness has been chronic from the past few months, but she was was not able to get out off her bed. Patient does not report any syncopal episodes, recent falls/trauma, chest pain, SOB, abdominal pain, bladder/bowel disturbances. No
fever/chills. Patient reports that she has not been taking any medications at home from the past 3-4 months.
She reports daily drinking in excess of a pint.
Past-Medical/Surgical History
Past Medical History: Alcohol abuse disorder, chronic hyponatremia, anemia, essential hypertension, peripheral arterial disease s/p stent in the right lower extremity, abdominal aortic aneurysm,, anxiety/depression, left subclavian artery stenosis
s/p carotid to subclavian bypass graft, osteomyelitis of left index finger
Past Surgical History: Peripheral arterial stent in the lower extremity, carotid to subclavian bypass graft
Social History
Tobacco: Smoker
Alcohol: Daily
Drug: None
Living: Alone
Employment: Retired
Family History
Family History: Not pertinent
Patient Medication
�Medication �Instructions �Recorded �Confirmed �Last Taken �Type
No Meds [No Current Medications] 07/19/25 07/19/25 Unknown History
Active Medications
Generic Name Dose Route Start Last Admin
Trade Name Freq PRN Reason Stop Dose Admin
Bisacodyl 10 mg 07/19/25 20:49
Bisacodyl 10 Mg Rectal Suppository RECTAL 08/16/25 20:48
[id number] PRN
constipation
Folic Acid 1 mg 07/20/25 08:00 07/20/25 08:54
Folic Acid 1 Mg Tablet PO 08/17/25 07:59 1 mg
DAILY JB Administration
Heparin Sodium 5,000 units 07/20/25 00:00 07/20/25 08:53
Heparin 5,000 Units/Ml 1 Ml Vial SC 08/17/25 00:00 5,000 units
Q8 JB Administration
Sodium Chloride 1,000 mls @ 80 mls/hr 07/19/25 17:45 07/19/25 21:17
Nss IV 1,000 mls
.[id number] JB Administration
Thiamine HCl 500 mg/ Sodium 255 mls @ 255 mls/hr 07/19/25 20:49 07/19/25 21:11
Chloride IV 07/22/25 08:59 255 mls
BID JB Administration
Potassium Chloride 40 meq/ 270 mls @ 67.5 mls/hr 07/20/25 07:00 07/20/25 07:42
Sodium Chloride IV 07/20/25 10:59 270 mls
NOW STA Administration
Lorazepam 1 mg 07/19/25 20:49
Lorazepam 1 Mg Tablet PO 08/16/25 20:48
Q2HPRN PRN
MSAS 5-7
Lorazepam 1 mg 07/19/25 20:49
Lorazepam 2 Mg/Ml Vial IV 08/16/25 20:48
Q1HPRN PRN
MSAS 8-11
Lorazepam 2 mg 07/19/25 20:49
Lorazepam 2 Mg/Ml Vial IV 08/16/25 20:48
Q1HPRN PRN
MSAS > 11
Nicotine 14 mg 07/19/25 21:00 07/20/25 08:52
Nicotine 14 Mg Patch TRANSDERM 08/16/25 20:59 14 mg
DAILY JB Administration
Pantoprazole Sodium 40 mg 07/20/25 08:00 07/20/25 08:52
Pantoprazole 40 Mg Delayed Release Tablet PO 08/17/25 07:59 40 mg
DAILY JB Administration
Polyethylene Glycol 17 grams 07/19/25 20:49
Polyethylene Glycol Powder 17 Grams Packet PO 08/16/25 20:48
DAILYPRN PRN
constipation
Rosuvastatin Calcium 20 mg 07/20/25 18:00
Rosuvastatin (Crestor) 20 Mg Tablet PO 08/17/25 17:59
QPM JB
Senna/Docusate Sodium 2 tablet 07/19/25 20:49
Docusate W/Senna (Aimee-Colace) Tablet PO 08/16/25 20:48
BIDPRN PRN
constipation
Sodium Chloride 0 ml 07/19/25 20:49
Sodium Chloride 0.9% (Preservative Free) 10 Ml Vial IV 08/16/25 20:48
PRN PRN
To dilute IV Ativan
Protocol
Sodium Chloride 0 flush 07/19/25 21:00
Sodium Chloride 0.9% (Flush) Syringe IV 08/16/25 20:59
PER PROTOCOL JB
Review of Systems
-
12 point review of systems fails to elicit additional complaints other than those reviewed in HPI.
Physical Exam
-
Physical Exam
General: Alert and appropriate
HEENT: NormoCephalic and Atraumatic no evidence of ocular muscle disturbance
Respiratory: Clear
Cardiac: S1/S2 and Regular Rhythm
GI: Soft, Non Tender, Non Distended and Normal Bowel Sounds
Skin: Warm and Dry
Neuro: Nonfocal
Psych: Calm
Labs
Lab Results
WBC 4.3 10^3/uL (4.8-10.8) L 07/20/25 08:36
RBC 1.92 10^6/uL (4.20-5.40) L 07/20/25 08:36
Hgb 6.0 g/dL (12.0-16.0) L* D 07/20/25 08:36
Hct 18.8 % (37.0-47.0) L* 07/20/25 08:36
MCV 97.9 fL (81.0-99.0) 07/20/25 08:36
MCH 31.3 pg (27.0-31.0) H 07/20/25 08:36
MCHC 31.9 g/dL (33.0-37.0) L 07/20/25 08:36
RDW 23.5 % (11.5-14.5) H 07/20/25 08:36
Plt Count 90 10^3/uL (130-400) L 07/20/25 08:36
MPV 11.9 fL (7.4-10.4) H 07/20/25 08:36
Abs Immat Gran (auto) 0.0 10^3/uL (0-0.05) 07/19/25 12:37
Absolute Neuts (auto) 3.4 10^3/uL (1.4-6.5) 07/19/25 12:37
Absolute Lymphs (auto) 1.2 10^3/uL (1.2-3.4) 07/19/25 12:37
Absolute Monos (auto) 0.3 10^3/uL (0.1-0.6) 07/19/25 12:37
Absolute Eos (auto) 0.1 10^3/uL (0-0.7) 07/19/25 12:37
Absolute Basos (auto) 0.0 10^3/uL (0-0.2) 07/19/25 12:37
Immature Gran % 0.6 % (0-0.5) H 07/19/25 12:37
Neutrophils % 68.1 % (42.2-75.2) 07/19/25 12:37
Lymphocytes % 24.2 % (20.5-51.1) 07/19/25 12:37
Monocytes % 5.5 % (1.7-9.3) 07/19/25 12:37
Eosinophils % 1.0 % (0-6) 07/19/25 12:37
Basophils % 0.6 % (0-2) 07/19/25 12:37
Creatinine 0.7 mg/dL (0.6-1.0) 07/20/25 05:07
Vital Signs
Vital Signs
Temp Pulse Resp BP Pulse Ox
98.7 F 103 18 134/83 99
07/20/25 07:31 07/20/25 07:31 07/20/25 07:31 07/20/25 07:31 07/20/25 07:31
[2025-07-20] MEDS: IMODIUM 2 MG PO (12:00)
[2025-07-20] MEDS: NSS 1000 IV (12:46)
[2025-07-20] MEDS: THIAMINE INJECTION 255 MG IV ×2 (12:47→22:20)
[2025-07-20 13:02] LABS: Reticulocyte Count 2.4 % (0.4-2.8)
--- NOTE | 2025-07-20 13:18 | FALL ---
Description of Fall:
RN and student nurse assisting pt from commode to bed when pt became weak and lowered herself to the floor. Pt did not hit her head and was able to be assisted from the floor to the bed by nurse and student nurse.
Injuries Noted:
none
Action Taken:
MD notified
Name of Provider Notified: Dr. Grace
--- NOTE | 2025-07-20 13:26 | W.CON.NEPH ---
Consultation
-
Date/Time Consultation Requested: July 19, 2025 at 1600 hrs.
Date/Time Consultation Performed: July 20, 2025 at 10 AM
Requesting Provider: Hilda Stevens
Performing Provider: Dr. Rueda
Reason for Consultation: Hyponatremia
Medical History
-
Chief Complaint: Hyponatremia
History of Present Illness:
69-year-old female with past medical history of alcohol abuse disorder, chronic hyponatremia, anemia, essential hypertension, peripheral arterial disease s/p stent in the right lower extremity, abdominal aortic aneurysm,, anxiety/depression, left
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 Presents to the ER reporting dizziness. She called EMS and they found her laying down in stools
She drinks a pint of vodka per day she uses
Renal consultation for sodium of 128 and hypokalemia
Also found to have a hemoglobin of 8 with IV fluids went down to 6
Past Medical History
Past medical history of alcohol abuse disorder, chronic hyponatremia, anemia, essential hypertension, peripheral arterial disease s/p stent in the right lower extremity, abdominal aortic aneurysm,, anxiety/depression, left subclavian artery stenosis
s/p carotid to subclavian bypass graft, osteomyelitis of left index finger s/p amputation of distal tip of left index finger. Alcohol abuse
Social History
Tobacco: Smoker
Alcohol: Daily
Family History
Family History: Not Pertinent
Allergies / Home Medications
Allergy/AdvReac Type Severity Reaction Status Date / Time
No Known Allergies Allergy Verified 07/19/25 12:28
�Medication �Instructions �Recorded �Confirmed �Type
No Meds [No Current Medications] 07/19/25 07/19/25 History
Review of Systems
-
No nausea or vomiting
All other systems: Negative unless noted
Physical Exam
Vital Signs
Vital Signs
Temp Pulse Resp BP Pulse Ox
97.7 F 84 14 96/54 98
07/20/25 11:43 07/20/25 11:43 07/20/25 11:43 07/20/25 11:43 07/20/25 11:43
Lab Results
WBC 4.3 10^3/uL (4.8-10.8) L 07/20/25 08:36
RBC 1.92 10^6/uL (4.20-5.40) L 07/20/25 08:36
Hgb 6.0 g/dL (12.0-16.0) L* D 07/20/25 08:36
Hct 18.8 % (37.0-47.0) L* 07/20/25 08:36
Plt Count 90 10^3/uL (130-400) L 07/20/25 08:36
Sodium 130 mmol/L (135-145) L 07/20/25 05:07
Potassium 3.3 mmol/L (3.5-5.1) L 07/20/25 05:07
Chloride 93 mmol/L (98-107) L 07/20/25 05:07
Carbon Dioxide 26 mmol/L (22-30) 07/20/25 05:07
BUN 22 mg/dl (7-17) H 07/20/25 05:07
Creatinine 0.7 mg/dL (0.6-1.0) 07/20/25 05:07
eGFR > 60.00 07/20/25 05:07
Glucose 81 mg/dl (70-99) 07/20/25 05:07
Calcium 7.6 mg/dl (8.4-10.2) L 07/20/25 05:07
Albumin 4.0 g/dl (3.5-5.0) 07/19/25 13:04
Physical Exam
General no acute distress
HEENT no cephalic atraumatic extraocular muscle intact no scleral icterus no JVD neck supple
lungs clear to auscultation bilateral
heart regular S1-S2 positive
abdomen soft nontender positive bowel sounds
extremities no edema pulses present bilateral
Neurologically nonfocal alert and oriented x 3
Skin no lesions no abrasions no petechiae
Psych normal affect no bizarre behavior
Data Reviewed
-
CT Scan: Image Personally Visualized and interpreted
Labs: Labs Reviewed by me and Discussed with Patient
Assessment/Plan
-
69-year-old female with past medical history of alcohol abuse disorder, chronic hyponatremia, anemia, essential hypertension, peripheral arterial disease s/p stent in the right lower extremity, abdominal aortic aneurysm,, anxiety/depression, left
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 Presents to the ER reporting dizziness. She called EMS and they found her laying down in stools
She drinks a pint of vodka per day she uses
Renal consultation for sodium of 128 and hypokalemia
Also found to have a hemoglobin of 8 with IV fluids went down to 6
Impression.
Hyponatremia secondary to hypovolemia with low urine sodium and decreased effective arterial blood volume increasing ADH in the setting of anemia.
Anemia hemoglobin of 6.
Alcohol abuse.
Plan.
Agree with IV fluids for now transfuse PRBC.
Fluid restrict obviously.
Withdrawal prophylaxis.
Thiamine/folic acid.
AM labs
--- NOTE | 2025-07-20 13:32 | CON.GI ---
Addendum entered and electronically signed by Ny Hanna Do, MD 07/20/25 16:15:
I saw and examined the patient.
The INTERNAL MEDICINE NURSE PRACTITIONER's note was reviewed and I agree with the note.
Comment: Melissa is a 69yo W with h/o alcoholism, pancreatic cyst and anxiety who was brought to ER for dizziness and down lying in s tools. She drinks heavily and has had recent diarrhea 2 days prior to admission. She denies blood in stools.
She has had chronic anemia in past [facility] EGD/colon 2023 with small AVMs that were cauterized in colon. She was to have repeat Cscope with EMR with Dr Fritz but has not followed up. She also due for MRI for follow up of pancreatic cyst. Denies abd
pain today. Vitals stable exam appears pale older than stated age. conversant deconditioned. Labs reviewed pancytopenia MCV 97 B12 304
Impression
- Pancytopenia
- Heme + brown stool
- Diarrhea
- ETOH abuse
- H/o pancreatic cyst
- H/o colonic AVM
- Anxiety
Recommendations
- Agree with transfusion
- Stool studies
- Appreciate hematology recs.
- Not iron deficient
- ETOH cessation as that can contribute to pancytopenia
- Regular diet
- C/w PPI
- SW consult discussed with oncology social work as pt open to rehab
- Will need close OP with Dr Santana she is overdue for MRI follow up and Cscope with Dr Fritz
Will follow with you
Original Note:
Consultation
-
Date/Time Consultation Requested: 07/20/25 1244
Date/Time Consultation Performed: 07/20/25 1330
Requesting Provider: Erin Grace MD
Performing Provider: ARELY Sifuentes, Ny Fernandez MD
Reason for Consultation: anemia/diarrhea
Medical History
Chief Complaint / HPI
Chief Complaint: weaknss
History of Present Illness:
Pt is a 69-year-old female with past medical history of anxiety, depression, hypertension, Raynaud's, DDD of the lumbar spine, hyperlipidemia, finger amputation with osteo, alcoholism, AAA, subclavian/carotid bypass, hyponatremia, cystic
pancreatic lesion(follow up not completed), colon polyps - TA and HP polyp ( including appendiceal polyp due to for resection in 2023 not completed) presents with dizziness and was found down at home lying in stools and reported daily ETOH use
(1/2-1 pint daily) prior to admission. She admits to chronic ETOH use with prior rehab stay and DUI years ago. Asked to see as noted with pancytopenia on admission. In review with nursing also noted with complaints of diarrhea. Diarrhea
started several days prior to admission and noted lying on stool by EMS with persistent diarrhea today after CT contrast.
In review with patient she otherwise denies dysphagia, GERD, nausea, vomiting, abdominal pain, constipation, blood or black in stools. She denies NSAID or anticoagulation use. Hx EGD with Dr. Santana on 10/26/2023 found to have white
nummular lesions in the esophagus, nonobstructing Schatzki's ring, small hiatal hernia. Hematin in the stomach. Erythematous mucosa in the gastric body and antrum. Colonoscopy: 01/2024 Dr. Breaux normal ileum, 4mm polyp appendiceal orifice not
resected, 2 non bleeding colonic angiodysplastic lesions treated monopolar probe, 4 mm polyp AC - TA, 2 diminutive polyps sigmoid- HP, non bleeding IH. MRI/MRCP on 10/02/23, which showed 2.0 cm cystic lesion in the uncinate process without
suspicious features, likely a peudocyst or side-branch IPMN. Recommend MRI/MRCP vs. EUS in 6 months and had not completed. On admission labs notable for pancytopenia with hbg drop to 6 after admission, electrolyte imbalance with K down to 128, Na
3.3, Mag 1.2, bili 2.1, AST 84, ALT 30, alk phos 130. CT on admission No intestinal obstruction.Marked calcific atherosclerotic changes of abdominal aorta with mid to distal aneurysmal dilatation measuring 4.6 x 4.9 cm as compared to 3.9 x 3.[address] study September 08, 2023.Small cystic lesion seen in the region of the uncinate process of the pancreas on prior CT, also seen on prior MRI October 02, 2023 not as well appreciated at this time without prior follow up completed. Mild
hepatomegaly with diffuse fatty liver.
Past Medical History
Past Medical History: Psychiatric (anxiety/depression) and Other (raynaud's, ETOH abuse, perianal abscess, anal fistula, AAA, DDD, cystic pancreatic lesion)
Past Surgical History: Gynecological (left breast mass lumpectomy) and Orthopedic (left ankle fracture , foot surgery , finger amputation with prior osteo, carotid to Subclavian bypass 2024 )
Social History
Tobacco: Smoker (1-6 cig per day)
Alcohol: Daily (1/2- 1 pint daily)
Drug: None
Living: Alone
Employment: Retired
Family History
Family History: Other (sister and father with colon polyps)
Allergies / Home Medications
Allergy/AdvReac Type Severity Reaction Status Date / Time
No Known Allergies Allergy Verified 07/19/25 12:28
�Medication �Instructions �Recorded
No Meds [No Current Medications] 07/19/25
Review of Systems
-
History Source: Patient
Constitutional: Reports Weight Loss and Other (difficulty with standing )
EENT: Reports No Symptoms
Respiratory: Reports No Symptoms
Cardiac: Reports No Symptoms
Abdomen/GI: Reports Diarrhea
: Reports No Symptoms
Neurological: Reports Weakness
Endocrine: Reports No Symptoms
Hematologic/Lymphatic: Reports No Symptoms
Vital Signs
Temp Pulse Resp BP Pulse Ox
97.7 F 84 14 96/54 98
07/20/25 11:43 07/20/25 11:43 07/20/25 11:43 07/20/25 11:43 07/20/25 11:43
Physical Exam
Exam
General: Other (thin appearing, no acute distress )
HEENT: Normocephalic and Anicteric
Respiratory: Clear
Cardiac: Regular Rhythm
GI: Soft, Non Distended and Tender
Rectal: Other (no impaction, liquid brown heme + stool -- assist with nursing for exam while getting on commode )
Musculoskeletal: No Clubbing and No Cyanosis
Skin: Warm and Dry
Neuro: Awake, Alert and AO x 3
Psych: Calm
Results
WBC 4.3 10^3/uL (4.8-10.8) L 07/20/25 08:36
Hgb 6.0 g/dL (12.0-16.0) L* D 07/20/25 08:36
Hct 18.8 % (37.0-47.0) L* 07/20/25 08:36
MCV 97.9 fL (81.0-99.0) 07/20/25 08:36
Plt Count 90 10^3/uL (130-400) L 07/20/25 08:36
Absolute Neuts (auto) 3.4 10^3/uL (1.4-6.5) 07/19/25 12:37
Sodium 130 mmol/L (135-145) L 07/20/25 05:07
Potassium 3.3 mmol/L (3.5-5.1) L 07/20/25 05:07
Chloride 93 mmol/L (98-107) L 07/20/25 05:07
Carbon Dioxide 26 mmol/L (22-30) 07/20/25 05:07
BUN 22 mg/dl (7-17) H 07/20/25 05:07
Creatinine 0.7 mg/dL (0.6-1.0) 07/20/25 05:07
Calcium 7.6 mg/dl (8.4-10.2) L 07/20/25 05:07
Total Bilirubin 2.1 mg/dl (0.2-1.3) H 07/19/25 13:04
AST 84 U/L (14-36) H 07/19/25 13:04
ALT 30 U/L (0-35) 07/19/25 13:04
Alkaline Phosphatase 130 U/L (38-126) H 07/19/25 13:04
Diagnostic Image Results:
07/20/25 CT Abd/pelvis W Iv Cont
No intestinal obstruction.
Marked calcific atherosclerotic changes of abdominal aorta with mid to distal aneurysmal dilatation measuring 4.6 x 4.9 cm as compared to 3.9 x 3.[address] study September 08, 2023.
Small cystic lesion seen in the region of the uncinate process of the pancreas on prior CT, also seen on prior MRI October 02, 2023 not as well appreciated at this time. At time of prior MRI, follow-up MRI in 6 months is recommended. It does not
appear that a follow-up MRI has been obtained in this facility.
Mild hepatomegaly with diffuse fatty liver.
10/02/24 MR Abdomen W/o & W Contrast
2.0 cm cystic lesion in the uncinate process without suspicious features, likely a pseudocyst or side branch intraductal papillary mucinous neoplasm. Recommend follow-up MRI/MRCP abdomen without and with gadolinium contrast in 6 months (versus
EUS/FNA) per ACR criteria.
Prior GI Procedures:
EGD: 10/2023 [facility] - White nummular lesions in esophageal mucosa.
Biopsied.
- Non-obstructing Schatzki ring.
- Small hiatal hernia.
- Hematin (altered blood/spbwyd-rbence-emaq material)
in the stomach.
- Erythematous mucosa in the gastric body and antrum.
Biopsied.
- Normal examined duodenum.
Colonoscopy: 01/2024 breaux
- The examined portion of the ileum was normal.
- One 4 mm polyp at the appendiceal orifice.
- Two non-bleeding colonic angiodysplastic lesions.
Treated with a monopolar probe.
- One 4 mm polyp in the ascending colon, removed with
a cold snare. Complete resection. Polyp tissue not
retrieved.
- Two diminutive polyps in the sigmoid colon, removed
with a jumbo cold forceps. Resected and retrieved.
- Non-bleeding internal hemorrhoids.
Assessment / Plan
-
Pt is a 69-year-old female with past medical history of anxiety, depression, hypertension, Raynaud's, DDD of the lumbar spine, hyperlipidemia, finger amputation with osteo, alcoholism, AAA, subclavian/carotid bypass, hyponatremia, cystic
pancreatic lesion(follow up not completed), colon polyps - TA and HP polyp ( including appendiceal polyp due to for resection in 2023 not completed) presents with dizziness and was found down at home lying in stools and reported daily ETOH use
(1/2-1 pint daily) prior to admission. She admits to chronic ETOH use with prior rehab stay and DUI years ago. Asked to see as noted with pancytopenia on admission. In review with nursing also noted with complaints of diarrhea. Diarrhea
started several days prior to admission and noted lying on stool by EMS with persistent diarrhea today after CT contrast.
prior GI work up :
EGD with Dr. Santana on 10/26/2023 found to have white nummular lesions in the esophagus, nonobstructing Schatzki's ring, small hiatal hernia. Hematin in the stomach. Erythematous mucosa in the gastric body and antrum.
Colonoscopy: 01/2024 Dr. Breaux normal ileum, 4mm polyp appendiceal orifice not resected, 2 non bleeding colonic angiodysplastic lesions treated monopolar probe, 4 mm polyp AC - TA, 2 diminutive polyps sigmoid- HP, non bleeding IH. Due follow up
with Dr. Fritz for appendiceal polyp removal not completed
MRI/MRCP on 10/02/23, which showed 2.0 cm cystic lesion in the uncinate process without suspicious features, likely a peudocyst or side-branch IPMN. Recommend MRI/MRCP vs. EUS in 6 months and had not completed.
-anemia with pancytopenia (iron 129 ferritin 294)
-diarrhea
-brown heme + stool
-daily ETOH use
-CT with Hepatomegaly/fatty liver
-electrolyte imbalance(hyponatremia, hypomagnesemia, hypokalemia)
-weakness/ambulatory dysfunction
-colon polyps -overdue for repeat for resection
-panc cystic lesion - overdue for followup
-ETOH Abuse
other medical problems:
anxiety, depression, hypertension, Raynaud's, DDD of the lumbar spine, hyperlipidemia, finger amputation with osteo, alcoholism, AAA, subclavian/carotid bypass
PLAN:
Etiology of anemia unclear with continued daily ETOH use would be concerned for bone marrow suppression
agree with transfusion
trend hbg
no signs of aggressive GI bleeding
pt will need eventual colonoscopy as overdue for follow up for polyps-- will need to be with Dr. Fritz
pt also with diarrhea - check stools studies -per pt started prior to admission and was noted lying in stool prior to admission -- may be worse today with oral contrast for CT, also discussed with pt may be ETOH related
s/p dose on Imodium given this am
correct electrolytes per medical team
pt also overdue for follow up for pancreatic lesion on MRI in 2023- will need follow upp
cont PPI
cont thiamine and folate
monitor for withdrawal
counseled on quitting- reviewed with social work for resources
diet as tolerated
pt admits to lost in follow up from GI with other issue with carotid and testing not rescheduled
updated nursing staff
-
-
Thank you for consultation and allowing me to participate in the patient's care. Please call the supervisor dehydrogenation GI physician during the after hours with any questions or concerns.
[2025-07-20 14:34] LABS: LDH 320 U/L (120-246)
[2025-07-20 14:40] LABS: Folate 8.0 ng/ml (2.76-20); Vitamin B12 304 pg/ml (239-931)
[2025-07-20] MEDS: CRESTOR 20 MG PO (17:31)
[2025-07-21] VITALS (10 sets, daily range): BP systolic 99–152; BP diastolic 50–76; PULSE 91–101; O2SAT 98
--- NOTE | 2025-07-21 05:55 | W.PN.GI.CBS2 ---
Today's Communication / Plan
-
Diarrhea improving without evidence of overt GI bleeding, suspect secondary to alcohol as well as her pancytopenia. Recommend colonoscopy as outpatient given known colon polyp at AO with Dr. Fritz. Recommend strict cessation of EtOH and would benefit
from rehab. Rest of care as outlined below. GI will sign-off, please re-contact with any questions or concerns.
Assessment / Plan
-
Ms. Day is a 69yo W with h/o alcoholism, pancreatic cyst and anxiety who was brought to ER for dizziness and down lying in s tools. She drinks heavily and has had recent diarrhea 2 days prior to admission. She denies blood in stools. She has
had chronic anemia in past wtih EGD/colon 2023 with small AVMs that were cauterized in colon. She was to have repeat Cscope with EMR with Dr Fritz but has not followed up. She also due for MRI for follow up of pancreatic cyst. Denies abd pain
today. Vitals stable exam appears pale older than stated age. conversant deconditioned. Labs reviewed pancytopenia MCV 97 B12 304. Prior GI w/u notable for: EGD with Dr. Santana on 10/26/2023 found to have white nummular lesions in the
esophagus, nonobstructing Schatzki's ring, small hiatal hernia. Hematin in the stomach. Erythematous mucosa in the gastric body and antrum.
Colonoscopy: 01/2024 Dr. Breaux normal ileum, 4mm polyp appendiceal orifice not resected, 2 non bleeding colonic angiodysplastic lesions treated monopolar probe, 4 mm polyp AC - TA, 2 diminutive polyps sigmoid- HP, non bleeding IH. Due follow up
with Dr. Fritz for appendiceal polyp removal not completed. Currently improving and suspect her previous looser stools all secondary to alcohol and without any signs of overt GI bleeding since admission. Stool studies thus far negative and (-) C Diff.
Transfused 1 uPRBC on 07/20/25 for Hgb 6 with over-correction with Hgb 7.4 this AM without overt GI bleeding.
#Panctyopenia
#Heme (+) Brown Stools
#Acute Diarrhea
#EtOH Abuse #AUD
#Hx of Pancreatic Cystic Lesion
#Hx of Colonic AVMs (s/p APC)
#Hx of Appendiceal Orifice Polyp
Recommendations:
- Continue regular diet as tolerated
- Trend Hgb with serial CBC, transfuse as needed
- Empiric PPI once daily
- As without any signs of overt GI bleeding, defer any plans for repeat scopes at this time
- Still would benefit from a repeat colonoscopy as outpatient (previously advised) with Dr. Fritz given concern for polyp at AO (not removed)
- May use Imodium as needed for looser stools/diarrhea as CDI is negative although still suspect from previous alcohol. Would defer further w/u at this time
- Encouraged EtOH cessation at length this AM, would benefit from EtOH rehab as outpatient
- Hematology following, appreciate recs regarding pancytopenia
- Needs close outpatient f/u with Dr. Santana after discharge and for her known pancreatic cyst as overdue for MRI for surveillance
- Rest of care as per primary team
Discussed with primary internal medicine team. GI will sign-off, please re-contact with any questions or concerns.
Subjective
Subjective
Date of Service: July 21, 2025
- Transfused 1 uPRBC on 07/20/25 for Hgb 6 with over-correction with Hgb 7.4 this AM
- Stool studies thus far negative and (-) C Diff
- No acute events overnight, having brown stools without overt GI bleeding
Reports feeling better this AM without any further diarrhea and continues to deny any blood stools or abdominal pain. Had two looser stools yesterday afternoon. No nausea, vomiting, fevers/chills or other constitutional symptoms.
Objective
Data Reviewed
Laboratory Data:
Laboratory Results
Magnesium Cancelled 07/20/25 07:00
Total Bilirubin 2.1 mg/dl (0.2-1.3) H 07/19/25 13:04
AST 84 U/L (14-36) H 07/19/25 13:04
ALT 30 U/L (0-35) 07/19/25 13:04
Alkaline Phosphatase 130 U/L (38-126) H 07/19/25 13:04
Vital Signs and I&O:
Vital Signs
Temp Pulse Resp BP Pulse Ox
98.7 F 84 14 118/67 98
07/20/25 23:13 07/20/25 23:13 07/20/25 23:13 07/20/25 23:13 07/20/25 23:13
I&O
07/19/25 07/20/25 07/21/25
06:59 06:59 06:59
Intake Total 480 / 480 1495 / 1495
Balance 480 / 480 1495 / 1495
Physical Exam
Physical Exam
HEENT: Anicteric and Moist mucous membranes
Pulmonary: Other (Normal WOB on room air)
GI: Soft, Non Distended and Non Tender
Extremities: Warm
Neuro: Non Focal
[2025-07-21 06:00] LABS: INR 1.02; PT 13.9 Sec (11.4-14.6)
[2025-07-21 06:08] LABS: Hematocrit 21.5 % (37.0-47.0); Hemoglobin 7.4 g/dL (12.0-16.0); Mean Corp Hgb Conc. 34.4 g/dL (33.0-37.0); Mean Corpuscular Volume 90.7 fL (81.0-99.0); Platelet Count 61 10^3/uL (130-400); Red Cell Dist. Width 21.8 % (11.5-14.5)
[2025-07-21] MEDS: NSS 1000 IV (06:09)
[2025-07-21 06:23] LABS: ALT (SGPT) 28 U/L (0-35); AST (SGOT) 79 U/L (14-36); Albumin 2.6 g/dl (3.5-5.0); Alkaline Phosphatase 109 U/L (38-126); Blood Urea Nitrogen 11 mg/dl (7-17); Calcium 7.4 mg/dl (8.4-10.2); Carbon Dioxide 26 mmol/L (22-30); Chloride 101 mmol/L (98-107); Estimated Creatinine Clearance 67 ml/min; Glucose 91 mg/dl (70-99); Potassium 3.2 mmol/L (3.5-5.1); Sodium 130 mmol/L (135-145); Total Protein 4.8 g/dl (6.3-8.2); eGFR > 60.00
[2025-07-21] MEDS: FOLVITE 1 MG PO (08:06)
[2025-07-21] MEDS: PROTONIX 40 MG PO (08:06)
[2025-07-21] MEDS: HEPARIN 5000 UNITS SC ×3 (08:06→23:19)
[2025-07-21] MEDS: THIAMINE INJECTION 255 MG IV ×2 (08:07→20:47)
[2025-07-21] MEDS: NICODERM TRANSDERMAL 14 MG TRANSDERM (08:43)
--- NOTE | 2025-07-21 10:58 | W.PN.HOSP.TC ---
Addendum entered and electronically signed by Erin Grace MD 07/21/25 11:10:
Addendum
Hypokalemia, replaced
Hypomagnesemia, replace
End
Original Note:
Today's Communication/Plan
-
RBCs another unit for today
GI: no intervention
f/w hematology recommendations
Meclizine
Assessment / Plan
Assessment / Plan
Physical Exam
-
General: No Apparent Distress, Comfortable and Conversant
HEENT: Normocephalic, Atraumatic
Respiratory: Clear to Auscultation and Non Labored Respirations
Cardiac: Regular Rhythm and S1/S2; Negative Murmur
GI: Soft, Nontender and Nondistended
Musculoskeletal: no edema
Skin: Warm
Neuro: Awake, Alert, Oriented, No Motor Deficits and No Sensory Deficits
Psych: Calm and Intact Judgement/Insight
# Alcohol use disorder
No sign of DT
She reports weakness and dizziness
Currently, no tremors, no agitation, lucid and pleasant.
- Cachexia with moderate protein caloric malnutrition, BMI 18-19.
�CT head: No acute intracranial abnormality identified.
�c/w high dose thiamine
Started folate
-Started MSAS protocol with lorazepam
�Monitor mental status
Consulted bilingual patient support caseworker, PT/OT
# Dizziness
Acute on chronic
c/w Meclizine
CT head no acute findings.
# Abdominal aortic aneurysm
No abdominal pain or tenderness
CT showed: Marked calcific atherosclerotic changes of abdominal aorta with mid to distal aneurysmal dilatation measuring 4.6 x 4.9 cm as compared to 3.9 x 3.[address] study September 08, 2023. Will need OP follow up with vascular.
# Bilateral carotid artery stenosis
# Hypovolemic hyponatremia (likely due to dehydration/hypochloremic contraction alkalosis)
-TSH normal in past
-Sodium remained at 128, improved to 130
Low serum osmolality,
Urine osmolality and sodium are pending
can stop IVF
c/w oral fluid restriction
-Monitor BMP
Appreciate nephrology help-
#Acute on Chronic normocytic anemia, suspect BM suppression due to ETOH abuse.
Hx of Iron deficiency anemia due to chronic blood loss
No history of active bleeding. Stools look normal color in hospital. No rectal bleeding. No melena. No nausea or vomiting
Normal iron panel
GI evaluated the pt, no need for Inpt work-up with lack of active bleeding.
Consulted hematology, Retic count is normal.
Consent signed, one unit of RBC 07/20
Another unit 07/21
# Raynaud phenomenon without gangrene
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
CT showed Mild hepatomegaly with diffuse fatty liver.
No active bleeding
# Hypokalemia, replace
# Essential HTN
-BP stable off meds
# Transaminitis with AST > ALT, Likely due to alcoholic hepatitis
-Hepatitis panel negative in recent past.
CT showed Mild hepatomegaly with diffuse fatty liver.
No abdominal pain
# Current smoker/ Tobacco abuse.
-Continue nicotine
#Anxiety/Depression
Mood is cooperative.
DVT ppx: SQ Heparin
Total time spent to see the patient, examined the patient, review data and lab result, discuss treatment plan with patient, nursing staff, hematology, around 55 minutes
Anticipated Discharge: 24 - 48 hours
Subjective/Interval History
-
Date of Service: July 21, 2025
Less dizzy
No diarrhea
Objective Data
-
Labs:
Laboratory Results
07/21/25
05:09
WBC 3.0 L
Hgb 7.4 L D
Hct 21.5 L
Plt Count 61 L D
PT 13.9
INR 1.02
Sodium 130 L
Potassium 3.2 L
Chloride 101
Carbon Dioxide 26
BUN 11
Creatinine 0.7
Glucose 91
Calcium 7.4 L
Total Bilirubin 1.8 H
AST 79 H
ALT 28
Alkaline Phosphatase 109
Vital Signs:
Vital Signs
Temp Pulse Resp BP Pulse Ox
99.1 F 83 16 131/69 100
07/21/25 07:35 07/21/25 07:35 07/21/25 07:35 07/21/25 07:35 07/21/25 07:35
I&O
07/20/25 07/21/25 07/22/25
06:59 06:59 06:59
Intake Total 480 / 480 1495 / 1495
Balance 480 / 480 1495 / 1495
[2025-07-21] MEDS: MAGNESIUM SULFATE 100 IV (11:20)
[2025-07-21] MEDS: ANTIVERT 25 MG PO ×2 (11:23→20:46)
--- NOTE | 2025-07-21 13:24 | W.PN.NEPH.PH ---
Today's Communication / Plan
-
follow labs with FR
Assessment/Plan
-
69-year-old female with past medical history of alcohol abuse disorder, chronic hyponatremia, anemia, essential hypertension, peripheral arterial disease s/p stent in the right lower extremity, abdominal aortic aneurysm,, anxiety/depression, left
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 Presents to the ER reporting dizziness. She called EMS and they found her laying down in stools
She drinks a pint of vodka per day she uses
Renal consultation for sodium of 128 and hypokalemia
Also found to have a hemoglobin of 8 with IV fluids went down to 6
Impression.
Hyponatremia secondary to hypovolemia with low urine sodium and decreased effective arterial blood volume increasing ADH in the setting of anemia.
Anemia hemoglobin of 6.
Alcohol abuse.
Plan.
sodium stable at 130
replace k and mg prn
hypoalbuminemia-check U PCR
ok to stop IVF and monitor with FR
monitor BP, soft currently
Withdrawal prophylaxis.
follow h/h, plan another unit today per primary
-
-
Date of Service: July 21, 2025
CC / HPI / ROS
-
Chief Complaint:
Hypoantremia
History of Present Illness:
sodium stable at 130
Bp soft
k low 3.2
Review of Systems:
no n/v
no cp or sob
dizziness+
Labs
-
Labs:
WBC 3.0 10^3/uL (4.8-10.8) L 07/21/25 05:09
RBC 2.37 10^6/uL (4.20-5.40) L 07/21/25 05:09
Hgb 7.4 g/dL (12.0-16.0) L D 07/21/25 05:09
Hct 21.5 % (37.0-47.0) L 07/21/25 05:09
Plt Count 61 10^3/uL (130-400) L D 07/21/25 05:09
Sodium 130 mmol/L (135-145) L 07/21/25 05:09
Potassium 3.2 mmol/L (3.5-5.1) L 07/21/25 05:09
Chloride 101 mmol/L (98-107) 07/21/25 05:09
Carbon Dioxide 26 mmol/L (22-30) 07/21/25 05:09
BUN 11 mg/dl (7-17) 07/21/25 05:09
Creatinine 0.7 mg/dL (0.6-1.0) 07/21/25 05:09
eGFR > 60.00 07/21/25 05:09
Glucose 91 mg/dl (70-99) 07/21/25 05:09
Calcium 7.4 mg/dl (8.4-10.2) L 07/21/25 05:09
Albumin 2.6 g/dl (3.5-5.0) L 07/21/25 05:09
Physical Exam
-
Vital Signs:
Vital Signs
Temp Pulse Resp BP Pulse Ox
99.1 F 85 17 99/50 97
07/21/25 11:40 07/21/25 11:40 07/21/25 11:40 07/21/25 11:40 07/21/25 11:40
Cardiovascular:: Regular rate and rhythm
Respiratory:: Bilateral: CTA
Lung Excursion:: Normal
Abdomen:: Nontender and Soft
Extremity Edema:: None: Bilateral:
Kimball Catheter: No
[2025-07-21] MEDS: KCL 10 MEQ PO ×2 (13:46→20:53)
[2025-07-21] MEDS: KCL 20 MEQ PO (13:52)
[2025-07-21 13:57] LABS: Magnesium 1.1 mg/dl (1.6-2.3)
--- NOTE | 2025-07-21 14:43 | CM ---
Late note from 07/20/2025:
Pt declined speaking with [facility] today, but does want to stop drinking alcohol.
CM to follow up in AM. Pt lives alone in a twin home with 3 entry steps. Main level has a kitchen, although pt does not cook. All of her meals are delivered, typically fast food. Family lives a distance away, so she is mostly alone.
--- NOTE | 2025-07-21 14:47 | CM ---
Pt had a fall yesterday. PT and OT evals on hold currently. CM to follow for PT/OT notes to determine options for discharge.
Pt declined speaking with [facility] yesterday, but does acknowledge that she wants to stop drinking alcohol. Consider [facility] consult despite patient's initial reservations about speaking with someone.
[2025-07-21] MEDS: CRESTOR 20 MG PO (17:56)
[2025-07-22 03:00] VITALS: BP 126/70
[2025-07-22 07:00] VITALS: BP 146/91
[2025-07-22] MEDS: THIAMINE INJECTION 255 MG IV (07:41)
[2025-07-22] MEDS: NICODERM TRANSDERMAL 14 MG TRANSDERM (07:48)
[2025-07-22] MEDS: PROTONIX 40 MG PO (07:48)
[2025-07-22] MEDS: ANTIVERT 25 MG PO ×2 (07:49→20:40)
[2025-07-22] MEDS: FOLVITE 1 MG PO (07:49)
[2025-07-22] MEDS: HEPARIN 5000 UNITS SC ×2 (07:49→17:40)
[2025-07-22] MEDS: KCL 20 MEQ PO ×2 (07:49→20:40)
[2025-07-22 08:08] LABS: Hematocrit 28.4 % (37.0-47.0); Hemoglobin 9.4 g/dL (12.0-16.0); Mean Corp Hgb Conc. 33.1 g/dL (33.0-37.0); Mean Corpuscular Volume 91.3 fL (81.0-99.0); Platelet Count 78 10^3/uL (130-400); Red Cell Dist. Width 21.3 % (11.5-14.5)
[2025-07-22 08:24] LABS: Blood Urea Nitrogen 6 mg/dl (7-17); Calcium 7.9 mg/dl (8.4-10.2); Carbon Dioxide 27 mmol/L (22-30); Chloride 99 mmol/L (98-107); Estimated Creatinine Clearance 67 ml/min; Glucose 108 mg/dl (70-99); Potassium 3.4 mmol/L (3.5-5.1); Sodium 129 mmol/L (135-145); eGFR > 60.00
[2025-07-22 09:30] VITALS: BP 123/66; BP 130/80; BP 146/88
--- NOTE | 2025-07-22 09:43 | W.PN.HOSP.TC ---
Today's Communication/Plan
-
family meeting
Assessment / Plan
Assessment / Plan
Physical Exam
-
General: No Apparent Distress, Comfortable and Conversant
HEENT: Normocephalic, Atraumatic
Respiratory: Clear to Auscultation and Non Labored Respirations
Cardiac: Regular Rhythm and S1/S2; Negative Murmur
GI: Soft, Nontender and Nondistended
Musculoskeletal: no edema
Skin: Warm
Neuro: Awake, Alert, Oriented, No Motor Deficits and No Sensory Deficits
Psych: Calm and Intact Judgement/Insight
# Alcohol use disorder
No sign of DT
She reports weakness and dizziness
Currently, no tremors, no agitation, lucid and pleasant.
- Cachexia with moderate protein caloric malnutrition, BMI 18-19.
�CT head: No acute intracranial abnormality identified.
�c/w high dose thiamine
Started folate
-Started MSAS protocol with lorazepam
�Monitor mental status
Consulted pillowcase cutter, PT/OT
# Dizziness
Acute on chronic
c/w Meclizine
negative orthostatic
CT head no acute findings.
# Abdominal aortic aneurysm
No abdominal pain or tenderness
CT showed: Marked calcific atherosclerotic changes of abdominal aorta with mid to distal aneurysmal dilatation measuring 4.6 x 4.9 cm as compared to 3.9 x 3.[address] study September 08, 2023. Will need OP follow up with vascular.
# Bilateral carotid artery stenosis
# Hypovolemic hyponatremia (likely due to dehydration/hypochloremic contraction alkalosis)
-TSH normal in past
-Sodium remained at 128, improved to 130
Low serum osmolality,
Urine osmolality and sodium are pending
can stop IVF
c/w oral fluid restriction
-Monitor BMP
Appreciate nephrology help-
#Acute on Chronic normocytic anemia, suspect BM suppression due to ETOH abuse.
Hx of Iron deficiency anemia due to chronic blood loss
No history of active bleeding. Stools look normal color in hospital. No rectal bleeding. No melena. No nausea or vomiting
Normal iron panel
GI evaluated the pt, no need for Inpt work-up with lack of active bleeding.
Consulted hematology,
Per hematology: Labs reviewed - no evidence for hemolysis or immune mediated platelet destruction. No iron def. B12 mildly low. Clinical picture is c/w marrow suppression/toxicity from alcohol, with likely nutritional component as well
Would optimize nutrition, alcohol abstention, etc. Will sign off, please call w/ questions
Consent signed, s/p 2 units of RBCS.
# Raynaud phenomenon without gangrene
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
CT showed Mild hepatomegaly with diffuse fatty liver.
No active bleeding
# Hypokalemia, replace
# Essential HTN
-BP stable off meds
# Transaminitis with AST > ALT, Likely due to alcoholic hepatitis
-Hepatitis panel negative in recent past.
CT showed Mild hepatomegaly with diffuse fatty liver.
No abdominal pain
# Current smoker/ Tobacco abuse.
-Continue nicotine
#Anxiety/Depression
Mood is cooperative.
DVT ppx: SQ Heparin
Total time spent to see the patient, examined the patient, review data and lab result, discuss treatment plan with patient, her sister, nursing staff, hematology, around 65 minutes
Anticipated Discharge: 24 - 48 hours
Subjective/Interval History
-
Date of Service: July 22, 2025
No chest pain
no sob
Objective Data
-
Labs:
Laboratory Results
07/22/25
07:06
WBC 3.1 L
Hgb 9.4 L D
Hct 28.4 L
Plt Count 78 L D
Sodium 129 L
Potassium 3.4 L
Chloride 99
Carbon Dioxide 27
BUN 6 L
Creatinine 0.7
Glucose 108 H
Calcium 7.9 L
Vital Signs:
Vital Signs
Temp Pulse Resp BP Pulse Ox
99.0 F 96 18 146/91 99
07/22/25 07:00 07/22/25 07:00 07/22/25 07:00 07/22/25 07:00 07/22/25 07:00
I&O
07/21/25 07/22/25 07/23/25
06:59 06:59 06:59
Intake Total 1495 / 1495 250 / 250
Balance 1495 / 1495 250 / 250
[2025-07-22 10:10] LABS: Platelet Antibody, Direct IgG Negative (Negative); Platelet Antibody, Direct IgM Negative (Negative)
--- NOTE | 2025-07-22 10:29 | W.PN.NEPH.PH ---
Today's Communication / Plan
-
salt tab and FR
labs in am
Assessment/Plan
-
69-year-old female with past medical history of alcohol abuse disorder, chronic hyponatremia, anemia, essential hypertension, peripheral arterial disease s/p stent in the right lower extremity, abdominal aortic aneurysm,, anxiety/depression, left
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 Presents to the ER reporting dizziness. She called EMS and they found her laying down in stools
She drinks a pint of vodka per day she uses
Renal consultation for sodium of 128 and hypokalemia
Also found to have a hemoglobin of 8 with IV fluids went down to 6
Impression.
Hyponatremia secondary to hypovolemia with low urine sodium and decreased effective arterial blood volume increasing ADH in the setting of anemia.
Anemia hemoglobin of 6.
Alcohol abuse.
Plan.
sodium slightly down to 129
will add low dose nacl, and cont FR
replace k and mg prn
hypoalbuminemia-check U PCR-not done
stable BP
Withdrawal prophylaxis.
follow h/h
d/w pt
-
-
Date of Service: July 22, 2025
CC / HPI / ROS
-
Chief Complaint:
Hypoantremia
History of Present Illness:
sodium slightly down to 129
Bp stable
k low 3.4
Review of Systems:
no n/v
no cp or sob
dizziness+ improving
Labs
-
Labs:
WBC 3.1 10^3/uL (4.8-10.8) L 07/22/25 07:06
RBC 3.11 10^6/uL (4.20-5.40) L 07/22/25 07:06
Hgb 9.4 g/dL (12.0-16.0) L D 07/22/25 07:06
Hct 28.4 % (37.0-47.0) L 07/22/25 07:06
Plt Count 78 10^3/uL (130-400) L D 07/22/25 07:06
Sodium 129 mmol/L (135-145) L 07/22/25 07:06
Potassium 3.4 mmol/L (3.5-5.1) L 07/22/25 07:06
Chloride 99 mmol/L (98-107) 07/22/25 07:06
Carbon Dioxide 27 mmol/L (22-30) 07/22/25 07:06
BUN 6 mg/dl (7-17) L 07/22/25 07:06
Creatinine 0.7 mg/dL (0.6-1.0) 07/22/25 07:06
eGFR > 60.00 07/22/25 07:06
Glucose 108 mg/dl (70-99) H 07/22/25 07:06
Calcium 7.9 mg/dl (8.4-10.2) L 07/22/25 07:06
Albumin 2.6 g/dl (3.5-5.0) L 07/21/25 05:09
Physical Exam
-
Vital Signs:
Vital Signs
Temp Pulse Resp BP Pulse Ox
99.0 F 96 18 146/91 99
07/22/25 07:00 07/22/25 07:00 07/22/25 07:00 07/22/25 07:00 07/22/25 07:00
Cardiovascular:: Regular rate and rhythm
Respiratory:: Bilateral: CTA
Lung Excursion:: Normal
Abdomen:: Nontender and Soft
Extremity Edema:: None: Bilateral:
Kimball Catheter: No
--- NOTE | 2025-07-22 10:45 | W.PN.UPDATE ---
Update Note
Progress Note Update
Labs reviewed - no evidence for hemolysis or immune mediated platelet destruction. No iron def. B12 mildly low.
Clinical picture is c/w marrow suppression/toxicity from alcohol, with likely nutritional component as well
Would optimize nutrition, alcohol abstention, etc.
Will sign off, please call w/ questions
[2025-07-22 11:00] VITALS: BP 127/71
--- NOTE | 2025-07-22 13:37 | W.PN.UPDATE ---
Update Note
Progress Note Update
Addendum
I met two sisters in the room. Pt wanted them to be updated
Per sisters: patient living situation is not clean or livable.
reached out to CM
End
--- NOTE | 2025-07-22 14:01 | CM ---
Addendum entered by Felicity Valdes RN 07/22/25 15:43:
Amanda Dotson spoke with patient she wants out patient substance abuse program.
Original Note:
Spoke with sisters Annalise and Nisha and pt at bedside.
Reviewed [facility] data . Pt requested referral to [facility]. Referral in care port.
Offered [facility] pt requested [facility] information
[facility] called spoke with Amanda . Face sheet faxed to [phone] as requested.
PLAN To SNF after located
[2025-07-22 14:54] LABS: Magnesium 1.2 mg/dl (1.6-2.3)
[2025-07-22 15:00] VITALS: BP 126/73
[2025-07-22] MEDS: CRESTOR 20 MG PO (17:40)
[2025-07-22] MEDS: SODIUM CHLORIDE 0.5 GRAM PO (20:40)
[2025-07-22 23:15] VITALS: BP 138/79
[2025-07-23] MEDS: HEPARIN 5000 UNITS SC ×4 (00:26→23:07)
[2025-07-23 07:00] VITALS: BP 144/62
[2025-07-23] MEDS: SODIUM CHLORIDE 0.5 GRAM PO (07:28)
[2025-07-23] MEDS: ANTIVERT 25 MG PO ×2 (07:28→20:07)
[2025-07-23] MEDS: FOLVITE 1 MG PO (07:28)
[2025-07-23] MEDS: PROTONIX 40 MG PO (07:28)
[2025-07-23] MEDS: KCL 20 MEQ PO ×2 (07:28→20:07)
[2025-07-23] MEDS: NICODERM TRANSDERMAL 14 MG TRANSDERM (07:29)
[2025-07-23 07:55] LABS: Blood Urea Nitrogen 5 mg/dl (7-17); Calcium 8.1 mg/dl (8.4-10.2); Carbon Dioxide 27 mmol/L (22-30); Chloride 98 mmol/L (98-107); Estimated Creatinine Clearance 67 ml/min; Glucose 86 mg/dl (70-99); Potassium 3.9 mmol/L (3.5-5.1); Sodium 129 mmol/L (135-145); eGFR > 60.00
--- NOTE | 2025-07-23 09:39 | W.PN.HOSP.TC ---
Today's Communication/Plan
-
.
Assessment / Plan
Assessment / Plan
Physical Exam
-
General: No Apparent Distress, Comfortable and Conversant
HEENT: Normocephalic, Atraumatic
Respiratory: Clear to Auscultation and Non Labored Respirations
Cardiac: Regular Rhythm and S1/S2; Negative Murmur
GI: Soft, Nontender and Nondistended
Musculoskeletal: no edema
Skin: Warm
Neuro: Awake, Alert, Oriented, No Motor Deficits and No Sensory Deficits
Psych: Calm and Intact Judgement/Insight
# Alcohol use disorder
No sign of DT
She reports feeling better, less dizzy
Currently, no tremors, no agitation, lucid and pleasant.
- Cachexia with moderate protein caloric malnutrition, BMI 18-19.
�CT head: No acute intracranial abnormality identified.
� s/p IV high dose thiamine
Started folate
c/w oral folate/ thiamine / Vit B12.
-Started MSAS protocol with lorazepam, no DT for few days, will dc it.
�Monitored mental status,s table/ unchanged.
Consulted telephonic nurse case manager, PT/OT
# Dizziness
less dizzy/ better today
No headache
No blurred vision.
Acute on chronic
c/w Meclizine
Negative orthostatic
CT head no acute findings.
# Abdominal aortic aneurysm
No abdominal pain or tenderness
CT showed: Marked calcific atherosclerotic changes of abdominal aorta with mid to distal aneurysmal dilatation measuring 4.6 x 4.9 cm as compared to 3.9 x 3.[address] study September 08, 2023.
d/w Vascular on -call, no need for inpatient intervention, will need OP follow up with vascular.
# Bilateral carotid artery stenosis
# Hypovolemic hyponatremia (likely due to dehydration/hypochloremic contraction alkalosis)
-TSH normal in past
-Sodium remained at 128, improved to 130 then 129
Low serum osmolality,
Normal urine osmolality, high urine sodium
Stopped IVFF
c/w oral fluid restriction, added sodium chloride. Consider Tolvaptan ( Nephrology will evaluate)
Appreciate nephrology help-
#Acute on Chronic normocytic anemia, suspect BM suppression due to ETOH abuse.
Hx of Iron deficiency anemia due to chronic blood loss
No history of active bleeding. Stools look normal color in hospital. No rectal bleeding. No melena. No nausea or vomiting
Normal iron panel
GI evaluated the pt, no need for Inpt work-up with lack of active bleeding.
Consulted hematology,
Per hematology: Labs reviewed - no evidence for hemolysis or immune mediated platelet destruction. No iron def. B12 mildly low. Clinical picture is c/w marrow suppression/toxicity from alcohol, with likely nutritional component as well
Would optimize nutrition, alcohol abstention, etc. Will sign off, please call w/ questions
Consent signed, s/p 2 units of RBCS.
# Raynaud phenomenon without gangrene
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
CT showed Mild hepatomegaly with diffuse fatty liver.
No active bleeding
# Hypokalemia, replaced c/w K and Mg supplement.
# Essential HTN
-BP stable off meds
- PRN oral hydralazine
# Transaminitis with AST > ALT, Likely due to alcoholic hepatitis
-Hepatitis panel negative in recent past.
CT showed Mild hepatomegaly with diffuse fatty liver.
No abdominal pain
# Current smoker/ Tobacco abuse.
-Continue nicotine
#Anxiety/Depression
Mood is cooperative.
DVT ppx: SQ Heparin
Updated sisters.
Total time spent to see the patient, examined the patient, review data and lab result, discuss treatment plan with patient, her sister, nursing staff, hematology, around 65 minutes
Anticipated Discharge: > 48 hours
Subjective/Interval History
-
Date of Service: July 23, 2025
No chest pain
No sob
Objective Data
-
Labs:
Laboratory Results
07/23/25
06:56
Sodium 129 L
Potassium 3.9
Chloride 98
Carbon Dioxide 27
BUN 5 L
Creatinine 0.7
Glucose 86
Calcium 8.1 L
Vital Signs:
Vital Signs
Temp Pulse Resp BP Pulse Ox
99.8 F 98 17 144/62 97
07/23/25 07:00 07/23/25 07:00 07/23/25 07:00 07/23/25 07:00 07/23/25 07:00
I&O
07/22/25 07/23/25 07/24/25
06:59 06:59 06:59
Intake Total 250 / 250 1080 / 1080
Balance 250 / 250 1080 / 1080
[2025-07-23 15:00] VITALS: BP 125/72
[2025-07-23] MEDS: CRESTOR 20 MG PO (17:04)
--- NOTE | 2025-07-23 17:06 | W.PN.NEPH.PH ---
Today's Communication / Plan
-
increase salt tab, cont FR
Assessment/Plan
-
69-year-old female with past medical history of alcohol abuse disorder, chronic hyponatremia, anemia, essential hypertension, peripheral arterial disease s/p stent in the right lower extremity, abdominal aortic aneurysm,, anxiety/depression, left
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 Presents to the ER reporting dizziness. She called EMS and they found her laying down in stools
She drinks a pint of vodka per day she uses
Renal consultation for sodium of 128 and hypokalemia
Also found to have a hemoglobin of 8 with IV fluids went down to 6
Impression.
Hyponatremia secondary to hypovolemia with low urine sodium and decreased effective arterial blood volume increasing ADH in the setting of anemia.
Anemia hemoglobin of 6.
Alcohol abuse.
Plan.
sodium stable at 129
increase po nacl to 1 BID, and cont FR
hypoalbuminemia-check U PCR-not done
stable BP
follow h/h
d/w pt
-
-
Date of Service: July 23, 2025
CC / HPI / ROS
-
Chief Complaint:
Hypoantremia
History of Present Illness:
sodium no change 129
Bp stable
k normal
Review of Systems:
no n/v
no cp or sob
feels well
Labs
-
Labs:
WBC 3.1 10^3/uL (4.8-10.8) L 07/22/25 07:06
RBC 3.11 10^6/uL (4.20-5.40) L 07/22/25 07:06
Hgb 9.4 g/dL (12.0-16.0) L D 07/22/25 07:06
Hct 28.4 % (37.0-47.0) L 07/22/25 07:06
Plt Count 78 10^3/uL (130-400) L D 07/22/25 07:06
Sodium 129 mmol/L (135-145) L 07/23/25 06:56
Potassium 3.9 mmol/L (3.5-5.1) 07/23/25 06:56
Chloride 98 mmol/L (98-107) 07/23/25 06:56
Carbon Dioxide 27 mmol/L (22-30) 07/23/25 06:56
BUN 5 mg/dl (7-17) L 07/23/25 06:56
Creatinine 0.7 mg/dL (0.6-1.0) 07/23/25 06:56
eGFR > 60.00 07/23/25 06:56
Glucose 86 mg/dl (70-99) 07/23/25 06:56
Calcium 8.1 mg/dl (8.4-10.2) L 07/23/25 06:56
Albumin 2.6 g/dl (3.5-5.0) L 07/21/25 05:09
Physical Exam
-
Vital Signs:
Vital Signs
Temp Pulse Resp BP Pulse Ox
98.2 F 92 17 125/72 98
07/23/25 15:00 07/23/25 15:00 07/23/25 15:00 07/23/25 15:00 07/23/25 15:00
Cardiovascular:: Regular rate and rhythm
Respiratory:: Bilateral: CTA
Lung Excursion:: Normal
Abdomen:: Nontender and Soft
Extremity Edema:: None: Bilateral:
Kimball Catheter: No
[2025-07-23 17:40] LABS: Magnesium 1.0 mg/dl (1.6-2.3)
[2025-07-23] MEDS: SODIUM CHLORIDE 1 GRAM PO (20:07)
[2025-07-23] MEDS: MAGNESIUM OXIDE 400 MG PO (20:07)
[2025-07-23 23:00] VITALS: BP 120/69
[2025-07-23] MEDS: MAGNESIUM SULFATE 100 IV (23:07)
[2025-07-24 06:24] LABS: Hematocrit 28.6 % (37.0-47.0); Hemoglobin 9.3 g/dL (12.0-16.0); Mean Corp Hgb Conc. 32.5 g/dL (33.0-37.0); Mean Corpuscular Volume 93.5 fL (81.0-99.0); Platelet Count 65 10^3/uL (130-400); Red Cell Dist. Width 22.5 % (11.5-14.5)
[2025-07-24 06:32] LABS: Blood Urea Nitrogen 10 mg/dl (7-17); Calcium 7.9 mg/dl (8.4-10.2); Carbon Dioxide 29 mmol/L (22-30); Chloride 98 mmol/L (98-107); Estimated Creatinine Clearance 58 ml/min; Glucose 97 mg/dl (70-99); Magnesium 2.5 mg/dl (1.6-2.3); Potassium 4.6 mmol/L (3.5-5.1); Sodium 129 mmol/L (135-145); eGFR > 60.00
[2025-07-24 08:03] VITALS: BP 124/77
[2025-07-24] MEDS: VITAMIN B-12 1000 MCG PO (08:03)
[2025-07-24] MEDS: HEPARIN 5000 UNITS SC ×2 (08:03→15:36)
[2025-07-24] MEDS: FOLVITE 1 MG PO (08:03)
[2025-07-24] MEDS: MAGNESIUM OXIDE 400 MG PO (08:03)
[2025-07-24] MEDS: SODIUM CHLORIDE 1 GRAM PO (08:04)
[2025-07-24] MEDS: KCL 20 MEQ PO (08:04)
[2025-07-24] MEDS: PROTONIX 40 MG PO (08:04)
[2025-07-24] MEDS: VITAMIN B1 100 MG PO (08:04)
[2025-07-24] MEDS: NICODERM TRANSDERMAL 14 MG TRANSDERM (08:04)
[2025-07-24] MEDS: ANTIVERT 25 MG PO (08:05)
[2025-07-24 12:10] VITALS: BP 151/99
--- NOTE | 2025-07-24 12:40 | W.DCSUMMARY ---
Discharge Summary
Discharge Data
Date of Admission: 07/19/25
Date of Discharge: 07/24/25
Total time spent discharging patient (in min): 52
-
Pending Results: No
Hospital Course
Ms. Day is a 69-year-old female with medical history of alcohol abuse (drinks 1 pint of vodka per day) who presented with severe dizziness. She was brought in by EMS after being found at home laying in her own feces. She was found to have
significant hyponatremia with a serum sodium of 128. She was given isotonic fluids. Her initial hemoglobin of 8.1 dropped to 6.0 after IV fluid administration. She was transfused 1 unit PRBCs with improvement in her hemoglobin to around 9.5 where
it remained stable thereafter. Her CBC also revealed WBC of around 3000 and a platelet count around 70,000. Her pancytopenia is likely due to bone marrow suppression, alcoholic liver disease, and poor nutritional status. She was evaluated by
hematology who recommended abstinence from alcohol and improved nutrition. She was evaluated by nephrology for her hyponatremia and started on salt tablets and fluid restriction. Her sodium levels have remained relatively stable. She has also
been started on vitamin supplementation with thiamine, B12, and folate. She showed no symptoms of alcohol withdrawal during her hospitalization. Her dizziness improved but did not completely resolve. She will be continued on meclizine as needed.
She was evaluated by physical and Occupational Therapy who recommended ongoing therapy at a rehabilitation center after discharge. She was medically stable at time of discharge to SNF.
General: No Apparent Distress, Comfortable and Conversant
HEENT: NormoCephalic, Moist mucous membranes, Atraumatic
Respiratory: Clear and Non Labored Respirations
Cardiac: S1/S2 and Regular Rhythm; No Rub or Gallop
GI: Soft, Non Tender, Non Distended and Normal Bowel Sounds
Musculoskeletal: No Edema, no deformity
: NO Kimball
Neuro: Awake, Alert, Nonfocal/grossly intact
Psych: Calm and cooperative
Discharge Plan
-
Patient Disposition: [facility]/SNF
Discharge Diagnosis/Procedures: Hypovolemic hyponatremia, anemia requiring transfusion
Diet: Restrict fluids to 48 oz
Blood Work: CBC in 3 days to monitor hemoglobin level
BMP in 3 days to monitor electrolytes
Activity Restrictions/Additional Instructions:
You were admitted for treatment of dizziness which was likely multifactorial due to to chronic alcohol abuse, hyponatremia, and anemia. You were given some IV fluids and transfusion of blood with some improvement in your symptoms. It is important
that you continue to abstain from alcohol use. You were started on salt tablets to help with your blood sodium levels. You will need to continue vitamin supplementation including thiamine, B12, and folate in order to help support your central
nervous system considering suspected severe nutritional deficiency due to long-term alcohol use. You were evaluated in the hospital by a trailer mechanic due to your low blood hemoglobin levels. It is suspected that your low blood hemoglobin levels
are due to bone marrow suppression and nutritional deficiency due to alcohol abuse. You will need to follow-up with a trailer mechanic in the outpatient office for ongoing monitoring. You were evaluated by mill attendant while inpatient because of your
low sodium levels which are likely due to poor nutritional status and excessive alcohol intake. You will be continued on salt tablets and fluid restriction to help maintain normal blood sodium levels. You have been evaluated by physical and
Occupational Therapy who recommended ongoing therapy and a rehabilitation center after hospital discharge. You will need to repeat labs in 2 to 3 days to monitor your blood hemoglobin and electrolyte levels.
Referrals:
Remberto Collazo CRNP [Family Provider, Family Practice]
Yaneht Santana MD [Active, Gastroenterology] - in one to two months
Referral Note: follow up for anemia, diarrhea, pancreatic cyst-- will need repeat colonoscopy for known polyp resection and MRI for follow up pancreatic cyst
Prescriptions:
New
nicotine 14 mg/24 hr Patch 24 Hour
14 mg transdermal DAILY Qty: 30 0RF
cyanocobalamin (vitamin B-12) 500 mcg Tablet
1,000 mcg PO DAILY Qty: 30 0RF
meclizine 25 mg Tablet
25 mg PO BID PRN (Reason: dizziness) Qty: 20 0RF
pantoprazole 40 mg Tablet,Delayed Release (Dr/Ec)
40 mg PO DAILY Qty: 30 0RF
folic acid 1 mg Tablet
1 mg PO DAILY Qty: 30 0RF
rosuvastatin 20 mg Tablet
20 mg PO QPM Qty: 30 0RF
sodium chloride 1,000 mg Tablet,Soluble
1,000 mg PO BID Qty: 30 0RF
thiamine mononitrate (vit B1) 100 mg Tablet
100 mg PO DAILY Qty: 30 0RF
Discharge Orders:
Discharge Patient (As Directed); Ordered 07/24/25
Ordered By: Jenaro Sarah
Discharge Date and Time
Print Language: FRISIAN
--- NOTE | 2025-07-24 12:52 | CM ---
Pt is cleared for discharge today, SNF bed available at [facility] which is the facility that she had requested for SNF.
Melissa does not want to be discharged and is planning to appeal the discharge. IMM reviewed and signed; copy of completed form given to Melissa who advised that her family also does not feel she is ready for discharge.
Dr. Trevizo notified of pt's plan to appeal discharge. [facility] notified of pt's plan to appeal as well.
CM will continue to follow to coordinate discharge pending appeal results and/or pt agreement with discharge prior to [place] Appeal.
--- NOTE | 2025-07-24 13:07 | W.PN.NEPH.PH ---
Today's Communication / Plan
-
Maintain salt tablets and fluid restriction
Follow electrolyte
Assessment/Plan
-
69-year-old female with past medical history of alcohol abuse disorder, chronic hyponatremia, anemia, essential hypertension, peripheral arterial disease s/p stent in the right lower extremity, abdominal aortic aneurysm,, anxiety/depression, left
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 Presents to the ER reporting dizziness. She called EMS and they found her laying down in stools
She drinks a pint of vodka per day she uses
Renal consultation for sodium of 128 and hypokalemia
Also found to have a hemoglobin of 8 with IV fluids went down to 6
Impression.
Hyponatremia secondary to hypovolemia with low urine sodium and decreased effective arterial blood volume increasing ADH in the setting of anemia.
Anemia hemoglobin of 6.
Alcohol abuse.
Plan.
sodium stable at 129
po nacl to 1 BID, and cont FR
hypoalbuminemia-check U PCR-not done
stable BP
follow h/h
d/w pt
-
-
Date of Service: July 24, 2025
CC / HPI / ROS
-
Chief Complaint:
Hypoantremia
History of Present Illness:
sodium no change 129
Bp stable
k normal
Review of Systems:
no n/v
no cp or sob
feels well
Labs
-
Labs:
WBC 2.7 10^3/uL (4.8-10.8) L 07/24/25 05:17
RBC 3.06 10^6/uL (4.20-5.40) L 07/24/25 05:17
Hgb 9.3 g/dL (12.0-16.0) L 07/24/25 05:17
Hct 28.6 % (37.0-47.0) L 07/24/25 05:17
Plt Count 65 10^3/uL (130-400) L 07/24/25 05:17
Sodium 129 mmol/L (135-145) L 07/24/25 05:17
Potassium 4.6 mmol/L (3.5-5.1) 07/24/25 05:17
Chloride 98 mmol/L (98-107) 07/24/25 05:17
Carbon Dioxide 29 mmol/L (22-30) 07/24/25 05:17
BUN 10 mg/dl (7-17) 07/24/25 05:17
Creatinine 0.8 mg/dL (0.6-1.0) 07/24/25 05:17
eGFR > 60.00 07/24/25 05:17
Glucose 97 mg/dl (70-99) 07/24/25 05:17
Calcium 7.9 mg/dl (8.4-10.2) L 07/24/25 05:17
Albumin 2.6 g/dl (3.5-5.0) L 07/21/25 05:09
Physical Exam
-
Vital Signs:
Vital Signs
Temp Pulse Resp BP Pulse Ox
98.1 F 83 16 124/77 100
07/24/25 08:03 07/24/25 08:03 07/24/25 08:03 07/24/25 08:03 07/24/25 08:03
Cardiovascular:: Regular rate and rhythm
Respiratory:: Bilateral: CTA
Lung Excursion:: Normal
Abdomen:: Nontender and Soft
Extremity Edema:: None: Bilateral:
Kimball Catheter: No
--- NOTE | 2025-07-24 14:05 | CM ---
Spoke with nursing, and patient now agreeable as long as clothing provided.
This CM spoke with patient, she is in agreement for transfer to skilled rehab today.
TC to [facility] bed is available.
TC to sister Zulema, she will bring clothes to facility tomorrow.
Transport to be arranged
[facility]
Report# [phone]
[2025-07-24] MEDS: FLUZONE HIGH-DOSE 2025-26 0.5 ML IM (15:35)
[2025-07-24 15:46] VITALS: BP 119/66
== END 2025-07-24 17:24 | DRG 433 ==
LOC: 3 WEST ACU 18:19
PROVIDERS: Internal Medicine; Nurse Practitioner Adult Health; Student in an Organized Health Care Education/Training Program; ADMITTING PHYSICIAN Internal Medicine; ATTENDING PHYSICIAN Internal Medicine; CONSULT PHYSICIAN Internal Medicine Gastroenterology; EMERGENCY PHYSICIAN Emergency Medicine; FAMILY PHYSICIAN Nurse Practitioner Family; OTHER PHYSICIAN Internal Medicine Hematology & Oncology; OTHER PHYSICIAN Internal Medicine Nephrology
PROC: 30233N1 Transfusion of Nonautologous Red Blood Cells into Peripheral Vein, Percutaneous Approach (ICD-10-PCS; 2025-07-20)
PROC: 3E02340 Introduction of Influenza Vaccine into Muscle, Percutaneous Approach (ICD-10-PCS; 2025-07-24)
DX: K70.10 Alcoholic hepatitis without ascites (principal); D61.818 Other pancytopenia; E87.1 Hypo-osmolality and hyponatremia; R64 Cachexia; Z68.1 Body mass index [BMI] 19.9 or less, adult; E44.0 Moderate protein-calorie malnutrition; K86.3 Pseudocyst of pancreas; R42 Dizziness and giddiness; E86.1 Hypovolemia; E86.0 Dehydration; E87.6 Hypokalemia; E83.42 Hypomagnesemia; E63.9 Nutritional deficiency, unspecified; F10.10 Alcohol abuse, uncomplicated; F17.210 Nicotine dependence, cigarettes, uncomplicated; I73.9 Peripheral vascular disease, unspecified; Z66 Do not resuscitate; I71.40 Abdominal aortic aneurysm, without rupture, unspecified; I65.23 Occlusion and stenosis of bilateral carotid arteries; D50.9 Iron deficiency anemia, unspecified; I73.00 Raynaud's syndrome without gangrene; F32.A Depression, unspecified; F41.9 Anxiety disorder, unspecified; I10 Essential (primary) hypertension; I70.0 Atherosclerosis of aorta; K70.9 Alcoholic liver disease, unspecified; K76.0 Fatty (change of) liver, not elsewhere classified; R19.7 Diarrhea, unspecified; E88.09 Other disorders of plasma-protein metabolism, not elsewhere classified
CPT/HCPCS: 70450; 74177; 80048; 80053; 82077; 82248; 82533; 82550; 82607; 82728; 82746; 83010; 83540; 83615; 83735; 83930; 83935; 84300; 84443; 84484; 85025; 85027; 85045; 85610; 86023; 86850; 86880; 86900; 86901; 86920; 87045; 87046; 87077; 87324; 87328; 87329; 87427; 87449; 89055; 93005; 96361; 96374; 97110; 97116; 97163; 97167; 97530; 97535; 99285; P9016; Q9967